=== PATIENT | female | born 1945 | race Caucasian/White ===

== ENCOUNTER → 2017-08-28 09:39 | Outpatient (CLI) | payer MEDICARE, SELFPAY ==
[2017-08-28 10:59] LABS: Estimated Glomerular Filt Rate > 60.0 mL/min (>60)
== END ==
PROVIDERS: PCP Internal Medicine; Visit Provider Internal Medicine
DX: M81.0 Age-related osteoporosis without current pathological fracture (principal)
CPT/HCPCS: 36415; 82565

== ENCOUNTER → 2017-09-19 07:49 | Outpatient (CLI) | payer MEDICARE, SELFPAY ==
[2017-09-19 10:02] LABS: Cholesterol 257 mg/dL (140-199); HDL Cholesterol 75 mg/dL (40-60); LDL Cholesterol Calculated 162 mg/dL (<100); Triglycerides 100 mg/dL (35-150)
== END ==
PROVIDERS: PCP Internal Medicine; Visit Provider Internal Medicine
DX: E78.00 Pure hypercholesterolemia, unspecified (principal)
CPT/HCPCS: 36415; 80061

== ENCOUNTER → 2018-01-16 09:38 | Outpatient (CLI) | payer MEDICARE, SELFPAY ==
--- NOTE | 2018-01-16 | DI.MG.S_ITS ---
BILATERAL DIGITAL SCREENING MAMMOGRAM 3D/2D WITH CAD: 01/16/2018 CLINICAL: Routine screening. Family history of breast cancer. Comparison is made to exams dated: 11/07/2016 mammogram, 11/04/2015 mammogram, and 11/02/2014 mammogram - [facility]. The tissue of both breasts is heterogeneously dense. This may lower the sensitivity of mammography. Current study was also evaluated with a Computer Aided Detection (CAD) system. No significant masses, calcifications, or other findings are seen in either breast. There has been no significant interval change. IMPRESSION: NEGATIVE There is no mammographic evidence of malignancy. A 1 year screening mammogram is recommended. This exam was interpreted at Station ID: [id number]. NOTE: For mammograms, a report in lay terms will be sent to the patient. Approximately 15% of breast malignancies will not be visualized mammographically. In the management of a palpable breast mass, a negative mammogram must not discourage biopsy of a clinically suspicious lesion. Electronically Signed By: Yasir elam/guillermina:01/16/2018 10:18:36 letter sent: Normal Exam ACR BI-RADS Category 1: Negative 3341F
== END ==
PROVIDERS: PCP Internal Medicine; Visit Provider Internal Medicine
DX: Z12.31 Encounter for screening mammogram for malignant neoplasm of breast (principal); Z80.3 Family history of malignant neoplasm of breast
CPT/HCPCS: 77063; 77067

== ENCOUNTER → 2018-12-11 19:04 | Outpatient (ROUT) | payer MEDICARE, SELFPAY ==
[2018-12-11 19:27] LABS: Alanine Aminotransferase 47 IU/L (<35); Albumin 3.8 g/dL (3.5-5.0); Albumin Globulin Ratio 1.7 (1.0-2.8); Alkaline Phosphatase 84 U/L (38-126); Aspartate Aminotransferase 28 IU/L (14-36); BUN Creatinine Ratio 25.7 (6-22); Bilirubin Total 0.3 mg/dL (0.2-1.3); Blood Urea Nitrogen 18 mg/dL (7-17); Calcium 9.7 mg/dL (8.4-10.2); Carbon Dioxide 28 mmol/L (22-32); Chloride 103 mmol/L (98-107); Cholesterol 192 mg/dL (140-199); Estimated Glomerular Filt Rate > 60.0 mL/min (>60); Globulin 2.3 g/dL (1.7-4.1); Glucose 121 mg/dL (80-110); HDL Cholesterol 63 mg/dL (40-60); HEMOLYSIS < 15 (0-50); LDL Cholesterol Calculated 92 mg/dL (<100); Sodium 139 mmol/L (137-145); Total Protein 6.1 g/dL (6.3-8.2); Triglycerides 186 mg/dL (35-150)
== END ==
PROVIDERS: PCP Internal Medicine; Visit Provider Physician Assistant
DX: E78.00 Pure hypercholesterolemia, unspecified (principal)
CPT/HCPCS: 80053; 80061

== ENCOUNTER → 2018-12-25 13:14 | Outpatient (CLI) | payer MEDICARE, SELFPAY | PROVIDERS: PCP Internal Medicine; Visit Provider Physician Assistant | DX: M85.88 Other specified disorders of bone density and structure, other site (principal); Z78.0 Asymptomatic menopausal state; Z82.62 Family history of osteoporosis | CPT/HCPCS: 77080 ==

== ENCOUNTER → 2019-02-04 09:49 | Outpatient (CLI) | payer MEDICARE, SELFPAY ==
--- NOTE | 2019-02-04 | DI.MG.S_ITS ---
BILATERAL DIGITAL SCREENING MAMMOGRAM 3D/2D WITH CAD: 02/04/2019 CLINICAL: Routine screening. Family history of breast cancer. Comparison is made to exams dated: 01/16/2018 mammogram, 11/07/2016 mammogram, 11/04/2015 mammogram, 11/02/2014 mammogram, 10/21/2013 mammogram, and 10/17/2012 mammogram - [facility]. The tissue of both breasts is heterogeneously dense. This may lower the sensitivity of mammography. Current study was also evaluated with a Computer Aided Detection (CAD) system. No significant masses, calcifications, or other findings are seen in either breast. There has been no significant interval change. IMPRESSION: NEGATIVE There is no mammographic evidence of malignancy. A 1 year screening mammogram is recommended. This exam was interpreted at Station ID: [id number]. NOTE: For mammograms, a report in lay terms will be sent to the patient. Approximately 15% of breast malignancies will not be visualized mammographically. In the management of a palpable breast mass, a negative mammogram must not discourage biopsy of a clinically suspicious lesion. Electronically Signed By: Khoa murray/guillermina:02/07/2019 08:52:13 letter sent: Normal Exam ACR BI-RADS Category 1: Negative 3341F
== END ==
PROVIDERS: PCP Physician Assistant; Visit Provider Internal Medicine
DX: Z12.31 Encounter for screening mammogram for malignant neoplasm of breast (principal); Z80.3 Family history of malignant neoplasm of breast
CPT/HCPCS: 77063; 77067

== ENCOUNTER 2019-11-11 13:32 | Emergency (ER) | payer MEDICARE, SELFPAY ==
[2019-11-11 13:39] VITALS: BP 154/68; PULSE 80; RESP 20; TEMP 36.5; O2SAT 97; BMI 20.7
--- NOTE | 2019-11-11 13:53 | ED.GENADULT ---
HPI - General Adult General Chief complaint: Urogenital-Female Stated complaint: prolapse including discharge and blood,pessary Time Seen by Provider: 11/11/19 13:40 Source: patient Mode of arrival: Wheelchair Limitations: no limitations History of Present Illness HPI narrative: 74-year-old female. Has a history of a hysterectomy. Has a prior history of a vaginal/bladder prolapse. Occasionally wears a pessary. Was having some issues with the pessary so her primary doctor advised her to wear it a little less often. She stated that earlier today she had a prolapse that she states was worse than normal. She states that now the pessary is not holding anything in place. She is also having some discharge in small amount of blood. States that when she is lying down things seem to retract however when she stands or tries to urinate or defecate the prolapse returns. Some discomfort when it is prolapsed out. This resolves somewhat when it returns. Related Data Allergies Allergy/AdvReac Type Severity Reaction Status Date / Time iodine [IODINE] Allergy Unknown SWELLING Verified 11/11/19 13:46 alendronate sodium AdvReac Unknown HEARTBURN Verified 11/11/19 13:46 [ALENDRONATE SODIUM] butorphanol [BUTORPHANOL] AdvReac Unknown NAUSEA/VOMI Verified 11/11/19 13:46 TING Review of Systems Constitutional Constitutional: Denies headache(s) ENT Ears, Nose, Mouth, and Throat: Denies headache(s) Cardiovascular Cardiovascular: Denies chest pain and Denies dyspnea Respiratory Respiratory: Denies dyspnea Gastrointestinal Gastrointestinal: Reports abdominal pain Genitourinary Genitourinary: Reports prolapse symptoms Integumentary/Breasts Skin/Breast: Denies rash Neurologic Neurologic: Denies behavioral changes and Denies headache(s) Psychiatric Psychiatric: Denies behavioral changes Hematologic/Lymphatic Hematologic/Lymphatic: Denies easy bleeding and Denies easy bruising Patient History Surgical History History of hysterectomy (Acute) Social History Smoking Status: Never smoker Smoking Status: Never smoker alcohol intake frequency: a few times a week Alcohol type: wine Substance Use Type: does not use Exam Initial Vital Signs Initial Vital Signs: Vital Signs Temperature 97.7 F 11/11/19 13:39 Pulse Rate 80 11/11/19 13:39 Respiratory Rate 20 11/11/19 13:39 Blood Pressure 154/68 H 11/11/19 13:39 Pulse Oximetry 97 11/11/19 13:39 Const General: cooperative HENMT Head: normal to inspection and normocephalic Resp Effort & Inspection: normal respiratory effort Cardio Rate: regular rate GI Inspection: non-distended Palpation: soft Other: Pessary in place, no prolapse noted on exam however when patient does bear down the prolapse does occur. Skin Lesions: no lesions Rashes: no rashes Extrem General: capillary refill normal Psych Appearance: grossly normal and well kempt Course Vital Signs Vital signs: Vital Signs - 8 hr 11/11/19 13:39 Temperature 97.7 F Pulse Rate 80 Respiratory Rate 20 Blood Pressure 154/68 H Pulse Oximetry 97 Medical Decision Making MDM Narrative Medical decision making narrative: I did discuss the case with Dr. ruiz with meat seafood associate who stated that she could see the patient tomorrow at 0145 in the clinic. I did discuss this with the patient. When the patient is lying down there is nothing prolapsed however when the patient bear down I did seemed to come around the pessary. Patient can and urinate. We did discuss thinks she could try at home if the symptoms were to worsen or if she had problems urinating however I told her to come back to the emergency department if any of these maneuvers did not work for her. She was given the information with regard to follow-up. She expressed understanding and agreement. Discharge Plan Departure Patient Disposition: Home Clinical Impression: Bladder prolapse Instructions: Cystocele/Rectocele Activity Restrictions/Additional Instructions: I did discuss your case with Dr. Ruiz. She is a meat seafood associate provider at the [facility] [place] [phone]. Their office is located here at the hospital. Dr. Ruiz like to see you in the clinic tomorrow. Your check in time will be 1:30 in the afternoon with an appointment time at 1:45. Please bring your pessary with you. Return to the emergency department for any new symptoms to include worsening pain, prolapse that does not resolve with lying down or you pushing or inability urinate. Referrals: Janice Linn PA-C [Primary Care Provider] -
--- NOTE | 2019-11-11 14:26 | PC.NURSE ---
defer to provider assessment.
[2019-11-11 14:44] VITALS: BP 120/57; PULSE 74; O2SAT 99
== END 2019-11-11 14:44 | disposition home or self-care (01) ==
PROVIDERS: Emergency Provider Emergency Medicine; PCP Physician Assistant
DX: N81.10 Cystocele, unspecified (principal); N89.8 Other specified noninflammatory disorders of vagina
CPT/HCPCS: 99281; 99282

== ENCOUNTER 2019-11-24 07:15 | Inpatient (IN) | payer MEDICARE, SELFPAY ==
[2019-11-24] VITALS (15 sets, daily range): BP systolic 106–123; BP diastolic 55–75; PULSE 66–85; RESP 14–18; TEMP 36.3–36.9; O2SAT 94–98; BMI 20.9
--- NOTE | 2019-11-24 07:19 | ED_ITS ---
HPI - General Adult General Chief complaint: Abdominal Pain Stated complaint: abdominal pain,unable to eat/drink Time Seen by Provider: 11/24/19 07:17 Source: patient Mode of arrival: Ambulatory Limitations: no limitations History of Present Illness HPI narrative: Patient is a 74-year-old female with a prior history of a hysterectomy and also a bladder prolapse who I evaluated in this emergency department approximately 2 weeks ago for in issue with bladder prolapse and also an issue with her pessary. She was discharged home and had a follow-up with metallurgical engineering technician. The pessary has since been removed and she has a another follow-up in approximately 1 week to discuss further options of treatment with regard to this. She is here for evaluation of generalized abdominal pain. This is been going on for approximately 4-5 days. She states that it mostly occurs when she eats however can occur at other times as well. Last bowel movement was approximately 24 hours ago. She states this bowel movement did improve her sy mptoms somewhat however the symptoms do not seem to be exactly associated with bowel movements. She states that she is not having any urinary symptoms. Urinating does not change her abdominal pain at all. She states she feels like she is emptying her bladder. She is not having any fevers. Has not been eating or drinking very much secondary to the discomfort. Related Data Home Medications Medication Instructions Recorded Confirmed atorvastatin 10 mg tablet 10 mg PO BEDTIME 11/12/19 11/24/19 oxyquinoline-sod.lauryl sulfat 1 each VAG BEDTIME 11/24/19 11/24/19 Allergies Allergy/AdvReac Type Severity Reaction Status Date / Time iodine [IODINE] Allergy Unknown SWELLING Verified 11/24/19 07:44 alendronate sodium AdvReac Unknown HEARTBURN Verified 11/24/19 07:44 [ALENDRONATE SODIUM] butorphanol [BUTORPHANOL] AdvReac Unknown NAUSEA/VOMI Verified 11/24/19 07:44 TING Review of Systems Constitutional Constitutional: Denies fever(s) Cardiovascular Cardiovascular: Denies chest pain and Denies dyspnea Respiratory Respiratory: Denies dyspnea Gastrointestinal Gastrointestinal: Reports abdominal pain, Denies change in bowel habits, Denies nausea and Denies vomiting Genitourinary Genitourinary: Denies dysuria, Denies urinary hesitancy, Denies urinary incontinence and Denies urinary urgency Genitourinary: Denies dysuria, Denies urinary incontinence, Denies urinary hesitancy and Denies urinary urgency Musculoskeletal Musculoskeletal: Denies arthralgias, Denies back pain and Denies myalgias Integumentary/Breasts Skin/Breast: Denies rash Neurologic Neurologic: Denies behavioral changes Psychiatric Psychiatric: Denies behavioral changes Hematologic/Lymphatic Hematologic/Lymphatic: Denies easy bleeding and Denies easy bruising Patient History Medical History History of benign brain tumor (Acute) Hypercholesterolemia (Acute) Surgical History History of hysterectomy (Acute) Status post vaginal hysterectomy (Acute) Social History household members: spouse Smoking Status: Never smoker alcohol intake: current Smoking Status: Never smoker alcohol intake frequency: a few times a week Alcohol type: wine Substance Use Type: does not use Exam Initial Vital Signs Initial Vital Signs: Vital Signs Temperature 97.9 F 11/24/19 07:15 Pulse Rate 84 11/24/19 07:15 Respiratory Rate 14 11/24/19 07:15 Blood Pressure 123/70 11/24/19 07:15 Pulse Oximetry 98 11/24/19 07:15 Const General: cooperative and comfortable Limitations: mental status not altered HENMO Head: normal to inspection and normocephalic Resp Effort & Inspection: normal respiratory effort Cardio Rate: regular rate GI Inspection: non-distended Palpation: soft, No firm and tender (Generalized without rebound or guarding) Skin Lesions: no lesions Rashes: no rashes Neuro General: patient alert, patient awake and patient oriented x3 Cognition: normal cognition Speech: speech normal Extrem General: normal to inspection and capillary refill normal Psych Appearance: grossly normal and well kempt Scores GCS Micky coma scale eye opening: Spontaneous [place] coma scale verbal response: Orientated Micky coma scale motor response: Obey commands [place] coma scale total score: 15 Course Orders Ordered: ED Orders 11/24/19 07:25 Complete Blood Count AUTO DIFF Stat Comprehensive Metabolic Panel Stat Lactate (Lactic Acid) Stat Lipase Stat 11/24/19 08:29 CT abdomen pelvis w con Stat 11/24/19 09:17 Education, smoking cessation ONGOING 11/24/19 09:42 COVID19 -ED/INPAT/OR/L&D Stat 11/25/19 05:00 BMP [Basic Metabolic Panel] DAILY Complete Blood Count AUTO DIFF DAILY Magnesium DAILY Phosphorous DAILY 11/26/19 05:00 BMP [Basic Metabolic Panel] DAILY Complete Blood Count AUTO DIFF DAILY Magnesium DAILY Phosphorous DAILY 11/27/19 05:00 BMP [Basic Metabolic Panel] DAILY Complete Blood Count AUTO DIFF DAILY Magnesium DAILY Phosphorous DAILY Hydromorphone HCl (Dilaudid) 0.5 mg IV Q6HR PRN PRN Reason: Pain, Moderate (4-6) Sodium Chloride (Normal Saline 0.9%) 1,000 mls @ 125 mls/hr IV CONT JODY Last Infusion: 11/24/19 13:18 Dose: 125 mls/hr Documented by: Infusion: 11/24/19 10:53 Dose: 0 mls/hr Documented by: Admin: 11/24/19 10:32 Dose: 125 mls/hr Documented by: EDUARDO Naloxone HCl (Narcan) 0.2 mg IV Q2MIN PRN PRN Reason: Opiate Reversal Ondansetron HCl (Zofran) 4 mg IV Q8HR PRN PRN Reason: Nausea And Vomiting Discontinued Medications Diphenhydramine HCl (Benadryl) 25 mg IV NOW ONE Stop: 11/24/19 07:38 Last Admin: 11/24/19 07:53 Dose: 25 mg Documented by: EDUARDO Sodium Chloride (Normal Saline 0.9%) 1,000 mls @ 1,000 mls/hr IV BOLUS ONE Stop: 11/24/19 08:26 Last Infusion: 11/24/19 09:20 Dose: 0 mls/hr Documented by: Admin: 11/24/19 07:53 Dose: 1,000 mls/hr Documented by: EDUARDO Methylprednisolone (Solu-Medrol) 40 mg IV NOW ONE Stop: 11/24/19 07:46 Last Admin: 11/24/19 07:54 Dose: 40 mg Documented by: EDUARDO Vital Signs Vital signs: Vital Signs - 8 hr 11/24/19 07:15 11/24/19 08:48 11/24/19 09:00 Temperature 97.9 F Pulse Rate 84 73 67 Respiratory Rate 14 16 Blood Pressure 123/70 110/55 L Pulse Oximetry 98 97 97 Medical Decision Making Lab Data Lab results reviewed: Yes I reviewed the patient's lab results. Result diagrams: 11/24/19 07:25 11/24/19 07:25 Labs: Lab Results 11/24/19 11/24/19 11/24/19 Range/Units 07:25 07:25 07:25 WBC 15.4 H (4.5-11.0) X10^3/uL RBC 4.78 (4.0-5.2) X10^6/uL Hgb 15.3 (12.0-16.0) g/dL Hct 43.8 (36-46) % MCV 91.7 (80-100) fL MCH 32.1 (26-34) PG MCHC 35.0 (30-36) % RDW 13.1 (11.6-14.8) % Plt Count 488 H (150-400) X10^3/uL Neut % (Auto) 85.3 H (50-75) % Lymph % (Auto) 6.4 L (25-40) % [place] % (Auto) 7.9 (3-14) % Eos % (Auto) 0.1 L (2-4) % Baso % (Auto) 0.3 (0-2) % Neut # (Auto) 25926 H (2528-1688) /uL Lymph # (Auto) 1000 L (6785-7320) /uL [place] # (Auto) 1200 H (0-900) /uL Eos # (Auto) 0 (0-450) /uL Baso # (Auto) 0 (0-100) /uL Sodium 133 L (137-145) mmol/L Potassium 4.3 (3.4-5.1) mmol/L Chloride 101 (98-107) mmol/L Carbon Dioxide 24 (22-32) mmol/L BUN 28 H (7-17) mg/dL Creatinine 0.70 (0.52-1.04) mg/dL Estimated GFR > 60.0 (>60) mL/min BUN/Creatinine Ratio 40.0 H (6-22) Glucose 136 H (80-110) mg/dL Lactate 1.1 (0.7-2.1) mmol/L Calcium 9.4 (8.4-10.2) mg/dL Total Bilirubin 0.8 (0.2-1.3) mg/dL AST 31 (14-36) IU/L ALT 25 (<35) IU/L Alkaline Phosphatase 87 (38-126) U/L Total Protein 7.6 (6.3-8.2) g/dL Albumin 4.2 (3.5-5.0) g/dL Globulin 3.4 (1.7-4.1) g/dL Albumin/Globulin Ratio 1.2 (1.0-2.8) Lipase 76 (23-300) U/L Imaging Data CT scan - abdomen/pelvis: Radiologist's Impression: [address] [address] [address] Scan Report Signed Patient: Julienne Means EMR#: [id number] : 5Acct:[id number] Age/Sex: 74 / FDate of Service: 11/24/19 Loc: ED Accession Number: [id number] Procedure: CT abdomen pelvis w con Ordering Provider: Samuel Umana D.O. PROCEDURE: CT ABDOMEN PELVIS W CON INDICATIONS: Generalized abdominal pain TECHNIQUE: After the administration of intravenous contrast, 5 mm thick sections acquired from the diaphragm to the symphysis. 5 mm coronal and sagittal reformats were acquired. For radiation dose reduction, the following was used: automated exposure control, adjustment of mA and/or kV according to patient size. COMPARISON: None. FINDINGS: Image quality: Excellent. ABDOMEN: Lung bases: Lung bases are clear. There is a 1 cm nodule in the left lower lobe series 5, image 12. No prior imaging of this region is available. Recommend CT of the chest. Solid organs: Liver is normal in size and enhancement. Gallbladder demonstrat es multiple layering stones. No gallbladder wall thickening or pericholecystic fluid. . Biliary system is non dilated. Pancreas enhances normally. Spleen is normal in size and enhancement. No adrenal nodules. Kidneys demonstrate normal size and enhancement, without hydronephrosis. Peritoneum and bowel: Small bowel loops are diffusely dilated with hyperenhancement of the mucosa. These findings are consistent with small bowel obstruction. The transition point appears to be in the distal small bowel at the ileo colic valve or cecum. The right colon has some mucosal thickening but no focal mass, cannot exclude neoplasm at this location. Recommend colonoscopy when clinically indicated.. There is fluid in the right colic gutter. No free fluid or air. Nodes and vessels: No retroperitoneal or mesenteric adenopathy by size criteria. Aorta and inferior vena cava are normal in size. Miscellaneous: No ventral hernias. PELVIS: Genitourinary: Bladder wall thickness is normal. Miscellaneous: No inguinal hernias or adenopathy. Bones: No suspicious bony lesions to suggest fracture or neoplasm.. There is loss of the disc space and grade 1 anterolisthesis at L5-S1 with foraminal stenosis at this level. IMPRESSION: 1. Small-bowel obstruction with a transition point distally at the ileocolic valve or cecum. The cecum and right colon demonstrates some mucosal thickening but no focal mass is identified. However cannot exclude a neoplasm at this location. Recommend colonoscopy when clinically indicated. 2. 1 cm nodule in the left lower lobe not previously seen. Recommend CT of the chest for full evaluation. 3. Degenerative disc disease of L5-S1. Findings were discussed with Dr. Eddie amato in the emergency department at 9:00 a.m. On 11/24/2019. Dictated by: Zuhair Hussein M.D. on 11/24/2019 at 8:40 Approved by: Zuhair Hussein M.D. on 11/24/2019 at 9:05 [facility] Narrative Medical decision making narrative: Patient has small bowel obstruction with a CT scan. Also has leukocytosis but normal lactate. She is not having vomiting. Has had a hysterectomy and also lysis of adhesions in the past. Afebrile. Discussed the case with Dr. Helton with General surgery. Will admit for further evaluation and treatment. Discussed the admission and diagnosis with the patient. She expressed understanding agreement. Discharge Plan Departure Patient Disposition: Admitted As Inpatient Clinical Impression: Small bowel obstruction, Lung nodule Discharge Date/Time: 11/24/19 11:02 Instructions: Small Bowel Obstruction Referrals: Janice Linn PA-C [Primary Care Provider] - Admit Date/Time: 11/24/19 09:17 Admit Provider: Miguel Helton
[2019-11-24 07:35] LABS: Add Manual Diff / Slide Review NO; Basophils Absolute Auto 0 /uL (0-100); Basophils Percent Auto 0.3 % (0-2); Eosinophils Absolute Auto 0 /uL (0-450); Eosinophils Percent Auto 0.1 % (2-4); Hematocrit 43.8 % (36-46); Hemoglobin 15.3 g/dL (12.0-16.0); Lymphocytes Absolute Auto 1000 /uL (1100-4500); Lymphocytes Percent Auto 6.4 % (25-40); Mean Corpuscular Hemoglobin 32.1 PG (26-34); Mean Corpuscular Volume 91.7 fL (80-100); Monocytes Absolute Auto 1200 /uL (0-900); Monocytes Percent Auto 7.9 % (3-14); Neutrophils Absolute Auto 13100 /uL (1500-7000); Neutrophils Percent Auto 85.3 % (50-75); Platelet Count 488 X10^3/uL (150-400); Red Blood Cell Count 4.78 X10^6/uL (4.0-5.2); Red Cell Distribution Width 13.1 % (11.6-14.8); White Blood Cell Count 15.4 X10^3/uL (4.5-11.0)
[2019-11-24 07:45] LABS: Alanine Aminotransferase 25 IU/L (<35); Albumin 4.2 g/dL (3.5-5.0); Albumin Globulin Ratio 1.2 (1.0-2.8); Alkaline Phosphatase 87 U/L (38-126); Aspartate Aminotransferase 31 IU/L (14-36); Bilirubin Total 0.8 mg/dL (0.2-1.3); Blood Urea Nitrogen 28 mg/dL (7-17); Calcium 9.4 mg/dL (8.4-10.2); Carbon Dioxide 24 mmol/L (22-32); Chloride 101 mmol/L (98-107); Estimated Glomerular Filt Rate > 60.0 mL/min (>60); Globulin 3.4 g/dL (1.7-4.1); Glucose 136 mg/dL (80-110); HEMOLYSIS 31 (0-50); Lipase 76 U/L (23-300); Potassium 4.3 mmol/L (3.4-5.1); Sodium 133 mmol/L (137-145); Total Protein 7.6 g/dL (6.3-8.2)
[2019-11-24 07:46] LABS: Lactate (Lactic Acid) 1.1 mmol/L (0.7-2.1)
[2019-11-24] MEDS: diphenhydrAMINE 50 MG/ML VIAL 25 MG IV (07:53)
[2019-11-24] MEDS: SODIUM CHLORIDE 0.9% 1,000 ML 1000 ML IV (07:53)
--- NOTE | 2019-11-24 08:29 | DI.CT.S_ITS ---
PROCEDURE: CT ABDOMEN PELVIS W CON INDICATIONS: Generalized abdominal pain TECHNIQUE: After the administration of intravenous contrast, 5 mm thick sections acquired from the diaphragm to the symphysis. 5 mm coronal and sagittal reformats were acquired. For radiation dose reduction, the following was used: automated exposure control, adjustment of mA and/or kV according to patient size. COMPARISON: None. FINDINGS: Image quality: Excellent. ABDOMEN: Lung bases: Lung bases are clear. There is a 1 cm nodule in the left lower lobe series 5, image 12. No prior imaging of this region is available. Recommend CT of the chest. Solid organs: Liver is normal in size and enhancement. Gallbladder demonstrates multiple layering stones. No gallbladder wall thickening or pericholecystic fluid. . Biliary system is non dilated. Pancreas enhances normally. Spleen is normal in size and enhancement. No adrenal nodules. Kidneys demonstrate normal size and enhancement, without hydronephrosis. Peritoneum and bowel: Small bowel loops are diffusely dilated with hyperenhancement of the mucosa. These findings are consistent with small bowel obstruction. The transition point appears to be in the distal small bowel at the ileo colic valve or cecum. The right colon has some mucosal thickening but no focal mass, cannot exclude neoplasm at this location. Recommend colonoscopy when clinically indicated.. There is fluid in the right colic gutter. No free fluid or air. Nodes and vessels: No retroperitoneal or mesenteric adenopathy by size criteria. Aorta and inferior vena cava are normal in size. Miscellaneous: No ventral hernias. PELVIS: Genitourinary: Bladder wall thickness is normal. Miscellaneous: No inguinal hernias or adenopathy. Bones: No suspicious bony lesions to suggest fracture or neoplasm.. There is loss of the disc space and grade 1 anterolisthesis at L5-S1 with foraminal stenosis at this level. IMPRESSION: 1. Small-bowel obstruction with a transition point distally at the ileocolic valve or cecum. The cecum and right colon demonstrates some mucosal thickening but no focal mass is identified. However cannot exclude a neoplasm at this location. Recommend colonoscopy when clinically indicated. 2. 1 cm nodule in the left lower lobe not previously seen. Recommend CT of the chest for full evaluation. 3. Degenerative disc disease of L5-S1. Findings were discussed with Dr. Eddie amato in the emergency department at 9:00 a.m. On 11/24/2019. Dictated by: Zuhair Hussein M.D. on 11/24/2019 at 8:40 Approved by: Zuhair Hussein M.D. on 11/24/2019 at 9:05
--- NOTE | 2019-11-24 09:18 | DI.RAD.S_ITS ---
PROCEDURE: FL SMALL BOWEL FOLLOW THROUGH INDICATIONS: small bowel obstruction. Perform with gastrografin COMPARISON: None. FINDINGS: KUB: Preprocedural die storage clerk film demonstrates a normal bowel gas pattern. No suspicious abdominal calcifications. Visualized solid organ contours appear normal. No suspicious bony abnormalities. Small bowel: There is abnormal delayed transit time of barium through only a moderate portion of the small bowel. Small bowel loops are of moderately dilated caliber throughout where contrast has advanced. It is estimated that only approximately 1/2 of the length of the small bowel has been opacified over the entire course of the examination, almost 5 hours from initiation of the study.. Mucosal folds are smooth and of normal thickness. No strictures, intraluminal masses, or extrinsic mass effects are noted. The terminal ileum is not identified. IMPRESSION: Persistent high-grade small bowel obstruction. At points during the examination the patient suffered emesis of significant quantities of oral contrast from the gastric lumen. A discrete etiology of this finding is not identified. After almost 5 hours of evaluation with little progression beyond approximately 1/2 of the length of the small bowel the study was terminated. Dictated by: Jacob Paulino M.D. on 11/24/2019 at 17:41 Approved by: Jacob Paulino M.D. on 11/24/2019 at 17:43
[2019-11-24 10:25] LABS: COVID19 -Nasal RAPID Negative (Negative)
[2019-11-24] MEDS: SODIUM CHLORIDE 0.9% 1,000 ML 125 ML IV ×2 (10:32→21:04)
--- NOTE | 2019-11-24 11:11 | PC.NURSE ---
Day shift: Pt on unit from ED at approx 1100. Covid negative. Oriented to room and call light. Having a small bowel fallow through in approx 30 minutes. Pt denies any nausea or pain at this time. Spouse in room for support.
--- NOTE | 2019-11-24 12:32 | PC.NURSE ---
Day shift: Remains off unit for imaging at this time ([id number]).
--- NOTE | 2019-11-24 13:10 | PC.NURSE ---
Day shift: Pt back on unit at approx 1310. Pt to remain NPO.
--- NOTE | 2019-11-24 13:48 | PC.NURSE ---
Day shift: approx 10 minutes after Pt talked with MD she had 500ml emesis. Given a wet washcloth and new emesis bag. Pt does report feeling a little better after throwing up. Call light in reach. IV fluids per MD. Pt will be going back for GI imaging at approx 1530 today. Will continue to monitor.
--- NOTE | 2019-11-24 13:50 | P.HP_ITS ---
History of Present Illness History of Present Illness Date Patient Seen: 11/24/19 Time Patient Seen: 13:51 Chief complaint: abdominal pain,unable to eat/drink Narrative: 74-year-old woman seen hospital setting in consultation for a small- bowel obstruction. She has been feeling progressive abdominal distension nausea and bloating for the past 4 days. She had not had emesis prior to arrival she is passing a very small amount of flatus and her last bowel movement was yesterday morning. CT abdomen pelvis obtained by the emergency room demonstrates small bowel obstruction multiple dilated loops of small bowel air- fluid levels transition point is perhaps in the right lower quadrant. History of hysterectomy a prior small-bowel obstruction which was managed with laparoscopic lysis of adhesions. No major cardiopulmonary or renal disease. Patient History Medical History History of benign brain tumor (Acute) Hypercholesterolemia (Acute) Surgical History History of hysterectomy (Acute) Status post vaginal hysterectomy (Acute) Family & Social History Social History: household members spouse Prior Living Arrangements House Safety & Behavioral: Feels Safe in Current Yes Environment Been Physically Hurt or No Threatened By a Person Suicidal Ideation Description None Tobacco & Substance use: Smoking Status Never smoker alcohol intake current alcohol intake frequency a few times a week Substance Use Type does not use Meds Home Medications and Allergies Home Medications Medication Instructions Recorded Confirmed Type atorvastatin 10 mg tablet 10 mg PO BEDTIME 11/12/19 11/24/19 History oxyquinoline-sod.lauryl sulfat 1 each VAG BEDTIME 11/24/19 11/24/19 History Allergies Allergy/AdvReac Type Severity Reaction Status Date / Time iodine [IODINE] Allergy Unknown SWELLING Verified 11/24/19 07:44 alendronate sodium AdvReac Unknown HEARTBURN Verified 11/24/19 07:44 [ALENDRONATE SODIUM] butorphanol [BUTORPHANOL] AdvReac Unknown NAUSEA/VOMI Verified 11/24/19 07:44 TING Review of Systems Review of Systems Narrative: A 10 point review of systems is negative except as noted in the HPI Exam Vital Signs (past 8 hours): - 11/24/19 07:15 11/24/19 08:48 11/24/19 09:00 Temperature 97.9 F Pulse Rate 84 73 67 Respiratory Rate 14 16 Blood Pressure 123/70 110/55 L Pulse Oximetry 98 97 97 11/24/19 09:29 11/24/19 09:30 11/24/19 10:01 Temperature Pulse Rate 69 66 79 Respiratory Rate Blood Pressure 112/59 L Pulse Oximetry 97 97 94 11/24/19 10:26 11/24/19 10:30 11/24/19 11:15 Temperature Pulse Rate 72 78 Respiratory Rate 18 Blood Pressure 108/57 L 107/60 Pulse Oximetry 97 97 98 11/24/19 11:32 Temperature 98.5 F Pulse Rate 78 Respiratory Rate 18 Blood Pressure 123/75 Pulse Oximetry 97 Oxygen Delivery Method Room Air Oxygen Flow Rate 0 Narrative Exam Narrative: General-no acute distress, thin elderly woman HEENT-moist mucous membranes, no scleral icterus Neck-supple, no lymphadenopathy Chest- non labored respirations, clear to auscultation bilaterally Cardiac-regular rate no peripheral edema Abdomen-distended and uncomfortable, no peritonitis Extremities-warm, well perfused Neurological-alert and oriented, no focal deficits Objective Labs Result Diagrams: 11/24/19 07:25 11/24/19 07:25 Labs: Laboratory Results - last 24 hr 11/24/19 11/24/19 11/24/19 07:25 07:25 07:25 WBC 15.4 H RBC 4.78 Hgb 15.3 Hct 43.8 MCV 91.7 MCH 32.1 MCHC 35.0 RDW 13.1 Plt Count 488 H Neut % (Auto) 85.3 H Lymph % (Auto) 6.4 L [place] % (Auto) 7.9 Eos % (Auto) 0.1 L Baso % (Auto) 0.3 Neut # (Auto) 21855 H Lymph # (Auto) 1000 L [place] # (Auto) 1200 H Eos # (Auto) 0 Baso # (Auto) 0 Sodium 133 L Potassium 4.3 Chloride 101 Carbon Dioxide 24 BUN 28 H Creatinine 0.70 Estimated GFR > 60.0 BUN/Creatinine Ratio 40.0 H Glucose 136 H Lactate 1.1 Calcium 9.4 Total Bilirubin 0.8 AST 31 ALT 25 Alkaline Phosphatase 87 Total Protein 7.6 Albumin 4.2 Globulin 3.4 Albumin/Globulin Ratio 1.2 Lipase 76 COVID-19 PCR 11/24/19 09:42 WBC RBC Hgb Hct MCV MCH MCHC RDW Plt Count Neut % (Auto) Lymph % (Auto) [place] % (Auto) Eos % (Auto) Baso % (Auto) Neut # (Auto) Lymph # (Auto) [place] # (Auto) Eos # (Auto) Baso # (Auto) Sodium Potassium Chloride Carbon Dioxide BUN Creatinine Estimated GFR BUN/Creatinine Ratio Glucose Lactate Calcium Total Bilirubin AST ALT Alkaline Phosphatase Total Protein Albumin Globulin Albumin/Globulin Ratio Lipase COVID-19 PCR Negative Assessment & Plan Assessment & Plan narrative: 74-year-old woman with an adhesive small-bowel obstruction. She is distended without peritonitis, afebrile nontoxic, WBC 16. I reviewed her CT scan demonstrates small bowel obstruction with small amount of free fluid. No urgent indication for surgical intervention will attempt non operative management. Plan -NPO/IVF -Small bowel follow through -SCDs -NGT if persistent emesis Quality VTE Deep Vein Thrombosis/Pulmonary Embolism Present on Admission: No
[2019-11-24] MEDS: ONDANSETRON 4 MG/2 ML INJ IV (16:58)
--- NOTE | 2019-11-24 17:18 | PC.NURSE ---
pt ambulated in hallways twice before her 1645 x-ray. then she vomited 600cc.
[2019-11-25] VITALS (11 sets, daily range): BP systolic 95–122; BP diastolic 55–74; PULSE 59–71; RESP 15–20; TEMP 36.3–37.4; O2SAT 96–99
--- NOTE | 2019-11-25 00:34 | PC.NURSE ---
Addendum entered by Cristal Mario R.N. 11/25/19 05:17: States she passed flatus this morning. Denies pain. States she slept well. Original Note: 5276 patient seen and assessed. Is alert and oriented. Breath sounds diminished but CTA with RA sat of 98%. HRR. Denies nausea. BT present in upper quadrants and hypoactive in lower quadrants. Abdomen is soft and non tender but distended. Denies dysuria, frequency or urgency with urination. Is independent with bed mobility and up to bathroom with SBA. Denies pain. Bilateral calf SCD's applied. Fall risk score is moderate and bed alarm is activated.
[2019-11-25] MEDS: SODIUM CHLORIDE 0.9% 1,000 ML 125 ML IV ×3 (05:12→21:17)
[2019-11-25 06:20] LABS: Add Manual Diff / Slide Review NO; Basophils Absolute Auto 0 /uL (0-100); Basophils Percent Auto 0.4 % (0-2); Eosinophils Absolute Auto 0 /uL (0-450); Eosinophils Percent Auto 0.1 % (2-4); Hematocrit 36.3 % (36-46); Hemoglobin 12.6 g/dL (12.0-16.0); Lymphocytes Absolute Auto 1100 /uL (1100-4500); Lymphocytes Percent Auto 14.2 % (25-40); Mean Corpuscular HGB Conc 34.8 % (30-36); Mean Corpuscular Volume 92.2 fL (80-100); Monocytes Absolute Auto 1000 /uL (0-900); Monocytes Percent Auto 13.7 % (3-14); Neutrophils Absolute Auto 5400 /uL (1500-7000); Neutrophils Percent Auto 71.6 % (50-75); Platelet Count 365 X10^3/uL (150-400); Red Blood Cell Count 3.94 X10^6/uL (4.0-5.2); Red Cell Distribution Width 13.3 % (11.6-14.8); White Blood Cell Count 7.5 X10^3/uL (4.5-11.0)
[2019-11-25 06:31] LABS: BUN Creatinine Ratio 42.5 (6-22); Blood Urea Nitrogen 31 mg/dL (7-17); Calcium 7.7 mg/dL (8.4-10.2); Carbon Dioxide 30 mmol/L (22-32); Chloride 111 mmol/L (98-107); Estimated Glomerular Filt Rate > 60.0 mL/min (>60); Glucose 101 mg/dL (80-110); HEMOLYSIS < 15 (0-50); Magnesium 2.6 mg/dL (1.6-2.3); Phosphorous 2.8 mg/dL (2.8-4.1); Potassium 3.7 mmol/L (3.4-5.1); Sodium 142 mmol/L (137-145)
--- NOTE | 2019-11-25 09:20 | CM.DANOTE ---
Addendum entered by Kimberley Erwin R.N. 11/25/19 10:43: Patient will be having surgery later this afternoon. Original Note: DCP: Case received, EMR reviewed and met with patient. Introduced self and role. Was able to obtain information from patient regarding her baseline activity status and living situation prior to hospitalization. DCP assessment completed with information currently available. Patient is a 75 year old female who admitted yesterday morning to the care of the surgical team. PCP: EDGARDO Garces. Payer: confirmed: [employer] Medicare. Patient came to the hospital via private vehicle secondary to abdominal pain. She was diagnosed with a small bowel obstruction. She is currently getting fluids, possible surgery. Met with patient in her room. She is pleasant, alert and oriented, independent at baseline. She resides with her spouse, Terrell, here in [place]. P: DCP to continue to follow. Patient should be able to go home when she is medically stable. Kimberley Erwin RN/Brake Operator
--- NOTE | 2019-11-25 10:59 | PC.NURSE ---
Day shift: Pt has been ambulating in halls w/ her spouse. Has made approx 3 entire loops from 1000 to 1100. Pt stated that she does not want to have surgery today and would like to wait and see what happens tomorrow. Pt has shower today. Independent in room. No pain or nausea at this time. Pt did have a BM at approx 0930 today. Will continue to monitor. Spouse in room for support.
--- NOTE | 2019-11-25 12:51 | DI.RAD.S_ITS ---
PROCEDURE: XR ABDOMEN 1V INDICATIONS: SBO? BM following SBFT TECHNIQUE: One view of the abdomen acquired. COMPARISON: None. FINDINGS: Surgical changes and devices: None. Bowel: Oral contrast material is seen throughout the colon extending to rectum. Air distended small bowel loops are not noted throughout the abdomen. No oral contrast extravasation. No gross free air. Soft tissues: No suspicious abdominal calcifications. Visualized solid organ contours appear normal in size. Bones: No suspicious bony lesions. IMPRESSION: Oral contrast material is seen extending to the rectum. Finding is suggestive of resolving small bowel obstruction. No gross free air. Dictated by: Aravind Soni M.D. on 11/25/2019 at 13:14 Approved by: Aravind Soni M.D. on 11/25/2019 at 13:15
--- NOTE | 2019-11-25 13:03 | DIET.PN ---
Dietary Progress Note Assessment: 74y F admitted c adhesive small bowel obstruction. Pt has been feeling progressive abdominal distension nausea and bloating for the past 4 days. Pt experiencing decreased appetite for the past couple of days however pt feels it is related to her small bowel obstruction. Pt says prior to this situation her appetite has been great and she hasn't experienced any wt loss. Pt says she is feeling hungry at the moment. HT: 166.37 WT:57.969 BMI: 20.9 Labs: BUN H 28 on admit MNA:11 at risk Ralph: 23 Nutrition Diagnosis: Inadequate oral intake r/t NPO diet for small bowel obstruction AEB patient being NPO for 2 days and patient reports hunger for past 24h. Interventions: 1. Steve bid once pt is progressed to clear liquid diet to support and protein and micronutrient needs. Providing 61% protein needs. Diet Order: NPO EER:1450 kcal( 25kcal/kg) 52g Pro (0.9g/kg) Monitoring/Evaluations: Follow pts to determine if surgery is necessary and reassess
--- NOTE | 2019-11-25 18:11 | PM.PN.1 ---
Subjective Subjective Date Patient Seen: 11/25/19 Time Patient Seen: 18:11 Interval history: Had a small bowel follow through yesterday that was stopped after 5 h as there was no passage of contrast. Later today they had a bowel movement a repeat XR demonstrates contrast in the colon. Her abdominal pain has improved. Exam Vital Signs (past 8 hours): - 11/25/19 11:40 11/25/19 12:04 11/25/19 15:27 Temperature 98.3 F Pulse Rate 67 Respiratory Rate 15 Blood Pressure 100/67 Pulse Oximetry 98 98 99 11/25/19 15:45 Temperature 97.8 F Pulse Rate 61 Respiratory Rate 20 Blood Pressure 102/63 Pulse Oximetry 97 Oxygen Delivery Method Room Air Oxygen Flow Rate 0 Narrative Exam Narrative: Gen-Adult woman alert and oriented Abdomen-Distended but compressible no peritonitis Objective Labs Result Diagrams: 11/25/19 06:05 11/25/19 06:05 Labs: Laboratory Results - last 24 hr 11/25/19 11/25/19 06:05 06:05 WBC 7.5 D RBC 3.94 L Hgb 12.6 Hct 36.3 MCV 92.2 MCH 32.0 MCHC 34.8 RDW 13.3 Plt Count 365 Neut % (Auto) 71.6 Lymph % (Auto) 14.2 L [place] % (Auto) 13.7 Eos % (Auto) 0.1 L Baso % (Auto) 0.4 Neut # (Auto) 5400 Lymph # (Auto) 1100 [place] # (Auto) 1000 H Eos # (Auto) 0 Baso # (Auto) 0 Sodium 142 Potassium 3.7 Chloride 111 H Carbon Dioxide 30 BUN 31 H Creatinine 0.73 Estimated GFR > 60.0 BUN/Creatinine Ratio 42.5 H Glucose 101 Calcium 7.7 L Phosphorus 2.8 Magnesium 2.6 H Assessment & Plan Assessment & Plan narrative: 74-year-old woman with an adhesive small bowel obstruction that is improving with conservative therapy. Reviewed her abdominal x-ray demonstrates passage of contrast from the small bowel follow-through which is now in the rectum. -clear liquid diet -SCDs -OOB and ambulate Quality VTE Deep Vein Thrombosis/Pulmonary Embolism Present on Admission: No
--- NOTE | 2019-11-25 22:29 | PC.NURSE ---
Evening note: Julienne doing well tonight, passing flatus, had BM. Tolerating clear liquids with no reported pain or nausea. VS stable. Ambulated hallways. Hopeful to DC tomorrow.
[2019-11-26] VITALS (9 sets, daily range): BP systolic 127–142; BP diastolic 67–76; PULSE 62–80; RESP 18–20; TEMP 36.2–37.6; O2SAT 96–99
--- NOTE | 2019-11-26 00:12 | PC.NURSE ---
Addendum entered by Cristal Mario R.N. 11/26/19 01:55: Complains of 5/10 mid abdominal pain along with nausea. States she feels awful. Medicated with Dilaudid + Zofran. Does have low grade temp of 99.7, HR of 80 and BP elevated at 142/67. Original Note: 2327 Patient seen and assessed. Breath sounds CTA with RA sat of 98%. HRR. Denies nausea. BT hyperactive and has been having liquid brown stools. Abdomen is soft, mildly tender and still distended but denies pain. Denies dysuria, frequency or urgency with urination. Able to move self in bed and is up to bathroom independent/SBA for safety. Wearing bilateral calf SCD's. Fall risk score is moderate; bed alarm is activated for night time safety.
[2019-11-26] MEDS: HYDROMORPHONE 0.5 MG INJ IV (01:48)
[2019-11-26] MEDS: ONDANSETRON 4 MG/2 ML INJ IV ×2 (01:50→09:16)
[2019-11-26] MEDS: SODIUM CHLORIDE 0.9% 1,000 ML 125 ML IV ×3 (05:07→21:39)
[2019-11-26 06:36] LABS: Add Manual Diff / Slide Review NO; Basophils Absolute Auto 0 /uL (0-100); Basophils Percent Auto 0.4 % (0-2); Eosinophils Absolute Auto 0 /uL (0-450); Eosinophils Percent Auto 0.4 % (2-4); Hematocrit 36.9 % (36-46); Hemoglobin 12.6 g/dL (12.0-16.0); Lymphocytes Absolute Auto 900 /uL (1100-4500); Lymphocytes Percent Auto 11.9 % (25-40); Mean Corpuscular HGB Conc 34.2 % (30-36); Mean Corpuscular Hemoglobin 31.8 PG (26-34); Mean Corpuscular Volume 92.9 fL (80-100); Monocytes Absolute Auto 800 /uL (0-900); Monocytes Percent Auto 10.9 % (3-14); Neutrophils Absolute Auto 5800 /uL (1500-7000); Neutrophils Percent Auto 76.4 % (50-75); Platelet Count 370 X10^3/uL (150-400); Red Blood Cell Count 3.98 X10^6/uL (4.0-5.2); Red Cell Distribution Width 13.3 % (11.6-14.8); White Blood Cell Count 7.6 X10^3/uL (4.5-11.0)
[2019-11-26 06:53] LABS: BUN Creatinine Ratio 41.5 (6-22); Blood Urea Nitrogen 22 mg/dL (7-17); Calcium 7.4 mg/dL (8.4-10.2); Carbon Dioxide 26 mmol/L (22-32); Chloride 111 mmol/L (98-107); Estimated Glomerular Filt Rate > 60.0 mL/min (>60); Glucose 95 mg/dL (80-110); HEMOLYSIS < 15 (0-50); Magnesium 2.5 mg/dL (1.6-2.3); Phosphorous 2.6 mg/dL (2.8-4.1); Potassium 3.7 mmol/L (3.4-5.1); Sodium 139 mmol/L (137-145)
--- NOTE | 2019-11-26 09:05 | P.PN_ITS ---
Subjective Subjective Date Patient Seen: 11/26/19 Time Patient Seen: 09:05 Interval history: Passing flatus having multiple bowel movements. Continues to have moderate abdominal pain secondary to distension, nausea no vomiting Exam Vital Signs (past 8 hours): - 11/26/19 01:50 11/26/19 05:18 11/26/19 07:20 Temperature 99.7 F H 97.2 F L 98.4 F Pulse Rate 80 62 73 Respiratory Rate 18 18 19 Blood Pressure 142/67 H 127/70 138/74 Pulse Oximetry 97 97 98 11/26/19 07:50 Temperature Pulse Rate Respiratory Rate Blood Pressure Pulse Oximetry 98 Oxygen Delivery Method Room Air Oxygen Flow Rate 0 Narrative Exam Narrative: General elderly female alert oriented no acute distress Abdomen distended but less than yesterday compressible no peritonitis Objective Labs Result Diagrams: 11/26/19 06:13 11/26/19 06:13 Labs: Laboratory Results - last 24 hr 11/26/19 11/26/19 06:13 06:13 WBC 7.6 RBC 3.98 L Hgb 12.6 Hct 36.9 MCV 92.9 MCH 31.8 MCHC 34.2 RDW 13.3 Plt Count 370 Neut % (Auto) 76.4 H Lymph % (Auto) 11.9 L [place] % (Auto) 10.9 Eos % (Auto) 0.4 L Baso % (Auto) 0.4 Neut # (Auto) 5800 Lymph # (Auto) 900 L [place] # (Auto) 800 Eos # (Auto) 0 Baso # (Auto) 0 Sodium 139 Potassium 3.7 Chloride 111 H Carbon Dioxide 26 BUN 22 H Creatinine 0.53 Estimated GFR > 60.0 BUN/Creatinine Ratio 41.5 H Glucose 95 Calcium 7.4 L Phosphorus 2.6 L Magnesium 2.5 H Assessment & Plan Assessment & Plan narrative: 74-year-old woman with adhesive small bowel obstruction resolving with non operative management. Small-bowel follow-through reviewed demonstrates contrast within the rectum she has return of bowel function. -advance diet as tolerated -SCDs -modified pain and anti emetic medications -anticipate DC home tomorrow if able to advance diet Quality VTE Deep Vein Thrombosis/Pulmonary Embolism Present on Admission: No
[2019-11-26] MEDS: SIMETHICONE 80 MG TABLET PO (09:16)
[2019-11-26] MEDS: OXYCODONE IR 5 MG TABLET PO ×2 (09:16→18:03)
--- NOTE | 2019-11-26 10:52 | CM.DPC ---
DCP Cont: Per Surgeon, per contrast from SBFT pt's obstruction appears to be slowly resolving without further surgical intervention. Will begin to further advance her diet today to determine if she can tolerate and possible d/c tomorrow if remains stable. Plan: SW to follow closely to determine if pt safe for d/c home tomorrow and any further identified needs. NIKKI Iglesias
[2019-11-26] MEDS: KETOROLAC 30 MG/ML VIAL IV ×2 (13:23→18:02)
[2019-11-26] MEDS: MORPHINE 4 MG/ML INJ IV (22:38)
[2019-11-26] MEDS: DEXTROSE 5%-LACTATED RINGERS 1,000 ML 125 ML IV (22:38)
--- NOTE | 2019-11-26 23:24 | PC.NURSE ---
Evening notes: Julienne reported significant lower back pain this evening, rated 7/10, medicated with oxycodone & toradol. After approx 1 hour I saw her walking in hallway with her spouse. Still reported pain 7/10, said meds took the edge off but pain still there. She describes the pain as achy menstrual cramp-like. Denies nausea. Abdomen distended but the same as it's been, not rigid & denies pain when palpated. I notified Dr Vázquez of patient's pain, he ordered a one-time dose of Morphine 4 mg IV and to change IVF to D5LR. 20 minutes after Morphine given patient said her pain was gone. Continues to deny abdomen pain or nausea. Has voided 225 ml concentrated zee urine tonight, I encouraged increased PO fluid intake if tolerated. Denies other needs/concerns tonight, fall precautions in place & alarm active for safety.
[2019-11-27] VITALS (22 sets, daily range): BP systolic 97–148; BP diastolic 52–76; PULSE 70–109; RESP 16–22; TEMP 36.4–37; O2SAT 94–97; BMI 20.9
--- NOTE | 2019-11-27 | PATH_ITS ---
[facility] Accession Number: [id number] . 01 Material submitted: . small bowel - SMALL BOWEL RESECTION . 01 Clinical history: . ABDOMINAL PAIN, UNABLE TO EAT/DRINK . 02 Diagnosis: Small Bowel, Resection: 1. Small bowel with marked reactive serosal changes; reactive serosa continuous with portion of squamous mucosa, consistent with surgical impression of enterocele. 2. Mucosal congestion and epithelial sloughing consistent with early ischemic changes. 3. Negative for granulomas, dysplasia and malignancy. [facility] 12/01/2019 1415 Local . 02 Electronically signed: . Miranda Patiño MD, Pathologist NPI- [id number] . 01 Gross description: . The specimen is received in formalin, labeled small bowel resection and consists of a 100 cm in length portion of adhesed small bowel with two stapled margins. The serosa is pink-purple and smooth with fibrinous adhesions near one end. There is an 8.0 x 6.0 x 3.0 cm firm mojica granular lesion located 4.0 cm from the closest stapled margin. Sectioning reveals mojica-pink cut surfaces with a maximal thickness of 0.5 cm. The lesion does not extend into the muscularis and comes to within 3.5 cm from the nearest mesenteric margin. The specimen is opened to reveal a mojica-pink mucosa with normal to attenuated mucosal folds, and the wall thickness ranges from 0.1 to 0.2 cm. The internal luminal circumference ranges from 4.0 to 9.0 cm. Sectioning through the attached adipose tissue reveals multiple candidate lymph nodes ranging from 0.2 to 1.0 cm. Quality Review Specialist sections are submitted. . A1 - Stapled margin, training representative perpendicular sections, furthest from lesion. A2 - Stapled margin, training representative perpendicular sections (black), closest to lesion. A3 - Closest mesenteric margin (blue), perpendicular sections. A4-A7 - Quality Review Specialist lesion. A8-A9 - Quality Review Specialist adhesed portions of bowel. A10-A11 - One bisected lymph node per cassette. A12 - Intact lymph nodes. ([id number]) /[facility] 11/28/2019 1848 Local . 02 Pathologist provided ICD-10: N81.5 . 02 CPT . 784571 Performed at: 01 [facility] [address] [id number] MD Yasir Ford MD Phone: [phone] Performed at: 02 [facility] [address] [place] [id number] MD Miranda Patiño MD Phone: [phone]
[2019-11-27] MEDS: KETOROLAC 30 MG/ML VIAL IV ×4 (00:01→23:37)
--- NOTE | 2019-11-27 01:45 | PC.NURSE ---
Addendum entered by Cristal Mario R.N. 11/27/19 04:02: ELIA Castellanos, reports patient had 125cc emesis; medicated with Zofran. Original Note: 0014 patient seen and assessed. Is alert and oriented. Breath sounds CTA with RA sat of 97%. HRR. Denies nausea. BT hypoactive; remains distended but soft and non tender. Still had loose stool on previous shift and states she is passing some flatus. Denies dysuria, frequency or urgency with urination. Able to move herself in bed. Up to bathroom with SBA. Bilateral calf SCD's applied. Fall risk score is moderate and bed alarm is activated. Currently denies any pain.
[2019-11-27] MEDS: ONDANSETRON 4 MG/2 ML INJ IV ×2 (04:00→15:23)
[2019-11-27 06:05] LABS: Add Manual Diff / Slide Review NO; Basophils Absolute Auto 0 /uL (0-100); Basophils Percent Auto 0.2 % (0-2); Eosinophils Absolute Auto 0 /uL (0-450); Eosinophils Percent Auto 0.2 % (2-4); Hemoglobin 12.3 g/dL (12.0-16.0); Lymphocytes Absolute Auto 300 /uL (1100-4500); Mean Corpuscular HGB Conc 35.2 % (30-36); Mean Corpuscular Hemoglobin 32.2 PG (26-34); Mean Corpuscular Volume 91.6 fL (80-100); Monocytes Absolute Auto 800 /uL (0-900); Monocytes Percent Auto 10.3 % (3-14); Neutrophils Absolute Auto 6500 /uL (1500-7000); Neutrophils Percent Auto 85.3 % (50-75); Platelet Count 325 X10^3/uL (150-400); Red Blood Cell Count 3.82 X10^6/uL (4.0-5.2); Red Cell Distribution Width 12.8 % (11.6-14.8); White Blood Cell Count 7.6 X10^3/uL (4.5-11.0)
[2019-11-27] MEDS: DEXTROSE 5%-LACTATED RINGERS 1,000 ML 125 ML IV (06:05)
[2019-11-27 06:11] LABS: BUN Creatinine Ratio 40.8 (6-22); Blood Urea Nitrogen 20 mg/dL (7-17); Calcium 7.1 mg/dL (8.4-10.2); Carbon Dioxide 26 mmol/L (22-32); Chloride 111 mmol/L (98-107); Estimated Glomerular Filt Rate > 60.0 mL/min (>60); Glucose 150 mg/dL (80-110); HEMOLYSIS < 15 (0-50); Magnesium 2.3 mg/dL (1.6-2.3); Potassium 3.4 mmol/L (3.4-5.1); Sodium 139 mmol/L (137-145)
--- NOTE | 2019-11-27 09:02 | DI.RAD.S_ITS ---
PROCEDURE: XR ABDOMEN 1V INDICATIONS: ?resolving SBO TECHNIQUE: One view of the abdomen acquired. COMPARISON: [facility], CT, CT ABDOMEN PELVIS W CON, 11/24/2019, 8:18. [facility], RF, [place] SMALL BOWEL FOLLOW THROUGH, 11/24/2019, 11:35. [facility], CR, XR ABDOMEN 1V, 11/25/2019, 13:19. FINDINGS: Surgical changes and devices: None. Bowel: There is continued abnormal gaseous distention of small bowel loops, which measure up to 4.3 cm. The previously administered oral contrast has largely resolved, it can be seen within the proximal colon. Soft tissues: No suspicious abdominal calcifications. Visualized solid organ contours appear normal in size. Bones: No suspicious bony lesions. Age-appropriate bony degenerative changes are seen. Mild levoconvex scoliotic curvature is noted. IMPRESSION: Continued abnormal gaseous dilatation of small bowel loops, which measure up to 4.3 cm. Given the passage of oral contrast into the colon, this is considered to be a high-grade partial obstruction. Dictated by: Nehemiah Mendoza M.D. on 11/27/2019 at 8:46 Approved by: Nehemiah Mendoza M.D. on 11/27/2019 at 8:48
[2019-11-27] MEDS: SIMETHICONE 80 MG TABLET PO (09:04)
[2019-11-27] MEDS: METOCLOPRAMIDE 10 MG/2 ML INJ 5 MG IV (12:02)
--- NOTE | 2019-11-27 12:20 | P.PN_ITS ---
Subjective Subjective Date Patient Seen: 11/27/19 Time Patient Seen: 12:20 Interval history: Worsening abdominal pain and nausea over the past 24 hours. She is passing small amount flatus and had a bowel movement however she feels more distended than previously. Exam Vital Signs (past 8 hours): - 11/27/19 08:05 11/27/19 09:02 Temperature 98.6 F Pulse Rate 81 Respiratory Rate 20 Blood Pressure 107/59 L Pulse Oximetry 97 97 Oxygen Delivery Method Room Air Oxygen Flow Rate 0 Narrative Exam Narrative: General elderly woman alert oriented Abdomen distended tender right lower quadrant no peritonitis Objective Labs Result Diagrams: 11/27/19 05:37 11/27/19 05:37 Labs: Laboratory Results - last 24 hr 11/27/19 11/27/19 05:37 05:37 WBC 7.6 RBC 3.82 L Hgb 12.3 Hct 35.0 L MCV 91.6 MCH 32.2 MCHC 35.2 RDW 12.8 Plt Count 325 Neut % (Auto) 85.3 H Lymph % (Auto) 4.0 L [place] % (Auto) 10.3 Eos % (Auto) 0.2 L Baso % (Auto) 0.2 Neut # (Auto) 6500 Lymph # (Auto) 300 L [place] # (Auto) 800 Eos # (Auto) 0 Baso # (Auto) 0 Sodium 139 Potassium 3.4 Chloride 111 H Carbon Dioxide 26 BUN 20 H Creatinine 0.49 L Estimated GFR > 60.0 BUN/Creatinine Ratio 40.8 H Glucose 150 H Calcium 7.1 L Phosphorus 2.0 L Magnesium 2.3 Assessment & Plan Assessment & Plan narrative: 74-year-old female admitted to hospital with a small-bowel obstruction. She had a small-bowel follow-through and ultimately c ontrast was seen passing into the colon. She has had a partial return of bowel function but is failing to progress appropriately. Abdominal x-ray from today demonstrates persistent dilated loops of small bowel there is some contrast within the colon. She is clinically worse than she was yesterday. I suspect that she has a chronic point of obstruction causing a partial small bowel obstruction. Recommended that we proceed to the operating room for exploratory laparotomy lysis of adhesions possible bowel resection with concurrent enterocele repair by Dr. Ruiz. Operative risks including bleeding infection anastamotic leak damage to surrounding structures have been discussed. Questions have been answered she is in agreement with this plan Quality VTE Deep Vein Thrombosis/Pulmonary Embolism Present on Admission: No
[2019-11-27] MEDS: MORPHINE 2 MG/ML INJ IV ×2 (12:24→22:04)
--- NOTE | 2019-11-27 12:57 | CM.DPC ---
Addendum entered by Angeline Yu LPN 11/28/19 09:27: A check in this morning shows pt did have surgery late yesterday and needed the CHERYL and small bowel resection. DCP team will be following as pt recovers to assist with d/c issues and options. Original Note: DCP: continued: case received, EMR reviewed: POC change noted: Dr. Helton was here today, noted that pt was worsening and surgery is now planned for 1529 today: exploratory laparotomy/CHERYL/? of bowel resection and enterocele with Dr. Ruiz. Will cehck in tomorrow and be following.
[2019-11-27] MEDS: LACTATED RINGERS 1,000 ML 42 ML IV ×2 (15:22→17:48)
[2019-11-27] MEDS: MORPHINE 10 MG/ML INJ 2 MG IV (15:42)
[2019-11-27] MEDS: FAMOTIDINE 20 MG/50 ML PIGGYBACK 200 MG IV (15:47)
[2019-11-27] MEDS: PIPERACILLIN-TAZO 3.375 GM/50 ML FROZ.PIGGY IV ×2 (16:11→23:38)
--- NOTE | 2019-11-27 16:31 | SUR.OPER ---
Lithotomy on padded OR bed, head on pillow, arms secured on padded arm boards at <90 degrees abduction. Legs secured in padded yellow fins stirrups.
[2019-11-27] MEDS: BUPIVACAINE 0.25% (PF) VIAL 30 ML INJ (16:51)
--- NOTE | 2019-11-27 17:13 | PC.NURSE ---
Addendum entered by Bisi Pitts R.N. 11/27/19 22:12: Pt returned to room approximately 1900 Resting quietly all evening. Lung clear/shallow. SpO2 94% RA Abdominal incision dsg CDI, NGT patent small amount dark content. IVF infusing via pump as per orders. F/C patent zee urine. Call light w/in reach, bed alarm on for pt safety/ Continue w/plan of care. Original Note: Pt escorted to surgery by OR staff at 1500. Continues in OR suite.
[2019-11-27] MEDS: BUPIVACAINE LIPOSOME 266 MG/20 ML VIAL INJ (18:14)
--- NOTE | 2019-11-27 19:16 | SUR.PHASEI ---
IV fluids infusing only in left wrist site during PACU time.
--- NOTE | 2019-11-27 19:42 | SUR.PHASEI ---
PT TRANSFERRED TO ACUTE CARE FLOOR IN STABLE CONDITION, VSS. PT ALERT AND TALKING TO RN DURING TRANSPORT. BEDSIDE REPORT GIVEN TO CAT, RN. TRANSFERRED CARE OF CAT, RN AT THAT TIME.
[2019-11-27] MEDS: SODIUM CHLORIDE 0.9% 1,000 ML 125 ML IV (19:54)
--- NOTE | 2019-11-27 19:58 | P.OP_ITS ---
Operative Date/Time/Diagnoses Date of procedure: 11/27/19 Time of procedure: 19:58 Pre-op diagnosis: Small-bowel obstruction Post-op diagnosis: same Procedure & Clinicians Procedure: Exploratory laparotomy, small-bowel resection, lysis of adhesions Same procedure as scheduled: Yes Indications: 74-year-old woman history of a hysterectomy, lysis of adhesions who presented to the hospital with a small-bowel obstruction. She underwent of small-bowel follow-through study which ultimately demonstrated contrast within the colon. Despite this she remained distended, uncomfortable with vomiting, imaging demonstrated a persistent small-bowel obstruction she was taken to the operating room for a partial small bowel obstruction. Surgeon: Miguel Helton Production Control Expert: Bisi Ruiz Anesthesia Type: General Operative Notes Findings: Incarcerated small bowel within the cuff of the vagina Specimen(s): other (Small-bowel) Estimated Blood Loss (mL): 150 Procedure in detail: Patient was brought to the operating room placed supine on the table. Bilateral lower extremity compression devices were applied. She received Zosyn prior to skin incision. Anesthesia was induced and she was intubated with an endotracheal tube. She was placed into lithotomy and appropriately padded. Garcia catheter was sterilely placed. Time-out was performed she was prepped and draped in sterile fashion. Began with a lower midline incision through her previous scar. The subcutaneous tissues were divided the fascia was grasped and elevated then sharply incised. The abdomen was entered atraumatically. Upon entry there was a large volume of ascites and very dilated loops of small bowel. The incision was extended and the small bowel was eviscerated. The small bowel was mobile proximally but distally it was stuck deep in the pelvis. An extensive lysis of adehsions was performed and then we were able to demonstrated that there was portion of small bowel adherent to the top of the vagina. Ultimately the small bowel was freed and we found a knuckle of small bowel that had been incarcerated within the vagina through a hole in its appex. In retrospect I think the pessery had probably erroded through vaginal cuff left from the hysterectomy and the bowel subsequently incarcerated. What remained was a large hole in the top of the vagina which Dr. Ruiz closed. Inspection of the small bowel demonstrated that there was actually vaginal mucosa adherent to this loop of small bowel. The small bowel that had been incarcerated was not healthy appearing it was dilated the wall thinned from chronic incarceration and partailly ischemic, it was also adherent to multiple loops of bowel via interloop adhesions. An enterotomy occured it was controlled with clamp and suture. Ultimately I resected a segment of small bowel that included the incacerated portion with the enterotomy and becasue this was close to the ileocecal valve I fashion a side to side entero coolon anastamosis. The small bowel was divided using the stapler the mesentery taken with the ligature. Silk suture was used to reapproximate the colon to the small bowel in side to side fashion. Enterotomy and a colotomy were created and then the limbs of the bowel were joined together on the antimesenteric surface using a 45 mm staple load. Inspected the common channel to make sure that it was widely patent and hemostatic. Then the common channel was closed with the TA stapler and it was oversewn with silk suture in interrupted fashion. There was a large mesenteric defect left from the small-bowel resection large enough that I did not close it given its low risk of internal herniation. A 19 [place] XIMENA drain was placed into the pelvis. The abdomen was copiously irrigated with several L of sterile saline and then the fascia was closed in a running fashion using 1. PDS suture. Subcutaneous tissues were reapproximated using 3 0 Vicryl the skin closed with roberto carlos. She emerged from anesthesia was extubated and transferred to recovery room in stable condition Complications: none Post-operative Condition: stable Disposition: Acute Care
--- NOTE | 2019-11-27 20:41 | PM.GYNOP.1 ---
Operative Date/Time/Diagnoses Date of procedure: 11/27/19 Time of procedure: 18:00 Pre-op diagnosis: Enterocele Small bowel obstruction Post-op diagnosis: same Procedure & Clinicians Procedure: Procedures Operation Date: 11/27/19 15:30 Actual Procedures Side Surgeon p Exploratory Laparotomy GEN, SMALL BOWEL RESECTION Miguel Helton MD s Enterocele repair Bisi Ruiz MD Indications: Enterocele Small bowel obstruction Surgeon: Bisi Ruiz Cold Water Machine Operator: Miguel Helton Anesthesia Type: General Operative Notes Findings: A loop of small bowel with a band at its proximal end of the loop into the vagina Closure Type: primary Applied: catheter Estimated blood loss (mL): 200 Blood products transfused: none Procedure in detail: The preparation an opening of the abdomen dictated by Dr. Helton Once pelvis was identified the small bowel was stuck to the top of the vagina. With a separately gloved hand placed into the vagina the mass was lifted out of the vagina and a loop of the small bowel with a band at the proximal end popped out of the vagina. The hand was removed from the vagina and the gloves changed. There was then found to be a 4 cm hole in the vagina and a piece of vaginal mucosa stuck to the banded loop of small bowel. This was closed with simple interrupted sutures with 2 0 Vicryl. A 5 cm segment of the excess vagina was ligated with a pursestring suture with 2 0 Vicryl. With a separately gloved hand in the vagina vagina had good length, but there was no further place for an enterocele to recur. Again the hand was in the vagina was reclosed. The remainder of the procedure is then dictated by Dr. Helton. Complications: other (Enterotomy) Post-operative Condition: stable Disposition: PACU Plan for aftercare: To acute care after recovery
[2019-11-28] VITALS (11 sets, daily range): BP systolic 96–123; BP diastolic 53–58; PULSE 91–97; RESP 14–16; TEMP 36.1–37.4; O2SAT 95–97
[2019-11-28] MEDS: SODIUM CHLORIDE 0.9% 1,000 ML 125 ML IV (04:53)
[2019-11-28 05:10] LABS: Add Manual Diff / Slide Review NO; Basophils Absolute Auto 0 /uL (0-100); Basophils Percent Auto 0.2 % (0-2); Eosinophils Absolute Auto 0 /uL (0-450); Hematocrit 38.1 % (36-46); Hemoglobin 12.9 g/dL (12.0-16.0); Lymphocytes Absolute Auto 400 /uL (1100-4500); Lymphocytes Percent Auto 4.8 % (25-40); Mean Corpuscular HGB Conc 33.9 % (30-36); Mean Corpuscular Hemoglobin 31.4 PG (26-34); Mean Corpuscular Volume 92.8 fL (80-100); Monocytes Absolute Auto 200 /uL (0-900); Monocytes Percent Auto 2.9 % (3-14); Neutrophils Absolute Auto 7100 /uL (1500-7000); Neutrophils Percent Auto 92.1 % (50-75); Platelet Count 361 X10^3/uL (150-400); Red Blood Cell Count 4.11 X10^6/uL (4.0-5.2); Red Cell Distribution Width 13.1 % (11.6-14.8); White Blood Cell Count 7.7 X10^3/uL (4.5-11.0)
[2019-11-28 05:17] LABS: BUN Creatinine Ratio 28.4 (6-22); Blood Urea Nitrogen 19 mg/dL (7-17); Calcium 6.8 mg/dL (8.4-10.2); Carbon Dioxide 27 mmol/L (22-32); Chloride 109 mmol/L (98-107); Estimated Glomerular Filt Rate > 60.0 mL/min (>60); Glucose 112 mg/dL (80-110); HEMOLYSIS < 15 (0-50); Magnesium 1.9 mg/dL (1.6-2.3); Phosphorous 2.8 mg/dL (2.8-4.1); Potassium 3.5 mmol/L (3.4-5.1); Sodium 139 mmol/L (137-145)
[2019-11-28] MEDS: KETOROLAC 30 MG/ML VIAL IV ×4 (05:44→23:48)
--- NOTE | 2019-11-28 06:22 | PC.NURSE ---
Jose UOP only 100 cc of dark tea colored urine in [address] Helton notified ordered bolus 1 liter of NS. Will implement order & monitor.
[2019-11-28] MEDS: SODIUM CHLORIDE 0.9% 1,000 ML 1000 ML IV ×2 (06:37→15:31)
[2019-11-28] MEDS: POTASSIUM CHLORIDE 40 MEQ in SODIUM CHLORIDE 0.9% 500 ML 130 ML IV (07:57)
[2019-11-28] MEDS: PIPERACILLIN-TAZO 3.375 GM/50 ML FROZ.PIGGY IV ×3 (08:20→19:47)
[2019-11-28] MEDS: MORPHINE 2 MG/ML INJ IV (08:20)
[2019-11-28] MEDS: ENOXAPARIN 30 MG/0.3 ML SYRINGE SUBCUT (08:20)
--- NOTE | 2019-11-28 09:57 | PT.IIE ---
Current Diagnoses Intestinal adhesions [bands], unspecified as to partial versus complete obstruction (11/24/19) Surgery Performed Operation Date: 11/27/19 15:30 Actual Procedures p Exploratory Laparotomy GEN, SMALL BOWEL RESECTION - Miguel Helton MD s Enterocele repair - Bisi Ruiz MD Surgical History (Last Reviewed 11/24/19 @ 07:30 by Samuel Umana DO) History of hysterectomy (Acute) Status post vaginal hysterectomy (Acute) Medical History (Last Reviewed 11/24/19 @ 07:30 by Samuel Umana DO) History of benign brain tumor (Acute) Hypercholesterolemia (Acute) Physical Therapy Inpatient Evaluation/Re-Eval M1 PT/OT-IP Prior Functional Status Start: 11/28/19 13:35 Freq: NEEDED Status: Active Protocol: Document 11/28/19 13:35 [facility] (Rec: 11/28/19 13:44 [facility] [id number]) Medical Review Prior Functional Status Medical History Reviewed Yes Communication WNL Mobility and Gait Pt amb without AD, went on hikes and did yoga & gardening Activities of Daily Living and IADL's Indep Social History Household Members spouse Living Arrangements House Number of Floors (Floors) One Floor Number of Stairs To Enter/Railing? none Home Environment Standard Height Toilet,Walk in Shower Home Equipment Grab Bars In Shower Additional Social History Comment built in seat M2 PT-IP Current Condition Start: 11/28/19 13:35 Freq: NEEDED Status: Active Protocol: Document 11/28/19 13:35 [facility] (Rec: 11/28/19 13:44 [facility] [id number]) Physical Therapy Current Condition Current Condition Evaluation Date 11/28/19 Treatment Diagnosis SBO & enterocele s/p small bowel resection Precautions Abdominal Surgery Precautions Log Roll,Lifting Restrictions, Gait Belt above Incisional Area M3 PT-IP Subjective Start: 11/28/19 13:35 Freq: NEEDED Status: Active Protocol: Document 11/28/19 13:35 [facility] (Rec: 11/28/19 13:44 [facility] [id number]) Subjective Physical Therapy Visit Type Type Initial Evaluation Visit Start Time 09:20 Visit Stop Time 09:57 Total Visit Minutes 37 Number of SHOE CEMENTER Visits 0 Physical Therapy Visit Comments Patient Comments Pt wants to get up moving Therapy Pain Assessment Pain When Pain Assessed During Mobility Pain Present Pain Present Pain Reported Location generalized abd Intensity 5 Scale Used Numeric (0 - 10) Pain Management Techniques Apply Cold M4 PT-IP Mobility and Gait Start: 11/28/19 13:35 Freq: NEEDED Status: Active Protocol: Document 11/28/19 13:35 [facility] (Rec: 11/28/19 13:44 [facility] [id number]) PT-Bed Mobility Assessment Rolling Type of Rolling Log Rolling,Roll to Left Level of Assist Moderate Assistance Supine to Sit Supine to Sit Maximum Assistance Scooting Scooting to Edge of Bed Contact Guard Assistance PT-Transfer Assessment Sit to and From Stand Sit to and from Stand Contact Guard Assistance Equipment Transfer Assistive Device Gait Belt Orthotic/Prosthetic Devices or Brace: No Transfers Transfer Destination Chair Comments Mobility Comments Pt did all mobility holding ice to abdoemn which helped her with pain. During gait, pt pushed IV pole and was able to amb SBA. Gait Assessment Gait Gait Assistance Required: Standby Assistance Distance (Feet) 250 Able to Maintain Weight Bearing Status Yes During Gait Assistive Devices Assistive Device Gait Belt Gait Deviations General Gait Pattern Antalgic,Decreased Stride Length,Flexed Trunk Factors Limiting Gait Function Factors Limiting Gait Function Decreased Activity Tolerance, Pain Comments Gait Comments used IV pole PT-Balance Assessment Sitting Balance and Reactions Static Sitting Balance Ability Normal Dynamic Sitting Balance Ability Good Standing Balance and Reactions Static Standing Balance Ability Good Dynamic Standing Balance Ability Fair M5 PT-IP Objective Assessments Start: 11/28/19 13:35 Freq: NEEDED Status: Active Protocol: Document 11/28/19 13:35 [facility] (Rec: 11/28/19 13:44 [facility] [id number]) Orientation Orientation/Cognition Level of Alertness Alert Language Function Ability No Deficits Noted Safety Awareness Understands Safety Issues Memory Description No Deficits Noted M6 PT-IP Treatment Start: 11/28/19 13:35 Freq: NEEDED Status: Active Protocol: Document 11/28/19 13:35 [facility] (Rec: 11/28/19 13:44 [facility] [id number]) Physical Therapy Treatment Education Education Provided Precautions,Safety M7 PT-IP Assessment and Plan Start: 11/28/19 13:35 Freq: NEEDED Status: Active Protocol: Document 11/28/19 13:35 [facility] (Rec: 11/28/19 13:44 [facility] [id number]) PT Summary Assessment and Plan Potential Rehabilitation Potential Excellent Status of Condition at Evaluation Evolving Summary Impairments Pain,Strength,Balance,Bed Mobility,Transfers,Gait Assessment Summary Pt presents s/p small bowel resection with pain being her major limiation at this time. Typically, pt is very active and she is very motivated to returning to her typical activity level. Pt was able to amb about 250ft today and was encouraged to ask nuring to walk w/her later. Pt had most difficulty with log roll requring max A. Goals Bed Mobility Goal Independent Transfer Goal Independent Gait Goal Independent Gait Distance 250ft Days to Meet Goals 6 Frequency of Treatment Frequency Of Treatment Once a Day Treatment Plan Physical Therapy Treatment Plan Bed Mobility Training,Transfer Training,Gait Training, Therapeutic Exercise,Balance Retraining,Post Op Education, Discharge Planning, Neuromuscular Re-ed Recommendations To Nursing Amount of Assist Needed 1 Person Assist Discharge Recommendations PT Discharge Recommendations Home with Assistance, Outpatient PT Transportation Needs at Discharge Private Vehicle
--- NOTE | 2019-11-28 10:40 | DI.RAD.S_ITS ---
PROCEDURE: XR CHEST FOR PICC 1V INDICATIONS: PICC LINE COMPARISON: None. FINDINGS: PICC was placed by the intravenous therapy team from the right side. Fluoroscopic spot film demonstrates the tip of PICC projecting to the area of superior vena cava, but its exact positioning in relationship to the azygos arch versus more inferiorly is indeterminate. IMPRESSION: Tip of PICC projects to the area of azygos arch area of the superior vena cava, and may extend more inferiorly but is not visualized below the level of the azygos arch. Dictated by: Jacob Paulino M.D. on 11/28/2019 at 11:06 Approved by: Jacob Paulino M.D. on 11/28/2019 at 11:08
--- NOTE | 2019-11-28 15:25 | DIET.PN ---
Dietary Progress Note Assessment: 74y F admitted c adhesive small bowel obstruction. Pt had been feeling progressive abdominal distension, nausea and bloating for the a few days prior to admission. RD consult with pt 11/25/19 and pt reported they had been experiencing decreased appetite for the past couple of days however pt felt it was related to her small bowel obstruction. Pt says prior to this situation her appetite has been great and she hasn't experienced any wt loss. Pt had started to feel hungry. Pt was trying to avoid surgery and hoped it would resolve. Adhesive small bowel obstruction didn't resolve and pt underwent small-bowel resection and lysis of adhesions 11/27/19. Recc. continuous TPN through PICC of clinimix 5/20 starting at 20mL/h titrating up 10mL/hr every 12 hrs as pt at risk for refeeding. Start day two at 40mL/h for first 12 hrs and if am labs show stable Mg, K+, phos and BG continue to goal of 62mL/h. Hold lipids until Sunday and add 250mL IVFE M,W,F to reduce risk of essential fatty acid deficiency. Goal rate of 62mL/h provides 1309kcal/d (90%) and 74g PRO (105%). Continue TPN until pt able to meet >75% EER c PO intake. Refeeding labs are borderline low which puts pt at greater risk for refeeding. HT: 166.37 WT:57.969 BMI: 20.9 Labs: K+: 3.5, Phos: 2.8 M.9 B MNA:11 at risk Ralph: 23 Nutrition Diagnosis: Inadequate protein energy intake r/t NPO status aeb day 1 post small-bowel resection and lysis of adhesions, increased protein needs for healing, pt NPO or on clear liquid diet x4d and poor POs for additional 4d prior to admission. Interventions: 1.Recc. continuous TPN through PICC of clinimix 5/20 starting at 20mL/h titrating up 10mL/hr every 12 hrs as pt at risk for refeeding. Start day two at 40mL/h for first 12 hrs and if am labs show stable Mg, K+, phos and BG continue to goal of 62mL/h. Hold lipids until Sunday and add 250mL IVFE M,W,F to reduce risk of essential fatty acid deficiency. Diet Order: NPO EER:1450 kcal( 25kcal/kg) 70g Pro ( 1.2g/kg to support healing) Monitoring/Evaluations: check refeeding labs bid (mg, phos, k+ and replete as needed) and f/u when RD next in office Mon.
--- NOTE | 2019-11-28 15:33 | PC.NURSE ---
SHIFT SUMMARY: PATIENT DIFFUSELY AND FAIRLY EXQUISITELY TENDER THIS AM, ABD FIRM BUT NOT RIGID. DENIES FLATUS, ACCEPTS ICE PACK. NGT TO YENIFER KATZ PATENT W/ LOW UOP 150CC'S THIS SHIFT CLEAR PEBBLES URINE. 1L/NS BOLUS COMPLETED AT START OF THIS SHIFT, K-RIDER COMPLETED ON THIS SHIFT. PATIENT REPORTS STILL FEELS VERY DRY AND DEHYDRATED. FREQ ORAL SWABBING. REQUESTS ANOTHER FLUID BOLUS. DR. SHELTON NOTIFIED, ORDERED SAME. ORDERED ABD BINDER WHICH IS IN ROOM, DINA SHIFT RN NOTIFIED TO PUT ON PATIENT AT CHANGE OF SHIFT. PATIENT HAS AMB IN HALLS AROUND [facility] 2 SEPERATE TIMES THIS SHIFT, AND SAT UP IN RECLINER FOR APPROX AN HR. 600CC'S GREEN OUTPUT PER NGT THIS SHIFT. 10CC'S OUT MIRTHA DRAIN. PATIENT REPORTS FEELING LESS TENDER THIS AFTERNOON. GIVEN MORPHINE X1 THIS AM AND TORADOL SCHEDULED. PATIENT IS A VERY PLEASANT WOMAN WITHOUT S/SX'S OF DISTRESS.
--- NOTE | 2019-11-28 17:31 | P.PN_ITS ---
Subjective Subjective Date Patient Seen: 11/28/19 Time Patient Seen: 15:30 Interval history: No acute events overnight. Pt c/o dry mouth. Has been ambulating. NGT in place. Denies nausea. Exam Vital Signs (past 8 hours): - 11/28/19 11:55 11/28/19 13:00 11/28/19 16:11 Temperature 98.5 F 98.0 F Pulse Rate 95 H 96 H Respiratory Rate 14 16 Blood Pressure 123/53 L 108/58 L Pulse Oximetry 96 97 95 Oxygen Delivery Method Room Air Oxygen Flow Rate 0 Narrative Exam Narrative: GENERAL: Alert, comfortable. Appears stated age. Answers questions promptly and appropriately. Vital signs noted. HENT: Normocephalic, atraumatic. Hearing intact. NGT in place and sumping. EYES: Conjunctiva pink, sclera white, no periorbital swelling. CARDIOVASCULAR: Regular rate. No pedal edema. RESPIRATORY: Non-tachypneic, breathing comfortably on room air. GASTROINTESTINAL: Abdomen soft, non distended, XIMENA drain in place with serosanguinous output; Dressings in place; abdomen appropriately TTP for POD#1 GENITALURINARY: No flank tenderness. MUSCULOSKELETAL: Equal tone and mass bilaterally. SKIN: Warm, dry, soft, appropriate color for ethnicity. No other lesions, rashes, or wounds. NEURO: Alert and Oriented X 3. No gross sensory deficits, or cognitive issues. PSYCH: Appropriate mood and affect, normal intellect Objective Labs Result Diagrams: 11/28/19 04:56 11/28/19 04:56 Labs: Laboratory Results - last 24 hr 11/28/19 11/28/19 04:56 04:56 WBC 7.7 RBC 4.11 Hgb 12.9 Hct 38.1 MCV 92.8 MCH 31.4 MCHC 33.9 RDW 13.1 Plt Count 361 Neut % (Auto) 92.1 H Lymph % (Auto) 4.8 L [place] % (Auto) 2.9 L Eos % (Auto) 0.0 L Baso % (Auto) 0.2 Neut # (Auto) 7100 H Lymph # (Auto) 400 L [place] # (Auto) 200 Eos # (Auto) 0 Baso # (Auto) 0 Sodium 139 Potassium 3.5 Chloride 109 H Carbon Dioxide 27 BUN 19 H Creatinine 0.67 Estimated GFR > 60.0 BUN/Creatinine Ratio 28.4 H Glucose 112 H Calcium 6.8 L Phosphorus 2.8 Magnesium 1.9 Assessment & Plan Assessment and plan (1) Small bowel obstruction: Status: Acute (2) S/P laparotomy: Status: Acute Assessment & Plan narrative: THis is a 74 yo woman POD#1 s/p ex lap and small bowel resection for obstruction. Pt doing as expected. She has been given a couple of fluid boluses, and is putting out adequate urine. She starts TPN tonight. She has ambulated. Pain is mostly controlled. Plan: DVT ppx Iv fluid, TPN, recheck labs daily continue abx per Dr. Helton NPO except meds, sips , ice chips Ambulate TID abdominal binder for pain COVID-19 COVID-19 status: Negative Result date/Date tested (Pos, Neg/Pending): 11/24/19 Time Spent With Patient Time with patient: 15-24 minutes Quality VTE Deep Vein Thrombosis/Pulmonary Embolism Present on Admission: No
[2019-11-28] MEDS: AA 5 %/CALCIUM/LYTES/DEXT 20 % 1,000 ML with MULTIVITAMIN 10 ML, TRACE ELEMENTS 1 ML 20 ML IV (17:44)
--- NOTE | 2019-11-28 20:55 | PC.NURSE ---
Addendum entered by Brian Myles R.N. 11/28/19 22:36: INFORMED ABOUT UOP AT 150ML FOR THE SHIFT , NO NEW ORDERS AT THIS TIME Original Note: LATE NOTE , APPROX 1929 PATIENT AMBULATED IN HALL SBA ,VERY STEADY NO DIFFICULTY
[2019-11-29] VITALS (13 sets, daily range): BP systolic 102–139; BP diastolic 60–72; PULSE 78–91; RESP 15–19; TEMP 36.2–37.4; O2SAT 93–99
[2019-11-29] MEDS: SODIUM CHLORIDE 0.9% 1,000 ML 125 ML IV (00:42)
[2019-11-29] MEDS: PIPERACILLIN-TAZO 3.375 GM/50 ML FROZ.PIGGY IV ×4 (02:01→20:26)
[2019-11-29 05:55] LABS: Hematocrit 31.7 % (36-46); Hemoglobin 10.9 g/dL (12.0-16.0); Mean Corpuscular HGB Conc 34.5 % (30-36); Mean Corpuscular Hemoglobin 31.7 PG (26-34); Platelet Count 291 X10^3/uL (150-400); Red Blood Cell Count 3.45 X10^6/uL (4.0-5.2); Red Cell Distribution Width 13.3 % (11.6-14.8)
[2019-11-29 05:56] LABS: Add Manual Diff / Slide Review YES; BUN Creatinine Ratio 32.8 (6-22); Blood Urea Nitrogen 20 mg/dL (7-17); Calcium 6.5 mg/dL (8.4-10.2); Carbon Dioxide 27 mmol/L (22-32); Chloride 114 mmol/L (98-107); Estimated Glomerular Filt Rate > 60.0 mL/min (>60); Glucose 139 mg/dL (80-110); HEMOLYSIS < 15 (0-50); Magnesium 2.4 mg/dL (1.6-2.3); Phosphorous 1.3 mg/dL (2.8-4.1); Potassium 3.1 mmol/L (3.4-5.1); Sodium 142 mmol/L (137-145)
[2019-11-29] MEDS: KETOROLAC 30 MG/ML VIAL IV ×3 (06:03→17:52)
--- NOTE | 2019-11-29 06:11 | PC.NURSE ---
0600 TPN increased infusion to 30 cc/hr. Pain level all shift 2-3 routine Toradol 30 mg. IVP administered. Denies any nausea, herring put out 350 cc & urine dark yelllow, not tea colored. Will cont. POC & monitor.
[2019-11-29 07:34] LABS: Neutrophils Absolute Manual 6570 /uL (3000-5900); Platelet Estimate Adequate on smear; RBC Morphology Normal Morphology; Total Cells Counted 100
[2019-11-29 07:36] LABS: Toxic Granulation Present; Toxic Vacuolation Present
[2019-11-29] MEDS: ENOXAPARIN 40 MG/0.4 ML SYRINGE SUBCUT (07:41)
[2019-11-29] MEDS: POTASSIUM PHOSPHATE 15 MMOL in DEXTROSE 5% IN WATER 250 ML 63.75 ML IV ×2 (08:45→15:55)
--- NOTE | 2019-11-29 10:24 | DIET.PN ---
Dietary Progress Note Pt tolerating TPN running at 20mL/h c morning refeeding labs showing drop of K+ to 3.1 L, drop of phos to 1.3 L, and elevation of Mg to 2.4 H, pt BG elevated at 139. Recc increasing TPN rate to 30mL/h once phos and K+ replete and continue titrating up q12h per Dr. Nicole towards goal of 62mL watching refeeding and pt tolerance. HT: 166.37 WT:57.969 BMI: 20.9 Labs: K+: 3.1 L, Phos: 1.3 L M.5 H B MNA:11 at risk Ralph: 23 Nutrition Diagnosis: Inadequate protein energy intake r/t NPO status aeb day 1 post small-bowel resection and lysis of adhesions, increased protein needs for healing, pt NPO or on clear liquid diet x4d and poor POs for additional 4d prior to admission. Interventions: 1.Recc. continuous TPN through PICC of clinimix 5/20 starting at 20mL/h titrating up 10mL/hr every 12 hrs as pt at risk for refeeding. Start day two at 40mL/h for first 12 hrs and if am labs show stable Mg, K+, phos and BG continue to goal of 62mL/h. Hold lipids until Sunday and add 250mL IVFE M,W,F to reduce risk of essential fatty acid deficiency. Diet Order: NPO EER:1450 kcal( 25kcal/kg) 70g Pro ( 1.2g/kg to support healing) Monitoring/Evaluations: check refeeding labs bid (mg, phos, k+ and replete as needed) and f/u when RD next in office Sun.
--- NOTE | 2019-11-29 12:18 | PT.IPTN ---
Current Diagnoses Intestinal adhesions [bands], unspecified as to partial versus complete obstruction (11/24/19) Unspecified intestinal obstruction, unspecified as to partial versus complete obstruction (11/24/19) Other specified postprocedural states (11/24/19) Surgery Performed Operation Date: 11/27/19 15:30 Actual Procedures p Exploratory Laparotomy GEN, SMALL BOWEL RESECTION - Miguel Helton MD s Enterocele repair - Bisi Ruiz MD Physical Therapy Treatment Note M2 PT-IP Current Condition Start: 11/28/19 13:35 Freq: NEEDED Status: Active Protocol: Document 11/28/19 13:35 [facility] (Rec: 11/28/19 13:44 [facility] [id number]) Physical Therapy Current Condition Current Condition Evaluation Date 11/28/19 Treatment Diagnosis SBO & enterocele s/p small bowel resection Precautions Abdominal Surgery Precautions Log Roll,Lifting Restrictions, Gait Belt above Incisional Area M3 PT-IP Subjective Start: 11/28/19 13:35 Freq: NEEDED Status: Active Protocol: Document 11/29/19 11:58 [facility] (Rec: 11/29/19 15:22 [facility] [email or web address]) Subjective Physical Therapy Visit Type Type Treatment Note Visit Start Time 11:58 Visit Stop Time 12:18 Total Visit Minutes 20 Number of COUNTY SURVEYOR Visits 1 Physical Therapy Visit Comments Patient Comments Pt willing to participate with therapy. Therapy Pain Assessment Pain When Pain Assessed During Mobility Pain Present Pain Present Pain Reported M4 PT-IP Mobility and Gait Start: 11/28/19 13:35 Freq: NEEDED Status: Active Protocol: Document 11/29/19 11:58 [facility] (Rec: 11/29/19 15:22 [facility] [email or web address]) PT-Bed Mobility Assessment Rolling Type of Rolling Log Rolling,Roll to Left Level of Assist Standby Assistance,1 Person Assistance Supine to Sit Supine to Sit Standby Assistance,1 Person Assistance,Head of Bed Elevated,Bedrails Scooting Scooting to Edge of Bed Standby Assistance PT-Transfer Assessment Sit to and From Stand Sit to and from Stand Standby Assistance Equipment Transfer Assistive Device Gait Belt Orthotic/Prosthetic Devices or Brace: No Transfers Transfer Destination Toilet Comments Mobility Comments Pt in bed able to log roll> sidelying> sitting SBA, pt stood SBA and RN assisted pt with adjusting abdominal binder. Pt ambulated in sweet with use of IV pole SBA. Pt returned to room and wanted to use the BR, pt ambulated to BR SBA, sat with use of wall rail and call light within reach to call RN for assist when finished. RN Sully informed pt was on toilet and would pull cord for assistance when done. Gait Assessment Gait Gait Assistance Required: Standby Assistance Distance (Feet) 250 Able to Maintain Weight Bearing Status Yes During Gait Assistive Devices Assistive Device Gait Belt Gait Deviations General Gait Pattern Antalgic,Decreased Stride Length,Flexed Trunk Factors Limiting Gait Function Factors Limiting Gait Function Decreased Activity Tolerance, Pain Comments Gait Comments used IV pole M5 PT-IP Objective Assessments Start: 11/28/19 13:35 Freq: NEEDED Status: Active Protocol: Document 11/28/19 13:35 [facility] (Rec: 11/28/19 13:44 [facility] [id number]) Orientation Orientation/Cognition Level of Alertness Alert Language Function Ability No Deficits Noted Safety Awareness Understands Safety Issues Memory Description No Deficits Noted M6 PT-IP Treatment Start: 11/28/19 13:35 Freq: NEEDED Status: Active Protocol: Document 11/28/19 13:35 [facility] (Rec: 11/28/19 13:44 [facility] [id number]) Physical Therapy Treatment Education Education Provided Precautions,Safety M7 PT-IP Assessment and Plan Start: 11/28/19 13:35 Freq: NEEDED Status: Active Protocol: Document 11/29/19 11:58 [facility] (Rec: 11/29/19 15:22 [facility] [email or web address]) PT Summary Assessment and Plan Potential Rehabilitation Potential Excellent Status of Condition at Evaluation Evolving Summary Impairments Pain,Strength,Balance,Bed Mobility,Transfers,Gait Assessment Summary Pt improving with bed mobility requiring SBA for all bed mobility and gait. Pt ambulates with use of IV pole, pt with increased pain during ambulation. Goals Bed Mobility Goal Independent Transfer Goal Independent Gait Goal Independent Gait Distance 250ft Days to Meet Goals 6 Frequency of Treatment Frequency Of Treatment Once a Day Treatment Plan Physical Therapy Treatment Plan Bed Mobility Training,Transfer Training,Gait Training, Therapeutic Exercise,Balance Retraining,Post Op Education, Discharge Planning, Neuromuscular Re-ed Recommendations To Nursing Amount of Assist Needed 1 Person Assist Discharge Recommendations PT Discharge Recommendations Home with Assistance, Outpatient PT Transportation Needs at Discharge Private Vehicle
--- NOTE | 2019-11-29 13:02 | CM.DPC ---
DCP Cont: Checked in with patient. She has been ambulating in the halls. NG tube clamped, and will be checked for residual. Patient is getting TPN, as well. Patient is alert, plan is for home, she has supportive , Terrell, to assist her for any needs. This will depend upon bowel function stabilizing. P: DCP to continue to check in for any needs. Patient should be able to go home when she is medically stable. Kimberley Erwin RN/Special Education Professional
[2019-11-29] MEDS: POTASSIUM CHLORIDE 40 MEQ in SODIUM CHLORIDE 0.9% 500 ML 130 ML IV (13:41)
--- NOTE | 2019-11-29 14:26 | PC.NURSE ---
SHIFT SUMMARY: PATIENT DENIES N/V ALL SHIFT. PAIN 1-3/10 THROUGHOUT SHIFT. TOLERATING PAIN W/ KETOROLAC IVP SCHEDULED. DENIES NEED FOR MORPHINE PRN. PICC LINE WITH TPN RUNNING PER ORDERS, PHOS REPLACEMENT THIS AM, LAB NOTIFIED TO COME DRAW SERUM PHOS. PATIENT INCONT OF LOOSE BM AT START OF SHIFT. A BIT MORE STOOL IN TOILET. ASSISTED W/ BEDBATH, GOWN AND LINEN CHANGE. BRUSHED TEETH. SAT UP IN RECLINER FOR APPROX 3 HRS. AMBULATED IN RICH W/ PHYSICAL THERAPY. 500CC'S NOTED TO COLLECTION CHAMBER OF NGT AT 0945 WHEN NGT CLAMPED. NO INCREASED PAIN, NO N/V OVER THE 4 HRS. 150CC'S RESIDUAL NOTED WHILE DR. SHELTON AT BEDSIDE. ABD REMAINS TENDER TO PALPATION. HAS WORN ABD BINDER THROUGHOUT SHIFT. MIRTHA DRAIN DRSG CHANGED X2 R/T SEROUS/SANG SATURATION. MIRTHA DRAIN PUT OUT TOTAL OF 260CC'S THIS SHIFT. SURGEON AWARE. DR. SHELTON REMOVED MIDLINE DRSG. INCISION WELL APPROX. MILD INCISIONAL ERYTHEMA. APPLIED COVERSITE X2. NGT IS BACK TO LIS W/ PLAN TO KEEP UNTIL MD ASSESSES TOMORROW. PICC LINE DRSG CHANGED BY Cristino LAUGHLIN RN.
--- NOTE | 2019-11-29 14:55 | PM.PN.1 ---
Subjective Subjective Date Patient Seen: 11/29/19 Time Patient Seen: 14:55 Interval history: No acute events overnight. Pt passed some gas and stool this AM. NGT clamping trial this AM with >150 residual. Pt tolerating TPN. Exam Vital Signs (past 8 hours): - 11/29/19 08:00 11/29/19 09:06 11/29/19 12:00 Temperature 97.6 F Pulse Rate 79 Respiratory Rate 15 Blood Pressure 118/68 Pulse Oximetry 98 98 99 11/29/19 13:00 Temperature 98 F Pulse Rate 80 Respiratory Rate 15 Blood Pressure 120/65 Pulse Oximetry 99 Oxygen Delivery Method Room Air Oxygen Flow Rate 0 Narrative Exam Narrative: GENERAL: Alert, comfortable. Appears stated age. Answers questions promptly and appropriately. Vital signs noted. HENT: Normocephalic, atraumatic. Hearing intact. NGT in place and sumping. EYES: Conjunctiva pink, sclera white, no periorbital swelling. CARDIOVASCULAR: Regular rate. No pedal edema. RESPIRATORY: Non-tachypneic, breathing comfortably on room air. GASTROINTESTINAL: Abdomen soft, moderately distended, XIMENA drain in place with serosanguinous output; incision c/d/i; dressing changed GENITALURINARY: No flank tenderness. MUSCULOSKELETAL: Equal tone and mass bilaterally. SKIN: Warm, dry, soft, appropriate color for ethnicity. No other lesions, rashes, or wounds. NEURO: Alert and Oriented X 3. No gross sensory deficits, or cognitive issues. PSYCH: Appropriate mood and affect, normal intellect Objective Labs Result Diagrams: 11/29/19 05:10 11/29/19 05:10 Labs: Laboratory Results - last 24 hr 11/29/19 11/29/19 05:10 05:10 WBC 9.0 RBC 3.45 L Hgb 10.9 L Hct 31.7 L MCV 92.0 MCH 31.7 MCHC 34.5 RDW 13.3 Plt Count 291 Neut % (Auto) Not Reportable Lymph % (Auto) Not Reportable [place] % (Auto) Not Reportable Eos % (Auto) Not Reportable Baso % (Auto) Not Reportable Lymph # (Auto) Not Reportable [place] # (Auto) Not Reportable Baso # (Auto) Not Reportable Total Counted 100 Seg Neutrophils % 33.0 L Band Neutrophils % 40.0 H Lymphocytes % (Manual) 13.0 L Monocytes % (Manual) 4.0 Eosinophils % (Manual) 1.0 L Metamyelocytes % 8.0 H Myelocytes % 1.0 H Neutrophils # (Manual) 6570 H Toxic Granulation Present H Toxic Vacuolation Present H Platelet Estimate Adequate on smear RBC Morphology Normal morphology Sodium 142 Potassium 3.1 L Chloride 114 H Carbon Dioxide 27 BUN 20 H Creatinine 0.61 Estimated GFR > 60.0 BUN/Creatinine Ratio 32.8 H Glucose 139 H Calcium 6.5 L Phosphorus 1.3 L D Magnesium 2.4 H Assessment & Plan Assessment and plan (1) Small bowel obstruction: Status: Acute (2) S/P laparotomy: Status: Acute Assessment & Plan narrative: This is a 74 yo woman POD#2 s/p ex lap and small bowel resection for obstruction. Tolerating TPN. Passing gas and stool. NGT clamping trial with residual >150mL. Decided to keep NGT in for one more day. Recommended herring out. Pt feels she is having too much trouble getting up to use the bathroom and would like to keep the herring one more day. Phos was low this morning. Recheck pending now. Will continue TPN tonight, and plan on removing NGT and herring tomorrow pending bowel function and ambulation ability. Plan: DVT ppx Iv fluid, TPN, recheck labs daily continue abx per Dr. Helton NPO except meds, sips , ice chips Ambulate TID abdominal binder for pain COVID-19 COVID-19 status: Negative Result date/Date tested (Pos, Neg/Pending): 11/24/19 Time Spent With Patient Time with patient: 15-24 minutes Quality VTE Deep Vein Thrombosis/Pulmonary Embolism Present on Admission: No
[2019-11-29 15:02] LABS: Magnesium 2.7 mg/dL (1.6-2.3); Phosphorous 1.4 mg/dL (2.8-4.1)
[2019-11-29 17:38] LABS: BUN Creatinine Ratio 35.2 (6-22); Blood Urea Nitrogen 19 mg/dL (7-17); Calcium 6.9 mg/dL (8.4-10.2); Carbon Dioxide 27 mmol/L (22-32); Chloride 113 mmol/L (98-107); Estimated Glomerular Filt Rate > 60.0 mL/min (>60); Glucose 141 mg/dL (80-110); HEMOLYSIS 20 (0-50); Potassium 3.6 mmol/L (3.4-5.1); Sodium 143 mmol/L (137-145)
[2019-11-29] MEDS: AA 5 %/CALCIUM/LYTES/DEXT 20 % 1,000 ML with MULTIVITAMIN 10 ML, TRACE ELEMENTS 1 ML 40 ML IV (17:52)
[2019-11-30] VITALS (9 sets, daily range): BP systolic 125–152; BP diastolic 65–80; PULSE 70–82; RESP 15–16; TEMP 36.2–37.1; O2SAT 95–100
[2019-11-30] MEDS: KETOROLAC 30 MG/ML VIAL IV ×4 (00:03→17:10)
[2019-11-30] MEDS: PIPERACILLIN-TAZO 3.375 GM/50 ML FROZ.PIGGY IV ×4 (01:54→20:08)
[2019-11-30 05:57] LABS: Add Manual Diff / Slide Review NO; Basophils Absolute Auto 0 /uL (0-100); Basophils Percent Auto 0.4 % (0-2); Eosinophils Absolute Auto 100 /uL (0-450); Eosinophils Percent Auto 0.9 % (2-4); Hematocrit 31.2 % (36-46); Hemoglobin 10.5 g/dL (12.0-16.0); Lymphocytes Absolute Auto 800 /uL (1100-4500); Lymphocytes Percent Auto 6.4 % (25-40); Mean Corpuscular HGB Conc 33.6 % (30-36); Mean Corpuscular Hemoglobin 30.9 PG (26-34); Mean Corpuscular Volume 91.8 fL (80-100); Monocytes Absolute Auto 600 /uL (0-900); Monocytes Percent Auto 4.9 % (3-14); Neutrophils Absolute Auto 10900 /uL (1500-7000); Neutrophils Percent Auto 87.4 % (50-75); Platelet Count 347 X10^3/uL (150-400); Red Blood Cell Count 3.39 X10^6/uL (4.0-5.2); Red Cell Distribution Width 13.4 % (11.6-14.8); White Blood Cell Count 12.4 X10^3/uL (4.5-11.0)
[2019-11-30 06:05] LABS: BUN Creatinine Ratio 30.9 (6-22); Blood Urea Nitrogen 17 mg/dL (7-17); Calcium 7.1 mg/dL (8.4-10.2); Carbon Dioxide 31 mmol/L (22-32); Chloride 112 mmol/L (98-107); Estimated Glomerular Filt Rate > 60.0 mL/min (>60); Glucose 140 mg/dL (80-110); HEMOLYSIS 23 (0-50); Magnesium 2.5 mg/dL (1.6-2.3); Phosphorous 1.5 mg/dL (2.8-4.1); Sodium 142 mmol/L (137-145)
--- NOTE | 2019-11-30 06:40 | DI.RAD.S_ITS ---
PROCEDURE: XR KUB INDICATIONS: ileus TECHNIQUE: One view of the abdomen acquired. COMPARISON: None. FINDINGS: Surgical changes and devices: Esophagogastric tube in position, tip at the gastric antrum. Cutaneous surgical roberto carlos are present across the midline of the lower abdomen extending through the pelvis. A catheter like device overlies the midline of the pelvis. A small amount of contrast is present within the rectum.. Bowel: Bowel gas pattern is normal. Soft tissues: No suspicious abdominal calcifications. Visualized solid organ contours appear normal in size. Bones: No suspicious bony lesions. IMPRESSION: No sign of intestinal obstruction or perforation. Esophagogastric tube in normal position. Dictated by: Jacob Paulino M.D. on 11/30/2019 at 7:40 Approved by: Jacob Paulino M.D. on 11/30/2019 at 7:41
[2019-11-30] MEDS: ENOXAPARIN 40 MG/0.4 ML SYRINGE SUBCUT (08:24)
[2019-11-30] MEDS: POTASSIUM PHOSPHATE 15 MMOL in DEXTROSE 5% IN WATER 250 ML 63.75 ML IV ×2 (08:25→17:10)
[2019-11-30] MEDS: SODIUM CHLORIDE 0.9% 1,000 ML 85 ML IV (08:26)
--- NOTE | 2019-11-30 09:23 | PC.NURSE ---
Addendum entered by Sabine Bacon R.N. 11/30/19 15:32: Patient ambulating in halls. Still experiencing small loose stools. Voiding post herring removal. Denies nausea. PICC line dressing changed. Patient tolerated well. Addendum entered by Sabine Bacon R.N. 11/30/19 13:37: Patient is A/Ox4. Up to restroom for multiple loose BM's this morning. Denies feeling bloated or distended after NG removal, patient does reports belching periodically. PICC line is intact, infusing. Patient denies SOB, increased WOB, lightheadedness, dizziness or nausea. Patient is on room air. IS is bedside. Patient ambulating with SBA. Abdominal dressing is CDI, changed this morning. Gauze secured with tape. Abdominal binder is in place. Al drain is patent, drainage is serosang. Patient is taking small sips of apple juice and has had a bite of jello. Tolerating. Patient denies further needs at this time. Will continue to monitor. Original Note: in to see patient. NG tube removed. Patient tolerated well.
--- NOTE | 2019-11-30 10:00 | P.PN_ITS ---
Subjective Subjective Date Patient Seen: 11/30/19 Time Patient Seen: 10:00 Interval history: No acute events overnight. Pt passing gas and stool. Denies nausea. Exam Vital Signs (past 8 hours): - 11/30/19 03:34 11/30/19 04:00 11/30/19 08:00 Temperature 98.5 F 98 F Pulse Rate 82 73 Respiratory Rate 16 15 Blood Pressure 145/73 H 139/74 Pulse Oximetry 96 96 96 Oxygen Delivery Method Room Air Oxygen Flow Rate 0 Narrative Exam Narrative: GENERAL: Alert, comfortable. Appears stated age. Answers questions promptly and appropriately. Vital signs noted. HENT: Normocephalic, atraumatic. Hearing intact. NGT in place and sumping; removed during exam EYES: Conjunctiva pink, sclera white, no periorbital swelling. CARDIOVASCULAR: Regular rate. No pedal edema. RESPIRATORY: Non-tachypneic, breathing comfortably on room air. GASTROINTESTINAL: Abdomen soft, moderately distended, XIMENA drain in place with serosanguinous output; incision c/d/i; serosanguinous drainage on the dressing GENITALURINARY: No flank tenderness. MUSCULOSKELETAL: Equal tone and mass bilaterally. SKIN: Warm, dry, soft, appropriate color for ethnicity. No other lesions, rashes, or wounds. NEURO: Alert and Oriented X 3. No gross sensory deficits, or cognitive issues. PSYCH: Appropriate mood and affect, normal intellect Objective Imaging Abdominal x-ray: My impression: KUB: Normal pattern, no signs of obstruction Labs Result Diagrams: 11/30/19 05:35 11/30/19 05:35 Labs: Laboratory Results - last 24 hr 11/29/19 11/29/19 11/29/19 14:40 14:40 17:20 WBC RBC Hgb Hct MCV MCH MCHC RDW Plt Count Neut % (Auto) Lymph % (Auto) [place] % (Auto) Eos % (Auto) Baso % (Auto) Neut # (Auto) Lymph # (Auto) [place] # (Auto) Eos # (Auto) Baso # (Auto) Sodium 143 Potassium 3.6 Chloride 113 H Carbon Dioxide 27 BUN 19 H Creatinine 0.54 Estimated GFR > 60.0 BUN/Creatinine Ratio 35.2 H Glucose 141 H Calcium 6.9 L Phosphorus 1.4 L Magnesium 2.7 H 11/30/19 11/30/19 05:35 05:35 WBC 12.4 H RBC 3.39 L Hgb 10.5 L Hct 31.2 L MCV 91.8 MCH 30.9 MCHC 33.6 RDW 13.4 Plt Count 347 Neut % (Auto) 87.4 H Lymph % (Auto) 6.4 L [place] % (Auto) 4.9 Eos % (Auto) 0.9 L Baso % (Auto) 0.4 Neut # (Auto) 52789 H Lymph # (Auto) 800 L [place] # (Auto) 600 Eos # (Auto) 100 Baso # (Auto) 0 Sodium 142 Potassium 3.0 L Chloride 112 H Carbon Dioxide 31 BUN 17 Creatinine 0.55 Estimated GFR > 60.0 BUN/Creatinine Ratio 30.9 H Glucose 140 H Calcium 7.1 L Phosphorus 1.5 L Magnesium 2.5 H Assessment & Plan Assessment and plan (1) S/P laparotomy: Status: Acute (2) Small bowel obstruction: Status: Acute Assessment & Plan narrative: This is a 74 yo woman POD#3 s/p ex lap and small bowel resection for obstruction. Tolerating TPN. Passing gas and stool. NGT removed during exam. Will start clear liquids as tolerated. CLosely monitoring and repleting electrolytes. Plan: remove herring clear liquid diet as tolerated replete phos and K DVT ppx Iv fluid, TPN, recheck BMP/phos this afternoon and daily continue abx until tomorrow Ambulate TID abdominal binder for pain COVID-19 COVID-19 status: Negative Result date/Date tested (Pos, Neg/Pending): 11/24/19 Time Spent With Patient Time with patient: 15-24 minutes Quality VTE Deep Vein Thrombosis/Pulmonary Embolism Present on Admission: No
--- NOTE | 2019-11-30 10:57 | PT.IPTN ---
Current Diagnoses Intestinal adhesions [bands], unspecified as to partial versus complete obstruction (11/24/19) Unspecified intestinal obstruction, unspecified as to partial versus complete obstruction (11/24/19) Other specified postprocedural states (11/24/19) Surgery Performed Operation Date: 11/27/19 15:30 Actual Procedures p Exploratory Laparotomy GEN, SMALL BOWEL RESECTION - Miguel Helton MD s Enterocele repair - Bisi Ruiz MD Physical Therapy Treatment Note M2 PT-IP Current Condition Start: 11/28/19 13:35 Freq: NEEDED Status: Active Protocol: Document 11/28/19 13:35 [facility] (Rec: 11/28/19 13:44 [facility] [id number]) Physical Therapy Current Condition Current Condition Evaluation Date 11/28/19 Treatment Diagnosis SBO & enterocele s/p small bowel resection Precautions Abdominal Surgery Precautions Log Roll,Lifting Restrictions, Gait Belt above Incisional Area M3 PT-IP Subjective Start: 11/28/19 13:35 Freq: NEEDED Status: Active Protocol: Document 11/30/19 10:41 [facility] (Rec: 11/30/19 11:45 [facility] [id number]) Subjective Physical Therapy Visit Type Type Treatment Note Visit Start Time 10:41 Visit Stop Time 10:57 Total Visit Minutes 16 Number of CROSS TIE MAKER Visits 2 Physical Therapy Visit Comments Patient Comments Pt willing to participate with therapy. Therapy Pain Assessment Pain When Pain Assessed During Mobility Pain Present Pain Present Pain Reported Location generalized abd Scale Used did not state Pain Behaviors Facial Grimacing,Holding Area Pain Management Techniques Modification of Treatment M4 PT-IP Mobility and Gait Start: 11/28/19 13:35 Freq: NEEDED Status: Active Protocol: Document 11/30/19 10:41 [facility] (Rec: 11/30/19 11:45 [facility] [id number]) PT-Transfer Assessment Sit to and From Stand Sit to and from Stand Standby Assistance Equipment Transfer Assistive Device Gait Belt Orthotic/Prosthetic Devices or Brace: No Transfers Transfer Destination Chair Transfer Ability Level of Assist Standby Assistance Comments Mobility Comments Pt donned brief then stood SBA and was able to pull up brief . Pt ambulated in sweet SBA using IV pole to start then ambulate w/o IV pole CGA, after ~50ft pt was able to ambulate SBA while CROSS TIE MAKER managed IV pole. Pt ambulate with slight forward bend but stated she did not have increase in pain during ambulation w/o AD. Pt returned to room sitting in chair SBA. Pt was left in reclined chair with all needs within reach, RN informed of pt mobility. Gait Assessment Gait Gait Assistance Required: Standby Assistance,Contact Guard Assist Distance (Feet) 450 Able to Maintain Weight Bearing Status Yes During Gait Assistive Devices Assistive Device Gait Belt Gait Deviations General Gait Pattern Antalgic,Decreased Stride Length,Flexed Trunk Comments Gait Comments used IV pole to start then was able to ambulate w/o AD or IV pole CGA to start then SBA with improved stride length and slightly flexed trunk. M5 PT-IP Objective Assessments Start: 11/28/19 13:35 Freq: NEEDED Status: Active Protocol: Document 11/28/19 13:35 [facility] (Rec: 11/28/19 13:44 [facility] [id number]) Orientation Orientation/Cognition Level of Alertness Alert Language Function Ability No Deficits Noted Safety Awareness Understands Safety Issues Memory Description No Deficits Noted M6 PT-IP Treatment Start: 11/28/19 13:35 Freq: NEEDED Status: Active Protocol: Document 11/28/19 13:35 [facility] (Rec: 11/28/19 13:44 [facility] [id number]) Physical Therapy Treatment Education Education Provided Precautions,Safety M7 PT-IP Assessment and Plan Start: 11/28/19 13:35 Freq: NEEDED Status: Active Protocol: Document 11/30/19 10:41 [facility] (Rec: 11/30/19 11:45 [facility] [id number]) PT Summary Assessment and Plan Potential Rehabilitation Potential Excellent Status of Condition at Evaluation Evolving Summary Impairments Pain,Strength,Balance,Bed Mobility,Transfers,Gait Assessment Summary Pt improving with gait quality , pt able to ambulate without use of AD SBA-CGA w/o increase of pain. Goals Bed Mobility Goal Independent Transfer Goal Independent Gait Goal Independent Gait Distance 250ft Days to Meet Goals 6 Frequency of Treatment Frequency Of Treatment Once a Day Treatment Plan Physical Therapy Treatment Plan Bed Mobility Training,Transfer Training,Gait Training, Therapeutic Exercise,Balance Retraining,Post Op Education, Discharge Planning, Neuromuscular Re-ed Recommendations To Nursing Amount of Assist Needed 1 Person Assist Discharge Recommendations PT Discharge Recommendations Home with Assistance, Outpatient PT Transportation Needs at Discharge Private Vehicle
[2019-11-30] MEDS: POTASSIUM CHLORIDE 40 MEQ in SODIUM CHLORIDE 0.9% 500 ML 130 ML IV (13:23)
[2019-11-30 15:30] LABS: Blood Urea Nitrogen 16 mg/dL (7-17); Calcium 7.3 mg/dL (8.4-10.2); Carbon Dioxide 28 mmol/L (22-32); Chloride 111 mmol/L (98-107); Estimated Glomerular Filt Rate > 60.0 mL/min (>60); Glucose 127 mg/dL (80-110); HEMOLYSIS 47 (0-50); Phosphorous 1.9 mg/dL (2.8-4.1); Potassium 3.4 mmol/L (3.4-5.1); Sodium 141 mmol/L (137-145)
[2019-11-30] MEDS: AA 5 %/CALCIUM/LYTES/DEXT 20 % 1,500 ML with MULTIVITAMIN 10 ML, TRACE ELEMENTS 1 ML 62.958 ML IV (17:05)
[2019-11-30] MEDS: SODIUM CHLORIDE 0.9% FLUSH 10 ML IV (20:07)
[2019-12-01] VITALS (10 sets, daily range): BP systolic 118–137; BP diastolic 66–78; PULSE 69–79; RESP 14–18; TEMP 36.2–37.3; O2SAT 93–100
[2019-12-01] MEDS: KETOROLAC 30 MG/ML VIAL IV ×2 (00:04→05:33)
[2019-12-01] MEDS: PIPERACILLIN-TAZO 3.375 GM/50 ML FROZ.PIGGY IV ×4 (02:15→20:31)
--- NOTE | 2019-12-01 04:45 | PC.NURSE ---
Poor blood return on Purple lumen of PICC. Flushes well.
[2019-12-01 04:55] LABS: Add Manual Diff / Slide Review YES; Hematocrit 31.4 % (36-46); Hemoglobin 10.7 g/dL (12.0-16.0); Mean Corpuscular HGB Conc 34.2 % (30-36); Mean Corpuscular Hemoglobin 31.4 PG (26-34); Platelet Count 388 X10^3/uL (150-400); Red Blood Cell Count 3.41 X10^6/uL (4.0-5.2); Red Cell Distribution Width 13.5 % (11.6-14.8)
[2019-12-01 05:10] LABS: Blood Urea Nitrogen 15 mg/dL (7-17); Calcium 7.2 mg/dL (8.4-10.2); Carbon Dioxide 29 mmol/L (22-32); Chloride 108 mmol/L (98-107); Estimated Glomerular Filt Rate > 60.0 mL/min (>60); Glucose 136 mg/dL (80-110); HEMOLYSIS < 15 (0-50); Magnesium 2.1 mg/dL (1.6-2.3); Phosphorous 2.3 mg/dL (2.8-4.1); Potassium 3.1 mmol/L (3.4-5.1); Sodium 139 mmol/L (137-145)
--- NOTE | 2019-12-01 05:44 | PC.NURSE ---
Low K+ (3.1) called to Dr. Tripp. Orders to be placed.
[2019-12-01] MEDS: POTASSIUM CHLORIDE 40 MEQ in SODIUM CHLORIDE 0.9% 500 ML 130 ML IV (06:38)
[2019-12-01 06:54] LABS: Appearance Urine UA CLEAR; Bilirubin Urine UA NEGATIVE (NEGATIVE); Color Urine UA YELLOW; Glucose Urine UA TRACE g/dL (Negative); Ketones Urine UA NEGATIVE (NEGATIVE); Leukocyte Esterase Urine UA NEGATIVE (NEGATIVE); Nitrite Urine UA NEGATIVE (Negative); Occult Blood Urine UA TRACE-LYSED (Negative); Protein Urine UA 1+ (Negative); Specific Gravity Urine UA 1.015 (1.000-1.035); Urobilinogen Urine UA 0.2 E.U./dL (0.2)
[2019-12-01 06:56] LABS: pH Urine UA 7.5 (4.5-8.0)
[2019-12-01 07:17] LABS: Bacteria Urine Occasional (0-1); Culture Indicated Urine Cult Not Indicated; RBC Urine 1-5/HPF (0-5/HPF); Squamous Epithelial Cell Urine 1-5 /HPF (0-5/HPF); WBC Urine 0-1/HPF (0-5/HPF)
[2019-12-01 07:24] LABS: Neutrophils Absolute Manual 12320 /uL (3000-5900); Total Cells Counted 100
[2019-12-01 07:26] LABS: Dohle Bodies 1+; Polychromasia 1+; Toxic Vacuolation Present
[2019-12-01] MEDS: ENOXAPARIN 40 MG/0.4 ML SYRINGE SUBCUT (08:23)
--- NOTE | 2019-12-01 08:34 | PM.PNPO.1 ---
Subjective Subjective Date Patient Seen: 12/01/19 Time Patient Seen: 08:34 Interval history: No acute events. Tolerated clear liquid diet no nausea vomiting she is passing flatus and bowel movements. She is ambulatory, pain is well controlled without narcotics. Exam Vital Signs (past 8 hours): - 12/01/19 04:00 12/01/19 04:35 Temperature 97.2 F L Pulse Rate 69 Respiratory Rate 16 Blood Pressure 118/70 Pulse Oximetry 96 96 Oxygen Delivery Method Room Air Oxygen Flow Rate 0 Narrative Exam Narrative: General adult female alert oriented no acute distress Chest nonlabored respirations Abdomen soft appropriately tender to palpation Objective Labs Result Diagrams: 12/01/19 04:40 12/01/19 04:40 Labs: Laboratory Results - last 24 hr 11/30/19 12/01/19 12/01/19 15:10 04:40 04:40 WBC 14.0 H RBC 3.41 L Hgb 10.7 L Hct 31.4 L MCV 92.0 MCH 31.4 MCHC 34.2 RDW 13.5 Plt Count 388 Neut % (Auto) Not Reportable Lymph % (Auto) Not Reportable [place] % (Auto) Not Reportable Eos % (Auto) Not Reportable Baso % (Auto) Not Reportable Lymph # (Auto) Not Reportable [place] # (Auto) Not Reportable Baso # (Auto) Not Reportable Total Counted 100 Seg Neutrophils % 77.0 H D Band Neutrophils % 11.0 H Lymphocytes % (Manual) 8.0 L Monocytes % (Manual) 4.0 Neutrophils # (Manual) 43611 H Toxic Vacuolation Present H Dohle Bodies 1+ H RBC Morphology See below Polychromasia 1+ H Sodium 141 139 Potassium 3.4 3.1 L Chloride 111 H 108 H Carbon Dioxide 28 29 BUN 16 15 Creatinine 0.50 L 0.50 L Estimated GFR > 60.0 > 60.0 BUN/Creatinine Ratio 32.0 H 30.0 H Glucose 127 H 136 H Calcium 7.3 L 7.2 L Phosphorus 1.9 L 2.3 L Magnesium 2.1 Urine Color Urine Appearance Urine pH Ur Specific [place] Urine Protein Urine Glucose (UA) Urine Ketones Urine Occult Blood Urine Nitrate Urine Bilirubin Urine Urobilinogen Ur Leukocyte Esterase Urine RBC Urine WBC Ur Squamous Epith Cells Urine Bacteria Ur Culture Indicated? 12/01/19 06:25 WBC RBC Hgb Hct MCV MCH MCHC RDW Plt Count Neut % (Auto) Lymph % (Auto) [place] % (Auto) Eos % (Auto) Baso % (Auto) Lymph # (Auto) [place] # (Auto) Baso # (Auto) Total Counted Seg Neutrophils % Band Neutrophils % Lymphocytes % (Manual) Monocytes % (Manual) Neutrophils # (Manual) Toxic Vacuolation [place] Bodies RBC Morphology Polychromasia Sodium Potassium Chloride Carbon Dioxide BUN Creatinine Estimated GFR BUN/Creatinine Ratio Glucose Calcium Phosphorus Magnesium Urine Color Yellow Urine Appearance Clear Urine pH 7.5 Ur Specific [place] 1.015 Urine Protein 1+ H Urine Glucose (UA) Trace H Urine Ketones Negative Urine Occult Blood Trace-lysed Urine Nitrate Negative Urine Bilirubin Negative Urine Urobilinogen 0.2 Ur Leukocyte Esterase Negative Urine RBC 1-5/hpf Urine WBC 0-1/hpf Ur Squamous Epith Cells 1-5 /hpf Urine Bacteria Occasional (0-1) Ur Culture Indicated? Cult not indicated Assessment & Plan Post-op Postoperative Procedures: Procedures Operation Date: 11/27/19 15:30 Actual Procedures Side Surgeon p Exploratory Laparotomy GEN, SMALL BOWEL RESECTION Miguel Helton MD s Enterocele repair Bisi Ruiz MD Postoperative plan narrative: 74-year-old woman postoperative day 4 sp exploratory laparotomy small bowel resection for incarcerated small bowel obstruction. She is progressing appropriately. Plan -advance diet to regular -change pain meds to Tylenol Celebrex and gabapentin -electrolyte replacement -when tolerating regular diet will discontinue TPN -continue Zosyn -SCDs and Lovenox Quality VTE Deep Vein Thrombosis/Pulmonary Embolism Present on Admission: No
[2019-12-01] MEDS: CELECOXIB 100 MG CAPSULE PO ×2 (09:31→20:30)
--- NOTE | 2019-12-01 09:41 | PC.NURSE ---
Day Shift- Pt A&OX4, able to make needs known using racquel light. Rates 3/10 aching, cramping, and tenderness to abd, mainly mid to lower abd. pain management plan discussed with pt receiving 2 new scheduled medications ordered by Dr. Helton this AM. Pt wanted Celebrex now and then try Gabapentin in early afternoon to assess the different medication effectiveness. RLQ abd incision covered with intact folded 4X4 gauze dressing with small amount of old sang drainage to distal end of dressing. LLQ abd Al drain in place, dressing intact with old, dry serous drainage around insertion site, bulb compressed. TPN infusing well to BRYCE PICC, dressing intact. Sitting up in chair, tolerated small amount of breakfast, full liquids. Plans for egg salad sandwich for lunch. At 1120, pain decreased to 1/10 dull aching to abd, cheese string given at this time.
[2019-12-01] MEDS: POTASSIUM PHOSPHATE 15 MMOL in DEXTROSE 5% IN WATER 250 ML 63.8 ML IV (11:18)
--- NOTE | 2019-12-01 11:46 | PT.IPTN ---
Current Diagnoses Intestinal adhesions [bands], unspecified as to partial versus complete obstruction (11/24/19) Unspecified intestinal obstruction, unspecified as to partial versus complete obstruction (11/24/19) Other specified postprocedural states (11/24/19) Surgery Performed Operation Date: 11/27/19 15:30 Actual Procedures p Exploratory Laparotomy GEN, SMALL BOWEL RESECTION - Miguel Helton MD s Enterocele repair - Bisi Ruiz MD Physical Therapy Treatment Note M2 PT-IP Current Condition Start: 11/28/19 13:35 Freq: NEEDED Status: Active Protocol: Document 11/28/19 13:35 LRH (Rec: 11/28/19 13:44 LRH [id number]) Physical Therapy Current Condition Current Condition Evaluation Date 11/28/19 Treatment Diagnosis SBO & enterocele s/p small bowel resection Precautions Abdominal Surgery Precautions Log Roll,Lifting Restrictions, Gait Belt above Incisional Area M3 PT-IP Subjective Start: 11/28/19 13:35 Freq: NEEDED Status: Active Protocol: Document 12/01/19 11:32 CLB (Rec: 12/01/19 12:15 CLB [id number]) Subjective Physical Therapy Visit Type Type Treatment Note Visit Start Time 11:32 Visit Stop Time 11:46 Total Visit Minutes 12 Notes present during tx. Number of FIRE EQUIPMENT REPAIRER INSPECTOR Visits 3 Physical Therapy Visit Comments Patient Comments Pt willing to participate with therapy. M4 PT-IP Mobility and Gait Start: 11/28/19 13:35 Freq: NEEDED Status: Active Protocol: Document 12/01/19 11:32 CLB (Rec: 12/01/19 12:15 CLB [id number]) PT-Transfer Assessment Sit to and From Stand Sit to and from Stand Standby Assistance Equipment Transfer Assistive Device Gait Belt Orthotic/Prosthetic Devices or Brace: No Transfers Transfer Destination Toilet Transfer Ability Level of Assist Standby Assistance Comments Mobility Comments Pt in chair upon arrival, present. Pt performed therapeutic exercises seated in chair. Pt stood from chair SBA. Pt ambulated in ~230ft SBA w/o AD. After ambulation pt returned to room needing to go to BR. Left pt in BR with call cord within reach, present and RN in formed pt would require assist in BR. Gait Assessment Gait Gait Assistance Required: Standby Assistance Able to Maintain Weight Bearing Status Yes During Gait Assistive Devices Assistive Device Gait Belt Gait Deviations General Gait Pattern Antalgic,Flexed Trunk Comments Gait Comments Pt able to ambulate w/o AD in sweet ~230ft with assist of IV pole. Pt ambulated with flexed trunk and holds hand over stomach to manage pain. Pt has good safety awareness and steady gait and stride length WNL. M5 PT-IP Objective Assessments Start: 11/28/19 13:35 Freq: NEEDED Status: Active Protocol: Document 11/28/19 13:35 LRH (Rec: 11/28/19 13:44 LRH [id number]) Orientation Orientation/Cognition Level of Alertness Alert Language Function Ability No Deficits Noted Safety Awareness Understands Safety Issues Memory Description No Deficits Noted M6 PT-IP Treatment Start: 11/28/19 13:35 Freq: NEEDED Status: Active Protocol: Document 12/01/19 11:32 CLB (Rec: 12/01/19 12:15 CLB [id number]) Physical Therapy Treatment Exercises Exercises Ankle Pumps,Gluteal Sets,Quad Sets M7 PT-IP Assessment and Plan Start: 11/28/19 13:35 Freq: NEEDED Status: Active Protocol: Document 12/01/19 11:32 CLB (Rec: 12/01/19 12:15 CLB [id number]) PT Summary Assessment and Plan Potential Rehabilitation Potential Excellent Status of Condition at Evaluation Evolving Summary Impairments Pain,Strength,Balance,Bed Mobility,Transfers,Gait Progress Towards Goals Progressing Toward Goals Assessment Summary Pt improving with stability during gait w/o AD, pt continues to ambulate with flexed trunk holding hand on stomach. Goals Bed Mobility Goal Independent Transfer Goal Independent Gait Goal Independent Gait Distance 250ft Days to Meet Goals 6 Frequency of Treatment Frequency Of Treatment Once a Day Treatment Plan Physical Therapy Treatment Plan Bed Mobility Training,Transfer Training,Gait Training, Therapeutic Exercise,Balance Retraining,Post Op Education, Discharge Planning, Neuromuscular Re-ed Other Recommendations and Next Treatment continue to assess gait w/o Focus AD for independent gait. Recommendations To Nursing Amount of Assist Needed 1 Person Assist Discharge Recommendations PT Discharge Recommendations Home with Assistance, Outpatient PT Transportation Needs at Discharge Private Vehicle
--- NOTE | 2019-12-01 15:09 | CM.DPC ---
DCP Cont: Per Surgeon, pt tolerated clear liquids with no nausea or vomiting and has had bm, pain seemed controlled, and will advance pt's diet to confirm she can tolerate it before fully discontinuing TPN. Per PT, pt ambulating well and recommending safe d/c home with assist and outpt PT. SW attempted to meet bedside with pt but she was in the bathroom for a while. Plan: SW to follow tomorrow to see if pt tolerated advancing diet towards possible d/c home tomorrow if medically stable and any further identified needs. Ines Oviedo, SEMIAUTOMATIC TAPER OPERATOR
[2019-12-01] MEDS: GABAPENTIN 100 MG CAPSULE PO ×2 (15:32→20:30)
[2019-12-01] MEDS: AA 5 %/CALCIUM/LYTES/DEXT 20 % 1,500 ML with MULTIVITAMIN 10 ML, TRACE ELEMENTS 1 ML 62.958 ML IV (18:22)
[2019-12-01] MEDS: LACTOBACILLUS ACIDOPHILUS TABLET 1 EACH PO (18:22)
[2019-12-01] MEDS: SODIUM CHLORIDE 0.9% FLUSH 10 ML IV (20:31)
[2019-12-02] VITALS (23 sets, daily range): BP systolic 101–144; BP diastolic 44–86; PULSE 68–111; RESP 10–24; TEMP 36.2–37.6; O2SAT 93–100
--- NOTE | 2019-12-02 | PATH_ITS ---
[facility] Accession Number: [id number] . 01 Material submitted: . ileo-cecal valve - ILEOCOLIC . 02 Diagnosis: Ileocolonic Anastomosis, Excision: Segment of anastomotic ileocecum with marked serosititis, suggestive of anastomotic leak. Appendix with serositis and fibrous obliteration of the tip. Three lymph nodes with no diagnostic abnormality. No evidence of neoplasm. MRV 12/08/2019 0958 Local . 02 Electronically signed: . Jones Menjivar MD, PhD, Pathologist NPI- [id number] . 01 Gross description: . Received in formalin, labeled ileocolonic, and consists of an 8 cm in length x 4.0 cm in diameter portion of cecum with one stapled margin and attached appendix measuring 3.0 cm in length x 0.5 cm in diameter. There is a 5.5 cm in length x 4.0 cm in diameter portion of attached small intestine with two stapled margins. The serosa is mojica-pink with purulent exudate predominantly along the cecum. Opening reveals a [id number] anastomotic line between the small intestine and cecum. The mucosa is mojica-pink with normal mucosal folds and the wall thickness measures 0.2 cm. Three lymph nodes are identified within the attached adipose tissue ranging from 0.2 to 0.4 cm. Registered Vascular Technologist (Rvt) sections are submitted. . A1: cecal staple line, patient care representative perpendicular sections (blue). A2: small intestine staple lines, patient care representative perpendicular sections (blue and black). A3: anastomotic small intestine and cecum (staple line removed). A4: patient care representative cecum with adherent purulent exudate. A5: patient care representative appendix, cross-sections and bisected tip. A6: three intact lymph nodes. ([id number]) /MRV 12/04/[address] [place] [address] . 02 Pathologist provided ICD-10: Z98.0, K65.9 . 02 CPT . 140914 Performed at: 01 [facility] [address] [id number] MD Yasir Ford MD Phone: [phone] Performed at: [id number] [place], [place] [id number] MD Miranda Patiño MD Phone: [phone]
--- NOTE | 2019-12-02 01:08 | PC.NURSE ---
After the pt urinated into the toilet the nurse saw some sediment, nurse checked dressing and found some light pink serous drainage at lower part of dressing. Dressing was reinforced. rectum was wiped and there was no sign of sediment, nurse will continue to monitor.
[2019-12-02] MEDS: PIPERACILLIN-TAZO 3.375 GM/50 ML FROZ.PIGGY IV ×2 (01:49→17:20)
--- NOTE | 2019-12-02 05:43 | PC.NURSE ---
Addendum entered by Suyapa Rincon R.N. 12/02/19 06:37: Dr. Vázquez informed of pt's drainage as well as her blood glucose of 158. No new order at this time. will assess pt's incision today. Original Note: Distal end of midline dressing reinforced w/gauze at approx. 2AM. Pt was noted to have pink tinged serous drainage from distal area of incision. Drainage was copious enough to tinge her urine while she was on the toilet. Wound appeared to be well approximated, dressing was reinforced. Area was checked frequently. In AM, reinforced dressing had slowly saturated through and the entire dressing was changed. Gauze was applied to the clean, well approximated incision w/roberto carlos intact. Island dressing was then applied over gauze w/another pad of gauze at the distal end of dressing. The area of pt's pubic bone was found to be red - the patient noted that she believed she had inadvertently been applying pressure to this area when she was up to the toilet-pt had had frequent trips to the toilet throughout the shift. Advised pt to not press down on this area/or any area of her abdomen - she stated understanding. will be informed of these findings.
[2019-12-02 07:28] LABS: Hematocrit 32.4 % (36-46); Mean Corpuscular HGB Conc 33.9 % (30-36); Mean Corpuscular Hemoglobin 30.9 PG (26-34); Mean Corpuscular Volume 91.1 fL (80-100); Platelet Count 410 X10^3/uL (150-400); Red Blood Cell Count 3.56 X10^6/uL (4.0-5.2); Red Cell Distribution Width 13.4 % (11.6-14.8); White Blood Cell Count 12.5 X10^3/uL (4.5-11.0)
[2019-12-02 07:30] LABS: Add Manual Diff / Slide Review YES
[2019-12-02 08:10] LABS: Neutrophils Absolute Manual 10625 /uL (3000-5900); RBC Morphology Normal Morphology; Total Cells Counted 100
[2019-12-02 08:11] LABS: BUN Creatinine Ratio 29.2 (6-22); Blood Urea Nitrogen 14 mg/dL (7-17); Calcium 7.7 mg/dL (8.4-10.2); Carbon Dioxide 26 mmol/L (22-32); Chloride 107 mmol/L (98-107); Estimated Glomerular Filt Rate > 60.0 mL/min (>60); Glucose 134 mg/dL (80-110); HEMOLYSIS < 15 (0-50); Phosphorous 2.9 mg/dL (2.8-4.1); Potassium 3.3 mmol/L (3.4-5.1); Sodium 136 mmol/L (137-145)
[2019-12-02] MEDS: ENOXAPARIN 40 MG/0.4 ML SYRINGE SUBCUT (09:18)
[2019-12-02] MEDS: GABAPENTIN 100 MG CAPSULE PO (09:24)
[2019-12-02] MEDS: LACTOBACILLUS ACIDOPHILUS TABLET 1 EACH PO (09:24)
[2019-12-02] MEDS: CELECOXIB 100 MG CAPSULE PO (09:24)
--- NOTE | 2019-12-02 09:30 | PM.PNPO.1 ---
Subjective Subjective Date Patient Seen: 12/02/19 Time Patient Seen: 09:32 Interval history: Tolerate a regular diet yesterday. No nausea vomiting, she is having some loose stool but this is improving. Pain is well controlled on oral medication Exam Vital Signs (past 8 hours): - 12/02/19 04:30 12/02/19 05:43 12/02/19 07:30 Temperature 98.6 F 97.2 F L Pulse Rate 68 69 Respiratory Rate 18 16 Blood Pressure 141/70 H 123/51 L Pulse Oximetry 99 99 100 Oxygen Delivery Method Room Air Oxygen Flow Rate 0 Narrative Exam Narrative: General elderly woman alert oriented no acute distress Abdomen midline incision clean dry intact with roberto carlos appropriately tender to palpation XIMENA drain serosanguineous scant volume Objective Labs Result Diagrams: 12/02/19 06:30 12/02/19 06:30 Labs: Laboratory Results - last 24 hr 12/02/19 12/02/19 06:30 06:30 WBC 12.5 H RBC 3.56 L Hgb 11.0 L Hct 32.4 L MCV 91.1 MCH 30.9 MCHC 33.9 RDW 13.4 Plt Count 410 H Neut % (Auto) Not Reportable Lymph % (Auto) Not Reportable [place] % (Auto) Not Reportable Eos % (Auto) Not Reportable Baso % (Auto) Not Reportable Lymph # (Auto) Not Reportable [place] # (Auto) Not Reportable Baso # (Auto) Not Reportable Total Counted 100 Seg Neutrophils % 70.0 Band Neutrophils % 15.0 H Lymphocytes % (Manual) 2.0 L Atypical Lymphs % 2.0 H Monocytes % (Manual) 10.0 Metamyelocytes % 1.0 H Neutrophils # (Manual) 35052 H RBC Morphology Normal morphology Sodium 136 L Potassium 3.3 L Chloride 107 Carbon Dioxide 26 BUN 14 Creatinine 0.48 L Estimated GFR > 60.0 BUN/Creatinine Ratio 29.2 H Glucose 134 H Calcium 7.7 L Phosphorus 2.9 Magnesium 2.0 Assessment & Plan Post-op Postoperative Procedures: Procedures Operation Date: 11/27/19 15:30 Actual Procedures Side Surgeon p Exploratory Laparotomy GEN, SMALL BOWEL RESECTION Miguel Helton MD s Enterocele repair Bisi Ruiz MD Postoperative status narrative: 74-year-old female postoperative day 5 after a exploratory laparotomy small bowel resection for incarcerated hernia and enterocele repair. She is overall doing well and progressing appropriately. Plan -wean TPN to off -regular diet -DC antibiotics -removed drain today -anticipated discharge home tomorrow Quality VTE Deep Vein Thrombosis/Pulmonary Embolism Present on Admission: No
--- NOTE | 2019-12-02 09:59 | DIET.PN ---
Dietary Progress Note Pt tolerating general diet c some loose BM but no N/V. Per surgery, pt to wean off TPN today. Pt experienced some refeeding through the weekend c low phos and K+, elevated BG ~150. HT: 166.3cm WT:57.9kg BMI: 20.9 Labs: K+: 3.3 L, Phos: 2.9 M.0 B MNA:11 at risk Ralph: 23 Nutrition Diagnosis: Resolving Inadequate protein energy intake r/t NPO status aeb day 1 post small-bowel resection and lysis of adhesions, increased protein needs for healing, pt NPO or on clear liquid diet x4d and poor POs for additional 4d prior to admission. Interventions: Recc pt consume high PRO diet for next two weeks post-d/c to support healing Diet Order: NPO EER:1450 kcal( 25kcal/kg) 70g Pro ( 1.2g/kg to support healing) Monitoring/Evaluations: POs, GI sx
--- NOTE | 2019-12-02 11:08 | CM.DPC ---
Discharge Planning/Care Management Advanced directive, confirm from FAMILY Start: 11/24/19 11:11 Freq: Q24H Status: Inactive Protocol: Document 11/24/19 11:25 YAD (Rec: 11/24/19 11:29 YAD [id number]) Advance Directive, confirm on record Time 11:27 Person contacted pateint Copy received No Document 11/25/19 11:13 YAD (Rec: 11/25/19 11:17 YAD [id number]) Advance Directive, confirm on record Time 11:27 Person contacted pateint Copy received No Time 11:17 Person contacted patient. Gave handout to Pt Copy received No CM Discharge Assessment Start: 11/25/19 09:16 Freq: Status: Active Protocol: Document 11/25/19 09:16 VM (Rec: 11/25/19 09:29 VM [id number]) Discharge Planning Assessment Advance Directives? Yes History Provided By Patient,Medical Record Prior Living Arrangements House Household Members spouse Type of transporation used prior to Drives own vehicle admit Independent with ADL's Yes Is patient alert and oriented? Yes Caregiver for Another No Barriers to Discharge No Discharge Plan Home Transportation Arrangement Spouse Referrals Initiated None needed Whiteboard Updated in Patient Room with Yes name and ext. # of Metal Building Assembler Review Status In Process Next Review Type Continued Stay Review 11/25/19 09:20 CM Disch. Assessment Note by Kimberley Erwin Addendum entered by Kimberley Erwin R.N. 11/25/19 10:43: Patient will be having surgery later this afternoon. Original Note: DCP: Case received, EMR reviewed and met with patient. Introduced self and role. Was able to obtain information from patient regarding her baseline activity status and living situation prior to hospitalization. DCP assessment completed with information currently available. Patient is a 75 year old female who admitted yesterday morning to the care of the surgical team. PCP: EDGARDO Garces. Payer: confirmed: [employer] Medicare. Patient came to the hospital via private vehicle secondary to abdominal pain. She was diagnosed with a small bowel obstruction. She is currently getting fluids, possible surgery. Met with patient in her room. She is pleasant, alert and oriented, independent at baseline. She resides with her spouse, Terrell, here in [place]. P: DCP to continue to follow. Patient should be able to go home when she is medically stable. Kimberley Erwin RN/Escrow Assistant Initialized on 11/25/19 09:20 - END OF NOTE
--- NOTE | 2019-12-02 11:08 | CM.DPC ---
Addendum entered by Angeline Yu LPN 12/02/19 11:13: morning and has outlined the POC for today. pt is status post surgery on 11/26 for exploratory laparotomy, small bowel resection, CHERYL and vaginal enterocele. Plan today is TPN wean, regular diet, removal of XIMENA drain, continued ambulation. If all goes well pt will d/c home tomorrow with supportive spouse. DCP team will follow prn with DCP as per above and clinic followup. Original Note: DCP: continued: EMR reviewed and note that Dr. Helton was here this
--- NOTE | 2019-12-02 11:47 | PT.IPTN ---
Current Diagnoses Intestinal adhesions [bands], unspecified as to partial versus complete obstruction (11/24/19) Unspecified intestinal obstruction, unspecified as to partial versus complete obstruction (11/24/19) Other specified postprocedural states (11/24/19) Surgery Performed Operation Date: 11/27/19 15:30 Actual Procedures p Exploratory Laparotomy GEN, SMALL BOWEL RESECTION - Miguel Helton MD s Enterocele repair - Bisi Ruiz MD Physical Therapy Treatment Note M2 PT-IP Current Condition Start: 11/28/19 13:35 Freq: NEEDED Status: Active Protocol: Document 11/28/19 13:35 LRH (Rec: 11/28/19 13:44 LRH [id number]) Physical Therapy Current Condition Current Condition Evaluation Date 11/28/19 Treatment Diagnosis SBO & enterocele s/p small bowel resection Precautions Abdominal Surgery Precautions Log Roll,Lifting Restrictions, Gait Belt above Incisional Area M3 PT-IP Subjective Start: 11/28/19 13:35 Freq: NEEDED Status: Active Protocol: Document 12/02/19 11:34 CLB (Rec: 12/02/19 12:15 CLB [id number]) Subjective Physical Therapy Visit Type Type Treatment Note Visit Start Time 11:34 Visit Stop Time 11:47 Total Visit Minutes 13 Number of COMMUNICATIONS MARKETING INTERN Visits 4 Physical Therapy Visit Comments Patient Comments Pt willing to participate with therapy. Pt states she is feeling tired. M4 PT-IP Mobility and Gait Start: 11/28/19 13:35 Freq: NEEDED Status: Active Protocol: Document 12/02/19 11:34 CLB (Rec: 12/02/19 12:15 CLB [id number]) PT-Transfer Assessment Sit to and From Stand Sit to and from Stand Standby Assistance Equipment Transfer Assistive Device Gait Belt Orthotic/Prosthetic Devices or Brace: No Transfers Transfer Destination Chair Transfer Ability Level of Assist Standby Assistance Comments Mobility Comments Pt stood requiring SBA and ambulated in sweet ~230ft with SBA and assist with IV pole. Pt able to ambulate with good jun and posture. Pt returned to room sitting in chair SBA and performing therapeutic exercises. Left pt in reclined chair with all needs within reach and present. Gait Assessment Gait Gait Assistance Required: Standby Assistance Distance (Feet) 230 Able to Maintain Weight Bearing Status Yes During Gait Assistive Devices Assistive Device Gait Belt Gait Deviations General Gait Pattern Antalgic,Wide Based Gait Factors Limiting Gait Function Factors Limiting Gait Function Decreased Activity Tolerance, Decreased Strength,Pain,Poor Balance Comments Gait Comments Pt ambulated SBA w/o AD. Pt able to ambulate with hands at side but did not swing arms in reciprocal motion. Pt with wide base of support, pt stated she is trying to be careful when she walks. M5 PT-IP Objective Assessments Start: 11/28/19 13:35 Freq: NEEDED Status: Active Protocol: Document 11/28/19 13:35 LRH (Rec: 11/28/19 13:44 LRH [id number]) Orientation Orientation/Cognition Level of Alertness Alert Language Function Ability No Deficits Noted Safety Awareness Understands Safety Issues Memory Description No Deficits Noted M6 PT-IP Treatment Start: 11/28/19 13:35 Freq: NEEDED Status: Active Protocol: Document 12/02/19 11:34 CLB (Rec: 12/02/19 12:15 CLB [id number]) Physical Therapy Treatment Exercises Exercises Ankle Pumps,Gluteal Sets,Quad Sets M7 PT-IP Assessment and Plan Start: 11/28/19 13:35 Freq: NEEDED Status: Active Protocol: Document 12/02/19 11:34 CLB (Rec: 12/02/19 12:15 CLB [id number]) PT Summary Assessment and Plan Potential Rehabilitation Potential Excellent Status of Condition at Evaluation Evolving Summary Impairments Pain,Strength,Balance,Bed Mobility,Transfers,Gait Progress Towards Goals Progressing Toward Goals Assessment Summary Pt continues to improve with gait quality with increased steadiness with gait w/o AD. Goals Bed Mobility Goal Independent Transfer Goal Independent Gait Goal Independent Gait Distance 250ft Days to Meet Goals 6 Frequency of Treatment Frequency Of Treatment Once a Day Treatment Plan Physical Therapy Treatment Plan Bed Mobility Training,Transfer Training,Gait Training, Therapeutic Exercise,Balance Retraining,Post Op Education, Discharge Planning, Neuromuscular Re-ed Other Recommendations and Next Treatment continue to assess gait w/o Focus AD for independent gait, bed mobility. Recommendations To Nursing Amount of Assist Needed 1 Person Assist Discharge Recommendations PT Discharge Recommendations Home with Assistance, Outpatient PT Transportation Needs at Discharge Private Vehicle
[2019-12-02] MEDS: SODIUM CHLORIDE 0.9% FLUSH 10 ML IV ×4 (13:09→23:52)
--- NOTE | 2019-12-02 13:25 | PC.NURSE ---
Addendum entered by Kenisha Wilkerson R.N. 12/02/19 14:02: Discharge summary packet reviewed with pt and his Tara from [id number]. Pt states having all his belongings. Has follow up appointment already made at Dr. Boss office. Pt given prescriptions for Oxycodone and Vistaril. Reviewed but no limited to S/S of infection, pain management, preventing constipation, taking stool softeners, medication review scheduled and PRN. No further voiced concerns. Pt left unit at 1255 via wheelchair in no distress with DRILL OPERATOR AUTOMATIC escort. Pt's present to drive pt home. Original Note: Day Shift- Delay in pt taking one time dose of Potassium Chloride po at lunch time due to intense sharp abd pain to RUQ abd. Pt stopped eating her lunch, slight nausea from pain. TPN previously weaned and now stopped, see MAR. Double lumen PICC flushed with NS and Heparin per protocol, Brisk blood return from double lumen and flushes well. Distal incision redness noted with constant oozing of yellow light brown fluid with sediment onto existing gauze, pt's brief and into toilet as pt was assisted to BR. Dr. Helton paged at [phone], call back rec'd at 1328 and updated with above, pt afebrile, to place orders.
[2019-12-02] MEDS: MORPHINE 2 MG/ML INJ IV ×3 (13:39→23:51)
--- NOTE | 2019-12-02 13:46 | DI.CT.S_ITS ---
PROCEDURE: CT ABDOMEN PELVIS W CON INDICATIONS: pain POD 5 ex lap small bowel resection TECHNIQUE: After the administration of intravenous contrast, 5 mm thick sections acquired from the diaphragm to the symphysis. 5 mm coronal and sagittal reformats were acquired. For radiation dose reduction, the following was used: automated exposure control, adjustment of mA and/or kV according to patient size. COMPARISON: [facility], CT, CT ABDOMEN PELVIS W CON, 11/24/2019, 8:18. FINDINGS: Image quality: Excellent. ABDOMEN: Lung bases: Mild to moderate bilateral pleural effusions. Bibasilar atelectasis. Heart size is normal. Solid organs: Liver is normal in size and enhancement. Gallbladder is now distended with a mildly prominent wall. There are numerous tiny gallstones present in the gallbladder. The proximal jejunum is dilated, measuring 4.6 cm. This may be secondary to postop ileus. Biliary system is non dilated. Pancreas enhances normally. Spleen is normal in size and enhancement. No adrenal nodules. Kidneys demonstrate normal size and enhancement, without hydronephrosis. Peritoneum and bowel: Bowel loops demonstrate normal wall thickness and caliber. Mild ascites has developed. Minimal free air present, possibly related to being 5 days postop. No abscess identified. A structure containing fluid and gas present deep in the central pelvis is felt to likely represent the cecum and not an abscess cavity. There are surgical bowel sutures present in the pelvis. Nodes and vessels: No retroperitoneal or mesenteric adenopathy by size criteria. Aorta and inferior vena cava are normal in size. Miscellaneous: No ventral hernias. PELVIS: Genitourinary: Bladder wall thickness is normal. Air is present in the bladder, presumably secondary to recent instrumentation. Miscellaneous: No inguinal hernias or adenopathy. Bones: No suspicious bony lesions. No vertebral body compression fractures. IMPRESSION: 1. Postop status, status post recent bowel surgery, 5 days ago. 2. Mild to moderate bilateral pleural effusions and bibasilar atelectasis. 3. Small amount of postop ascites. 4. There is some free air present in the abdomen. This may be related to recent surgery, 5 days ago. 5. A structure containing fluid and gas deep in the pelvis most likely represents cecum and not abscess. Comment: A repeat study in the future with both IV and oral contrast may be helpful to exclude postop abscess. Dictated by: Miguel Thompson M.D. on 12/02/2019 at 16:34 Approved by: Miguel Thompson M.D. on 12/02/2019 at 16:42
--- NOTE | 2019-12-02 14:19 | PC.NURSE ---
Addendum entered by Kenisha Wilkerson R.N. 12/02/19 16:28: Correction to below, Dr. Helton was paged at 1427 not 1527. [address] Helton at 1547, there may have been an issue with receiving proper earlier pages delaying call back. Addendum entered by Kenisha Wilkerson R.N. 12/02/19 15:40: Pt's at bedside during shift change and very concerned with pt current condition. Plan update, awaiting call back from Dr. Helton for new orders related to pain meds and below note. Called Dr. Helton office and on hold for [address] Helton at 1545 and rec'd call back at 1547, new orders rec'd to change prn Morphine 2mg to Q2hr IV prn. CT scan with no oral contrast. Benadryl 25mg IV X1 prior to CT scan and IV contrast. Primary RN updated and gave update to pt and her . Addendum entered by Kenisha Wilkerson R.N. 12/02/19 14:57: Paged Dr. Helton at 1527 and 1452 for possible Benadryl 25 mg IV order prior to CT contrast as pt has side effect to Iodine listed in history. Spoke with Juan with CT scan also regarding this. Also want to update Dr that pt may not be able to tolerated oral contrast and to change Morphine prn order frequency. pt states morphine works better than Dilaudid in the past. Original Note: Day Shift- Delay in pt taking one time dose of PO Potassium Chloride at lunch time due to intense sharp pain to RUQ abd. Pt stopped eating her lunch approx half way through from pain to abd and slight nausea from the pain. TPN previously weaned and now stopped, see MAR. Double lumen PICC flushed with NS and Heparin per protocol. Brisk blood return from double lumen and flushes well. ABd dressing removed, leaking noted from distal end of incision that is brown and yellow in color with sediment. XIMENA previously removed by this AM and dressing changed at that time to 2 coversites. Midline incision approximated with roberto carlos intact, redness noted to distal end of incision. Active oozing from distal incision with dressing change. oozing fluid was yellow and brown in color with sediment and when pushed slightly to pelvic area, oozing increased. Incision area and old XIMENA site cleansed with NS, pat dry. 4X4 gauze pads and 3 abd pads placed, more so to distal end of incision, held with paper tape and brief. Pt had been assisted to BR and was oozing fluid into toilet, settled pt back to bed. Dr. Helton paged at 1321, called back at 1328 and updated with above, pt afebrile. to place new orders.
[2019-12-02 15:55] LABS: Procalcitonin 1.13 ng/mL (<0.5)
[2019-12-02] MEDS: diphenhydrAMINE 50 MG/ML VIAL 25 MG IV (16:09)
--- NOTE | 2019-12-02 16:52 | PM.EVENT ---
Event Note Date Patient Seen: 12/02/19 Time Patient Seen: 16:52 Event Note: Patient seen this afternoon for worsening abdominal pain. This morning on exam the midline wound had no active drainage she had no nausea she was tolerating a regular breakfast vital signs within normal limits, the abdominal drain had scant serosanguineous fluid in was removed.. This afternoon after ambulating her clinical course has changed. There is now a large volume of enteric appearing fluid coming from the midline lower aspect of the wound she has peritonitis. Will return her emergently to the operating room for an exploratory laparotomy. I spoke with the patient as well as her . I told them I am concerned that there is an intestinal leak that requires emergent intervention, either repair, resection or possible diversion with an ostomy. Her questions have been answered she is in agreement with this plan.
[2019-12-02] MEDS: LACTATED RINGERS 1,000 ML 120 ML IV ×2 (17:15→19:14)
--- NOTE | 2019-12-02 17:15 | SUR.HOLD ---
Received patient from inpatient unit in stable condition. Patient GCS 15 on arrival to PACU. Consents for surgery and anesthesia done. VSS.
--- NOTE | 2019-12-02 17:51 | PC.NURSE ---
Shift Note: Received pt from day shift. Patient axox3, can make needs known. In significant pain, day shift nurse getting verbal orders to decrease timing of pain meds and for IV benadryl for CT. Medicated per APR and sent to CT. When patient returned from CT this RN started physical assessment, noted copious odious drainage on ABD pad, attempted to assess incision and greenish brown foul smelling fluid projectile shot out from incision, quickly covered. Paged Dr Helton as this was significant change from report that incision had just been oozing. Notified coordinator of this RN's concerns r/t patient's pain and purulent drainage. Dr Helton bedside assessing patient around 164, patient to be returning to operating room. Around 1700 OR staff picked up patient and departed the floor.
--- NOTE | 2019-12-02 17:52 | SUR.OPER ---
Supine on padded OR bed, head on pillow, arms secured on padded arm boards at <90 degrees abduction, legs uncrossed, safety belt at thigh, tape over blanket over lower legs.
[2019-12-02] MEDS: BUPIVACAINE LIPOSOME 266 MG/20 ML VIAL INJ (19:55)
--- NOTE | 2019-12-02 20:30 | SUR.PHASEI ---
Patient received from OR in stable condition. Patient arrives to PACU with indwelling herring catheter; 18 gauge NG tube to left nare; sarah drain and wound vac. VSS. Surgical incision clean, dry and intact. Lungs CTA. NG tube to low intermittent suction. No output noted at this time.
[2019-12-02] MEDS: ONDANSETRON 4 MG/2 ML INJ IV (20:45)
--- NOTE | 2019-12-02 20:45 | PM.OP.1 ---
Operative Date/Time/Diagnoses Date of procedure: 12/02/19 Time of procedure: 20:45 Pre-op diagnosis: Anastomotic leak Post-op diagnosis: same Procedure & Clinicians Procedure: Exploratory laparotomy, ileocectomy, application of wound vac. Same procedure as scheduled: Yes Indications: This is a 74-year-old woman who was taken to the operating room 5 days ago for an exploratory laparotomy small bowel resection and repair of an enterocele. 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 She had done well postoperatively was tolerating regular diet and afebrile with minimal abdominal pain controlled with oral medications today a several hours later developed severe pain and had spontaneous drainage of enteric content from the midline. Surgeon: Miguel Helton Religion Teacher: Jay Vázquez Anesthesia Type: General Operative Notes Findings: Anastomotic leak at the staple line Specimen(s): other (ileocectom) Estimated Blood Loss (mL): 50 Procedure in detail: The patient was brought to the operating room and placed supine on the table. Bilateral lower extremity compression devices were applied. General anesthesia was induced and she was intubated with an endotracheal tube. The roberto carlos to the midline wound were removed. The she received Zosyn. The she was prepped and draped in sterile fashion. The midline incision was reopened and there was spontaneous drainage of enteric content. The small bowel content was carefully eviscerated. There was an anastomotic leak at the prior entero-colonic [id number] anastomosis at the site of the common channel closure. The leak was closed with silk suture temporarily. The right colon was mobilized to the hepatic flexure along the white line of Toldt using electrocautery to fully mobilize the anastomosis to the midline. The cecum and the distal end of the small bowel were extremely inflamed they did not appear ischemic. I thought it best to a the anastamosis and reanastomosis. I did not think that the anastomotic leak was amenable to primary closure nor was she systemic sick enough to warrant an ileostomy. A window within the mesentery to the cecum was made and then the bowel was divided using the CHARO stapler green load. A window within the mesentery to the ileum was made and then of this was divided in a similar fashion. The mesentery to the specimen was divided between clamps and silk ties. The specimen was then passed off the field labeled ileo cecectomy. A hand sewn end to end anastomosis was then fashioned. The outer layer back row was placed first using silk suture, then the inner layer back row was fashioned with Vicryl suture which were run all the way to the front. The front row was then imbricated using silk suture. The anastomosis was tension-free well perfused and widely patent. Content moved freely across the anastomosis there was no evidence of leak. The abdomen was copiously lavaged with 4 L of sterile saline. A 19 [place] Al drain was then placed through the left lower quadrant in proximity to the anastomosis. The fascia was then closed in a running fashion from above and below the 1. PDS. A wound VAC was then placed into the midline subcutaneous tissue. Patient tolerated the procedure well she was transferred to the recovery room in stable condition. Complications: none Post-operative Condition: stable Disposition: Acute Care
[2019-12-02] MEDS: SODIUM CHLORIDE 0.9% 1,000 ML 125 ML IV (21:35)
[2019-12-03] VITALS (12 sets, daily range): BP systolic 93–124; BP diastolic 54–69; PULSE 88–94; RESP 16–18; TEMP 36.9–37.8; O2SAT 93–98
[2019-12-03] MEDS: PIPERACILLIN-TAZO 3.375 GM/50 ML FROZ.PIGGY IV ×4 (01:37→17:49)
--- NOTE | 2019-12-03 01:51 | PC.NURSE ---
Addendum entered by Jennifer Guillermo R.N. 12/03/19 04:52: 0450 BP has improved and is now up to 107/60 after receiving bolus. Temperature is steady at 100F, but still elevated. No orders in MAR for Acetaminophen. Cool compress applied to patient's forehead. Will continue to monitor and notify doctor if temperature continues to rise. Pt currently asymptomatic and reports pain at a tolerable level. Addendum entered by Jennifer Guillermo R.N. 12/03/19 02:41: 0235 Rechecked the patient's temperature; currently at 99.9F temporal. The patient's temperature has been steadily rising since start of shift, and blood pressures have been low in the 90s/50s. Notified Dr. Helton who verbals orders a NS Bolus as well as a rate change on the current NS order to 150mL/h. No blood cultures at this time. The patient just received a dose of Zosyn antibiotic at 0130. Original Note: 2300 Received safe patient hand-off. The patient is alert and oriented, has NS going at 125mL/h to the PICC in her right arm, has a Al drain that currently has 30mL in the bulb, an abdominal wound vac at 125 suction, an indwelling catheter and an NG tube on intermittent suction. Call light is within reach. 2330 The patient c/o experiencing intermittent spasming in her abdomen. Morphine administered per order. The patient expresses she worries about narcotics, so I told her I would inform the physician and request perhaps adding an anti-spasmodic medication to her MAR.
[2019-12-03] MEDS: SODIUM CHLORIDE 0.9% 1,000 ML 1000 ML IV (02:59)
[2019-12-03 05:47] LABS: Hematocrit 34.2 % (36-46); Hemoglobin 11.9 g/dL (12.0-16.0); Mean Corpuscular HGB Conc 34.8 % (30-36); Mean Corpuscular Hemoglobin 32.1 PG (26-34); Mean Corpuscular Volume 92.1 fL (80-100); Platelet Count 458 X10^3/uL (150-400); Red Blood Cell Count 3.71 X10^6/uL (4.0-5.2); Red Cell Distribution Width 13.6 % (11.6-14.8); White Blood Cell Count 17.4 X10^3/uL (4.5-11.0)
[2019-12-03 05:48] LABS: Add Manual Diff / Slide Review YES
[2019-12-03 05:52] LABS: BUN Creatinine Ratio 30.8 (6-22); Blood Urea Nitrogen 16 mg/dL (7-17); Calcium 6.7 mg/dL (8.4-10.2); Carbon Dioxide 26 mmol/L (22-32); Chloride 107 mmol/L (98-107); Estimated Glomerular Filt Rate > 60.0 mL/min (>60); Glucose 107 mg/dL (80-110); HEMOLYSIS < 15 (0-50); Magnesium 1.6 mg/dL (1.6-2.3); Phosphorous 4.3 mg/dL (2.8-4.1); Potassium 4.2 mmol/L (3.4-5.1); Sodium 134 mmol/L (137-145)
[2019-12-03] MEDS: SODIUM CHLORIDE 0.9% 1,000 ML 150 ML IV ×3 (06:43→21:41)
[2019-12-03 07:04] LABS: Neutrophils Absolute Manual 15138 /uL (3000-5900); Total Cells Counted 100
[2019-12-03 07:07] LABS: RBC Morphology Normal Morphology
[2019-12-03] MEDS: ENOXAPARIN 40 MG/0.4 ML SYRINGE SUBCUT (08:29)
--- NOTE | 2019-12-03 09:02 | PM.PNPO.1 ---
Subjective Subjective Date Patient Seen: 12/03/19 Time Patient Seen: 09:02 Interval history: Feeling better than yesterday. No nausea vomiting abdominal pain is controlled with medication. Exam Vital Signs (past 8 hours): - 12/03/19 02:35 12/03/19 03:00 12/03/19 04:52 Temperature 99.9 F H 100.0 F H Pulse Rate 92 H 90 Respiratory Rate 18 16 Blood Pressure 95/57 L 107/60 Pulse Oximetry 94 94 94 12/03/19 08:00 Temperature 100.1 F H Pulse Rate 94 H Respiratory Rate 16 Blood Pressure 93/56 L Pulse Oximetry 94 Oxygen Delivery Method Room Air Oxygen Flow Rate 0 Narrative Exam Narrative: General elderly woman alert oriented no acute distress Abdomen midline wound VAC place drain left lower quadrant serosanguineous appropriately tender to palpation Objective Labs Result Diagrams: 12/03/19 05:30 12/03/19 05:30 Labs: Laboratory Results - last 24 hr 12/02/19 12/03/19 12/03/19 14:50 05:30 05:30 WBC 17.4 H RBC 3.71 L Hgb 11.9 L Hct 34.2 L MCV 92.1 MCH 32.1 MCHC 34.8 RDW 13.6 Plt Count 458 H Neut % (Auto) Not Reportable Lymph % (Auto) Not Reportable [place] % (Auto) Not Reportable Eos % (Auto) Not Reportable Baso % (Auto) Not Reportable Lymph # (Auto) Not Reportable [place] # (Auto) Not Reportable Baso # (Auto) Not Reportable Total Counted 100 Seg Neutrophils % 74.0 H Band Neutrophils % 13.0 H Lymphocytes % (Manual) 5.0 L Atypical Lymphs % 2.0 H Monocytes % (Manual) 5.0 Metamyelocytes % 1.0 H Neutrophils # (Manual) 71597 H RBC Morphology Normal morphology Sodium 134 L Potassium 4.2 Chloride 107 Carbon Dioxide 26 BUN 16 Creatinine 0.52 Estimated GFR > 60.0 BUN/Creatinine Ratio 30.8 H Glucose 107 Calcium 6.7 L Phosphorus 4.3 H D Magnesium 1.6 Procalcitonin 1.13 H Assessment & Plan Post-op Postoperative Procedures: Procedures Operation Date: 11/27/19 15:30 Actual Procedures Side Surgeon p Exploratory Laparotomy GEN, SMALL BOWEL RESECTION Miguel Helton MD s Enterocele repair Bisi Ruiz MD Operation Date: 12/02/19 17:15 Actual Procedures Side Surgeon p Exploratory Laparotomy GEN Miguel Helton MD Postoperative status narrative: 74-year-old woman postoperative day 1 status post return to the operating room for exploratory laparotomy ileocecectomy for anastomotic leak. Source of abdominal infection has been controlled. Plan -NPO NG tube await return of bowel function -resume TPN -Zosyn -SCDs in VT prophylaxis Quality VTE Deep Vein Thrombosis/Pulmonary Embolism Present on Admission: No
[2019-12-03] MEDS: MORPHINE 2 MG/ML INJ IV (10:54)
[2019-12-03] MEDS: SODIUM CHLORIDE 0.9% FLUSH 10 ML IV (10:55)
--- NOTE | 2019-12-03 11:10 | DIET.PN ---
Dietary Progress Note Pt taken to OR last night for anastomotic leak which was revised. Pt has NGT on suction as well as wound vac. Pt to restart TPN this evening at goal rate of 62mL/h to support nutrition status and high PRO needs. Consider transitioning to cyclic TPN if hanging second bag. HT: 166.37 WT:57.969 BMI: 20.9 MNA:11 at risk Ralph: 23 Nutrition Diagnosis: Inadequate protein energy intake r/t high PRO needs and prolonged NPO status aeb pt s/p d1 from correction of anastomotic leak c wound vac, pt has NGT on suction, second abd surgery in 1w. Interventions: 1. Recc reinitiation of TPN at goal rate of 62mL/h for first day and consider switching to cyclic TPN if hanging second bag running at 93mL/h for 16h of patients choice (daytime or nightime). Diet Order: NPO EER:1450 kcal( 25kcal/kg) 70g Pro ( 1.2g/kg to support healing) Monitoring/Evaluations: following daily
--- NOTE | 2019-12-03 12:28 | CM.DPC ---
DCP Cont: Patient has NG tube at this time, along with TPN. She had surgery yesterday. It is noted that patient currently has a would vac. Went ahead and called Christine at [facility] to review, although patient is not yet medically stable, since she still has NG tube and TPN. Once patient no longer has NG tube and can tolerate diet, [facility] can consider if needed. Other option is for her to go home with home health. Patient has [employer], so authorization process can take 24 to 48 hours, according to Christine. P: DCP to continue to follow. Christine at [facility] will review, in case patient does need jail once stable, and no longer has NG tube and can tolerate diet. Patient would need to be off of TPN for 24 hours. Kimberley Erwin RN/Business Intelligence Analyst
--- NOTE | 2019-12-03 12:36 | PT.IPTN ---
Current Diagnoses Intestinal adhesions [bands], unspecified as to partial versus complete obstruction (11/24/19) Unspecified intestinal obstruction, unspecified as to partial versus complete obstruction (11/24/19) Other specified postprocedural states (11/24/19) Surgery Performed Operation Date: 11/27/19 15:30 Actual Procedures p Exploratory Laparotomy GEN, SMALL BOWEL RESECTION - Miguel Helton MD s Enterocele repair - Bisi Ruiz MD Operation Date: 12/02/19 17:15 Actual Procedures p Exploratory Laparotomy GEN - Miguel Helton MD Physical Therapy Treatment Note M2 PT-IP Current Condition Start: 11/28/19 13:35 Freq: NEEDED Status: Active Protocol: Document 11/28/19 13:35 [facility] (Rec: 11/28/19 13:44 [facility] [id number]) Physical Therapy Current Condition Current Condition Evaluation Date 11/28/19 Treatment Diagnosis SBO & enterocele s/p small bowel resection Precautions Abdominal Surgery Precautions Log Roll,Lifting Restrictions, Gait Belt above Incisional Area M3 PT-IP Subjective Start: 11/28/19 13:35 Freq: NEEDED Status: Active Protocol: Document 12/03/19 11:50 SP (Rec: 12/03/19 15:41 SP [id number]) Subjective Physical Therapy Visit Type Type Treatment Note Visit Start Time 11:50 Visit Stop Time 12:36 Total Visit Minutes 46 Notes present during tx, observation only. Number of AGRICULTURAL CONSULTANT Visits 5 Physical Therapy Visit Comments Patient Comments Pt willing to work with therapy, I stay awake to work with you but will take a nap when we are done and I was able to get medication to help with pain had earlier this am . Therapy Pain Assessment Pain When Pain Assessed During Mobility Pain Present Pain Present Pain Reported Location Right Upper Abdomen Intensity 3 Scale Used Numeric (0 - 10) Description Cramping,Pressure,With Movement Pain Behaviors Facial Grimacing,Holding Area Pain Management Techniques Re-positioning,Timing of Activity with Medications M4 PT-IP Mobility and Gait Start: 11/28/19 13:35 Freq: NEEDED Status: Active Protocol: Document 12/03/19 11:50 SP (Rec: 12/03/19 15:41 SP [id number]) PT-Bed Mobility Assessment Rolling Type of Rolling Log Rolling,Roll to Right Supine to Sit Supine to Sit Maximum Assistance,1 Person Assistance,Head of Bed Elevated,Bedrails Sit to Supine Sit to Supine Maximum Assistance,1 Person Assistance Scooting Scooting to Edge of Bed Moderate Assistance PT-Transfer Assessment Sit to and From Stand Sit to and from Stand Contact Guard Assistance, Minimal Assistance,1 Person Assistance,Use of Upper Extremities Equipment Transfer Assistive Device Gait Belt,Front Wheeled Walker Orthotic/Prosthetic Devices or Brace: No Transfers Transfer Destination Bed,Chair Transfer Technique Stand Step Pivot Transfer Ability Level of Assist Contact Guard Assistance, Minimal Assistance,1 Person Assistance,Use of Upper Extremities Comments Mobility Comments Pt elevated supine when arrived. Instructed BLE ex: ankle pumps, quad and glut sets, small range heel slides, and slight core facilitation with hand held over abdominals during mobility. Slight elevated supine> log roll R Mod A of 1 >sitting Max A of 1 with support at upper back, cuing for LE to EOB, Scoot to EOB Mod-Max A with heavy WB LUE on bed to self scoot while RUE holding abdominals, support at upper back for sittng balance while providing each LE shift forward using transfer pad. Sit>stand LUE off bed, RUE hold abdominals, CG- Min A x1 from EOB, SPT bed to chair 3 ft using FWW CGA then cuing for reaching back with Min A for slow descent to chair. AGRICULTURAL CONSULTANT managed all lines. Sit>stand from chair Min A with good LUE pushing from chair arms, SPT usign FWW to bed then lateral side step to HOB, good reaching back and slow descent to sit. Sit> supine with support at upper back and BLE onto bed with RUE self support to R sidelying then guided log roll L to supine. Pillow placement under BLE and donned SCDs for circulation, call light and all needs in reach. Bed alarmed. in room when left. Pt reported no increase in pain, just very tired. Therapy will continue to assess progress, recommending continued acute skilled PT to improve strength for functional mobility. Pt planning to return home with to assist her when able. Gait Assessment Gait Gait Assistance Required: Contact Guard Assist,Minimum Assistance,1 Person Assist Distance (Feet) 3 Able to Maintain Weight Bearing Status Yes During Gait Assistive Devices Assistive Device Gait Belt,Front Wheeled Walker Orthotic/Prosthetic Devices or Brace: No Gait Deviations General Gait Pattern Antalgic,Decreased Stride Length,Decreased Feet Clearance,Flexed Trunk,Narrow Based Gait,Step-to Gait Factors Limiting Gait Function Factors Limiting Gait Function Decreased Activity Tolerance, Decreased Strength,Limited Range of Motion,Pain,Poor Balance,Poor Safety Awareness Comments Gait Comments Step to gait during short distance SPT using FWW bed<> chair, AGRICULTURAL CONSULTANT managed all lines. M5 PT-IP Objective Assessments Start: 11/28/19 13:35 Freq: NEEDED Status: Active Protocol: Document 11/28/19 13:35 [facility] (Rec: 11/28/19 13:44 [facility] [id number]) Orientation Orientation/Cognition Level of Alertness Alert Language Function Ability No Deficits Noted Safety Awareness Understands Safety Issues Memory Description No Deficits Noted M6 PT-IP Treatment Start: 11/28/19 13:35 Freq: NEEDED Status: Active Protocol: Document 12/03/19 11:50 SP (Rec: 12/03/19 15:41 SP [id number]) Physical Therapy Treatment Exercises Exercises Ankle Pumps,Gluteal Sets,Quad Sets,Heel Slides M7 PT-IP Assessment and Plan Start: 11/28/19 13:35 Freq: NEEDED Status: Active Protocol: Document 12/03/19 11:50 SP (Rec: 12/03/19 15:41 SP [id number]) PT Summary Assessment and Plan Potential Rehabilitation Potential Excellent Status of Condition at Evaluation Evolving Summary Impairments Pain,Strength,Balance,Bed Mobility,Transfers,Gait Progress Towards Goals Slow Progress due to Pain,Slow Progress due to Activity Tolerance Assessment Summary Pt requiring Max A for bed mobility, CGA- Agus during transfers using FWW, unable to tolerate gait at this time. Will continue to assess progress. Pt is planning on returning home with to assist her, will need caregiver training prior to DC , observation only completed at this time. Goals Bed Mobility Goal Independent Transfer Goal Independent Gait Goal Independent Gait Distance 250ft Days to Meet Goals 6 Frequency of Treatment Frequency Of Treatment Once a Day Treatment Plan Physical Therapy Treatment Plan Bed Mobility Training,Transfer Training,Gait Training, Therapeutic Exercise,Balance Retraining,Post Op Education, Discharge Planning, Neuromuscular Re-ed Other Recommendations and Next Treatment continue bed mobility, Focus tranfers, gait using FWW or LRAD, bed mobility, caregiver training prior to DC. Recommendations To Nursing Amount of Assist Needed 1 Person Assist Discharge Recommendations PT Discharge Recommendations Home with Assistance, Outpatient PT Transportation Needs at Discharge Private Vehicle
[2019-12-03] MEDS: LORazepam 2 MG/ML INJ 0.5 MG IV ×2 (13:43→21:38)
[2019-12-03] MEDS: CALCIUM GLUCONATE 4.65 MEQ in SODIUM CHLORIDE 0.9% 50 ML 180 ML IV (14:18)
[2019-12-03] MEDS: FAT EMULSIONS 50 GM/250 ML EMULSION IV (17:55)
[2019-12-03] MEDS: AA 5 %/CALCIUM/LYTES/DEXT 20 % 1,500 ML with MULTIVITAMIN 10 ML, TRACE ELEMENTS 1 ML 62.958 ML IV (17:55)
[2019-12-04] VITALS (7 sets, daily range): BP systolic 107–135; BP diastolic 60–70; PULSE 81–93; RESP 16–20; TEMP 36.2–37.7; O2SAT 92–96
[2019-12-04] MEDS: PIPERACILLIN-TAZO 3.375 GM/50 ML FROZ.PIGGY IV ×5 (00:23→23:54)
[2019-12-04 02:07] LABS: BUN Creatinine Ratio 28.3 (6-22); Blood Urea Nitrogen 17 mg/dL (7-17); Calcium 6.6 mg/dL (8.4-10.2); Carbon Dioxide 25 mmol/L (22-32); Chloride 107 mmol/L (98-107); Estimated Glomerular Filt Rate > 60.0 mL/min (>60); Glucose 150 mg/dL (80-110); HEMOLYSIS < 15 (0-50); Magnesium 1.9 mg/dL (1.6-2.3); Phosphorous 2.3 mg/dL (2.8-4.1); Potassium 3.4 mmol/L (3.4-5.1); Sodium 134 mmol/L (137-145)
--- NOTE | 2019-12-04 02:09 | PC.NURSE ---
0115 Lab orders meant for 0500 draw were drawn at 0115 by accident. Will notify physician.
[2019-12-04 02:20] LABS: Add Manual Diff / Slide Review NO; Basophils Absolute Auto 100 /uL (0-100); Basophils Percent Auto 0.4 % (0-2); Eosinophils Absolute Auto 0 /uL (0-450); Eosinophils Percent Auto 0.1 % (2-4); Hematocrit 28.7 % (36-46); Hemoglobin 9.7 g/dL (12.0-16.0); Lymphocytes Absolute Auto 1100 /uL (1100-4500); Lymphocytes Percent Auto 6.2 % (25-40); Mean Corpuscular HGB Conc 33.7 % (30-36); Mean Corpuscular Volume 91.9 fL (80-100); Monocytes Absolute Auto 1500 /uL (0-900); Monocytes Percent Auto 8.4 % (3-14); Neutrophils Absolute Auto 15600 /uL (1500-7000); Neutrophils Percent Auto 84.9 % (50-75); Platelet Count 422 X10^3/uL (150-400); Red Blood Cell Count 3.12 X10^6/uL (4.0-5.2); Red Cell Distribution Width 13.8 % (11.6-14.8); White Blood Cell Count 18.3 X10^3/uL (4.5-11.0)
[2019-12-04] MEDS: SODIUM CHLORIDE 0.9% 1,000 ML 150 ML IV (04:33)
[2019-12-04] MEDS: LORazepam 2 MG/ML INJ 0.5 MG IV ×2 (05:19→14:45)
[2019-12-04] MEDS: ENOXAPARIN 40 MG/0.4 ML SYRINGE SUBCUT (08:56)
[2019-12-04] MEDS: SODIUM CHLORIDE 0.9% FLUSH 10 ML IV ×2 (08:56→20:49)
[2019-12-04] MEDS: POTASSIUM PHOSPHATE 30 MMOL in DEXTROSE 5% IN WATER 250 ML 65 ML IV (09:51)
--- NOTE | 2019-12-04 11:29 | PT.IPTN ---
Current Diagnoses Intestinal adhesions [bands], unspecified as to partial versus complete obstruction (11/24/19) Unspecified intestinal obstruction, unspecified as to partial versus complete obstruction (11/24/19) Other specified postprocedural states (11/24/19) Surgery Performed Operation Date: 11/27/19 15:30 Actual Procedures p Exploratory Laparotomy GEN, SMALL BOWEL RESECTION - Miguel Helton MD s Enterocele repair - Bisi Ruiz MD Operation Date: 12/02/19 17:15 Actual Procedures p Exploratory Laparotomy GEN - Miguel Helton MD Physical Therapy Treatment Note M2 PT-IP Current Condition Start: 11/28/19 13:35 Freq: NEEDED Status: Active Protocol: Document 11/28/19 13:35 [facility] (Rec: 11/28/19 13:44 [facility] [id number]) Physical Therapy Current Condition Current Condition Evaluation Date 11/28/19 Treatment Diagnosis SBO & enterocele s/p small bowel resection Precautions Abdominal Surgery Precautions Log Roll,Lifting Restrictions, Gait Belt above Incisional Area M3 PT-IP Subjective Start: 11/28/19 13:35 Freq: NEEDED Status: Active Protocol: Document 12/04/19 11:08 [place] (Rec: 12/04/19 12:41 [place] [id number]) Subjective Physical Therapy Visit Type Type Treatment Note Visit Start Time 11:08 Visit Stop Time 11:29 Total Visit Minutes 21 Notes present during tx, observation only. Number of SURGICAL PROCESSOR Visits 6 Physical Therapy Visit Comments Patient Comments Pt agreeable to work w/ therapy. M4 PT-IP Mobility and Gait Start: 11/28/19 13:35 Freq: NEEDED Status: Active Protocol: Document 12/04/19 11:08 [place] (Rec: 12/04/19 12:41 [place] [id number]) PT-Bed Mobility Assessment Rolling Type of Rolling Log Rolling,Roll to Left Supine to Sit Supine to Sit Maximum Assistance,1 Person Assistance,Head of Bed Elevated,Bedrails Sit to Supine Sit to Supine Maximum Assistance,1 Person Assistance PT-Transfer Assessment Comments Mobility Comments Pt was in bed upon arrival from therapy. RN arrived to clamp NG tube. Reviewed LE strengthening exercises including ankle pumps, quad sets, and glute sets. Pt Max A for logroll to L w/ HOB elevated and bedrails. Pt then sidelying<>sit Max A w/ cues. Upon sitting, pt stated she was too fatigued and requested to lay back down. Pt Max A for logroll back into bed. Pt repositioned comfortably in bed and left in room w/ all needs in reach and SCDs on. Gait Assessment Comments Gait Comments pt unable to tolerate d/t fatigue this visit. M5 PT-IP Objective Assessments Start: 11/28/19 13:35 Freq: NEEDED Status: Active Protocol: Document 11/28/19 13:35 [facility] (Rec: 11/28/19 13:44 [facility] [id number]) Orientation Orientation/Cognition Level of Alertness Alert Language Function Ability No Deficits Noted Safety Awareness Understands Safety Issues Memory Description No Deficits Noted M6 PT-IP Treatment Start: 11/28/19 13:35 Freq: NEEDED Status: Active Protocol: Document 12/04/19 11:08 [place] (Rec: 12/04/19 12:41 [place] [id number]) Physical Therapy Treatment Exercises Exercises Ankle Pumps,Gluteal Sets,Quad Sets M7 PT-IP Assessment and Plan Start: 11/28/19 13:35 Freq: NEEDED Status: Active Protocol: Document 12/04/19 11:08 [place] (Rec: 12/04/19 12:41 [place] [id number]) PT Summary Assessment and Plan Potential Rehabilitation Potential Excellent Status of Condition at Evaluation Evolving Summary Impairments Pain,Strength,Balance,Bed Mobility,Transfers,Gait Progress Towards Goals Slow Progress due to Pain,Slow Progress due to Activity Tolerance Assessment Summary Pt unable to tolerate much activity today d/t reported high level of fatigue. Pt completed bilateral ankle pumps, quad sets, and glute sets. Max A for logroll and Max A for sidelying<>sit. Upon sitting, pt reported that she was too fatigued to try standing or walking today and requested to lay back down. Max A for sit<>sup/logroll back into bed. Pt may require SNF to improve strength and functional mobility. Goals Bed Mobility Goal Independent Transfer Goal Independent Gait Goal Independent Gait Distance 250ft Days to Meet Goals 6 Frequency of Treatment Frequency Of Treatment Once a Day Treatment Plan Physical Therapy Treatment Plan Bed Mobility Training,Transfer Training,Gait Training, Therapeutic Exercise,Balance Retraining,Post Op Education, Discharge Planning, Neuromuscular Re-ed Other Recommendations and Next Treatment continue bed mobility, Focus tranfers, gait using FWW or LRAD, bed mobility, caregiver training prior to DC. Recommendations To Nursing Amount of Assist Needed 1 Person Assist Discharge Recommendations PT Discharge Recommendations Home with 24/ Assist,Home Health,SNF Rehab,Outpatient PT Transportation Needs at Discharge Private Vehicle
[2019-12-04] MEDS: KETOROLAC 30 MG/ML VIAL IV (11:59)
[2019-12-04] MEDS: MORPHINE 2 MG/ML INJ IV (14:44)
--- NOTE | 2019-12-04 15:20 | P.PN_ITS ---
Subjective Subjective Date Patient Seen: 12/04/19 Time Patient Seen: 15:20 Interval history: No bowel movement or flatus. Abdominal incisional pain well controlled. Feels bloated. Exam Vital Signs (past 8 hours): - 12/04/19 08:25 12/04/19 11:43 Temperature 99.6 F 99.5 F Pulse Rate 93 H 88 Respiratory Rate 20 18 Blood Pressure 117/67 107/70 Pulse Oximetry 94 95 Oxygen Delivery Method Room Air Oxygen Flow Rate 0 Narrative Exam Narrative: Gen-Elderly woman alert and oriented Abdomen-Soft appropriately tender to palpation. Wound vac removed fascia is intact clean wound edges are granulating Objective Labs Result Diagrams: 12/04/19 01:15 12/04/19 01:15 Labs: Laboratory Results - last 24 hr 12/04/19 12/04/19 01:15 01:15 WBC 18.3 H RBC 3.12 L Hgb 9.7 L Hct 28.7 L MCV 91.9 MCH 31.0 MCHC 33.7 RDW 13.8 Plt Count 422 H Neut % (Auto) 84.9 H Lymph % (Auto) 6.2 L [place] % (Auto) 8.4 Eos % (Auto) 0.1 L Baso % (Auto) 0.4 Neut # (Auto) 59621 H Lymph # (Auto) 1100 [place] # (Auto) 1500 H Eos # (Auto) 0 Baso # (Auto) 100 Sodium 134 L Potassium 3.4 Chloride 107 Carbon Dioxide 25 BUN 17 Creatinine 0.60 Estimated GFR > 60.0 BUN/Creatinine Ratio 28.3 H Glucose 150 H Calcium 6.6 L Phosphorus 2.3 L D Magnesium 1.9 Assessment & Plan Post-op Postoperative Procedures: Procedures Operation Date: 11/27/19 15:30 Actual Procedures Side Surgeon p Exploratory Laparotomy GEN, SMALL BOWEL RESECTION Miguel Helton MD s Enterocele repair Bisi Ruiz MD Operation Date: 12/02/19 17:15 Actual Procedures Side Surgeon p Exploratory Laparotomy GEN Miguel Helton MD Postoperative status narrative: 74F POD day 2 sp exlap ileocectomy for anastamotic leak. She is slowly recovering as expected, has a post operative ileus. Plan -Severe protein malnutrition-Continue TPN -Intra abdominal contamination-Continue Zosyn -Post operative ileus-NGT -VTE prophylaxis-Lovenox and SCDs -Midline wound-Wound vac next bedside change Sunday Quality VTE Deep Vein Thrombosis/Pulmonary Embolism Present on Admission: No
[2019-12-04] MEDS: CALCIUM GLUCONATE 4.65 MEQ in SODIUM CHLORIDE 0.9% 50 ML 180 ML IV (17:07)
--- NOTE | 2019-12-04 17:35 | DIET.PN ---
Dietary Progress Note Pt c NGT to suction consuming many ice chips c some bowel tones but no flatus. Recc transitioning to cyclic TPN at 93mL/h over 16h during evening and night per pt request to have fewer lines connected during day and to give her liver a rest from constant nutrient processing. HT: 166.37 WT:57.969 BMI: 20.9 MNA:11 at risk Ralph: 23 Nutrition Diagnosis: Inadequate protein energy intake r/t high PRO needs and prolonged NPO status aeb pt s/p d1 from correction of anastomotic leak c wound vac, pt has NGT on suction, second abd surgery in 1w. EER:1450 kcal( 25kcal/kg) 70g Pro ( 1.2g/kg to support healing) Monitoring/Evaluations: following daily
[2019-12-04] MEDS: AA 5 %/CALCIUM/LYTES/DEXT 20 % 1,500 ML with MULTIVITAMIN 10 ML, TRACE ELEMENTS 1 ML 62.958 ML IV (18:20)
--- NOTE | 2019-12-04 21:39 | PC.NURSE ---
BT's present in all 4 quadrants, has not passed flatus yet. Pain managed on current regimen. Has not been taking ativan on the schedule but wants to have it available. Spoke to dietary about patient's TPN, they are considering a cyclic TPN infusion and will discuss with provider tomorrow. NGT to LIS and patent. Wound vac was changed today and patent. Garcia to continue for now per MD orders.
[2019-12-05] VITALS (9 sets, daily range): BP systolic 137–156; BP diastolic 71–84; PULSE 86–99; RESP 16–24; TEMP 36.2–37.3; O2SAT 93–96
[2019-12-05] MEDS: SODIUM CHLORIDE 0.9% 250 ML 21 ML IV
[2019-12-05] MEDS: LORazepam 2 MG/ML INJ 0.5 MG IV (01:39)
--- NOTE | 2019-12-05 02:58 | PC.NURSE ---
Addendum entered by Cristal Mario R.N. 12/05/19 06:23: Since about 0330 patient began having stools and has had 5 pudding consistency stools since that time. Addendum entered by Cristal Mario R.N. 12/05/19 06:22: Noted that wound vac is no longer alarming this morning and noted pressure is now back to 125mmHg. Original Note: Patient seen and assessed at 0009. Is alert and oriented. Breath sounds CTA with RA sat of 93%. HRR; BP of 145/71. Denies nausea. NG patent and to intermittent suction. BT present and after assessment called RN back to room to report she had just passed some flatus. Abdomen is soft, distended and tender to palpation. Incision with wound vac intact at 125mmHg. Edges around incision appear lightly pink. Al drain intact and compressed with serosanguinous drainage in bulb. TPN infusing via PICC line. Indwelling catheter is patent; urine is clear, yellow. Able to move self in bed; instructed to call for assist if needing help. Gait not assessed as not out of bed; reportedly when up uses walker and SBA. Wearing bilateral calf SCD's. Feet/ankle bilaterally are puffy. Denied pain and declined scheduled Ativan at that time. Fall risk score is high and bed alarm is activated. Around 0130 patient's wound vac alarming and has audible air leak. Reinforced wound vac dressing on all sides and around button with Tegaderm but continues to have leak and unable to keep pressure to 125mmHg. Dr Helton informed and stated he would check in the morning. Stated if alarm is bothering patient wound vac can be turned off for the night. Patient states to leave on as whatever amount of suction is better than nothing. Did experience increase discomfort from attempting to stop air leak with pressure to wound; offered either Morphine or Ativan and patient decided to start with Ativan knowing she can still have the Morphine later if needed.
[2019-12-05] MEDS: PIPERACILLIN-TAZO 3.375 GM/50 ML FROZ.PIGGY IV ×3 (05:36→18:41)
[2019-12-05 06:39] LABS: Add Manual Diff / Slide Review NO; Basophils Absolute Auto 100 /uL (0-100); Basophils Percent Auto 0.4 % (0-2); Eosinophils Absolute Auto 100 /uL (0-450); Eosinophils Percent Auto 0.5 % (2-4); Hematocrit 30.9 % (36-46); Hemoglobin 10.3 g/dL (12.0-16.0); Lymphocytes Absolute Auto 1000 /uL (1100-4500); Lymphocytes Percent Auto 5.2 % (25-40); Mean Corpuscular HGB Conc 33.4 % (30-36); Mean Corpuscular Hemoglobin 30.4 PG (26-34); Mean Corpuscular Volume 91.1 fL (80-100); Monocytes Absolute Auto 1400 /uL (0-900); Monocytes Percent Auto 6.8 % (3-14); Neutrophils Absolute Auto 17600 /uL (1500-7000); Neutrophils Percent Auto 87.1 % (50-75); Platelet Count 470 X10^3/uL (150-400); Red Blood Cell Count 3.39 X10^6/uL (4.0-5.2); Red Cell Distribution Width 13.7 % (11.6-14.8); White Blood Cell Count 20.2 X10^3/uL (4.5-11.0)
[2019-12-05 06:48] LABS: Blood Urea Nitrogen 14 mg/dL (7-17); Calcium 7.2 mg/dL (8.4-10.2); Carbon Dioxide 27 mmol/L (22-32); Chloride 106 mmol/L (98-107); Estimated Glomerular Filt Rate > 60.0 mL/min (>60); Glucose 151 mg/dL (80-110); HEMOLYSIS < 15 (0-50); Phosphorous 2.4 mg/dL (2.8-4.1); Potassium 3.4 mmol/L (3.4-5.1); Sodium 136 mmol/L (137-145)
[2019-12-05] MEDS: SODIUM CHLORIDE 0.9% FLUSH 10 ML IV ×3 (08:11→22:11)
[2019-12-05] MEDS: PANTOPRAZOLE 40 MG VIAL 20 MG IV (08:11)
[2019-12-05] MEDS: ENOXAPARIN 40 MG/0.4 ML SYRINGE SUBCUT (08:11)
[2019-12-05] MEDS: MORPHINE 2 MG/ML INJ IV (08:12)
--- NOTE | 2019-12-05 11:24 | PM.PN.1 ---
Subjective Subjective Date Patient Seen: 12/05/19 Time Patient Seen: 17:28 Interval history: No acute events overnight. Patient is passing gas and stool. Denies significant pain. She says Dr. Helton was here this morning and fixed her wound VAC. Exam Vital Signs (past 8 hours): - 12/05/19 06:00 12/05/19 07:23 Temperature 97.1 F L 99.0 F Pulse Rate 98 H 99 H Respiratory Rate 16 18 Blood Pressure 153/78 H 156/84 H Pulse Oximetry 94 95 Oxygen Delivery Method Room Air Oxygen Flow Rate 0 Narrative Exam Narrative: GENERAL: Alert, comfortable. Appears stated age. Answers questions promptly and appropriately. Vital signs noted. HENT: Normocephalic, atraumatic. Hearing intact. NGT in place and clamped EYES: Conjunctiva pink, sclera white, no periorbital swelling. CARDIOVASCULAR: Regular rate. No pedal edema. RESPIRATORY: Non-tachypneic, breathing comfortably on room air. GASTROINTESTINAL: Abdomen soft, appropriately tender, wound VAC in place with good seal and suction. XIMENA drain with serosanguineous output GENITALURINARY: No flank tenderness. MUSCULOSKELETAL: Equal tone and mass bilaterally. SKIN: Warm, dry, soft, appropriate color for ethnicity. No other lesions, rashes, or wounds. NEURO: Alert and Oriented X 3. No gross sensory deficits, or cognitive issues. PSYCH: Appropriate mood and affect, normal intellect Objective Labs Result Diagrams: 12/05/19 06:15 12/05/19 06:15 Labs: Laboratory Results - last 24 hr 12/05/19 12/05/19 06:15 06:15 WBC 20.2 H RBC 3.39 L Hgb 10.3 L Hct 30.9 L MCV 91.1 MCH 30.4 MCHC 33.4 RDW 13.7 Plt Count 470 H Neut % (Auto) 87.1 H Lymph % (Auto) 5.2 L [place] % (Auto) 6.8 Eos % (Auto) 0.5 L Baso % (Auto) 0.4 Neut # (Auto) 57149 H Lymph # (Auto) 1000 L [place] # (Auto) 1400 H Eos # (Auto) 100 Baso # (Auto) 100 Sodium 136 L Potassium 3.4 Chloride 106 Carbon Dioxide 27 BUN 14 Creatinine 0.50 L Estimated GFR > 60.0 BUN/Creatinine Ratio 28.0 H Glucose 151 H Calcium 7.2 L Phosphorus 2.4 L Magnesium 2.0 Assessment & Plan Assessment and plan (1) S/P laparotomy: Status: Acute (2) Small bowel obstruction: Status: Acute Assessment & Plan narrative: This is a 74 yo woman postop day 8 for ex lap and bowel resection for small bowel obstruction. She is POD#3 s/p repeat ex lap and bowel resection for anastomotic leak. Tolerating TPN. Passing gas and stool. NGT was clamped this morning per Dr. Helton. Plan is to remove it if no residual after 4 hours of clamping. Her white blood cell count is increasing, is 20 today. I discussed this with Dr. Helton on the phone this morning. Overall she is looking good, and is afebrile. Will continue the same antibiotics, and recheck her labs in the morning. Plan: NG clamping trial, remove no residual after 4 hours replete phos and K DVT ppx Continue TPN continue abx for now Ambulate TID abdominal binder for pain COVID-19 COVID-19 status: Negative Result date/Date tested (Pos, Neg/Pending): 11/24/19 Time Spent With Patient Time with patient: 15-24 minutes Quality VTE Deep Vein Thrombosis/Pulmonary Embolism Present on Admission: No
--- NOTE | 2019-12-05 11:37 | PT.IPRE ---
Current Diagnoses Intestinal adhesions [bands], unspecified as to partial versus complete obstruction (11/24/19) Unspecified intestinal obstruction, unspecified as to partial versus complete obstruction (11/24/19) Other specified postprocedural states (11/24/19) Surgery Performed Operation Date: 11/27/19 15:30 Actual Procedures p Exploratory Laparotomy GEN, SMALL BOWEL RESECTION - Miguel Helton MD s Enterocele repair - Bisi Ruiz MD Operation Date: 12/02/19 17:15 Actual Procedures p Exploratory Laparotomy GEN - Miguel Helton MD Surgical History (Last Reviewed 11/24/19 @ 07:30 by Samuel Umana DO) History of hysterectomy (Acute) Status post vaginal hysterectomy (Acute) Medical History (Last Reviewed 11/24/19 @ 07:30 by Samuel Umana DO) History of benign brain tumor (Acute) Hypercholesterolemia (Acute) Physical Therapy Inpatient Evaluation/Re-Eval M1 PT/OT-IP Prior Functional Status Start: 11/28/19 13:35 Freq: NEEDED Status: Active Protocol: Document 12/05/19 11:37 [facility] (Rec: 12/05/19 12:44 [facility] Medical Review Prior Functional Status Medical History Reviewed Yes Communication WNL Mobility and Gait Pt amb without AD, went on hikes and did yoga & gardening Activities of Daily Living and IADL's Indep Social History Household Members spouse Living Arrangements House Number of Floors (Floors) One Floor Number of Stairs To Enter/Railing? none Home Environment Standard Height Toilet,Walk in Shower Home Equipment Grab Bars In Shower Additional Social History Comment built in seat M2 PT-IP Current Condition Start: 11/28/19 13:35 Freq: NEEDED Status: Active Protocol: Document 12/05/19 11:37 [facility] (Rec: 12/05/19 12:44 AB [id number]) Physical Therapy Current Condition Precautions Abdominal Surgery Precautions Log Roll,Lifting Restrictions, Gait Belt above Incisional Area M3 PT-IP Subjective Start: 11/28/19 13:35 Freq: NEEDED Status: Active Protocol: Document 12/05/19 11:37 [facility] (Rec: 12/05/19 12:44 [facility] [id number]) Subjective Physical Therapy Visit Type Type Re-Evaluation Visit Start Time 11:37 Visit Stop Time 11:59 Total Visit Minutes 21 Number of MARKET GARDEN WORKER Visits 0 Physical Therapy Visit Comments Patient Comments pt is agreeable to do PT Therapy Pain Assessment Pain When Pain Assessed At Rest Pain Present Pain Present Pain Reported Location Right Upper Abdomen Intensity 6 Scale Used increases 8/10 with mobiltiy Pain Management Techniques Distraction,Modification of Treatment,Re-positioning, Timing of Activity with Medications M4 PT-IP Mobility and Gait Start: 11/28/19 13:35 Freq: NEEDED Status: Active Protocol: Document 12/05/19 11:37 [facility] (Rec: 12/05/19 12:44 [facility] [id number]) PT-Bed Mobility Assessment Rolling Type of Rolling Log Rolling Level of Assist Maximal Assistance Supine to Sit Supine to Sit Maximum Assistance,1 Person Assistance,2 Person Assistance ,Head of Bed Elevated,Bedrails Sit to Supine Sit to Supine Maximum Assistance,1 Person Assistance,2 Person Assistance ,Head of Bed Elevated,Bedrails Scooting Scooting to Edge of Bed Dependent Scooting Up and Down in Bed Dependent PT-Transfer Assessment Comments Mobility Comments pt completed log roll supine to sit attempted intially from a flat bed but pt with c/o increase pain and unable to complete to sitting. elevated HOB bed but pt still required max Ax 1-2 and max cues. pt sat on EOB CGA. only tolerated ~ 30 sec of sitting and stated that she has to lay back down due to increase pain. completed sit to supine max A x 1-2 and max cues. pt requires total A x 2 with scooting and postioning in bed . call light and table placed within reach. Gait Assessment Comments Gait Comments unable at this time PT-Balance Assessment Sitting Balance and Reactions Static Sitting Balance Ability Fair Dynamic Sitting Balance Ability Fair M5 PT-IP Objective Assessments Start: 11/28/19 13:35 Freq: NEEDED Status: Active Protocol: Document 12/05/19 11:37 [facility] (Rec: 12/05/19 12:44 [facility] [id number]) Orientation Orientation/Cognition Level of Alertness Alert Orientation Name,Place,Situation Language Function Ability Hard of Hearing Safety Awareness Decreased Safety Awareness Gross Range of Motion Lower Extremity ROM Assessment Within Functional Limits Strength Lower Extremity Strength Assessment Bilaterally Impaired Hip 3+/5 Knee 3+/5 Coordination Assessment Gross Coordination Gross Coordination WNL Muscle Tone Muscle Tone WNL Yes M6 PT-IP Treatment Start: 11/28/19 13:35 Freq: NEEDED Status: Active Protocol: Document 12/05/19 11:37 [facility] (Rec: 12/05/19 12:44 [facility] [id number]) Physical Therapy Treatment Education Education Provided Precautions,Safety M7 PT-IP Assessment and Plan Start: 11/28/19 13:35 Freq: NEEDED Status: Active Protocol: Document 12/05/19 11:37 [facility] (Rec: 12/05/19 12:44 [facility] [id number]) PT Summary Assessment and Plan Potential Rehabilitation Potential Fair Status of Condition at Evaluation Evolving Summary Impairments Pain,ROM,Strength,Balance, Coordination,Sensation,Tone, Cognition,Bed Mobility, Transfers,Gait,Activity Tolerance Progress Towards Goals Slow Progress due to Pain,Slow Progress due to Medical Issues,Slow Progress due to Activity Tolerance Assessment Summary pt with SBO and underwent ex-- lap and small bowel resection 11/27/19. pt was doing well and was only needing SBA for ambulation without AD afterwards. Pt found to have an anastomotic leak and underwent another ex-lap and ileocectomy last 12/02/19. pt has a significant decline in mobility warranting a re-eval and currently, pt is unable to tolerate much activity. requires max A x 2 to total A x 2 for bed mobility. d/c plan will depend on progress but at this time, pt may require SNF rehab. Goals Bed Mobility Goal Minimal Assistance Transfer Goal Minimal Assistance,Front Wheeled Walker Gait Goal Minimal Assistance,Front Wheel Walker Gait Distance 100 Days to Meet Goals 10 Frequency of Treatment Frequency Of Treatment Once a Day Treatment Plan Physical Therapy Treatment Plan Bed Mobility Training,Transfer Training,Gait Training, Therapeutic Exercise,Balance Retraining,Post Op Education, Discharge Planning, Neuromuscular Re-ed Other Recommendations and Next Treatment transfers, ambulation if Focus appropirate Recommendations To Nursing Amount of Assist Needed 2 Person Assist Discharge Recommendations PT Discharge Recommendations SNF Rehab Transportation Needs at Discharge Wheelchair/Cabulance,Stretcher /Ambulance
[2019-12-05] MEDS: ACETAMINOPHEN SUSP 650 MG/20.3 ML UDC PO (12:01)
[2019-12-05] MEDS: POTASSIUM PHOSPHATE 15 MMOL in DEXTROSE 5% IN WATER 250 ML 63.75 ML IV (12:39)
--- NOTE | 2019-12-05 16:56 | PC.NURSE ---
Post-op: Wound vac not functioning this am. Dr. Helton happened to be here and he changed part of dressing and wound vac has been functioning ever since. NGT was clamped at that time. Per Dr. Tripp who is magnetic resonance technologist for him gave order to leave NGT clamped for 4 hours and then check NGT residual, wait at least 15 mins. Pt had 0 residual when checked and NGT was d/c per MD ordered. Pt feels wonderful that the NGT is out. spouse here and updated on her care.
[2019-12-05] MEDS: AA 5 %/CALCIUM/LYTES/DEXT 20 % 1,500 ML with MULTIVITAMIN 10 ML, TRACE ELEMENTS 1 ML 62.958 ML IV (19:36)
[2019-12-06] VITALS (9 sets, daily range): BP systolic 140–150; BP diastolic 75–78; PULSE 70–87; RESP 16–18; TEMP 36.7–37.2; O2SAT 95–97
[2019-12-06] MEDS: ACETAMINOPHEN SUSP 650 MG/20.3 ML UDC PO (00:08)
[2019-12-06] MEDS: PIPERACILLIN-TAZO 3.375 GM/50 ML FROZ.PIGGY IV ×4 (00:16→19:31)
[2019-12-06] MEDS: SODIUM CHLORIDE 0.9% 250 ML 21 ML IV ×2 (00:17→12:46)
--- NOTE | 2019-12-06 04:09 | PC.NURSE ---
Pt resting in bed with eyes closed at time of safety checks with change of nurses. Personal items are within reach. Wound vac is set to 125mmHg, sarah drain, draining serosanguinous drainage, TPN infusing at 63ml/hr into PICC to R upper arm.
[2019-12-06 05:21] LABS: Add Manual Diff / Slide Review NO; Basophils Absolute Auto 100 /uL (0-100); Basophils Percent Auto 0.5 % (0-2); Eosinophils Absolute Auto 200 /uL (0-450); Eosinophils Percent Auto 0.9 % (2-4); Hematocrit 28.4 % (36-46); Hemoglobin 9.7 g/dL (12.0-16.0); Lymphocytes Absolute Auto 1200 /uL (1100-4500); Lymphocytes Percent Auto 6.3 % (25-40); Mean Corpuscular HGB Conc 34.2 % (30-36); Mean Corpuscular Hemoglobin 30.9 PG (26-34); Mean Corpuscular Volume 90.5 fL (80-100); Monocytes Absolute Auto 1600 /uL (0-900); Monocytes Percent Auto 8.5 % (3-14); Neutrophils Absolute Auto 15700 /uL (1500-7000); Neutrophils Percent Auto 83.8 % (50-75); Platelet Count 464 X10^3/uL (150-400); Red Blood Cell Count 3.14 X10^6/uL (4.0-5.2); Red Cell Distribution Width 13.5 % (11.6-14.8); White Blood Cell Count 18.8 X10^3/uL (4.5-11.0)
[2019-12-06 05:28] LABS: Blood Urea Nitrogen 12 mg/dL (7-17); Calcium 7.3 mg/dL (8.4-10.2); Carbon Dioxide 26 mmol/L (22-32); Chloride 108 mmol/L (98-107); Estimated Glomerular Filt Rate > 60.0 mL/min (>60); Glucose 169 mg/dL (80-110); HEMOLYSIS < 15 (0-50); Magnesium 2.2 mg/dL (1.6-2.3); Potassium 3.3 mmol/L (3.4-5.1); Sodium 136 mmol/L (137-145)
[2019-12-06] MEDS: PANTOPRAZOLE 40 MG VIAL 20 MG IV (08:57)
[2019-12-06] MEDS: ENOXAPARIN 40 MG/0.4 ML SYRINGE SUBCUT (08:59)
[2019-12-06] MEDS: SODIUM CHLORIDE 0.9% FLUSH 10 ML IV ×2 (08:59→21:13)
--- NOTE | 2019-12-06 12:33 | PT-IP ANOTE ---
PT checks on pt. Pt with MINT WAFER DEPOSITOR who is assisting with bowel incontinence and he reports that pt is having this every 30 minutes today. Pt nor MINT WAFER DEPOSITOR need anything. Will check back when appropriate, likely next date given ongoing bowel incontinence that requires assistance in bed.
--- NOTE | 2019-12-06 12:54 | PC.NURSE ---
Addendum entered by Kenisha Wilkerson R.N. 12/06/19 16:07: Pt had a total of 7 stools on day shift, see I/O. Stool sample sent to lab per order for GI panel. Evening RN aware of late Diflucan administration due to pipera-tazo and Flagyl ordered at the same time interval. Original Note: Day Shift- Took over care at 100 from ELIA Loco. Pt has had 2 more BM's from the time noted above. large loose, brown/green in color, pt passing flatus. jose area pt states gets intermittently sore, no redness noted. barrier cream applied by CONTROL PANEL OPERATOR CRUDE UNIT after each BM in brief. Midline abd wound vac in place at ordered 125mmhg. Slightly pink to left side incision. LLQ abd Al drain in place on bulb suction with sero-sang drainage. Pt states minimal pain to abd at this time, does not want any PRN's. Also does not want scheduled Ativan. No other voiced concerns. Call light within reach. Pt's Dmitri visiting at bedside intermittently.
[2019-12-06] MEDS: metroNIDAZOLE 500 MG/100 ML PIGGYBACK 100 MG IV ×3 (13:38→23:37)
--- NOTE | 2019-12-06 14:31 | DI.RAD.S_ITS ---
PROCEDURE: XR CHEST 1V INDICATIONS: continued wbc elevation r/o infiltrate TECHNIQUE: One view of the chest was acquired. COMPARISON: None. FINDINGS: Surgical changes and devices: PICC line projects to the distal SVC via a right-sided approach.. Lungs and pleura: Small bilateral pleural effusions. Consolidation of the left lung base. Patchy opacities in the right lung base. Mediastinum: Mediastinal contours appear normal. Heart size is normal. Bones and chest wall: No suspicious bony lesions. Overlying soft tissues appear unremarkable. IMPRESSION: 1. Consolidation left lung base concerning for aspiration versus pneumonia. 2. Patchy opacities in the right lung base which could represent atelectasis, aspiration or pneumonia. 2. Small bilateral pleural effusions. Dictated by: Kayla Curtis MD, PhD on 12/06/2019 at 15:20 Approved by: Kayla Curtis MD, PhD on 12/06/2019 at 15:21
--- NOTE | 2019-12-06 14:44 | P.PN_ITS ---
Subjective Subjective Date Patient Seen: 12/06/19 Time Patient Seen: 14:44 Interval history: Patient having some loose stool every hour. Hesitant to have the Garcia removed as she is so weak. Exam Vital Signs (past 8 hours): - 12/06/19 08:40 12/06/19 09:00 12/06/19 11:30 Temperature 98.7 F 98.9 F Pulse Rate 70 78 Respiratory Rate 18 18 Blood Pressure 140/75 150/78 H Pulse Oximetry 97 97 97 Oxygen Delivery Method Room Air Oxygen Flow Rate 0 Narrative Exam Narrative: Lungs clear. Decreased breath sounds in the bases. Heart regular rate and rhythm without murmur gallop. Abdomen is flat soft. Her VAC is intact. There is no cellulitis. Objective Labs Result Diagrams: 12/06/19 05:00 12/06/19 05:00 Labs: Laboratory Results - last 24 hr 12/06/19 12/06/19 05:00 05:00 WBC 18.8 H RBC 3.14 L Hgb 9.7 L Hct 28.4 L MCV 90.5 MCH 30.9 MCHC 34.2 RDW 13.5 Plt Count 464 H Neut % (Auto) 83.8 H Lymph % (Auto) 6.3 L [place] % (Auto) 8.5 Eos % (Auto) 0.9 L Baso % (Auto) 0.5 Neut # (Auto) 72618 H Lymph # (Auto) 1200 [place] # (Auto) 1600 H Eos # (Auto) 200 Baso # (Auto) 100 Sodium 136 L Potassium 3.3 L Chloride 108 H Carbon Dioxide 26 BUN 12 Creatinine 0.48 L Estimated GFR > 60.0 BUN/Creatinine Ratio 25.0 H Glucose 169 H Calcium 7.3 L Phosphorus 3.0 Magnesium 2.2 Assessment & Plan Post-op Postoperative Procedures: Procedures Operation Date: 11/27/19 15:30 Actual Procedures Side Surgeon p Exploratory Laparotomy GEN, SMALL BOWEL RESECTION Miguel Helton MD s Enterocele repair Bisi Ruiz MD Operation Date: 12/02/19 17:15 Actual Procedures Side Surgeon p Exploratory Laparotomy GEN Miguel Helton MD Postoperative status narrative: Persistent elevation of her white blood cell count with left shift. Attempts have been normal. Pulses below 100. TPN being tolerated except for slight increase in her glucose. Postoperative plan narrative: Will add potassium an insulin to her TPN. Continue TPN. Check stool for pathogens. Most likely this is just related to the use of antibiotics and the amount of small intestine that remains. However pathogens is certainly possible here. Will try to take her Garcia out. Check urine and a chest x-ray. Start p.o. intake cautiously. Bedside commode. Will see if we can get PT to see her as well. Quality VTE Deep Vein Thrombosis/Pulmonary Embolism Present on Admission: No
[2019-12-06] MEDS: FLUCONAZOLE 200 MG/100 ML PIGGYBACK 100 MG IV (15:44)
--- NOTE | 2019-12-06 15:49 | PT-IP ANOTE ---
checked on pt and pt stated that she is just having bad diarrhea and just wants to rest for now but agreed to see PT tomorrow. will f/u.
[2019-12-06 17:01] LABS: Campylobacter Not Detected (Not Detect); Clostridium difficile toxin AB Not Detected (Not Detect); Enteroaggregative E.coli Not Detected (Not Detect); Enteropathogenic E.coli Not Detected (Not Detect); Plesiomonsa shigelloides Not Detected (Not Detect); Salmonella Not Detected (Not Detect); Vibrio Not Detected (Not Detect); Vibrio cholerae Not Detected (Not Detect); Yersinia enterocolitica Not Detected (Not Detect)
[2019-12-06 17:02] LABS: Adenovirus F 40/41 Not Detected (Not Detect); Cryptosporidium Not Detected (Not Detect); Cyclospora cayetanensis Not Detected (Not Detect); Entamoeba histolytica Not Detected (Not Detect); Enterotoxigenic E.coli It/st Not Detected (Not Detect); Giardia lamblia Not Detected (Not Detect); Shiga-like toxin-prod E.coli Not Detected (Not Detect); Shigella/Enteroinvasive E.coli Not Detected (Not Detect)
[2019-12-06 17:03] LABS: Astrovirus Not Detected (Not Detect); Norovirus GI/GII Not Detected (Not Detect); Rotavirus A Not Detected (Not Detect); Sapovirus Not Detected (Not Detect)
[2019-12-06] MEDS: AA 5 %/CALCIUM/LYTES/DEXT 20 % 1,500 ML with MULTIVITAMIN 10 ML, TRACE ELEMENTS 1 ML, I... 63.796 ML IV (17:58)
[2019-12-06 18:26] LABS: Bacteria Urine None Seen; RBC Urine None Seen (0-5/HPF)
[2019-12-06 18:29] LABS: Appearance Urine UA CLEAR; Bilirubin Urine UA NEGATIVE (NEGATIVE); Color Urine UA YELLOW; Glucose Urine UA TRACE g/dL (Negative); Ketones Urine UA NEGATIVE (NEGATIVE); Leukocyte Esterase Urine UA NEGATIVE (NEGATIVE); Nitrite Urine UA NEGATIVE (Negative); Occult Blood Urine UA NEGATIVE (Negative); Protein Urine UA NEGATIVE (Negative); Urobilinogen Urine UA 0.2 E.U./dL (0.2)
[2019-12-06 19:11] LABS: Urine Comments Microscopic Normal; WBC Urine 0-1/HPF (0-5/HPF); pH Urine UA 7.5 (4.5-8.0)
[2019-12-06 19:12] LABS: Culture Indicated Urine Cult Not Indicated
--- NOTE | 2019-12-06 19:12 | PC.NURSE ---
Garcia removed at 1815
[2019-12-06] MEDS: LORazepam 2 MG/ML INJ 0.5 MG IV ×2 (23:00→23:35)
[2019-12-07] VITALS (13 sets, daily range): BP systolic 121–175; BP diastolic 70–88; PULSE 67–83; RESP 16–24; TEMP 36.6–37.1; O2SAT 94–99
[2019-12-07] MEDS: PIPERACILLIN-TAZO 3.375 GM/50 ML FROZ.PIGGY IV ×3 (00:54→11:58)
[2019-12-07] MEDS: metroNIDAZOLE 500 MG/100 ML PIGGYBACK 100 MG IV ×4 (04:47→23:35)
[2019-12-07 05:30] LABS: Add Manual Diff / Slide Review NO; Basophils Absolute Auto 100 /uL (0-100); Basophils Percent Auto 0.5 % (0-2); Eosinophils Absolute Auto 0 /uL (0-450); Eosinophils Percent Auto 0.2 % (2-4); Hematocrit 31.4 % (36-46); Hemoglobin 10.3 g/dL (12.0-16.0); Lymphocytes Absolute Auto 1000 /uL (1100-4500); Lymphocytes Percent Auto 5.3 % (25-40); Mean Corpuscular HGB Conc 32.8 % (30-36); Mean Corpuscular Hemoglobin 29.7 PG (26-34); Mean Corpuscular Volume 90.3 fL (80-100); Monocytes Absolute Auto 1300 /uL (0-900); Monocytes Percent Auto 6.9 % (3-14); Neutrophils Absolute Auto 16900 /uL (1500-7000); Neutrophils Percent Auto 87.1 % (50-75); Platelet Count 625 X10^3/uL (150-400); Red Blood Cell Count 3.47 X10^6/uL (4.0-5.2); Red Cell Distribution Width 13.5 % (11.6-14.8); White Blood Cell Count 19.3 X10^3/uL (4.5-11.0)
[2019-12-07 05:40] LABS: Alanine Aminotransferase 46 IU/L (<35); Albumin 2.4 g/dL (3.5-5.0); Albumin Globulin Ratio 0.8 (1.0-2.8); Alkaline Phosphatase 304 U/L (38-126); Aspartate Aminotransferase 43 IU/L (14-36); BUN Creatinine Ratio 29.5 (6-22); Bilirubin Total 0.5 mg/dL (0.2-1.3); Blood Urea Nitrogen 13 mg/dL (7-17); Calcium 7.4 mg/dL (8.4-10.2); Carbon Dioxide 24 mmol/L (22-32); Chloride 108 mmol/L (98-107); Estimated Glomerular Filt Rate > 60.0 mL/min (>60); Globulin 3.1 g/dL (1.7-4.1); Glucose 172 mg/dL (80-110); HEMOLYSIS < 15 (0-50); Potassium 3.4 mmol/L (3.4-5.1); Sodium 135 mmol/L (137-145); Total Protein 5.5 g/dL (6.3-8.2)
[2019-12-07 05:50] LABS: Procalcitonin < 0.05 ng/mL (<0.5)
--- NOTE | 2019-12-07 09:00 | CM.DPC ---
Addendum entered by Angeline Yu LPN 12/07/19 14:49: July/Michal continues to have pt on her referral list in case of need. Original Note: DCP: continued: case received and discussed in Team Rounds. Note that pt was poised for a d/c to home setting on 12/02. Instead she went emergently to the OR 12/01 in the evening for an exploratory laparotomy ileocectomy for anastamotic leak. Pt is now continuing on TPN Continuing IV antibiotics for intra abdominal contamination Wound vac to midline wound. Surgeon to do bedside change . PT/OT are ordered and expected to see pt today. Post op ileus: Pt now with multiple loose stools: C-Diff is negative. DCP team will continue to follow as POC unfolds. is important to know what the surgical team is planning in terms of the wound vac: will this be off before pt discharges? Payer: [employer] Medicare: authorization will be needed if snf is plan, and if a wound vac is planned after pt discharges.
[2019-12-07] MEDS: ENOXAPARIN 40 MG/0.4 ML SYRINGE SUBCUT (10:31)
[2019-12-07] MEDS: SODIUM CHLORIDE 0.9% FLUSH 10 ML IV ×2 (10:32→14:50)
[2019-12-07] MEDS: FLUCONAZOLE 100 MG/50 ML PIGGYBACK IV (10:32)
[2019-12-07] MEDS: PANTOPRAZOLE 40 MG VIAL 20 MG IV (10:32)
[2019-12-07] MEDS: ALBUTEROL 2.5 MG/3 ML NEB (ADULT) INH ×2 (11:58→19:50)
[2019-12-07] MEDS: ACETAMINOPHEN SUSP 650 MG/20.3 ML UDC PO (13:26)
--- NOTE | 2019-12-07 14:19 | PT.IPTN ---
Current Diagnoses Intestinal adhesions [bands], unspecified as to partial versus complete obstruction (11/24/19) Unspecified intestinal obstruction, unspecified as to partial versus complete obstruction (11/24/19) Other specified postprocedural states (11/24/19) Surgery Performed Operation Date: 11/27/19 15:30 Actual Procedures p Exploratory Laparotomy GEN, SMALL BOWEL RESECTION - Miguel Helton MD s Enterocele repair - Bisi Ruiz MD Operation Date: 12/02/19 17:15 Actual Procedures p Exploratory Laparotomy GEN - Miguel Helton MD Physical Therapy Treatment Note M2 PT-IP Current Condition Start: 11/28/19 13:35 Freq: NEEDED Status: Active Protocol: Document 12/05/19 11:37 AB (Rec: 12/05/19 12:44 AB [id number]) Physical Therapy Current Condition Precautions Abdominal Surgery Precautions Log Roll,Lifting Restrictions, Gait Belt above Incisional Area M3 PT-IP Subjective Start: 11/28/19 13:35 Freq: NEEDED Status: Active Protocol: Document 12/07/19 13:54 CLB (Rec: 12/07/19 16:36 CLB [id number]) Subjective Physical Therapy Visit Type Type Treatment Note Visit Start Time 13:54 Visit Stop Time 14:19 Total Visit Minutes 25 Number of PERFORATOR LOADER Visits 1 Physical Therapy Visit Comments Patient Comments pt is agreeable to do PT, needing to use BSC then wanting to sit in chair Therapy Pain Assessment Pain When Pain Assessed At Rest Pain Present Pain Present Pain Reported M4 PT-IP Mobility and Gait Start: 11/28/19 13:35 Freq: NEEDED Status: Active Protocol: Document 12/07/19 13:54 CLB (Rec: 12/07/19 16:36 CLB [id number]) PT-Bed Mobility Assessment Rolling Type of Rolling Log Rolling,Roll to Left Level of Assist Minimal Assistance Supine to Sit Supine to Sit Minimal Assistance,1 Person Assistance,Head of Bed Elevated Scooting Scooting to Edge of Bed Contact Guard Assistance PT-Transfer Assessment Sit to and From Stand Sit to and from Stand Contact Guard Assistance,1 Person Assistance,Use of Upper Extremities Equipment Transfer Assistive Device Gait Belt,Front Wheeled Walker Transfers Transfer Destination Chair,Bedside Commode Transfer Technique Stand Step Pivot Transfer Ability Level of Assist Contact Guard Assistance,1 Person Assistance,Use of Upper Extremities Comments Mobility Comments Pt required Min A for LR and sidelying to sitting on EOB with use of pillow on stomach for support. Pt able to scoot to scoot to EOB CGA. Pt then stood and transferred to BSC CGA and assist with lines. Pt then sat on BSC for several minutes SBA but was unable to urinate. Pt then stood with need to pull up brief as pt was feeling fatigued. Pt then transferred to chair using stand step pivot and need for line management. Pt sat in chair SBA, pt left in chair with all needs within reach. ELIA eD informed of pt's mobility and position in chair . Gait Assessment Comments Gait Comments unable at this time M5 PT-IP Objective Assessments Start: 11/28/19 13:35 Freq: NEEDED Status: Active Protocol: Document 12/05/19 11:37 AB (Rec: 12/05/19 12:44 AB [id number]) Orientation Orientation/Cognition Level of Alertness Alert Orientation Name,Place,Situation Language Function Ability Hard of Hearing Safety Awareness Decreased Safety Awareness Gross Range of Motion Lower Extremity ROM Assessment Within Functional Limits Strength Lower Extremity Strength Assessment Bilaterally Impaired Hip 3+/5 Knee 3+/5 Coordination Assessment Gross Coordination Gross Coordination WNL Muscle Tone Muscle Tone WNL Yes M6 PT-IP Treatment Start: 11/28/19 13:35 Freq: NEEDED Status: Active Protocol: Document 12/05/19 11:37 AB (Rec: 12/05/19 12:44 AB [id number]) Physical Therapy Treatment Education Education Provided Precautions,Safety M7 PT-IP Assessment and Plan Start: 11/28/19 13:35 Freq: NEEDED Status: Active Protocol: Document 12/07/19 13:54 CLB (Rec: 12/07/19 16:36 CLB [id number]) PT Summary Assessment and Plan Potential Rehabilitation Potential Fair Status of Condition at Evaluation Evolving Summary Impairments Pain,ROM,Strength,Balance, Coordination,Sensation,Tone, Cognition,Bed Mobility, Transfers,Gait,Activity Tolerance Progress Towards Goals Slow Progress due to Pain,Slow Progress due to Medical Issues,Slow Progress due to Activity Tolerance Assessment Summary Pt improving with bed mobility and transfers requiring Min A for LR and sup-sit, CGA for sit-stand and transfers to BSC and chair. Will continue to monitor progress. Goals Bed Mobility Goal Minimal Assistance Transfer Goal Minimal Assistance,Front Wheeled Walker Gait Goal Minimal Assistance,Front Wheel Walker Gait Distance 100 Days to Meet Goals 10 Frequency of Treatment Frequency Of Treatment Once a Day Treatment Plan Physical Therapy Treatment Plan Bed Mobility Training,Transfer Training,Gait Training, Therapeutic Exercise,Balance Retraining,Post Op Education, Discharge Planning, Neuromuscular Re-ed Other Recommendations and Next Treatment transfers, ambulation if Focus appropirate Recommendations To Nursing Amount of Assist Needed 2 Person Assist Discharge Recommendations PT Discharge Recommendations Home with 28/08 Assist,Home Health,SNF Rehab Transportation Needs at Discharge Wheelchair/Cabulance,Stretcher /Ambulance
[2019-12-07] MEDS: MEROPENEM 1 GM in SODIUM CHLORIDE 0.9% 100 ML 200 ML IV (14:37)
[2019-12-07] MEDS: MORPHINE 2 MG/ML INJ IV ×2 (14:50→22:01)
--- NOTE | 2019-12-07 14:55 | PC.NURSE ---
Day Shift- Pt OOB to chair this AM with OT at 0930, back to bed with 1PA at 1030. Pt again back up to chair with PT around 1415. TPN infusing well to BRYCE PICC, dressing due to be changed today. Evening RN aware of this. 2nd lumen has NS at TKVO for frequent antibiotic and anti-fungal medications throughout day shift. Pt tolerated small amounts of clear liquid diet. Pt's pain to abd this AM on rest was 0/10 and 5/10 with movement, after being OOB to chair and back this morning, pt's pain on rest was reported as 3-4/10, pt did not want any pain meds. At 1327, pt agreed to prn Tylenol 325mg for abd pain. At 1450, PRN Morphine IV given for 5/10 abd pain, at that point pt had been OOB with PT. Pt stated her pain feels like muscle pain from movement in/out of bed. Abd wound vac in place on continuous suction 125mmhg per Dr's orders. Machine had been intermittently beeping low pressure approx 4 times during this shift, checked frequently. Fluid collection chamber less than 1/2 full also.
--- NOTE | 2019-12-07 15:20 | PM.PNPO.1 ---
Subjective Subjective Date Patient Seen: 12/07/19 Time Patient Seen: 15:20 Interval history: The patient is doing much better today than yesterday. She has been out of bed several times. She is reading. Pain is well controlled. Her diarrhea has stopped but she continues to pass gas. She tolerated her clear liquids but found them either too sweet or 2 salty. Exam Vital Signs (past 8 hours): - 12/07/19 08:20 12/07/19 12:00 12/07/19 12:03 Temperature 98.6 F 98.3 F Pulse Rate 83 81 67 Respiratory Rate 16 20 18 Blood Pressure 141/80 H 145/80 H Pulse Oximetry 96 99 95 Oxygen Delivery Method Room Air Oxygen Flow Rate 0 Narrative Exam Narrative: Respiratory effort improved. Still decreased breath sounds in the bases. Working on her incentive spirometer. Tolerated her nebulizer treatment well. Her abdomen is mildly distended but soft. No cellulitis. Wound VAC is intact. Objective Labs Result Diagrams: 12/07/19 05:10 12/07/19 05:10 Labs: Laboratory Results - last 24 hr 12/06/19 12/06/19 12/07/19 15:03 18:15 05:10 WBC 19.3 H RBC 3.47 L Hgb 10.3 L Hct 31.4 L MCV 90.3 MCH 29.7 MCHC 32.8 RDW 13.5 Plt Count 625 H Neut % (Auto) 87.1 H Lymph % (Auto) 5.3 L [place] % (Auto) 6.9 Eos % (Auto) 0.2 L Baso % (Auto) 0.5 Neut # (Auto) 61966 H Lymph # (Auto) 1000 L [place] # (Auto) 1300 H Eos # (Auto) 0 Baso # (Auto) 100 Sodium Potassium Chloride Carbon Dioxide BUN Creatinine Estimated GFR BUN/Creatinine Ratio Glucose Calcium Total Bilirubin AST ALT Alkaline Phosphatase Total Protein Albumin Globulin Albumin/Globulin Ratio Procalcitonin Urine Color Yellow Urine Appearance Clear Urine pH 7.5 Ur Specific [place] 1.010 Urine Protein Negative Urine Glucose (UA) Trace H Urine Ketones Negative Urine Occult Blood Negative Urine Nitrate Negative Urine Bilirubin Negative Urine Urobilinogen 0.2 Ur Leukocyte Esterase Negative Urine RBC None seen Urine WBC 0-1/hpf Urine Bacteria None seen Ur Culture Indicated? Cult not indicated Micro UA Comment Microscopic normal Stl C. cayetanensis PCR Not detected Stool Rotavirus (PCR) Not detected Stool Adenovirus (PCR) Not detected Stool Astrovirus (PCR) Not detected Stool Cryptosporidium PCR Not detected Stl E.coli Shiga Tox PCR Not detected St Sh/Enteroin Ecoli PCR Not detected Stool E coli O157 PCR Not detected Stl Enterotoxigenic E PCR Not detected Stool EPEC (PCR) Not detected Stl E. histolytica PCR Not detected Stool Giardia Lamblia PCR Not detected Stool Sapovirus (PCR) Not detected Stl P. shigelloides PCR Not detected St Y.enterocolitica PCR Not detected Stool Vibrio (PCR) Not detected Stl Vibrio cholerae PCR Not detected Stl Enteroaggr Ecoli PCR Not detected Stl Norovirus GI/GII PCR Not detected Campylobacter (PCR) Not detected C. difficile Tox (PCR) Not detected Salmonella (PCR) Not detected 12/07/19 12/07/19 05:10 05:10 WBC RBC Hgb Hct MCV MCH MCHC RDW Plt Count Neut % (Auto) Lymph % (Auto) [place] % (Auto) Eos % (Auto) Baso % (Auto) Neut # (Auto) Lymph # (Auto) [place] # (Auto) Eos # (Auto) Baso # (Auto) Sodium 135 L Potassium 3.4 Chloride 108 H Carbon Dioxide 24 BUN 13 Creatinine 0.44 L Estimated GFR > 60.0 BUN/Creatinine Ratio 29.5 H Glucose 172 H Calcium 7.4 L Total Bilirubin 0.5 AST 43 H ALT 46 H Alkaline Phosphatase 304 H Total Protein 5.5 L Albumin 2.4 L Globulin 3.1 Albumin/Globulin Ratio 0.8 L Procalcitonin < 0.05 Urine Color Urine Appearance Urine pH Ur Specific [place] Urine Protein Urine Glucose (UA) Urine Ketones Urine Occult Blood Urine Nitrate Urine Bilirubin Urine Urobilinogen Ur Leukocyte Esterase Urine RBC Urine WBC Urine Bacteria Ur Culture Indicated? Micro UA Comment Stl C. cayetanensis PCR Stool Rotavirus (PCR) Stool Adenovirus (PCR) Stool Astrovirus (PCR) Stool Cryptosporidium PCR Stl E.coli Shiga Tox PCR St Sh/Enteroin Ecoli PCR Stool E coli O157 PCR Stl Enterotoxigenic E PCR Stool EPEC (PCR) Stl E. histolytica PCR Stool Giardia Lamblia PCR Stool Sapovirus (PCR) Stl P. shigelloides PCR St Y.enterocolitica PCR Stool Vibrio (PCR) Stl Vibrio cholerae PCR Stl Enteroaggr Ecoli PCR Stl Norovirus GI/GII PCR Campylobacter (PCR) C. difficile Tox (PCR) Salmonella (PCR) Assessment & Plan Post-op Postoperative Procedures: Procedures Operation Date: 11/27/19 15:30 Actual Procedures Side Surgeon p Exploratory Laparotomy GEN, SMALL BOWEL RESECTION Miguel Helton MD s Enterocele repair Bisi Ruiz MD Operation Date: 12/02/19 17:15 Actual Procedures Side Surgeon p Exploratory Laparotomy GEN Miguel Helton MD Postoperative status narrative: Continued elevation of her WBC a bit perplexing. Will continue broad-spectrum IV antibiotics. Continue TPN and had lipids today. Continue to mobilize and work on her breathing. If tub use BC continues to stay up consider CT scan of the chest abdomen and pelvis. Postoperative plan narrative: Continue TPN, SCDs, lipids, check labs in a.m., continue antibiotics and Diflucan. Added Lomotil for diarrhea if it returns. Quality VTE Deep Vein Thrombosis/Pulmonary Embolism Present on Admission: No
[2019-12-07] MEDS: VANCOMYCIN 1,000 MG/200 ML PIGGYBACK 200 MG IV (17:08)
--- NOTE | 2019-12-07 17:14 | PC.NURSE ---
PICC Dressing changed 12/07/2019 at 1645 by this nurse. TPN completed and NS paused for dressing change. No complaints or concerns during dressing change reported by patient nor this nurse. Caps changed and Vanco infusing per order.
[2019-12-07] MEDS: AA 5 %/CALCIUM/LYTES/DEXT 20 % 1,500 ML with MULTIVITAMIN 10 ML, TRACE ELEMENTS 1 ML, I... 63.796 ML IV (18:09)
[2019-12-07] MEDS: FAT EMULSIONS 50 GM/250 ML EMULSION IV (18:10)
[2019-12-08] VITALS (13 sets, daily range): BP systolic 100–135; BP diastolic 57–67; PULSE 74–90; RESP 14–20; TEMP 36.3–37.1; O2SAT 96–99
[2019-12-08] MEDS: MEROPENEM 1 GM in SODIUM CHLORIDE 0.9% 100 ML 200 ML IV (01:36)
[2019-12-08] MEDS: MORPHINE 2 MG/ML INJ IV ×3 (03:32→12:16)
[2019-12-08] MEDS: metroNIDAZOLE 500 MG/100 ML PIGGYBACK 100 MG IV ×2 (05:26→11:40)
[2019-12-08 06:25] LABS: Add Manual Diff / Slide Review NO; Basophils Absolute Auto 200 /uL (0-100); Basophils Percent Auto 0.7 % (0-2); Eosinophils Absolute Auto 200 /uL (0-450); Eosinophils Percent Auto 0.9 % (2-4); Hematocrit 30.3 % (36-46); Hemoglobin 10.3 g/dL (12.0-16.0); Lymphocytes Absolute Auto 1600 /uL (1100-4500); Lymphocytes Percent Auto 6.6 % (25-40); Mean Corpuscular HGB Conc 34.1 % (30-36); Mean Corpuscular Hemoglobin 31.4 PG (26-34); Monocytes Absolute Auto 1700 /uL (0-900); Neutrophils Absolute Auto 20700 /uL (1500-7000); Neutrophils Percent Auto 84.8 % (50-75); Platelet Count 623 X10^3/uL (150-400); Red Blood Cell Count 3.29 X10^6/uL (4.0-5.2); Red Cell Distribution Width 13.9 % (11.6-14.8); White Blood Cell Count 24.4 X10^3/uL (4.5-11.0)
[2019-12-08 06:37] LABS: Alanine Aminotransferase 51 IU/L (<35); Albumin 2.5 g/dL (3.5-5.0); Albumin Globulin Ratio 0.8 (1.0-2.8); Alkaline Phosphatase 263 U/L (38-126); Aspartate Aminotransferase 40 IU/L (14-36); BUN Creatinine Ratio 31.9 (6-22); Bilirubin Total 0.2 mg/dL (0.2-1.3); Blood Urea Nitrogen 15 mg/dL (7-17); Calcium 7.6 mg/dL (8.4-10.2); Carbon Dioxide 25 mmol/L (22-32); Chloride 110 mmol/L (98-107); Estimated Glomerular Filt Rate > 60.0 mL/min (>60); Globulin 3.1 g/dL (1.7-4.1); Glucose 127 mg/dL (80-110); HEMOLYSIS < 15 (0-50); Magnesium 2.3 mg/dL (1.6-2.3); Phosphorous 2.9 mg/dL (2.8-4.1); Potassium 3.6 mmol/L (3.4-5.1); Sodium 139 mmol/L (137-145); Total Protein 5.6 g/dL (6.3-8.2)
[2019-12-08] MEDS: ALBUTEROL 2.5 MG/3 ML NEB (ADULT) INH ×3 (07:31→19:10)
--- NOTE | 2019-12-08 09:25 | DI.CT.S_ITS ---
PROCEDURE: CT CHEST ABD PEL W CON INDICATIONS: leukocytosis sp laparotomy perform with PO contrast TECHNIQUE: After the administration of oral and intravenous contrast, 5 mm thick sections acquired from the lung apices to the symphysis. 5 mm coronal and sagittal reformats were performed, with additional 7 mm coronal MIP reformats through the lungs. For radiation dose reduction, the following was used: automated exposure control, adjustment of mA and/or kV according to patient size. COMPARISON: [facility], CT, CT ABDOMEN PELVIS W CON, 11/24/2019, 8:18. [facility], CT, CT ABDOMEN PELVIS W CON, 12/02/2019, 16:08. FINDINGS: Image quality: Excellent. CHEST: Lungs and pleura: No definite acute airspace opacities but there is lung base consolidation consistent with either atelectasis or atelectasis and pneumonia right greater than left. No significant change in bilateral small to moderate pleural effusions and there is no pneumothorax. A 1 cm lingular segment left upper lobe nodule is present near the ventricular apex also seen 11/24/19 Central and peripheral airways appear patent and normal in caliber. Mediastinum: Heart size is normal. No pericardial effusion. No mediastinal or hilar adenopathy by size criteria. Thoracic aorta and central pulmonary arteries are normal in size. Esophagus is normal in caliber. No hiatal hernia. Chest wall: No axillary or supraclavicular adenopathy by size criteria. Thyroid gland appears normal where well seen except for presence of 2 small hypodensities within the thyroid lobes bilaterally, more likely cystic in origin than solid by appearance . ABDOMEN: Solid organs: Liver is normal in size and enhancement. Gallbladder is larger in size than on the comparison CT 11/24/19 and contains numerous posterior layering small calculi . Biliary system is non dilated. Pancreas enhances normally. Spleen is normal in size and enhancement. No adrenal nodules. Kidneys demonstrate normal size and enhancement, without hydronephrosis. Peritoneum and bowel: Bowel loops demonstrate normal wall thickness and caliber. No free fluid or air. Nodes and vessels: No retroperitoneal or mesenteric adenopathy by size criteria. Aorta and inferior vena cava are normal in size. Miscellaneous: No ventral hernias. Mild edema within the peritoneal space, slight ascites. PELVIS: Genitourinary: Bladder wall thickness is normal. Miscellaneous: No inguinal hernias or adenopathy. A catheter of some form traverses from the left lower quadrant rightward into the peritoneal space, perhaps a postsurgical drain. Midline incision, without abnormal associated fluid collection. Oral contrast has transited through the small bowel into the colon. It does not yet extend into the left colon and rectum. Bones: No suspicious bony lesions. No vertebral body compression fractures. IMPRESSION: 1. Bilateral simple appearing small to moderate pleural effusions showing no evidence of rim enhancement that would indicate infection within the pleural space. 2. Lung base atelectasis is present bilaterally, with alveolar consolidation. This is greater on the right than the left, and a component of pneumonia within the area of atelectasis cannot be entirely excluded especially on the right. 3. The gallbladder has contained multiple small gallstones of a size that easily could transit into the cystic duct or common duct. Biliary ductal distension currently is not seen but the gallbladder is enlarged in size currently rhesus normal in size previously 11/24/19. Nuclear medicine hepatobiliary scan may be warranted to assess for patency of the cystic duct. 4. Postsurgical changes as discussed within the peritoneal space extending from the abdomen into the pelvis. No abscess is found. Apparent surgical drain. No intestinal obstruction is suspected-oral contrast has transited into the right colon but is not yet into the left colon. Dictated by: Jacob Paulino M.D. on 12/08/2019 at 10:31 Approved by: Jacob Paulino M.D. on 12/08/2019 at 10:42
--- NOTE | 2019-12-08 09:40 | PT-IP ANOTE ---
Pt refused stating she has had a busy morning with CT scan etc. and would like to wait until this afternoon to work with therapy. RN informed.
[2019-12-08] MEDS: FLUCONAZOLE 100 MG/50 ML PIGGYBACK IV (09:50)
[2019-12-08] MEDS: ENOXAPARIN 40 MG/0.4 ML SYRINGE SUBCUT (10:27)
[2019-12-08] MEDS: PANTOPRAZOLE 40 MG VIAL 20 MG IV (10:27)
--- NOTE | 2019-12-08 10:42 | PC.NURSE ---
Addendum entered by Sully Lowry R.N. 12/08/19 15:02: PICC LINE DRSG DC'D BY ELIA WORTHY, PIV STARTED BY SAME. IVF INFUSING PER NEW ORDERS. Addendum entered by Sully Lowry R.N. 12/08/19 15:01: LATE ENTRY: DR. MADRID CAME TO PATIENT BEDSIDE AT TIME HE STATED. PRE-MEDICATED W/ IV MORPHINE. PATIENT HAD HIGH PAIN LEVELS AND ANXIETY DURING WOUND VAC DRSG CHANGE AND WAS GIVEN AN ADDITIONAL 2MG IV MORPHINE AND 0.5MG IV ATIVAN WITH ABILITY TO TOLERATE. Addendum entered by Sully Lowry R.N. 12/08/19 11:32: DR. MADRID NOTIFIED BY CELL PHONE REGARDING WOUND VAC ISSUES. HE WILL BE UP TO SEE PATIENT IN 15MIN. REQUESTED IV MORPHINE TO BE GIVEN PRIOR. Original Note: Patient up to recliner this am, Dr. Madrid in to see patient. Plans to change wound vac drsg this afternoon. Given po contrast for CT scan, tolerated well. blood cx's drawn, ELIA Worthy addison 1 set off of picc line per orders. Lab addison peripheral set. Left floor for CT scan with wound vac continuous still connected to patient. Patient to commode upon return, had small soft greenish color bm and unmeasured urine. Back to recliner. Patient's wound vac began beeping occlusion. Traced tubing back to patient, no clamps, no kinks, drsg cdi and well suctioned, no evidence of leak. Attempted to restart device several times but beeps constantly. Device turned off at this time. Patient ate approx 1/8 th of oatmeal, drank 1/2 apple juice and a few sips decaf. No nausea. Spouse at bedside at this time. TPN infusing per orders.
--- NOTE | 2019-12-08 11:49 | DIET.PN ---
Addendum entered by Cathy Cole 12/08/19 11:54: If pt continues TPN this evening, please change to cyclic feed to support liver labs Original Note: Dietary Progress Note Pt may wean off TPN this evening if full liquid diet is tolerated today. Pt ate half oatmeal and half apple juice. Pt would have eaten yogurt but it is too sweet. Pt enjoys plain trinid[place] yogurt and strawberry smoothies, is willing to have these to support her intake. Discussed PO options c pt to support kcal and PRO needs to wean from TPN. Pt will receive strawberry banana Ensure Enlive smoothies tid and 6oz plain trinidadian yogurt which will provide 76% Pro and 97% kcal needs in addition to anything off of her regular meal tray. Pt had small greenish soft stool this am per nursing. HT: 166.3cm WT:57.9kg BMI: 20.9 Labs: Cr 0.47 L, LFTs elevated MNA:11 at risk Ralph: 23 Nutrition Diagnosis: Ongoing Inadequate protein energy intake r/t NPO status aeb day 1 post small-bowel resection and lysis of adhesions, increased protein needs for healing, pt NPO or on clear liquid diet x4d and poor POs for additional 4d prior to admission. Interventions: 1. Recc ONS smoothie and yogurt to support POs Diet Order: full liquid EER:1450 kcal( 25kcal/kg) 70g Pro ( 1.2g/kg to support healing) Monitoring/Evaluations: POs, GI sx
--- NOTE | 2019-12-08 11:52 | OT.IP.TRT ---
Current Diagnoses Intestinal adhesions [bands], unspecified as to partial versus complete obstruction (11/24/19) Unspecified intestinal obstruction, unspecified as to partial versus complete obstruction (11/24/19) Other specified postprocedural states (11/24/19) Surgery Performed Operation Date: 11/27/19 15:30 Actual Procedures p Exploratory Laparotomy GEN, SMALL BOWEL RESECTION - Miguel Helton MD s Enterocele repair - Bisi Ruiz MD Operation Date: 12/02/19 17:15 Actual Procedures p Exploratory Laparotomy GEN - Miguel Helton MD Occupational Therapy Treatment Note M2 OT-IP Current Condition Start: 12/07/19 12:39 Freq: Status: Active Protocol: Document 12/07/19 12:39 CGR (Rec: 12/07/19 12:48 CGR [email or web address]) Occupational Therapy Current Condition Current Condition Evaluation Date 12/07/19 Treatment Diagnosis SBO 11/26 exlap, 12/01 exlap ileocectomy and wound vac. Diagnosis Onset Date 11/24/19 Post Operative Precautions Abdominal Surgery Precautions Log Roll,Lifting Restrictions, Gait Belt above Incisional Area M3 OT- IP Subjective and Pain Start: 12/07/19 12:39 Freq: Status: Active Protocol: Document 12/08/19 12:14 [facility] (Rec: 12/08/19 12:23 [facility] [id number]) OT- Subjective Occupational Therapy Visit Type Type Treatment Note Visit Start Time 11:25 Visit Stop Time 11:52 Total Visit Minutes 27 Occupational Therapy Visit Comments Patient Comments Pt's in the room during OT session. Pt wanting to use the bathroom and agreed to go over LB dressing equipment needs. Patient/Caregiver Goals TO go home. OT Pain Assessment Pain When Pain Assessed At Rest Pain Present Pain Present Pain Reported Location Right Upper Abdomen Scale Used did not rate Management Techniques Distraction,Modification of Treatment,Re-positioning M4 OT- IP ADL's Start: 12/07/19 12:39 Freq: Status: Active Protocol: Document 12/08/19 12:14 [facility] (Rec: 12/08/19 12:23 [facility] [id number]) OT ADL-Dressing General Eval Lower Body Dressing Ability Moderate Assistance,Maximum Assistance Areas Needing Assistance Underpants/Brief,Socks Comments OT Dressing Comments Pt needing assist for brief and initiated education of use of insole cementer to assist for LB dressing needs. Also able to show her sock aid. Pt states wears Birkenstocks at home and able to assist if needed. OT ADL-Toileting General Evaluation Toileting Ability Moderate Assistance,Maximum Assistance Areas Needing Assistance Manage Clothing Comments OT Toileting Comments Assist for brief management and completeness to wipe after urinating by nursing. M5 OT- IP IADL's Start: 12/07/19 12:39 Freq: Status: Active Protocol: Document 12/07/19 12:39 CGR (Rec: 12/07/19 12:48 CGR [email or web address]) OT-Instrumental Activities of Daily Living Deficits IADL Deficits Identified No Deficits Home Safety Awareness Awareness of Need for Assistance at Home Good Awareness Ability to Problem Solve Emergency Able to Problem Solve Situations Medication Management Medication Management No Deficits Identified Money Management Money Management No Deficits Identified Meal Preparation Meal Preparation Caregiver Provides Assist Recreation Director Recreation Director Caregiver Provides Assist Driving Driving Caregiver Provides Assist M6 OT- IP Functional Cognition Start: 12/07/19 12:39 Freq: Status: Active Protocol: Document 12/08/19 12:14 [facility] (Rec: 12/08/19 12:23 [facility] [id number]) Cognitive Factors Limiting Selfcare Function Cognitive Comments Cognitive Assessment Comments NO cognitive deficits noted. M7 OT- IP Mobility and Balance Start: 12/07/19 12:39 Freq: Status: Active Protocol: Document 12/08/19 12:14 [facility] (Rec: 12/08/19 12:23 [facility] [id number]) OT- Bed Mobility Assessment Supine to Sit Supine to Sit Assist Minimal Assistance Sit to Supine Sit to Supine Assist Minimal Assistance OT-Transfer Assessment Sit to and From Stand Sit to and from Stand Contact Guard Assistance Transfers Transfer Ability Standby Assistance,Contact Guard Assistance Technique Transfer Destination Bed,Bedside Commode,Chair Transfer Technique Stand Step Pivot Devices Transfer Assistive Devices None,Front Wheeled Walker Comments Mobility Comments SBA with FWW and without CGA stand pivot , mainly needing assist to help get her legs into and out of the bed. OT- Balance Assessment Sitting Balance and Reactions Static Sitting Balance Ability Normal Dynamic Sitting Balance Ability Good Standing Balance and Reactions Static Standing Balance Ability Fair M8 OT- IP Objective Assessments Start: 12/07/19 12:39 Freq: Status: Active Protocol: Document 12/07/19 12:39 CGR (Rec: 12/07/19 12:48 CGR [email or web address]) OT Gross Range of Motion Upper Extremity Range of Motion Assessment Within Functional Limits OT Strength Upper Extremity Strength Assessment Within Functional Limits Comments Strength Comments grossly 4/5 OT- Coordination Assessment Upper Extremity Finger to Nose Test Within Functional Limits Finger Tapping Test Within Functional Limits OT-Muscle Tone Assessment Muscle Tone WNL Yes OT Sensation Assessment Edema Edema Absent M9 OT- IP Assessment and Plan Start: 12/07/19 12:39 Freq: Status: Active Protocol: Document 12/08/19 12:14 [facility] (Rec: 12/08/19 12:23 [facility] [id number]) OT Summary Assessment and Plan Potential Rehabilitation Potential Good Analytic Complexity at Evaluation Moderate Summary OT Impairments Pain,Balance,Functional Mobility,Grooming,Dressing, Toileting,Bathing,Toilet Transfers,Shower Transfers, Activity Tolerance Progress Towards Goals Slow Progress due to Medical Issues,Slow Progress due to Activity Tolerance Assessment Summary Pt able to participate in LB dressing education with equipment needs, and toileting and bed mobility needs. Able to talk to pt and that pt would benefit from BSC and shower chair at home. Pt pending medical status and progress home with assist versus skilled rehab. Goals Grooming Goal Independent Dressing Goal Independent Toileting Goal Independent Bathing Goal Independent Toilet Transfer Goal Independent Shower Transfer Goal Independent Days to Meet Goals 15 Frequency of Treatment Frequency Of Treatment Once a Day Treatment Plan OT Treatment Plan ADL Training,Functional Cognition Training,Functional Mobility,Patient/Family Education,Discharge Planning Other Treatment Recommendations and Next ADLs standing Treatment Focus Discharge Recommendations OT Discharge Recommendations Home with Assist,SNF Rehab Transportation Needs at Discharge Private Vehicle
[2019-12-08] MEDS: LORazepam 2 MG/ML INJ 0.5 MG IV (12:16)
--- NOTE | 2019-12-08 13:08 | PM.PNPO.1 ---
Subjective Subjective Date Patient Seen: 12/08/19 Time Patient Seen: 13:08 Interval history: No acute overnight events. She is tolerating a diet and no nausea vomiting having bowel movements passing gas Exam Vital Signs (past 8 hours): - 12/08/19 07:30 12/08/19 08:00 12/08/19 08:12 Temperature 97.3 F L Pulse Rate 74 86 Respiratory Rate 16 16 Blood Pressure 129/65 Pulse Oximetry 98 96 96 12/08/19 12:44 Temperature Pulse Rate 75 Respiratory Rate 18 Blood Pressure Pulse Oximetry 97 Oxygen Delivery Method Room Air Oxygen Flow Rate 0 Narrative Exam Narrative: General elderly woman alert oriented no acute distress Chest nonlabored respirations no audible wheezes Abdomen midline with a wound VAC in place VAC removed and small wound edges freshened with sharp dissection no purulence edges are granulating Objective Labs Result Diagrams: 12/08/19 05:24 12/08/19 05:24 Labs: Laboratory Results - last 24 hr 12/08/19 12/08/19 05:24 05:24 WBC 24.4 H RBC 3.29 L Hgb 10.3 L Hct 30.3 L MCV 92.0 MCH 31.4 MCHC 34.1 RDW 13.9 Plt Count 623 H Neut % (Auto) 84.8 H Lymph % (Auto) 6.6 L [place] % (Auto) 7.0 Eos % (Auto) 0.9 L Baso % (Auto) 0.7 Neut # (Auto) 25652 H Lymph # (Auto) 1600 [place] # (Auto) 1700 H Eos # (Auto) 200 Baso # (Auto) 200 H Sodium 139 Potassium 3.6 Chloride 110 H Carbon Dioxide 25 BUN 15 Creatinine 0.47 L Estimated GFR > 60.0 BUN/Creatinine Ratio 31.9 H Glucose 127 H Calcium 7.6 L Phosphorus 2.9 Magnesium 2.3 Total Bilirubin 0.2 AST 40 H ALT 51 H Alkaline Phosphatase 263 H Total Protein 5.6 L Albumin 2.5 L Globulin 3.1 Albumin/Globulin Ratio 0.8 L Assessment & Plan Post-op Postoperative Procedures: Procedures Operation Date: 11/27/19 15:30 Actual Procedures Side Surgeon p Exploratory Laparotomy GEN, SMALL BOWEL RESECTION Miguel Helton MD s Enterocele repair Bisi Ruiz MD Operation Date: 12/02/19 17:15 Actual Procedures Side Surgeon p Exploratory Laparotomy GEN Miguel Lopezody, MD Postoperative status narrative: 74-year-old woman postoperative day 6 status post exploratory laparotomy ileocecectomy for a anastomotic leak. Clinically improving she is tolerating a diet, bowels are working she is afebrile minimal pain. WBC continues to be elevated despite normal procalcitonin, and afebrile. CT chest abdomen pelvis with oral contrast demonstrates no intra-abdominal process there is contrast within the colon no evidence of leak or abscess. Chest shows small amount of pleural fluid atelectasis versus pneumonia clinically she has no fever cough or productive sputum favor atelectasis. UA negative, stool studies including C Diff negative. Not certain as to the source of her leukocytosis. Will deescalate her antibiotic therapy remove her PICC line and TPN. -Diet-Transitional -PT/OT -VTE prophylaxis-SCDs and Lovenox -Wound Vac next change Sunday -F/U blood cxs Quality VTE Deep Vein Thrombosis/Pulmonary Embolism Present on Admission: No
[2019-12-08] MEDS: POTASSIUM CHLORIDE 20 MEQ/15 ML UDC 40 MEQ PO (13:56)
[2019-12-08] MEDS: DEXTROSE 5%-LACTATED RINGERS 1,000 ML 70 ML IV (13:56)
--- NOTE | 2019-12-08 14:36 | CM.DPC ---
Addendum entered by Kimberley Erwin R.N. 12/08/19 15:07: Spoke to Christine at [facility]. She stated that she will go ahead and start the insurance authorization. Stated that it is usually good for 3 days. Original Note: DCP Cont: Met with patient and , Terrell, who was at bedside. Patient alert and oriented, sitting up in bed. Plan is TPN be DC's, and PICC. Patient will continue with wound vac, and due for change on Sunday, according to Dr. Helton. Patient is ok going over to [facility], does not want to deal with wound vac. also stated, she can use the rehab. Called and left a message with July at [facility] letting her know that patient can potentially be discharged tomorrow. Encouraged her to look at typesetting machine operator/tender's note. She will need to obtain insurance authorization. P: DCP to continue to follow. Plan is for [facility] when she is medically stable.Will complete PASSR. Kimberley Erwin RN/Grocery Shopper
--- NOTE | 2019-12-08 15:26 | PT-IP ANOTE ---
Pt refused to get up twice this afternoon stating she had a busy day and would like to rest. Will check back with pt tomorrow.
[2019-12-08] MEDS: MEGESTROL 20 MG TABLET PO (20:31)
[2019-12-09] VITALS (27 sets, daily range): BP systolic 76–140; BP diastolic 42–91; PULSE 73–103; RESP 10–18; TEMP 35.9–37.2; O2SAT 91–99; BMI 20.9
--- NOTE | 2019-12-09 00:52 | PC.NURSE ---
Addendum entered by Cristal Mario R.N. 12/09/19 02:35: Complains of 2/10 abdominal pain and 5/10 rectal pain with bowel movements. Requested/medicated with Morphine. Original Note: Patient is alert and oriented. Breath sounds CTA with RA sat of 97%. HRR. Denies nausea. BT hypoactive; abdomen is soft but tender. Still having loose stools exacerbated by having po contrast yesterday. Incision to abdomen has wound vac to 125mmHg; surrounding skin slightly pink. Previous drain site dressing is CDI. Denies dysuria, frequency or urgency with urination. Is able to move self in bed. Getting up to BSC with 1 assist. States she has not been up to walk, too much else going on, but denies any weakness in extremities. Wearing bilateral calf SCD's. Does have 1+ edema in right foot/ankle. States abdominal pain is 2/10, achy, but only with movement and declines offer of pain med. Fall risk score is moderate; bed alarm is activated for safety.
[2019-12-09] MEDS: MORPHINE 2 MG/ML INJ IV ×2 (02:32→19:20)
[2019-12-09] MEDS: DEXTROSE 5%-LACTATED RINGERS 1,000 ML 70 ML IV (04:46)
[2019-12-09 05:51] LABS: Hematocrit 29.1 % (36-46); Hemoglobin 9.7 g/dL (12.0-16.0); Mean Corpuscular HGB Conc 33.2 % (30-36); Mean Corpuscular Hemoglobin 30.1 PG (26-34); Mean Corpuscular Volume 90.6 fL (80-100); Platelet Count 699 X10^3/uL (150-400); Red Blood Cell Count 3.21 X10^6/uL (4.0-5.2); Red Cell Distribution Width 13.9 % (11.6-14.8); White Blood Cell Count 17.1 X10^3/uL (4.5-11.0)
[2019-12-09 05:57] LABS: Add Manual Diff / Slide Review YES; BUN Creatinine Ratio 29.6 (6-22); Blood Urea Nitrogen 16 mg/dL (7-17); Calcium 7.4 mg/dL (8.4-10.2); Carbon Dioxide 27 mmol/L (22-32); Chloride 108 mmol/L (98-107); Estimated Glomerular Filt Rate > 60.0 mL/min (>60); Glucose 96 mg/dL (80-110); HEMOLYSIS < 15 (0-50); Potassium 3.8 mmol/L (3.4-5.1); Sodium 135 mmol/L (137-145)
[2019-12-09 06:19] LABS: Neutrophils Absolute Manual 13851 /uL (3000-5900); Total Cells Counted 100
[2019-12-09 06:20] LABS: Polychromasia 1+
[2019-12-09] MEDS: ALBUTEROL 2.5 MG/3 ML NEB (ADULT) INH (07:51)
[2019-12-09] MEDS: PANTOPRAZOLE 40 MG VIAL 20 MG IV (08:46)
--- NOTE | 2019-12-09 11:33 | PT.IPTN ---
Documentation review by Olivia Suarez PTA. Current Diagnoses Intestinal adhesions [bands], unspecified as to partial versus complete obstruction (11/24/19) Unspecified intestinal obstruction, unspecified as to partial versus complete obstruction (11/24/19) Other specified postprocedural states (11/24/19) Surgery Performed Operation Date: 11/27/19 15:30 Actual Procedures p Exploratory Laparotomy GEN, SMALL BOWEL RESECTION - Miguel Helton MD s Enterocele repair - Bisi Ruiz MD Operation Date: 12/02/19 17:15 Actual Procedures p Exploratory Laparotomy GEN - Miguel Helton MD Operation Date: 12/09/19 12:15 Actual Procedures p excisional debridement of abdominal wound - Miguel Helton MD Physical Therapy Treatment Note M2 PT-IP Current Condition Start: 11/28/19 13:35 Freq: NEEDED Status: Active Protocol: Document 12/05/19 11:37 AB (Rec: 12/05/19 12:44 AB [id number]) Physical Therapy Current Condition Precautions Abdominal Surgery Precautions Log Roll,Lifting Restrictions, Gait Belt above Incisional Area M3 PT-IP Subjective Start: 11/28/19 13:35 Freq: NEEDED Status: Active Protocol: Document 12/09/19 11:18 (Rec: 12/09/19 12:18 [email or web address]) Subjective Physical Therapy Visit Type Type Treatment Note Visit Start Time 11:18 Visit Stop Time 11:33 Total Visit Minutes 15 Notes SPTA [place] tx pt under direct supervision of RICH Ruelas throughout the entire session. present at tx. Number of SENIOR CONSULTANT Visits 1 Physical Therapy Visit Comments Patient Comments pt is agreeable to do PT. M4 PT-IP Mobility and Gait Start: 11/28/19 13:35 Freq: NEEDED Status: Active Protocol: Document 12/09/19 11:18 (Rec: 12/09/19 12:18 [email or web address]) PT-Transfer Assessment Sit to and From Stand Sit to and from Stand Standby Assistance,1 Person Assistance,Use of Upper Extremities Equipment Transfer Assistive Device Gait Belt,Front Wheeled Walker Transfers Transfer Destination Chair Transfer Technique Stand Step Pivot Transfer Ability Level of Assist Standby Assistance,1 Person Assistance,Use of Upper Extremities Comments Mobility Comments Pt found in chair upon arrival . sit to stand SBA w/ FWW and use of UE to help get up. Amb 240ft in hallway and room. Improved foot clearance and is using a step through gait pattern w/ FWW SBA. IV pole managment is required during amb. Pt felt tired after walking and returned to sit in chair in room. SBA stand step pivot to chair w/ FWW. Gait Assessment Gait Gait Assistance Required: Standby Assistance,1 Person Assist Distance (Feet) 240 Able to Maintain Weight Bearing Status Yes During Gait Assistive Devices Assistive Device Gait Belt,Front Wheeled Walker Orthotic/Prosthetic Devices or Brace: No Gait Deviations General Gait Pattern Narrow Based Gait Factors Limiting Gait Function Factors Limiting Gait Function Decreased Activity Tolerance, Decreased Strength Comments Gait Comments See mobility section. M5 PT-IP Objective Assessments Start: 11/28/19 13:35 Freq: NEEDED Status: Active Protocol: Document 12/05/19 11:37 AB (Rec: 12/05/19 12:44 AB [id number]) Orientation Orientation/Cognition Level of Alertness Alert Orientation Name,Place,Situation Language Function Ability Hard of Hearing Safety Awareness Decreased Safety Awareness Gross Range of Motion Lower Extremity ROM Assessment Within Functional Limits Strength Lower Extremity Strength Assessment Bilaterally Impaired Hip 3+/5 Knee 3+/5 Coordination Assessment Gross Coordination Gross Coordination WNL Muscle Tone Muscle Tone WNL Yes M6 PT-IP Treatment Start: 11/28/19 13:35 Freq: NEEDED Status: Active Protocol: Document 12/05/19 11:37 AB (Rec: 12/05/19 12:44 AB [id number]) Physical Therapy Treatment Education Education Provided Precautions,Safety M7 PT-IP Assessment and Plan Start: 11/28/19 13:35 Freq: NEEDED Status: Active Protocol: Document 12/09/19 11:18 (Rec: 12/09/19 12:18 [email or web address]) PT Summary Assessment and Plan Potential Rehabilitation Potential Good Status of Condition at Evaluation Evolving Summary Impairments Pain,ROM,Strength,Balance, Coordination,Sensation,Tone, Cognition,Bed Mobility, Transfers,Gait,Activity Tolerance Progress Towards Goals Slow Progress due to Medical Issues,Slow Progress due to Activity Tolerance Assessment Summary SBA sit to stand from chair w/ FWW; gait SBA 240ft w/ step through gait and w/ improved stride length/foot clearance. d/t tiredness was ready to head back to room to sit in chair. Stand step pivot to chair w/ FWW and SBA. Pt left w/ call light and all needs within reach. Pt left w/ in the room. Goals Bed Mobility Goal Minimal Assistance Transfer Goal Minimal Assistance,Front Wheeled Walker Gait Goal Minimal Assistance,Front Wheel Walker Gait Distance 100 Days to Meet Goals 10 Frequency of Treatment Frequency Of Treatment Once a Day Treatment Plan Physical Therapy Treatment Plan Bed Mobility Training,Transfer Training,Gait Training, Therapeutic Exercise,Balance Retraining,Post Op Education, Discharge Planning, Neuromuscular Re-ed Other Recommendations and Next Treatment ambulation and transfers. Focus Recommendations To Nursing Amount of Assist Needed Standby Assistance,1 Person Assist Discharge Recommendations PT Discharge Recommendations Home with 28/08 Assist,Home Health,SNF Rehab Transportation Needs at Discharge Wheelchair/Cabulance,Stretcher /Ambulance
--- NOTE | 2019-12-09 12:00 | OT.IPNOTE ---
Pt to have wound wash out today, therefore check on pt tomorrow for OT treatment.
--- NOTE | 2019-12-09 12:01 | PM.PNPO.1 ---
Subjective Subjective Date Patient Seen: 12/09/19 Time Patient Seen: 12:02 Interval history: No acute overnight events. Tolerating a diet having bowel movements pain controlled Exam Vital Signs (past 8 hours): - 12/09/19 04:24 12/09/19 08:01 12/09/19 08:49 Temperature 97.6 F Pulse Rate 78 73 Respiratory Rate 16 16 Blood Pressure 106/59 L Pulse Oximetry 98 97 97 12/09/19 09:00 Temperature 98 F Pulse Rate 76 Respiratory Rate 15 Blood Pressure 110/65 Pulse Oximetry 98 Oxygen Delivery Method Room Air Oxygen Flow Rate 0 Narrative Exam Narrative: General adult female alert oriented no acute distress Abdomen soft appropriately tender midline wound VAC in place holding suction Objective Labs Result Diagrams: 12/09/19 05:26 12/09/19 05:26 Labs: Laboratory Results - last 24 hr 12/09/19 12/09/19 05:26 05:26 WBC 17.1 H RBC 3.21 L Hgb 9.7 L Hct 29.1 L MCV 90.6 MCH 30.1 MCHC 33.2 RDW 13.9 Plt Count 699 H Neut % (Auto) Not Reportable Lymph % (Auto) Not Reportable [place] % (Auto) Not Reportable Eos % (Auto) Not Reportable Baso % (Auto) Not Reportable Lymph # (Auto) Not Reportable [place] # (Auto) Not Reportable Baso # (Auto) Not Reportable Total Counted 100 Seg Neutrophils % 75.0 H Band Neutrophils % 6.0 Lymphocytes % (Manual) 9.0 L Atypical Lymphs % 1.0 H Monocytes % (Manual) 7.0 Eosinophils % (Manual) 1.0 L Metamyelocytes % 1.0 H Neutrophils # (Manual) 37756 H RBC Morphology See below Polychromasia 1+ H Sodium 135 L Potassium 3.8 Chloride 108 H Carbon Dioxide 27 BUN 16 Creatinine 0.54 Estimated GFR > 60.0 BUN/Creatinine Ratio 29.6 H Glucose 96 Calcium 7.4 L Assessment & Plan Post-op Postoperative Procedures: Procedures Operation Date: 11/27/19 15:30 Actual Procedures Side Surgeon p Exploratory Laparotomy GEN, SMALL BOWEL RESECTION Miguel Helton MD s Enterocele repair Bisi Ruiz MD Operation Date: 12/02/19 17:15 Actual Procedures Side Surgeon p Exploratory Laparotomy GEN Miguel Helton MD Operation Date: 12/09/19 12:15 <No data on this case meets the specified criteria> Postoperative plan narrative: 74-year-old woman postoperative day 7 status post exploratory laparotomy with ileocecectomy. She has a open midline abdominal wound and a change the wound VAC yesterday there was some fibrin is debris in the base of the wound. She did not tolerate a bedside assess debridement with local anesthesia and I told her that I would recommend we will take her to the operating room today for an excisional debridement of midline the wound and replacement of the wound VAC. questions were answered she is in agreement with this plan. Quality VTE Deep Vein Thrombosis/Pulmonary Embolism Present on Admission: No
--- NOTE | 2019-12-09 12:02 | PC.NURSE ---
PATIENT HAS HAD ONLY SIPS OF WATER FOR DAY SHIFT, NPO AT 1000 FOR INCISION WASHOUT AT NOON PER DR. MADRID ORDERS. PATIENT UP IN RECLINER MOST OF SHIFT AND NOW BACK TO BED AND TAKEN OFF OF UNIT BY OR NURSE FOR PROCEDURE.
[2019-12-09] MEDS: LACTATED RINGERS 1,000 ML 42 ML IV (12:20)
[2019-12-09] MEDS: PIPERACILLIN-TAZO 3.375 GM/50 ML FROZ.PIGGY IV (12:40)
--- NOTE | 2019-12-09 12:48 | SUR.OPER ---
350ml drainage removed from wound vac.
[2019-12-09] MEDS: HYDROMORPHONE 2 MG INJ IV ×4 (14:01→14:17)
[2019-12-09] MEDS: LORazepam 2 MG/ML INJ 0.5 MG IV ×2 (14:28→20:44)
[2019-12-09] MEDS: fentaNYL 100 MCG/2 ML INJ IV ×2 (14:57→15:04)
--- NOTE | 2019-12-09 15:12 | SUR.PHASEI ---
Dr Helton here to speak with pt, IV restarted.
--- NOTE | 2019-12-09 15:21 | SUR.PHASEI ---
Pt medicated with fentanyl and dilaudid for pain, lorazepam for anxiety. Pain started 10/10 down to 4/10.
--- NOTE | 2019-12-09 15:22 | CM.DPC ---
Addendum entered by Kimberley Erwin R.N. 12/09/19 15:43: Spoke to Dr. Helton, surgeon. He anticipates that patient will be ready to discharge by Sunday. Went ahead and updated Christine at [facility]. They will be able to provide the wound vac at their facility. Original Note: DCP Cont: Called Christine at [facility] to give her an update on patient. Let her know that patient is having surgery, I&D, due to increased drainage, and that patient will not be ready for discharge yet. She stated that [employer] Medicare is good for up to 3 days. P: DCP to continue to follow. Continue to update [facility] at [facility], so that authorization is updated. Kimberley Erwin RN/Housekeeping Aid
--- NOTE | 2019-12-09 15:49 | SUR.PHASEI ---
Pt transported up to room 212 on room air and left in stable condition. Dressing to abdomen intact with functional wound vac. Bed low, locked and scds on, call boyle in hands reach.
[2019-12-09] MEDS: LACTATED RINGERS 1,000 ML 70 ML IV (16:03)
[2019-12-09] MEDS: ENOXAPARIN 40 MG/0.4 ML SYRINGE SUBCUT (16:07)
--- NOTE | 2019-12-09 16:53 | PM.OP.1 ---
Operative Date/Time/Diagnoses Date of procedure: 12/09/19 Time of procedure: 16:53 Pre-op diagnosis: Midline abdominal wound Post-op diagnosis: same Procedure & Clinicians Procedure: Sharp excisional debridement of midline abdominal wound 20 x 4 x 4 cm Same procedure as scheduled: Yes Indications: 74-year-old woman in the hospital following a small-bowel obstruction resection and anastomotic leak and chronic abdominal midline wound. She returns today for excisional debridement of the midline abdominal wound and replacement of the wound VAC which she has been unable to tolerate at the bedside Surgeon: Miguel Helton Anesthesia Type: General Operative Notes Findings: Fibrinous material along the midline wound with some fat necrosis, diastasis of the recti Specimen(s): none sent Estimated Blood Loss (mL): 20 Procedure in detail: Patient was brought to the room operating room placed supine on the table. Bilateral lower extremity compression devices were applied. She received IV Zosyn prior to skin incision. General anesthesia was induced she was intubated with an endotracheal tube. The wound VAC was removed. The wound demonstrated some fibrinous debris as well as some fat necrosis. There was diastasis of the rectus and the midline fascial suture was becoming loose. The necrotic tissue was sharply debrided from the wound. The wound was Pulsavac with 6 L of sterile saline. I elevated skin flaps on both sides in order to better reapproximate the midline. The anterior fascia was reapproximated using 1. PDS suture in interrupted figure-eight fashion I could not clearly identify the posterior sheath as it was so tightly adherent to the underlaying omentum and potentially interstine. The anterior fascia was then closed in a 2nd running layer with 1. PDS. The subcutaneous tissue was then loosely reapproximated using 3-0 Vicryl except in the midline where I placed a piece of black foam wound VAC. patient tolerated the procedure well she was extubated and transferred to recovery room in stable condition. Complications: none Post-operative Condition: stable Disposition: Acute Care
[2019-12-09] MEDS: OXYCODONE IR 5 MG TABLET PO (18:15)
[2019-12-09] MEDS: SODIUM CHLORIDE 0.9% 1,000 ML 1000 ML IV (19:25)
[2019-12-09] MEDS: ACETAMINOPHEN SUSP 650 MG/20.3 ML UDC PO (20:20)
[2019-12-09] MEDS: MEGESTROL 20 MG TABLET PO (20:47)
--- NOTE | 2019-12-09 23:22 | PC.NURSE ---
A&OX4. pain control issues. Pain 6/10, gave oxycodone 5mg, morphine 2mg and tylenol, but it was ineffective. notified Dr. Helton, VTO to change oxycodone 5 to 10mg q3hr, add flexeril 10mg PRN and may give ativan 0.5mg now. After administration of ativan, pt's pain was down to 2/10. Patient's BP was also dropping to 83/49, HR 96. Poor PO fluid intake. Notified physician, VTO for 1L bolus, and change LR rate to 125cc/hr. Pt was asymptomatic, denied any dizziness or light headedness. HOB semi-eason position. Wound vac 124mmHG cont.
--- NOTE | 2019-12-09 23:42 | PC.NURSE ---
Addendum entered by Cristal Mario R.N. 12/10/19 05:25: Having 3/10 achy abdominal pain; medicated with Oxycodone. Addendum entered by Cristal Mario R.N. 12/10/19 03:55: Unable to urinate on bedpan but did have liquid black/green stool. BP improved and patient denies pain so assisted onto BSC and was able to void and had more liquid stool. Addendum entered by Cristal Mario R.N. 12/10/19 01:41: Patient assessed at 2342. Is oriented but drowsy although able to converse and is appropriate. Breath sounds diminished at bases with RA sat of 96%; placed on continuous oximetry per MD order. HRR but tachy at 103 bpm. BP low at 84/42 which was reported to MD. Denies nausea. BT hypoactive but states she is passing flatus. Has not had any stools since 12/08 early a.m. Does endorse 2-3/10 abdominal discomfort but declines need for pain medication. Wound vac intact to abdominal incision and set to 125mmHg. Drain site dressing is intact with serosanguinous drainage noted. Is able to move herself in bed. Reportedly very weak on previous shift making it difficult to get up so has been using bedpan for elimination; denies dysuria, frequency or urgency. Wearing bilateral calf SCD's. Fall risk score is moderate and bed alarm is activated. Original Note: BP 76/53, 77/44 and now 84/42 with HR of 103 bpm apical. Patient drowsy but appropriate and is asymptomatic. Dr Helton informed, no new orders at this time.
[2019-12-10] VITALS (14 sets, daily range): BP systolic 89–108; BP diastolic 49–58; PULSE 86–109; RESP 15–18; TEMP 36.6–37.6; O2SAT 95–99
[2019-12-10] MEDS: LACTATED RINGERS 1,000 ML 125 ML IV ×2 (05:21→21:35)
[2019-12-10] MEDS: OXYCODONE IR 10 MG TABLET PO (05:23)
[2019-12-10 06:21] LABS: Basophils Absolute Auto 100 /uL (0-100); Basophils Percent Auto 0.5 % (0-2); Eosinophils Absolute Auto 0 /uL (0-450); Eosinophils Percent Auto 0.2 % (2-4); Hemoglobin 7.1 g/dL (12.0-16.0); Lymphocytes Absolute Auto 1800 /uL (1100-4500); Lymphocytes Percent Auto 7.6 % (25-40); Mean Corpuscular HGB Conc 32.4 % (30-36); Mean Corpuscular Hemoglobin 29.9 PG (26-34); Mean Corpuscular Volume 92.3 fL (80-100); Monocytes Absolute Auto 1700 /uL (0-900); Neutrophils Absolute Auto 20000 /uL (1500-7000); Neutrophils Percent Auto 84.7 % (50-75); Platelet Count 769 X10^3/uL (150-400); Red Blood Cell Count 2.37 X10^6/uL (4.0-5.2); Red Cell Distribution Width 14.4 % (11.6-14.8); White Blood Cell Count 23.6 X10^3/uL (4.5-11.0)
[2019-12-10 06:28] LABS: Hematocrit 21.9 % (36-46)
[2019-12-10 06:31] LABS: BUN Creatinine Ratio 37.5 (6-22); Blood Urea Nitrogen 24 mg/dL (7-17); Carbon Dioxide 27 mmol/L (22-32); Chloride 108 mmol/L (98-107); Estimated Glomerular Filt Rate > 60.0 mL/min (>60); Glucose 109 mg/dL (80-110); HEMOLYSIS < 15 (0-50); Potassium 4.1 mmol/L (3.4-5.1); Sodium 135 mmol/L (137-145)
[2019-12-10 06:41] LABS: Platelet Estimate Increased on smear; Polychromasia 1+
[2019-12-10 09:08] LABS: Procalcitonin 0.44 ng/mL (<0.5)
[2019-12-10] MEDS: MEGESTROL 20 MG TABLET PO ×2 (09:39→21:46)
[2019-12-10] MEDS: TRIMETH/SULFA 160/800 (DS) TABLET 1 TAB PO ×2 (09:40→21:47)
[2019-12-10] MEDS: PANTOPRAZOLE 40 MG VIAL IV ×2 (09:40→21:44)
[2019-12-10] MEDS: GABAPENTIN 100 MG CAPSULE PO ×2 (09:40→21:44)
[2019-12-10] MEDS: ACETAMINOPHEN SUSP 650 MG/20.3 ML UDC PO (09:42)
--- NOTE | 2019-12-10 09:42 | OT.IPNOTE ---
Pt just got up and not wanting to do OT at this time. Pt also to be getting blood later today. Therefore check on pt again in PM for OT treatment.
--- NOTE | 2019-12-10 10:37 | PT-IP ANOTE ---
pt on hold for PT this am. pt with Hgb of 7.1 and Hct of 21.9 and will be receiving transfusion per nurse this morning. will f/u.
--- NOTE | 2019-12-10 12:28 | PM.PNPO.1 ---
Subjective Subjective Date Patient Seen: 12/10/19 Time Patient Seen: 12:29 Interval history: Melanotic stools tolerating regular diet no nausea. Abdominal pain is controlled. Exam Vital Signs (past 8 hours): - 12/10/19 07:00 12/10/19 08:43 12/10/19 10:37 Temperature 98.4 F 98.4 F Pulse Rate 109 H 99 H Respiratory Rate 15 16 Blood Pressure 95/54 L 99/53 L Pulse Oximetry 96 96 12/10/19 10:46 12/10/19 11:00 12/10/19 11:39 Temperature 98.3 F 98.3 F Pulse Rate 103 H 103 H Respiratory Rate 16 16 Blood Pressure 89/49 L 89/49 L Pulse Oximetry 96 98 Oxygen Delivery Method Room Air Oxygen Flow Rate 0 Narrative Exam Narrative: General elderly woman alert oriented no acute distress Abdomen appropriately tender to palpation midline incision with wound VAC scant output Objective Labs Result Diagrams: 12/10/19 05:38 12/10/19 05:38 Labs: Laboratory Results - last 24 hr 12/10/19 12/10/19 12/10/19 05:30 05:38 05:38 WBC 23.6 H RBC 2.37 L Hgb 7.1 L Hct 21.9 L MCV 92.3 MCH 29.9 MCHC 32.4 RDW 14.4 Plt Count 769 H Neut % (Auto) 84.7 H Lymph % (Auto) 7.6 L Petroleum % (Auto) 7.0 Eos % (Auto) 0.2 L Baso % (Auto) 0.5 Neut # (Auto) 84891 H Lymph # (Auto) 1800 Petroleum # (Auto) 1700 H Eos # (Auto) 0 Baso # (Auto) 100 Platelet Estimate Increased on smear RBC Morphology See below Polychromasia 1+ H Sodium 135 L Potassium 4.1 Chloride 108 H Carbon Dioxide 27 BUN 24 H Creatinine 0.64 Estimated GFR > 60.0 BUN/Creatinine Ratio 37.5 H Glucose 109 Calcium 7.0 L Procalcitonin 0.44 Blood Type Antibody Screen Crossmatch 12/10/19 08:10 WBC RBC Hgb Hct MCV MCH MCHC RDW Plt Count Neut % (Auto) Lymph % (Auto) Petroleum % (Auto) Eos % (Auto) Baso % (Auto) Neut # (Auto) Lymph # (Auto) Petroleum # (Auto) Eos # (Auto) Baso # (Auto) Platelet Estimate RBC Morphology Polychromasia Sodium Potassium Chloride Carbon Dioxide BUN Creatinine Estimated GFR BUN/Creatinine Ratio Glucose Calcium Procalcitonin Blood Type A Negative Antibody Screen Negative Crossmatch See Detail Assessment & Plan Post-op Postoperative Procedures: Procedures Operation Date: 11/27/19 15:30 Actual Procedures Side Surgeon p Exploratory Laparotomy GEN, SMALL BOWEL RESECTION Miguel Helton MD s Enterocele repair Bisi Ruiz MD Operation Date: 12/02/19 17:15 Actual Procedures Side Surgeon p Exploratory Laparotomy GEN Miguel Helton MD Operation Date: 12/09/19 12:15 Actual Procedures Side Surgeon p excisional debridement of abdominal wound Miguel Helton MD Postoperative status narrative: 74-year-old woman 1 week after a exploratory laparotomy for a anastomotic leak. She was taken the operating room yesterday for an excisional debridement of the midline wound she has wound VAC to it now. She is overall improving and is approaching discharge likely later this week -Acute GI bleed-hemodynamically stable will transfuse 2 units monitor no surgical intervention or endoscopy indicated at this time. Hold chemical VTE prophylaxis -Midline abdominal wound-Wound vac will change Sunday. 1 week course of Bactrim while vac is in place -Leukocytosis-Afebrile, procalitonin normal, UA negative, bowel are working suspect it is inflammatory. All IV antibiotics have been discontinued. -SCDs Quality VTE Deep Vein Thrombosis/Pulmonary Embolism Present on Admission: No
--- NOTE | 2019-12-10 13:53 | OT.IPNOTE ---
Hold OT treatment for pt as still getting blood transfusion, tired, and wanting to try tomorrow.
--- NOTE | 2019-12-10 13:56 | PC.NURSE ---
Patient started having 1 unit PRB's transfused at 1031, her IV became infiltrated. Ursula CAMPO put midline in and fusion re-started at 12:30. Blood transfusion is being stopped at 1400, without total transfusion finished because of blood expiration. 88.8 ml left. Will be transfusing a second unit.
--- NOTE | 2019-12-10 15:38 | PT-IP ANOTE ---
checked with nurse and stated that pt is still receiving her first unit of blood transfusion and will still have a second one afterwards. PT on hold at this time. will f/u tomorrow.
[2019-12-10] MEDS: ACETAMINOPHEN 325 MG TABLET 650 MG PO (17:32)
[2019-12-10] MEDS: ATORVASTATIN 20 MG TABLET 10 MG PO (21:44)
[2019-12-11] VITALS (10 sets, daily range): BP systolic 100–119; BP diastolic 52–64; PULSE 73–82; RESP 14–18; TEMP 36.4–36.9; O2SAT 95–100
--- NOTE | 2019-12-11 03:33 | PC.NURSE ---
Patient is alert and oriented. Breath sounds diminished in mid/lower lobes with RA sat of 96%; on continuous oximetry per MD order. HRR. Denies nausea. BT hypoactive. Abdomen is soft but tender with some mild distention in upper abdomen. Wound vac to abdominal incision intact at 125mmgHg. Dressing to previous drain site is intact with no new drainage noted. Having liquid black stools. Denies dysuria, frequency or urgency but with intermittent retention. Able to move self in bed. Assisted to BSC with walker and 1 assist. Has trace/1+ edema in bilateral feet/ankles right > left. Wearing bilateral calf SCD's. Fall risk score is high and bed alarm is activated.
[2019-12-11] MEDS: LACTATED RINGERS 1,000 ML 125 ML IV (05:59)
[2019-12-11 06:40] LABS: BUN Creatinine Ratio 36.2 (6-22); Blood Urea Nitrogen 21 mg/dL (7-17); Calcium 7.3 mg/dL (8.4-10.2); Carbon Dioxide 26 mmol/L (22-32); Chloride 107 mmol/L (98-107); Estimated Glomerular Filt Rate > 60.0 mL/min (>60); Glucose 97 mg/dL (80-110); HEMOLYSIS < 15 (0-50); Potassium 3.8 mmol/L (3.4-5.1); Sodium 136 mmol/L (137-145)
[2019-12-11 06:53] LABS: Hemoglobin 8.4 g/dL (12.0-16.0); Mean Corpuscular HGB Conc 33.4 % (30-36); Mean Corpuscular Hemoglobin 30.4 PG (26-34); Mean Corpuscular Volume 90.9 fL (80-100); Platelet Count 685 X10^3/uL (150-400); Red Blood Cell Count 2.75 X10^6/uL (4.0-5.2); Red Cell Distribution Width 14.3 % (11.6-14.8); White Blood Cell Count 17.3 X10^3/uL (4.5-11.0)
[2019-12-11 07:10] LABS: Add Manual Diff / Slide Review YES
[2019-12-11 07:52] LABS: Neutrophils Absolute Manual 14878 /uL (3000-5900); Nucleated Red Blood Cells 1 #/Diff; Platelet Estimate Increased on smear; Polychromasia 1+; Total Cells Counted 100
[2019-12-11] MEDS: ACETAMINOPHEN 325 MG TABLET 650 MG PO ×2 (09:05→21:49)
[2019-12-11] MEDS: GABAPENTIN 100 MG CAPSULE PO ×2 (09:05→21:48)
[2019-12-11] MEDS: MEGESTROL 20 MG TABLET PO ×2 (09:06→21:49)
[2019-12-11] MEDS: PANTOPRAZOLE 40 MG VIAL IV ×2 (09:07→21:48)
--- NOTE | 2019-12-11 09:37 | DIET.PN ---
Dietary Progress Note Dietary Progress Note 74y F c long course for abd procedures requiring a week of nutrition support c TPN. Pt has been off TPN for 3d, consistently eating 50% of meal trays which include high kcal and high PRO items (yogurt, smoothies, ONS Ensure, chocolate milk). Pt tolerating PO intake x3d in a volume which is close to normal for her usual eating patterns. Pt having some liquid stools, however, has had very little dietary fiber over the past 2w as she is on low residue diet. Pts weight is stable cl BMI 20.9 HT: 166.3cm WT:57.9kg BMI: 20.9 MNA:11 at risk Ralph: 23 Nutrition Diagnosis: Resolving Inadequate protein energy intake r/t NPO status aeb day 1 post small-bowel resection and lysis of adhesions, increased protein needs for healing, pt NPO or on clear liquid diet x4d and poor POs for additional 4d prior to admission. Interventions: 1. Recc ONS smoothie and yogurt to support POs Diet Order: Transitional diet, post-op (low residue) EER:1450 kcal( 25kcal/kg) 70g Pro ( 1.2g/kg to support healing) Monitoring/Evaluations: POs, GI sx
[2019-12-11 10:58] LABS: COVID19 -Nasal RAPID Negative (Negative)
--- NOTE | 2019-12-11 11:00 | PT.IPTN ---
Current Diagnoses Intestinal adhesions [bands], unspecified as to partial versus complete obstruction (11/24/19) Unspecified intestinal obstruction, unspecified as to partial versus complete obstruction (11/24/19) Other specified postprocedural states (11/24/19) Surgery Performed Operation Date: 11/27/19 15:30 Actual Procedures p Exploratory Laparotomy GEN, SMALL BOWEL RESECTION - Miguel Helton MD s Enterocele repair - Bisi Ruiz MD Operation Date: 12/02/19 17:15 Actual Procedures p Exploratory Laparotomy GEN - Miguel Helton MD Operation Date: 12/09/19 12:15 Actual Procedures p excisional debridement of abdominal wound - Miguel Helton MD Physical Therapy Treatment Note M2 PT-IP Current Condition Start: 11/28/19 13:35 Freq: NEEDED Status: Active Protocol: Document 12/05/19 11:37 AB (Rec: 12/05/19 12:44 AB [id number]) Physical Therapy Current Condition Precautions Abdominal Surgery Precautions Log Roll,Lifting Restrictions, Gait Belt above Incisional Area M3 PT-IP Subjective Start: 11/28/19 13:35 Freq: NEEDED Status: Active Protocol: Document 12/11/19 11:00 AB (Rec: 12/11/19 11:26 AB [email or web address]) Subjective Physical Therapy Visit Type Type Treatment Note Visit Start Time 11:00 Visit Stop Time 11:18 Total Visit Minutes 18 Number of GAS LINE SERVICER Visits 0 Physical Therapy Visit Comments Patient Comments pt is agreeable to do PT Therapy Pain Assessment Pain When Pain Assessed During Mobility Pain Present Pain Present Pain Reported Location Abdomen Intensity 2 Scale Used Numeric (0 - 10) Pain Management Techniques Modification of Treatment,Re- positioning,Timing of Activity with Medications M4 PT-IP Mobility and Gait Start: 11/28/19 13:35 Freq: NEEDED Status: Active Protocol: Document 12/11/19 11:00 AB (Rec: 12/11/19 11:26 AB [id number]) PT-Bed Mobility Assessment Rolling Type of Rolling Log Rolling Level of Assist Standby Assistance Supine to Sit Supine to Sit Standby Assistance,Head of Bed Elevated,Bedrails PT-Transfer Assessment Sit to and From Stand Sit to and from Stand Contact Guard Assistance,1 Person Assistance,Use of Upper Extremities Equipment Transfer Assistive Device Gait Belt,Front Wheeled Walker Orthotic/Prosthetic Devices or Brace: No Transfers Transfer Destination Bedside Commode Transfer Technique ambulated using FWW Transfer Ability Level of Assist Standby Assistance,Use of Upper Extremities Comments Mobility Comments completed supine to sit log roll SBA with use of bed rail and HOB elevated 7deg. pt was able to sit on EOB SBA. completed sit to stand SBA with pt pulling from FWW. ambulated initially in room ~ 30 ft and agreed to ambulate in the hallway and ambulated another 75 ft using FWW SBA. pt requested to use the toilet and ambulated back to the room. positioned bedside commode and pt was able to sit SBA. call light placed within reach and instructed to ask for assistance when ready . pt understood and agreed. Gait Assessment Gait Gait Assistance Required: Standby Assistance Distance (Feet) 75 Able to Maintain Weight Bearing Status Yes During Gait Assistive Devices Assistive Device Gait Belt,Front Wheeled Walker Orthotic/Prosthetic Devices or Brace: No Gait Deviations General Gait Pattern Antalgic,Decreased Stride Length,Decreased Feet Clearance Factors Limiting Gait Function Factors Limiting Gait Function Decreased Activity Tolerance, Decreased Strength,Limited Range of Motion,Pain,Poor Balance,Poor Safety Awareness Comments Gait Comments pls refer to mobility section for details M5 PT-IP Objective Assessments Start: 11/28/19 13:35 Freq: NEEDED Status: Active Protocol: Document 12/05/19 11:37 AB (Rec: 12/05/19 12:44 AB [id number]) Orientation Orientation/Cognition Level of Alertness Alert Orientation Name,Place,Situation Language Function Ability Hard of Hearing Safety Awareness Decreased Safety Awareness Gross Range of Motion Lower Extremity ROM Assessment Within Functional Limits Strength Lower Extremity Strength Assessment Bilaterally Impaired Hip 3+/5 Knee 3+/5 Coordination Assessment Gross Coordination Gross Coordination WNL Muscle Tone Muscle Tone WNL Yes M6 PT-IP Treatment Start: 11/28/19 13:35 Freq: NEEDED Status: Active Protocol: Document 12/11/19 11:00 AB (Rec: 12/11/19 11:26 AB [email or web address]) Physical Therapy Treatment Education Education Provided Precautions,Safety M7 PT-IP Assessment and Plan Start: 11/28/19 13:35 Freq: NEEDED Status: Active Protocol: Document 12/11/19 11:00 AB (Rec: 12/11/19 11:26 AB [email or web address]) PT Summary Assessment and Plan Potential Rehabilitation Potential Good Summary Impairments Pain,ROM,Strength,Balance, Coordination,Sensation,Bed Mobility,Transfers,Gait, Activity Tolerance Progress Towards Goals Slow Progress due to Activity Tolerance Assessment Summary pt progressing with mobility and requiring SBA but continues to have decrease activity tolerance. pt currently also requires use of fWW to assist with walking. pt plans to go home with spouse to assist and caregiver training will be conducted when appropriate. pt will also benefit from homehealth PT to improve overall strength , activity tolerance and mobility indepedence. Goals Bed Mobility Goal Independent Transfer Goal Independent,Front Wheeled Walker Gait Goal Independent,Front Wheel Walker Gait Distance 200 Other Goals improve ambulation without AD 200 ft SBA Days to Meet Goals 10 Frequency of Treatment Frequency Of Treatment Once a Day Treatment Plan Physical Therapy Treatment Plan Bed Mobility Training,Transfer Training,Gait Training, Therapeutic Exercise,Balance Retraining,Post Op Education, Discharge Planning, Neuromuscular Re-ed Other Recommendations and Next Treatment ambulation and transfers. Focus Recommendations To Nursing Amount of Assist Needed Standby Assistance,1 Person Assist Discharge Recommendations PT Discharge Recommendations Home with 24/ Assist,Home Health,SNF Rehab Transportation Needs at Discharge Wheelchair/Cabulance,Stretcher /Ambulance
--- NOTE | 2019-12-11 14:11 | OT.IP.TRT ---
Current Diagnoses Intestinal adhesions [bands], unspecified as to partial versus complete obstruction (11/24/19) Unspecified intestinal obstruction, unspecified as to partial versus complete obstruction (11/24/19) Other specified postprocedural states (11/24/19) Surgery Performed Operation Date: 11/27/19 15:30 Actual Procedures p Exploratory Laparotomy GEN, SMALL BOWEL RESECTION - Miguel Helton MD s Enterocele repair - Bisi Ruiz MD Operation Date: 12/02/19 17:15 Actual Procedures p Exploratory Laparotomy GEN - Miguel Helton MD Operation Date: 12/09/19 12:15 Actual Procedures p excisional debridement of abdominal wound - Miguel Helton MD Occupational Therapy Treatment Note M2 OT-IP Current Condition Start: 12/07/19 12:39 Freq: Status: Active Protocol: Document 12/07/19 12:39 CGR (Rec: 12/07/19 12:48 CGR [id number]) Occupational Therapy Current Condition Current Condition Evaluation Date 12/07/19 Treatment Diagnosis SBO 11/26 exlap, 12/01 exlap ileocectomy and wound vac. Diagnosis Onset Date 11/24/19 Post Operative Precautions Abdominal Surgery Precautions Log Roll,Lifting Restrictions, Gait Belt above Incisional Area M3 OT- IP Subjective and Pain Start: 12/07/19 12:39 Freq: Status: Active Protocol: Document 12/11/19 13:55 [facility] (Rec: 12/12/19 08:45 [facility] [id number]) OT- Subjective Occupational Therapy Visit Type Type Treatment Note Visit Start Time 13:55 Visit Stop Time 14:11 Total Visit Minutes 16 Occupational Therapy Visit Comments Patient Comments Pt wanting to get up to walk and just finished getting cleaned up by nursing aid. Patient/Caregiver Goals TO go home. OT Pain Assessment Pain When Pain Assessed At Rest Pain Present Pain Present Denied Pain M4 OT- IP ADL's Start: 12/07/19 12:39 Freq: Status: Active Protocol: Document 12/11/19 13:55 [facility] (Rec: 12/12/19 08:45 [facility] [id number]) OT ADL-Dressing General Eval Lower Body Dressing Ability Standby Assistance,Minimal Assistance Areas Needing Assistance Socks Comments OT Dressing Comments Able to issued LB dressing equipment to pt to increase ease for LB dressing needs. M5 OT- IP IADL's Start: 12/07/19 12:39 Freq: Status: Active Protocol: Document 12/07/19 12:39 CGR (Rec: 12/07/19 12:48 CGR [id number]) OT-Instrumental Activities of Daily Living Deficits IADL Deficits Identified No Deficits Home Safety Awareness Awareness of Need for Assistance at Home Good Awareness Ability to Problem Solve Emergency Able to Problem Solve Situations Medication Management Medication Management No Deficits Identified Money Management Money Management No Deficits Identified Meal Preparation Meal Preparation Caregiver Provides Assist Engraver Block Engraver Block Caregiver Provides Assist Driving Driving Caregiver Provides Assist M6 OT- IP Functional Cognition Start: 12/07/19 12:39 Freq: Status: Active Protocol: Document 12/11/19 13:55 [facility] (Rec: 12/12/19 08:45 [facility] [id number]) Cognitive Factors Limiting Selfcare Function Cognitive Comments Cognitive Assessment Comments NO cognitive deficits noted. M7 OT- IP Mobility and Balance Start: 12/07/19 12:39 Freq: Status: Active Protocol: Document 12/11/19 13:55 [facility] (Rec: 12/12/19 08:45 [facility] [id number]) OT- Bed Mobility Assessment Sit to Supine Sit to Supine Assist Minimal Assistance OT-Transfer Assessment Sit to and From Stand Sit to and from Stand Standby Assistance Transfers Transfer Ability Standby Assistance,Contact Guard Assistance Technique Transfer Destination Bed,Chair Transfer Technique Stand Step Pivot Devices Transfer Assistive Devices Gait Belt,Front Wheeled Walker Comments Mobility Comments CGA to stand and SBA for ADl endurance and able to walk the nursing loop and get back into bed with ARJUN for her legs. OT- Balance Assessment Sitting Balance and Reactions Static Sitting Balance Ability Normal Dynamic Sitting Balance Ability Good Standing Balance and Reactions Static Standing Balance Ability Fair M8 OT- IP Objective Assessments Start: 12/07/19 12:39 Freq: Status: Active Protocol: Document 12/07/19 12:39 CGR (Rec: 12/07/19 12:48 CGR [id number]) OT Gross Range of Motion Upper Extremity Range of Motion Assessment Within Functional Limits OT Strength Upper Extremity Strength Assessment Within Functional Limits Comments Strength Comments grossly 4/5 OT- Coordination Assessment Upper Extremity Finger to Nose Test Within Functional Limits Finger Tapping Test Within Functional Limits OT-Muscle Tone Assessment Muscle Tone WNL Yes OT Sensation Assessment Edema Edema Absent M9 OT- IP Assessment and Plan Start: 12/07/19 12:39 Freq: Status: Active Protocol: Document 12/11/19 13:55 [facility] (Rec: 12/12/19 08:45 [facility] [id number]) OT Summary Assessment and Plan Potential Rehabilitation Potential Good Analytic Complexity at Evaluation Moderate Summary OT Impairments Pain,Balance,Functional Mobility,Grooming,Dressing, Toileting,Bathing,Toilet Transfers,Shower Transfers, Activity Tolerance Progress Towards Goals Progressing Toward Goals Assessment Summary Pt able to tolerate more with her endurance today and now more independent with LB dressing needs as LB dressing equipment issued. Pt to go to skilled rehab when medically stable. Goals Grooming Goal Independent Dressing Goal Independent Toileting Goal Independent Bathing Goal Independent Toilet Transfer Goal Independent Shower Transfer Goal Independent Days to Meet Goals 14 Frequency of Treatment Frequency Of Treatment Once a Day Treatment Plan OT Treatment Plan ADL Training,Functional Cognition Training,Functional Mobility,Patient/Family Education,Discharge Planning Discharge Recommendations OT Discharge Recommendations SNF Rehab Transportation Needs at Discharge Private Vehicle
[2019-12-11] MEDS: LORazepam 2 MG/ML INJ 0.5 MG IV (14:12)
[2019-12-11] MEDS: OXYCODONE IR 10 MG TABLET PO (14:12)
--- NOTE | 2019-12-11 14:59 | CM.DPC ---
DCP: continued: Spoke with Dr. Helton this morning and again right now. He confirms he expects pt to be ready for d/c to [facility] by tomorrow as long as she is able to tolerate the wound vac dressing change he is doing this afternoon using oral pain medication instead of IV. Christine/Camron is updated and confirms that she is still working on the [employer] Med Adv auth but is hopeful this will be in place tomorrow. Dr. Helton is aware and does not plan to d/c pt until this is in place. Met at length with pt and her as they had many quesitions re the snf environment and how this would work. Pt noted she is glad the option is there for her as she knows it is important to her healing process. update: July has just received snf authorzation [employer] Adv Will folllow up tomorrow.
--- NOTE | 2019-12-11 17:07 | PM.PNPO.1 ---
Subjective Subjective Date Patient Seen: 12/11/19 Time Patient Seen: 17:07 Interval history: No acute events. Feeling well pain is managed with Tylenol. Tolerating regular diet having bowel movements no nausea vomiting Exam Vital Signs (past 8 hours): - 12/11/19 12:04 12/11/19 13:00 12/11/19 15:38 Temperature 97.6 F 98.0 F Pulse Rate 78 73 Respiratory Rate 16 18 Blood Pressure 108/59 L 100/52 L Pulse Oximetry 95 100 99 12/11/19 16:00 Temperature Pulse Rate Respiratory Rate Blood Pressure Pulse Oximetry 99 Oxygen Delivery Method Room Air Oxygen Flow Rate 0 Narrative Exam Narrative: General elderly female alert oriented no acute distress Abdomen midline incision wound VAC removed the subcutaneous tissue is colon clean and granulating well the wound VAC was not replaced it was dressed with wet-to-dry dressing. Objective Labs Result Diagrams: 12/11/19 05:55 12/11/19 05:55 Labs: Laboratory Results - last 24 hr 12/10/19 12/11/19 12/11/19 08:10 05:55 05:55 WBC 17.3 H RBC 2.75 L Hgb 8.4 L Hct 25.0 L MCV 90.9 MCH 30.4 MCHC 33.4 RDW 14.3 Plt Count 685 H Neut % (Auto) Not Reportable Lymph % (Auto) Not Reportable [place] % (Auto) Not Reportable Eos % (Auto) Not Reportable Baso % (Auto) Not Reportable Lymph # (Auto) Not Reportable [place] # (Auto) Not Reportable Baso # (Auto) Not Reportable Total Counted 100 Seg Neutrophils % 80.0 H Band Neutrophils % 6.0 Lymphocytes % (Manual) 4.0 L Atypical Lymphs % 1.0 H Monocytes % (Manual) 8.0 Metamyelocytes % 1.0 H Neutrophils # (Manual) 18682 H Nucleated RBCs 1 H Platelet Estimate Increased on smear Plt Morphology Comment RBC Morphology See below Polychromasia 1+ H Sodium 136 L Potassium 3.8 Chloride 107 Carbon Dioxide 26 BUN 21 H Creatinine 0.58 Estimated GFR > 60.0 BUN/Creatinine Ratio 36.2 H Glucose 97 Calcium 7.3 L COVID-19 PCR Crossmatch See Detail 12/11/19 10:15 WBC RBC Hgb Hct MCV MCH MCHC RDW Plt Count Neut % (Auto) Lymph % (Auto) [place] % (Auto) Eos % (Auto) Baso % (Auto) Lymph # (Auto) [place] # (Auto) Baso # (Auto) Total Counted Seg Neutrophils % Band Neutrophils % Lymphocytes % (Manual) Atypical Lymphs % Monocytes % (Manual) Metamyelocytes % Neutrophils # (Manual) Nucleated RBCs Platelet Estimate Plt Morphology Comment RBC Morphology Polychromasia Sodium Potassium Chloride Carbon Dioxide BUN Creatinine Estimated GFR BUN/Creatinine Ratio Glucose Calcium COVID-19 PCR Negative Crossmatch Assessment & Plan Post-op Postoperative Procedures: Procedures Operation Date: 11/27/19 15:30 Actual Procedures Side Surgeon p Exploratory Laparotomy GEN, SMALL BOWEL RESECTION Miguel Helton MD s Enterocele repair Bisi Ruiz MD Operation Date: 12/02/19 17:15 Actual Procedures Side Surgeon p Exploratory Laparotomy GEN Miguel Helton MD Operation Date: 12/09/19 12:15 Actual Procedures Side Surgeon p excisional debridement of abdominal wound Miguel Helton MD Postoperative status narrative: 74-year-old woman recovering after an exploratory laparotomy ileocecectomy doing well. She is on track for discharge to rehab tomorrow. -regular diet -midline abdominal wound-continue wet-to-dry dressings once daily, no further antibiotic therapy -SCDs Quality VTE Deep Vein Thrombosis/Pulmonary Embolism Present on Admission: No
[2019-12-11] MEDS: ATORVASTATIN 20 MG TABLET 10 MG PO (21:48)
[2019-12-11] MEDS: SODIUM CHLORIDE 0.9% FLUSH 10 ML IV (21:50)
[2019-12-12 00:15] VITALS: BP 108/59; PULSE 70; RESP 18; TEMP 36.3; O2SAT 100
[2019-12-12 03:50] VITALS: BP 114/58; PULSE 75; RESP 16; TEMP 36.7; O2SAT 98
[2019-12-12 04:00] VITALS: O2SAT 98
[2019-12-12] MEDS: ACETAMINOPHEN 325 MG TABLET 650 MG PO ×2 (06:27→10:27)
[2019-12-12 08:00] VITALS: BP 117/63; PULSE 72; RESP 16; TEMP 36.6; O2SAT 98
--- NOTE | 2019-12-12 08:21 | CM.DPC ---
Addendum entered by Angeline Yu LPN 12/12/19 11:37: Dr. Helton was here and completed the snf d/c orders. Noted OT/PT not ordered even though this was part of the snf plan and Dr. Helton was very agreeable to same. Checked in with [facility]. She noted they have standing therapy orders for new admissions at their facility so this is not a problem. CR today: 1330 w/c van. ELIA Curry and pt are update. Original Note: DCP: continued: Pt now with wound vac off and daily wet/dry dressings. Dr. Helton continues to anticipate d/c today. Christine/[facility] is updated re the change in wound care. P: [facility] today via w/c transport pending final d/c orders. Will be following.
[2019-12-12] MEDS: MEGESTROL 20 MG TABLET PO (09:27)
[2019-12-12] MEDS: GABAPENTIN 100 MG CAPSULE PO (09:28)
[2019-12-12] MEDS: SODIUM CHLORIDE 0.9% FLUSH 10 ML IV (09:28)
[2019-12-12] MEDS: PANTOPRAZOLE 40 MG VIAL IV (09:28)
--- NOTE | 2019-12-12 09:48 | PT.IPTN ---
Current Diagnoses Intestinal adhesions [bands], unspecified as to partial versus complete obstruction (11/24/19) Unspecified intestinal obstruction, unspecified as to partial versus complete obstruction (11/24/19) Other specified postprocedural states (11/24/19) Surgery Performed Operation Date: 11/27/19 15:30 Actual Procedures p Exploratory Laparotomy GEN, SMALL BOWEL RESECTION - Miguel Helton MD s Enterocele repair - Bisi Ruiz MD Operation Date: 12/02/19 17:15 Actual Procedures p Exploratory Laparotomy GEN - Miguel Helton MD Operation Date: 12/09/19 12:15 Actual Procedures p excisional debridement of abdominal wound - Miguel Helton MD Physical Therapy Treatment Note M2 PT-IP Current Condition Start: 11/28/19 13:35 Freq: NEEDED Status: Active Protocol: Document 12/05/19 11:37 AB (Rec: 12/05/19 12:44 AB [id number]) Physical Therapy Current Condition Precautions Abdominal Surgery Precautions Log Roll,Lifting Restrictions, Gait Belt above Incisional Area M3 PT-IP Subjective Start: 11/28/19 13:35 Freq: NEEDED Status: Active Protocol: Document 12/12/19 09:48 AB (Rec: 12/12/19 11:25 AB [id number]) Subjective Physical Therapy Visit Type Type Treatment Note Visit Start Time 09:48 Visit Stop Time 09:58 Total Visit Minutes 10 Number of CASHIER PAYMENTS RECEIVED Visits 0 Physical Therapy Visit Comments Patient Comments initially refusing PT but then encouraged and agreed to do PT Therapy Pain Assessment Pain When Pain Assessed At Rest Pain Present Pain Present Pain Reported Location Abdomen Intensity 2 Scale Used Numeric (0 - 10) Pain Management Techniques Modification of Treatment,Re- positioning,Timing of Activity with Medications M4 PT-IP Mobility and Gait Start: 11/28/19 13:35 Freq: NEEDED Status: Active Protocol: Document 12/12/19 09:48 AB (Rec: 12/12/19 11:25 AB [id number]) PT-Transfer Assessment Sit to and From Stand Sit to and from Stand Standby Assistance Equipment Transfer Assistive Device Gait Belt,Front Wheeled Walker Orthotic/Prosthetic Devices or Brace: No Comments Mobility Comments pt sitting on chair. completed sit to stand SBA and ambulated in the hallway ~ 275 ft using FWW SBA. went back to room and sat back on chair. positioned on chair. call light and table placed within reach. Gait Assessment Gait Gait Assistance Required: Standby Assistance Distance (Feet) 275 Able to Maintain Weight Bearing Status Yes During Gait Assistive Devices Assistive Device Gait Belt,Front Wheeled Walker Orthotic/Prosthetic Devices or Brace: No Factors Limiting Gait Function Factors Limiting Gait Function Decreased Activity Tolerance, Decreased Strength,Limited Range of Motion,Pain,Poor Balance M5 PT-IP Objective Assessments Start: 11/28/19 13:35 Freq: NEEDED Status: Active Protocol: Document 12/05/19 11:37 AB (Rec: 12/05/19 12:44 AB [id number]) Orientation Orientation/Cognition Level of Alertness Alert Orientation Name,Place,Situation Language Function Ability Hard of Hearing Safety Awareness Decreased Safety Awareness Gross Range of Motion Lower Extremity ROM Assessment Within Functional Limits Strength Lower Extremity Strength Assessment Bilaterally Impaired Hip 3+/5 Knee 3+/5 Coordination Assessment Gross Coordination Gross Coordination WNL Muscle Tone Muscle Tone WNL Yes M6 PT-IP Treatment Start: 11/28/19 13:35 Freq: NEEDED Status: Active Protocol: Document 12/12/19 09:48 AB (Rec: 12/12/19 11:25 AB [id number]) Physical Therapy Treatment Education Education Provided Precautions,Safety M7 PT-IP Assessment and Plan Start: 11/28/19 13:35 Freq: NEEDED Status: Active Protocol: Document 12/12/19 09:48 AB (Rec: 12/12/19 11:25 AB [id number]) PT Summary Assessment and Plan Potential Rehabilitation Potential Good Summary Impairments Pain,ROM,Strength,Balance, Coordination,Sensation,Bed Mobility,Transfers,Gait, Activity Tolerance Progress Towards Goals Progressing Toward Goals Assessment Summary pt is progressing with mobility with increase in ambulation to 275 ft using FWW . pt is scheduled to d/c to SNF today. Goals Bed Mobility Goal Independent Transfer Goal Independent,Front Wheeled Walker Gait Goal Independent,Front Wheel Walker Gait Distance 200 Other Goals improve ambulation without AD 200 ft SBA Days to Meet Goals 10 Frequency of Treatment Frequency Of Treatment Once a Day Treatment Plan Physical Therapy Treatment Plan Bed Mobility Training,Transfer Training,Gait Training, Therapeutic Exercise,Balance Retraining,Post Op Education, Discharge Planning, Neuromuscular Re-ed Recommendations To Nursing Amount of Assist Needed Standby Assistance Discharge Recommendations PT Discharge Recommendations Home with 28/08 Assist,Home Health,SNF Rehab Transportation Needs at Discharge Wheelchair/Cabulance,Stretcher /Ambulance
[2019-12-12 09:52] VITALS: O2SAT 97
--- NOTE | 2019-12-12 11:45 | OT.IP.TRT ---
Current Diagnoses Intestinal adhesions [bands], unspecified as to partial versus complete obstruction (11/24/19) Unspecified intestinal obstruction, unspecified as to partial versus complete obstruction (11/24/19) Other specified postprocedural states (11/24/19) Surgery Performed Operation Date: 11/27/19 15:30 Actual Procedures p Exploratory Laparotomy GEN, SMALL BOWEL RESECTION - Miguel Helton MD s Enterocele repair - Bisi Ruiz MD Operation Date: 12/02/19 17:15 Actual Procedures p Exploratory Laparotomy GEN - Miguel Helton MD Operation Date: 12/09/19 12:15 Actual Procedures p excisional debridement of abdominal wound - Miguel Helton MD Occupational Therapy Treatment Note M2 OT-IP Current Condition Start: 12/07/19 12:39 Freq: Status: Active Protocol: Document 12/07/19 12:39 CGR (Rec: 12/07/19 12:48 CGR [id number]) Occupational Therapy Current Condition Current Condition Evaluation Date 12/07/19 Treatment Diagnosis SBO 11/26 exlap, 12/01 exlap ileocectomy and wound vac. Diagnosis Onset Date 11/24/19 Post Operative Precautions Abdominal Surgery Precautions Log Roll,Lifting Restrictions, Gait Belt above Incisional Area M3 OT- IP Subjective and Pain Start: 12/07/19 12:39 Freq: Status: Active Protocol: Document 12/12/19 11:18 [facility] (Rec: 12/12/19 12:02 [facility] [id number]) OT- Subjective Occupational Therapy Visit Type Type Treatment Note Visit Start Time 11:18 Visit Stop Time 11:45 Total Visit Minutes 27 Occupational Therapy Visit Comments Patient Comments Pt wanting to sponge off and walk around the hallway. Patient/Caregiver Goals TO go home. OT Pain Assessment Pain When Pain Assessed At Rest Pain Present Pain Present Denied Pain M4 OT- IP ADL's Start: 12/07/19 12:39 Freq: Status: Active Protocol: Document 12/12/19 11:18 [facility] (Rec: 12/12/19 12:02 [facility] [id number]) OT ADL-Dressing General Eval Lower Body Dressing Ability Moderate Assistance Areas Needing Assistance Socks Comments OT Dressing Comments Pt able to use the rrt to to doff the socks and needing assist to bala socks as feet wet for putting lotion on. OT ADL-Bathing Bathing Type Bathing Type Sponge Bath General Evaluation Bathing Ability Moderate Assistance Areas Needing Assistance Wash/Dry Back,Wash/Dry Lower Extremities Comments OT Bathing Comments Pt needing assist to wash/dry her back and feet. Pt states did her pericare needs earlier. M5 OT- IP IADL's Start: 12/07/19 12:39 Freq: Status: Active Protocol: Document 12/07/19 12:39 [facility] (Rec: 12/07/19 12:48 [facility] [email or web address]) OT-Instrumental Activities of Daily Living Deficits IADL Deficits Identified No Deficits Home Safety Awareness Awareness of Need for Assistance at Home Good Awareness Ability to Problem Solve Emergency Able to Problem Solve Situations Medication Management Medication Management No Deficits Identified Money Management Money Management No Deficits Identified Meal Preparation Meal Preparation Caregiver Provides Assist Braille Teacher Braille Teacher Caregiver Provides Assist Driving Driving Caregiver Provides Assist M6 OT- IP Functional Cognition Start: 12/07/19 12:39 Freq: Status: Active Protocol: Document 12/11/19 13:55 [facility] (Rec: 12/12/19 08:45 [facility] [id number]) Cognitive Factors Limiting Selfcare Function Cognitive Comments Cognitive Assessment Comments NO cognitive deficits noted. M7 OT- IP Mobility and Balance Start: 12/07/19 12:39 Freq: Status: Active Protocol: Document 12/12/19 11:18 [facility] (Rec: 12/12/19 12:02 [facility] [id number]) OT-Transfer Assessment Sit to and From Stand Sit to and from Stand Standby Assistance Transfers Transfer Ability Standby Assistance Technique Transfer Destination Chair Transfer Technique Stand Step Pivot Devices Transfer Assistive Devices Gait Belt,Front Wheeled Walker Comments Mobility Comments SBA with FWW and able to walk around the hallway and O2 afterwards at 100%. OT- Balance Assessment Sitting Balance and Reactions Static Sitting Balance Ability Normal Dynamic Sitting Balance Ability Good Standing Balance and Reactions Static Standing Balance Ability Fair M8 OT- IP Objective Assessments Start: 12/07/19 12:39 Freq: Status: Active Protocol: Document 12/07/19 12:39 [facility] (Rec: 12/07/19 12:48 [facility] [email or web address]) OT Gross Range of Motion Upper Extremity Range of Motion Assessment Within Functional Limits OT Strength Upper Extremity Strength Assessment Within Functional Limits Comments Strength Comments grossly 4/5 OT- Coordination Assessment Upper Extremity Finger to Nose Test Within Functional Limits Finger Tapping Test Within Functional Limits OT-Muscle Tone Assessment Muscle Tone WNL Yes OT Sensation Assessment Edema Edema Absent M9 OT- IP Assessment and Plan Start: 12/07/19 12:39 Freq: Status: Active Protocol: Document 12/12/19 11:18 [facility] (Rec: 12/12/19 12:02 [facility] [id number]) OT Summary Assessment and Plan Potential Rehabilitation Potential Good Analytic Complexity at Evaluation Moderate Summary Progress Towards Goals Progressing Toward Goals Assessment Summary Pt going to skilled rehab today. Goals Grooming Goal Independent Dressing Goal Independent Toileting Goal Independent Bathing Goal Independent Toilet Transfer Goal Independent Shower Transfer Goal Independent Days to Meet Goals 10 Frequency of Treatment Frequency Of Treatment Once a Day Treatment Plan OT Treatment Plan ADL Training,Functional Mobility,Patient/Family Education,Discharge Planning Discharge Recommendations OT Discharge Recommendations SNF Rehab Transportation Needs at Discharge Private Vehicle,Wheelchair/ Cabulance
[2019-12-12 13:06] VITALS: O2SAT 98
--- NOTE | 2019-12-12 13:35 | PM.DS.1 ---
History of Present Illness History of Present Illness Chief complaint: abdominal pain,unable to eat/drink Narrative: 74-year-old woman seen hospital setting in consultation for a small-bowel obstruction. She has been feeling progressive abdominal distension nausea and bloating for the past 4 days. She had not had emesis prior to arrival she is passing a very small amount of flatus and her last bowel movement was yesterday morning. CT abdomen pelvis obtained by the emergency room demonstrates small bowel obstruction multiple dilated loops of small bowel air-fluid levels transition point is perhaps in the right lower quadrant. History of hysterectomy a prior small-bowel obstruction which was managed with laparoscopic lysis of adhesions. No major cardiopulmonary or renal disease. Discharge Providers Provider Date of admission: 11/24/19 09:17 Discharge Date: 12/12/19 Primary care physician: Janice Linn PA-C Consults: 11/24/19 11:11 Consult to Dietitian, Adult Routine Comment: Reason For Exam: assessed at high risk 11/28/19 07:23 Consult to Physical Therapy Evaluate & Treat Comment: Physician Instructions: Evaluate and Treat 11/28/19 07:24 Consult to Discharge Planning Routine Comment: 12/06/19 09:37 Consult to Occupational Therapy Evaluate & Treat Comment: Physician Instructions: Evaluate and treat 12/06/19 14:49 Consult to Physical Therapy Evaluate & Treat Comment: weak post op. Strengthening and conditioning Physician Instructions: Evaluate and Treat 12/07/19 08:49 Consult to Respiratory Therapy Evaluate & Treat Comment: pneumonia. sputum production Physician Instructions: Evaluate and treat Discharge provider: Miguel Helton MD Summary Hospital Course Discharge Diagnosis: small bowel obstruction small bowel resection ileocectomy peritonitis anastamotic leak acute blood loss anemia repair of enterocele Hospital Course: Patient was admitted for management of a small-bowel obstruction. Bowel obstruction failed to improve with conservative management. She was taken to the operating room 11/26 for exploratory laparotomy. 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 She had a small-bowel resection and repair of an enterocele. Following the operation she did well for 5 days, she was recovering appropriately with return of bowel function. 12/01 she had an abrupt change of course and developed peritonitis and spontaneous drainage abdominal fluid from the midline. She was returned to the operating room feculent peritonitis was observed secondary to anastomotic leak she underwent an ileocecectomy. Because of the amount of contamination she had her midline wound treated with a wound VAC. She was returned to the operating room 12/08 for excisional debridement of the midline wound and wound VAC replacement. She has subsequently been doing well tolerating regular diet having bowel movements afebrile. Wound VAC has been removed midline is healing well. Exam Vital Signs (past 8 hours): - 12/12/19 08:00 12/12/19 09:52 12/12/19 13:06 Temperature 97.9 F Pulse Rate 72 Respiratory Rate 16 Blood Pressure 117/63 Pulse Oximetry 98 97 98 Oxygen Delivery Method Room Air Oxygen Flow Rate 0 Narrative Exam Narrative: General adult female alert oriented no acute distress Chest nonlabored respirations Abdomen midline incision partially open at the subcutaneous level with a no fibrinous debris and tissue is granulating well. Objective Labs Result Diagrams: 12/11/19 05:55 12/11/19 05:55 Discharge Plan Discharge Plan Patient Disposition: SNF Transfer to: [facility] and [facility] Discharge orders & Medications Prescriptions: New acetaminophen 325 mg Tablet 650 mg PO Q4HR PRN (Reason: Fever/Mild Pain (1-3)) Qty: 60 RF: 0 gabapentin 100 mg Capsule 100 mg PO BID Qty: 60 RF: 0 lorazepam 1 mg Tablet 1 mg PO Q6HR PRN (Reason: Anxiety) Qty: 30 RF: 0 megestrol 20 mg Tablet 20 mg PO BID Qty: 60 RF: 0 oxycodone 10 mg Tablet 10 mg PO Q3HR PRN (Reason: Pain, Moderate (4-6)) Qty: 30 RF: 0 Continued atorvastatin 10 mg tablet 10 mg PO BEDTIME RF: 0 oxyquinoline-sod.lauryl sulfat 0.025-0.01 % gel 1 each VAG BEDTIME RF: 0 Follow up/Referrals: Janice Linn PA-C [Primary Care Provider] - Miguel Helton MD [Physician] - 12/24/19 Diet/Activity/Treatments Diet: Regular Activity: No lifting >20lbs for 6 weeks. Skin/Wound/Dressing Care Dressing: wet to dry dressing to abdominal midline wound once daily Visit Report/Discharge Packet Instructions: DI for Small Bowel Resection, How to Prevent Falls, DI for Postoperative Pain, Oxycodone Visit Report Forms: Stroke Signs & Symptoms Discharge Data Primary Care Provider: Janice Linn Quality VTE Deep Vein Thrombosis/Pulmonary Embolism Present on Admission: No
--- NOTE | 2019-12-12 13:38 | PC.NURSE ---
Day shift: Midline IV removed and Pt tolerated well. Pt packet for SNF given to transport person. VS have been WNL. Report given to [facility] ELIA Galaviz and all questions answered. Pt's spouse is aware of the plan and the SNF. Pt's BM's have been very loose and brown. SHe has been having BM's approx Q2 hours. Mobilizing well and steady on her feet.
--- NOTE | 2019-12-12 13:54 | PC.NURSE ---
Day shift: Pt went to [facility] at approx 1355 today.
== END 2019-12-12 14:05 | DRG 907 ==
LOC: ED 09:15 → AC 09:17
PROVIDERS: Obstetrics & Gynecology; Specialist; Surgery; Admitting Provider Surgery; Emergency Provider Emergency Medicine; PCP Physician Assistant; Referring Provider Emergency Medicine; Visit Provider Surgery
PROC: 0DB80ZZ Excision of Small Intestine, Open Approach (ICD-10-PCS; CPT 49000; principal; 2019-11-27 15:30)
PROC: 0UQG0ZZ Repair Vagina, Open Approach (ICD-10-PCS; CPT 57410; 2019-11-27 15:30)
PROC: 0DBH0ZZ Excision of Cecum, Open Approach (ICD-10-PCS; CPT 49000; principal; 2019-12-02 17:15)
PROC: 0WBF0ZZ Excision of Abdominal Wall, Open Approach (ICD-10-PCS; principal; 2019-12-09 12:15)
DX: T85.9XXA Unspecified complication of internal prosthetic device, implant and graft, initial encounter (principal); K46.1 Unspecified abdominal hernia with gangrene; K65.9 Peritonitis, unspecified; N82.8 Other female genital tract fistulae; R18.8 Other ascites; T81.32XA Disruption of internal operation (surgical) wound, not elsewhere classified, initial encounter; K91.89 Other postprocedural complications and disorders of digestive system; K65.4 Sclerosing mesenteritis; K92.1 Melena; D62 Acute posthemorrhagic anemia; N99.4 Postprocedural pelvic peritoneal adhesions; N81.5 Vaginal enterocele; M62.08 Separation of muscle (nontraumatic), other site; E78.00 Pure hypercholesterolemia, unspecified; Z11.59 Encounter for screening for other viral diseases
CPT/HCPCS: 36415; 36430; 36569; 36592; 71045; 71260; 74018; 74177; 74250; 80048; 80053; 81001; 81003; 82962; 83605; 83690; 83735; 84100; 84145; 85025; 86850; 86900; 86901; 87040; 87507; 87635; 94640; 94668; 94760; 94762; 96361; 96374; 96375; 97110; 97116; 97162; 97166; 97530; 97535; 99284; P9016; B4185; B4189; C9113; C9290; J0330; J0610; J1100; J1170; J1200; J1450; J1642; J1650; J1885; J2060; J2185; J2250; J2270; J2274; J2405; J2543; J2704; J2765; J2920; J3010; J3480; J7121; J7613; Q9967

== ENCOUNTER → 2019-12-16 12:06 | Outpatient (ROUT) | payer MEDICARE, SELFPAY ==
[2019-12-12 15:07] VITALS: BMI 20.9
== END ==
PROVIDERS: PCP Physician Assistant; Visit Provider Internal Medicine
DX: R19.5 Other fecal abnormalities (principal)
CPT/HCPCS: 87493

== ENCOUNTER 2019-12-19 14:16 | Observation (INO) | payer MEDICARE, SELFPAY ==
[2019-12-12 15:07] VITALS: BMI 20.9
[2019-12-19] VITALS (17 sets, daily range): BP systolic 99–129; BP diastolic 53–66; PULSE 77–100; RESP 9–24; TEMP 36.7–38.2; O2SAT 97–99; BMI 19.1
--- NOTE | 2019-12-19 16:04 | PC.NURSE ---
Pt reports abdominal surgery 1 week ago. Discharged today from assisted care facility and noted small amount of discharge on her surgical bandages. States bandages were changed prior to discharge. Small amount of semisangenous dischage noted. Patient denied N/V, fever, chills, or pain.
[2019-12-19 16:55] LABS: Add Manual Diff / Slide Review NO; Basophils Absolute Auto 100 /uL (0-100); Basophils Percent Auto 0.9 % (0-2); Eosinophils Absolute Auto 100 /uL (0-450); Eosinophils Percent Auto 0.6 % (2-4); Hematocrit 30.2 % (36-46); Hemoglobin 9.7 g/dL (12.0-16.0); Lymphocytes Absolute Auto 1200 /uL (1100-4500); Lymphocytes Percent Auto 10.5 % (25-40); Mean Corpuscular Hemoglobin 28.9 PG (26-34); Mean Corpuscular Volume 90.6 fL (80-100); Monocytes Absolute Auto 1000 /uL (0-900); Monocytes Percent Auto 8.7 % (3-14); Neutrophils Absolute Auto 9100 /uL (1500-7000); Neutrophils Percent Auto 79.3 % (50-75); Platelet Count 762 X10^3/uL (150-400); Red Blood Cell Count 3.34 X10^6/uL (4.0-5.2); Red Cell Distribution Width 15.2 % (11.6-14.8); White Blood Cell Count 11.4 X10^3/uL (4.5-11.0)
[2019-12-19] MEDS: SODIUM CHLORIDE 0.9% 1,000 ML 150 ML IV (17:00)
[2019-12-19 17:13] LABS: Platelet Estimate Increased on smear; RBC Morphology Normal Morphology
[2019-12-19 17:22] LABS: Alanine Aminotransferase 34 IU/L (<35); Albumin 3.3 g/dL (3.5-5.0); Albumin Globulin Ratio 0.9 (1.0-2.8); Alkaline Phosphatase 180 U/L (38-126); Aspartate Aminotransferase 29 IU/L (14-36); BUN Creatinine Ratio 21.7 (6-22); Bilirubin Total 0.4 mg/dL (0.2-1.3); Blood Urea Nitrogen 10 mg/dL (7-17); Calcium 8.7 mg/dL (8.4-10.2); Carbon Dioxide 25 mmol/L (22-32); Chloride 106 mmol/L (98-107); Estimated Glomerular Filt Rate > 60.0 mL/min (>60); Globulin 3.5 g/dL (1.7-4.1); Glucose 110 mg/dL (80-110); HEMOLYSIS < 15 (0-50); Magnesium 1.9 mg/dL (1.6-2.3); Potassium 2.8 mmol/L (3.4-5.1); Sodium 139 mmol/L (137-145); Total Protein 6.8 g/dL (6.3-8.2)
--- NOTE | 2019-12-19 17:30 | DI.CT.S_ITS ---
PROCEDURE: CT ABDOMEN PELVIS W CON INDICATIONS: recent surg, purulent drainage TECHNIQUE: After the administration of intravenous contrast, 5 mm thick sections acquired from the diaphragm to the symphysis. 5 mm coronal and sagittal reformats were acquired. For radiation dose reduction, the following was used: automated exposure control, adjustment of mA and/or kV according to patient size. COMPARISON: [facility], CT, CT ABDOMEN PELVIS W CON, 12/02/2019, 16:08. FINDINGS: Image quality: Excellent. ABDOMEN: Lung bases: There are small bilateral pleural effusions, decreased size compared to the prior study. Mild bibasilar atelectatic changes. Heart size is normal. Solid organs: Liver is normal in size and enhancement. Gallbladder contains several tiny stones . Biliary system is non dilated. Pancreas enhances normally. Spleen is normal in size and enhancement. No adrenal nodules. Kidneys demonstrate normal size and enhancement, without hydronephrosis. Peritoneum and bowel: Bowel loops demonstrate normal wall thickness and caliber. There is a staple line in the right lower quadrant. No evidence of bowel obstruction. No free fluid or air. Nodes and vessels: No retroperitoneal or mesenteric adenopathy by size criteria. Aorta and inferior vena cava are normal in size. Miscellaneous: There is an encapsulated ovoid fluid collection measuring 8.7 x 2.7 x 6.4 cm in the subcutaneous tissues near the level of the umbilicus subjacent to a midline incision. Along the caudal aspect of the incision in the suprapubic region, there is a peripherally enhancing amorphous fluid collection extending through the anterior abdominal wall measuring about 7.3 x 4.0 by 2.7 cm. There appears to be partial dehiscence of the anterior abdominal wall with intervening fat and adjacent preperitoneal fluid. The anterior abdominal wall is dehisced by maximally 1.4 cm in the suprapubic region. PELVIS: Genitourinary: Bladder wall thickness is normal. Miscellaneous: No inguinal hernias or adenopathy. Bones: No suspicious bony lesions. No vertebral body compression fractures. IMPRESSION: 1. There are subcutaneous and transabdominal wall fluid collection subjacent to midline incision. 2. There is preperitoneal fluid and discontinuity of the anterior abdominal wall the suspicious for fascial dehiscence. This is most extensive in the suprapubic region, location of the abscess coursing through the abdominal wall. 3. Cholelithiasis. 4. Decreased size of bilateral pleural effusions. 5. Discussed with Dr. Collins in the emergency room at 18:40 hours. Dictated by: Tammy Santiago M.D. on 12/19/2019 at 18:30 Approved by: Tammy Santiago M.D. on 12/19/2019 at 18:48
[2019-12-19 17:35] LABS: Procalcitonin 0.05 ng/mL (<0.5)
[2019-12-19] MEDS: methylPREDNISolone 125 MG/2 ML VIAL 60 MG IV (17:39)
[2019-12-19] MEDS: diphenhydrAMINE 50 MG/ML VIAL 25 MG IV (17:41)
[2019-12-19] MEDS: POTASSIUM CHLORIDE 40 MEQ in SODIUM CHLORIDE 0.9% 500 ML 130 ML IV (17:42)
--- NOTE | 2019-12-19 19:07 | ED_ITS ---
HPI - Skin/Abscess/Foreign Bdy <Maddi Jenkins, CARDIOPULMONARY TECHNOLOGIST-BC - Last Filed: 12/19/19 20:19> General Chief complaint: Skin/Abscess/Foreign Body Stated complaint: drainage from surgical wound site Time Seen by Provider: 12/19/19 15:24 Source: patient Mode of arrival: Wheelchair Limitations: no limitations History of Present Illness HPI narrative: the patient is a 74-year-old female nonsmoker with history of bowel obstruction who presents with a chief complaint of drainage from her surgical site. Chart review illustrate that she had an ex lap on 11/26 hand was found to have a loop of small bowel incarcerated within the vagina. That she had a small bowel resection and repair of an in tear seal. On 12/01 she had spontaneous drainage abdominal fluid from her midline incision and developed p eritonitis. She would back to the OR and was found to have an anastomotic leak. She received a wound VAC and repeated to the OR on 12/08 for debridement and wound VAC replacement. The wound VAC has since been discontinued. The patient states she was discharged from rehab today had a dressing change at 1:00 p.m.. Subsequently this afternoon she noticed that there was drainage from the incisio n so she came to the emergency department. She denies any fevers nausea vomiting muscle aches or chills. She states that she does feel fatigued, though has known that she felt that way for a while now. She does state that she has had loose stools since her surgery. She initially states that the drainage was pink and thin. She denies any increase of pain and requests that we change her dressing and discharge her home. Related Data Home Medications Medication Instructions Recorded Confirmed atorvastatin 10 mg tablet 10 mg PO BEDTIME 11/12/19 12/19/19 Previous Rx's Medication Instructions Recorded acetaminophen 650 mg PO Q4HR PRN #60 tab 12/12/19 gabapentin 100 mg PO BID #60 cap 12/12/19 lorazepam 1 mg PO Q6HR PRN #30 tab 12/12/19 oxycodone 10 mg PO Q3HR PRN #30 tab 12/12/19 Allergies Allergy/AdvReac Type Severity Reaction Status Date / Time iodine [IODINE] Allergy Unknown SWELLING Verified 12/19/19 14:34 alendronate sodium AdvReac Unknown HEARTBURN Verified 12/19/19 14:34 [ALENDRONATE SODIUM] butorphanol [BUTORPHANOL] AdvReac Unknown NAUSEA/VOMI Verified 12/19/19 14:34 TING Review of Systems <JEREMIAH Jasso - Last Filed: 12/19/19 20:19> Review of Systems Narrative: GENERAL: Denies chills, fatigue, malaise, fever, sweats. HEENT: Denies sinus pain, ear pain, sore throat, difficulty swallowing, dizziness. RESPIRATORY: Denies dyspnea, cough, wheezing, hemoptysis, sputum. CARDIOVASCULAR: Denies chest pain, palpitations, orthopnea, edema, GASTROINTESTINAL: see HPI : Denies dysuria, frequency, incontinence, hematuria, urinary retention. MUSCULOSKELETAL: denies weakness, joint pain, or bony pain SKIN: see HPI NEUROLOGIC: Denies weakness, headache, numbness, change in speech, confusion, seizures, incoordination. PSYCHIATRIC: No concerning psychosocial issues. 12 point review of systems is negative except for those stated above Patient History <JEREMIAH Jasso - Last Filed: 12/19/19 20:19> Medical History History of benign brain tumor (Acute) Hypercholesterolemia (Acute) Surgical History History of hysterectomy (Acute) Status post vaginal hysterectomy (Acute) Social History household members: spouse Smoking Status: Never smoker alcohol intake: current Smoking Status: Never smoker alcohol intake frequency: a few times a week Alcohol type: wine Substance Use Type: does not use Exam <JEREMIAH Jasso - Last Filed: 12/19/19 20:19> Narrative Exam Narrative: GENERAL: This is a well-nourished, well-developed patient, in no acute distress with at bedside HEAD: Atraumatic. Normocephalic. No temporal or scalp tenderness. EYES: Pupils equal round and reactive. Extraocular motions intact. No scleral icterus. No injection or drainage. ENT: Nose without bleeding, purulent drainage or septal hematoma. Throat without erythema, tonsillar hypertrophy or exudate. Uvula midline. Airway patent. NECK: Trachea midline. No JVD or lymphadenopathy. Supple, nontender, no meningeal signs. CARDIOVASCULAR: Regular rate and rhythm RESPIRATORY: Clear to auscultation. Breath sounds equal bilaterally. No wheezes, rales, or rhonchi. no cough. No increased respiratory effort. No accessory muscle use. GASTROINTESTINAL: active bowel sounds all 4 quadrants.midline surgical incision dressing with purulent drainage, serosanguineous drainage noted. Midline surgical incision with several open areas, slight pooling of purulence drainage, no significant pain to palpation of abdomen EXTREMITIES: No clubbing, cyanosis, or edema. No joint tenderness, effusion, or edema noted. BACK: Nontender without deformity or crepitance. No flank tenderness. NEURO: AOx3. SKIN: See GI exam Initial Vital Signs Initial Vital Signs: Vital Signs Temperature 98.0 F 12/19/19 14:32 Pulse Rate 87 12/19/19 14:32 Respiratory Rate 14 12/19/19 14:32 Blood Pressure 116/58 L 12/19/19 14:32 Pulse Oximetry 99 12/19/19 14:32 <Julianna Collins DO - Last Filed: 12/20/19 08:25> Initial Vital Signs Initial Vital Signs: Vital Signs Temperature 98.0 F 12/19/19 14:32 Pulse Rate 87 12/19/19 14:32 Respiratory Rate 14 12/19/19 14:32 Blood Pressure 116/58 L 12/19/19 14:32 Pulse Oximetry 99 12/19/19 14:32 Scores <YUSUF Jasso - Last Filed: 12/19/19 20:19> GCS Micky coma scale eye opening: Spontaneous [place] coma scale verbal response: Orientated [place] coma scale motor response: Obey commands Micky coma scale total score: 15 Course <YUSUF Jasso - Last Filed: 12/19/19 20:19> Orders Ordered: Acetaminophen (Tylenol) 650 mg PO Q6HR PRN PRN Reason: Pain, Mild (1-3) Last Admin: 12/20/19 04:54 Dose: 650 mg Documented by: JAEL Atorvastatin Calcium (Lipitor) 10 mg PO BEDTIME JODY Diphenhydramine HCl (Benadryl) 25 mg IV Q6HR PRN PRN Reason: Itching Docusate Sodium (Colace) 100 mg PO BID PRN PRN Reason: Constipation Gabapentin (Neurontin) 100 mg PO BID [facility] Last Admin: 12/20/19 08:14 Dose: 100 mg Documented by: DARIN Heparin Sodium (Porcine) (Heparin) 5,000 unit SUBCUT BID [facility] Last Admin: 12/20/19 08:14 Dose: 5,000 unit Documented by: DARIN Piperacillin/Tazobactam/Dextrose (Zosyn) 3.375 gm in 50 mls @ 100 mls/hr IV Q8H [facility] Last Infusion: 12/20/19 07:21 Dose: 0 mls/hr Documented by: Admin: 12/20/19 06:20 Dose: 100 mls/hr Documented by: Infusion: 12/19/19 23:46 Dose: 0 mls/hr Documented by: Admin: 12/19/19 22:52 Dose: 100 mls/hr Documented by: JORDAN Sodium Chloride (Normal Saline 0.9%) 250 mls @ 21 mls/hr IV CONT [facility] Last Admin: 12/19/19 22:52 Dose: 21 mls/hr Documented by: JAEL Lorazepam (Ativan) 1 mg PO Q6HR PRN PRN Reason: Anxiety Naloxone HCl (Narcan) 0.2 mg IV Q2MIN PRN PRN Reason: Opiate Reversal Ondansetron HCl (Zofran) 4 mg IV Q4HR PRN PRN Reason: Nausea And Vomiting Oxycodone HCl (Percolone) 5 mg PO Q6HR PRN PRN Reason: Pain, Moderate (4-6) Sodium Chloride (Normal Saline 0.9% Flush) 10 ml IV PRN PRN PRN Reason: Flush Last Admin: 12/20/19 06:20 Dose: 10 ml Documented by: JAEL Sodium Chloride (Normal Saline 0.9% Flush) 10 ml IV BID [facility] Last Admin: 12/20/19 08:14 Dose: 10 ml Documented by: DARIN Discontinued Medications Acetaminophen (Tylenol) 650 mg PO PACUNOW PRN PRN Reason: Pain, Mild (1-3) Bupivacaine HCl/Epinephrine Bitart (Marcaine 0.25% W/ Epi (Pf)) 20 ml INJ NOW ONE Stop: 12/19/19 21:19 Last Admin: 12/19/19 21:18 Dose: 20 ml Documented by: BRYCE Diphenhydramine HCl (Benadryl) 25 mg IV NOW ONE Stop: 12/19/19 17:35 Last Admin: 12/19/19 17:41 Dose: 25 mg Documented by: VONNIE Fentanyl (Sublimaze) 0 mcg IV Q5M PRN PRN Reason: Pain, Moderate (4-6) Hydromorphone HCl (Dilaudid) 0 mg IV Q5MIN PRN PRN Reason: Pain, Mild (1-3) Sodium Chloride (Normal Saline 0.9%) 1,000 mls @ 150 mls/hr IV CONT JODY Last Infusion: 12/19/19 21:11 Dose: 0 mls/hr Documented by: Admin: 12/19/19 17:00 Dose: 150 mls/hr Documented by: VONNIE Potassium Chloride 40 meq/ (Sodium Chloride) 520 mls @ 130 mls/hr IV NOW ONE Stop: 12/19/19 21:30 Last Infusion: 12/19/19 21:11 Dose: 0 mls/hr Documented by: VONNIE Cosigned by: CYNDEE Admin: 12/19/19 17:42 Dose: 130 mls/hr Documented by: VONNIE Cosigned by: MMINOR Methylprednisolone (Solu-Medrol 125 Mg Vial) 60 mg IV NOW ONE Stop: 12/19/19 17:35 Last Admin: 12/19/19 17:39 Dose: 60 mg Documented by: VONNIE Ondansetron HCl (Zofran) 4 mg IV NOW PRN PRN Reason: Nausea And Vomiting Oxycodone HCl (Percolone) 5 mg PO PACUNOW PRN PRN Reason: Mild or moderate pain Vital Signs Vital signs: Vital Signs - 8 hr 12/19/19 14:32 12/19/19 16:53 12/19/19 17:00 Temperature 98.0 F Pulse Rate 87 78 82 Respiratory Rate 14 Blood Pressure 116/58 L 121/61 Pulse Oximetry 99 99 99 12/19/19 17:30 12/19/19 18:00 12/19/19 18:30 Temperature Pulse Rate 80 79 77 Respiratory Rate 20 21 Blood Pressure Pulse Oximetry 99 98 99 12/19/19 18:55 12/19/19 19:00 12/19/19 19:30 Temperature Pulse Rate 81 80 78 Respiratory Rate 24 20 21 Blood Pressure 117/59 L 115/62 119/60 Pulse Oximetry 98 99 98 <Julianna Collins, DO - Last Filed: 12/20/19 08:25> Orders Ordered: Acetaminophen (Tylenol) 650 mg PO Q6HR PRN PRN Reason: Pain, Mild (1-3) Last Admin: 12/20/19 04:54 Dose: 650 mg Documented by: JAEL Atorvastatin Calcium (Lipitor) 10 mg PO BEDTIME [facility] Diphenhydramine HCl (Benadryl) 25 mg IV Q6HR PRN PRN Reason: Itching Docusate Sodium (Colace) 100 mg PO BID PRN PRN Reason: Constipation Gabapentin (Neurontin) 100 mg PO BID [facility] Last Admin: 12/20/19 08:14 Dose: 100 mg Documented by: DARIN Heparin Sodium (Porcine) (Heparin) 5,000 unit SUBCUT BID [facility] Last Admin: 12/20/19 08:14 Dose: 5,000 unit Documented by: DARIN Piperacillin/Tazobactam/Dextrose (Zosyn) 3.375 gm in 50 mls @ 100 mls/hr IV Q8H [facility] Last Infusion: 12/20/19 07:21 Dose: 0 mls/hr Documented by: Admin: 12/20/19 06:20 Dose: 100 mls/hr Documented by: Infusion: 12/19/19 23:46 Dose: 0 mls/hr Documented by: Admin: 12/19/19 22:52 Dose: 100 mls/hr Documented by: JORDAN Sodium Chloride (Normal Saline 0.9%) 250 mls @ 21 mls/hr IV CONT [facility] Last Admin: 12/19/19 22:52 Dose: 21 mls/hr Documented by: JAEL Lorazepam (Ativan) 1 mg PO Q6HR PRN PRN Reason: Anxiety Naloxone HCl (Narcan) 0.2 mg IV Q2MIN PRN PRN Reason: Opiate Reversal Ondansetron HCl (Zofran) 4 mg IV Q4HR PRN PRN Reason: Nausea And Vomiting Oxycodone HCl (Percolone) 5 mg PO Q6HR PRN PRN Reason: Pain, Moderate (4-6) Sodium Chloride (Normal Saline 0.9% Flush) 10 ml IV PRN PRN PRN Reason: Flush Last Admin: 12/20/19 06:20 Dose: 10 ml Documented by: JAEL Sodium Chloride (Normal Saline 0.9% Flush) 10 ml IV BID [facility] Last Admin: 12/20/19 08:14 Dose: 10 ml Documented by: DARIN Discontinued Medications Acetaminophen (Tylenol) 650 mg PO PACUNOW PRN PRN Reason: Pain, Mild (1-3) Bupivacaine HCl/Epinephrine Bitart (Marcaine 0.25% W/ Epi (Pf)) 20 ml INJ NOW ONE Stop: 12/19/19 21:19 Last Admin: 12/19/19 21:18 Dose: 20 ml Documented by: BRYCE Diphenhydramine HCl (Benadryl) 25 mg IV NOW ONE Stop: 12/19/19 17:35 Last Admin: 12/19/19 17:41 Dose: 25 mg Documented by: VONNIE Fentanyl (Sublimaze) 0 mcg IV Q5M PRN PRN Reason: Pain, Moderate (4-6) Hydromorphone HCl (Dilaudid) 0 mg IV Q5MIN PRN PRN Reason: Pain, Mild (1-3) Sodium Chloride (Normal Saline 0.9%) 1,000 mls @ 150 mls/hr IV CONT [facility] Last Infusion: 12/19/19 21:11 Dose: 0 mls/hr Documented by: Admin: 12/19/19 17:00 Dose: 150 mls/hr Documented by: VONNIE Potassium Chloride 40 meq/ (Sodium Chloride) 520 mls @ 130 mls/hr IV NOW ONE Stop: 12/19/19 21:30 Last Infusion: 12/19/19 21:11 Dose: 0 mls/hr Documented by: VONNIE Cosigned by: KBROTEM Admin: 12/19/19 17:42 Dose: 130 mls/hr Documented by: VONNIE Cosigned by: MMINOR Methylprednisolone (Solu-Medrol 125 Mg Vial) 60 mg IV NOW ONE Stop: 12/19/19 17:35 Last Admin: 12/19/19 17:39 Dose: 60 mg Documented by: VONNIE Ondansetron HCl (Zofran) 4 mg IV NOW PRN PRN Reason: Nausea And Vomiting Oxycodone HCl (Percolone) 5 mg PO PACUNOW PRN PRN Reason: Mild or moderate pain Vital Signs Vital signs: Vital Signs - 8 hr 12/19/19 14:32 12/19/19 16:53 12/19/19 17:00 Temperature 98.0 F Pulse Rate 87 78 82 Respiratory Rate 14 Blood Pressure 116/58 L 121/61 Pulse Oximetry 99 99 99 12/19/19 17:30 12/19/19 18:00 12/19/19 18:30 Temperature Pulse Rate 80 79 77 Respiratory Rate 20 21 Blood Pressure Pulse Oximetry 99 98 99 12/19/19 18:55 12/19/19 19:00 12/19/19 19:30 Temperature Pulse Rate 81 80 78 Respiratory Rate 24 20 21 Blood Pressure 117/59 L 115/62 119/60 Pulse Oximetry 98 99 98 MDM - Skin/Abscess/Foreign Bdy <VESTA Jasso-BC - Last Filed: 12/19/19 20:19> Lab Data Result diagrams: 12/20/19 06:25 12/20/19 06:25 Labs: Lab Results 12/19/19 12/19/19 12/19/19 Range/Units 16:50 16:50 16:50 WBC 11.4 H (4.5-11.0) X10^3/uL RBC 3.34 L (4.0-5.2) X10^6/uL Hgb 9.7 L (12.0-16.0) g/dL Hct 30.2 L (36-46) % MCV 90.6 (80-100) fL MCH 28.9 (26-34) PG MCHC 32.0 (30-36) % RDW 15.2 H (11.6-14.8) % Plt Count 762 H (150-400) X10^3/uL Neut % (Auto) 79.3 H (50-75) % Lymph % (Auto) 10.5 L (25-40) % Marion % (Auto) 8.7 (3-14) % Eos % (Auto) 0.6 L (2-4) % Baso % (Auto) 0.9 (0-2) % Neut # (Auto) 9100 H (1783-5616) /uL Lymph # (Auto) 1200 (7827-7618) /uL Marion # (Auto) 1000 H (0-900) /uL Eos # (Auto) 100 (0-450) /uL Baso # (Auto) 100 (0-100) /uL Platelet Estimate Increased on smear RBC Morphology Normal morphology Sodium 139 (137-145) mmol/L Potassium 2.8 L (3.4-5.1) mmol/L Chloride 106 (98-107) mmol/L Carbon Dioxide 25 (22-32) mmol/L BUN 10 (7-17) mg/dL Creatinine 0.46 L (0.52-1.04) mg/dL Estimated GFR > 60.0 (>60) mL/min BUN/Creatinine Ratio 21.7 (6-22) Glucose 110 (80-110) mg/dL Lactate (0.7-2.1) mmol/L Calcium 8.7 (8.4-10.2) mg/dL Magnesium (1.6-2.3) mg/dL Total Bilirubin 0.4 (0.2-1.3) mg/dL AST 29 (14-36) IU/L ALT 34 (<35) IU/L Alkaline Phosphatase 180 H (38-126) U/L Total Protein 6.8 (6.3-8.2) g/dL Albumin 3.3 L (3.5-5.0) g/dL Globulin 3.5 (1.7-4.1) g/dL Albumin/Globulin Ratio 0.9 L (1.0-2.8) Procalcitonin 0.05 (<0.5) ng/mL COVID-19 PCR (Negative) 12/19/19 12/19/19 12/19/19 Range/Units 16:50 16:50 18:53 WBC (4.5-11.0) X10^3/uL RBC (4.0-5.2) X10^6/uL Hgb (12.0-16.0) g/dL Hct (36-46) % MCV (80-100) fL MCH (26-34) PG MCHC (30-36) % RDW (11.6-14.8) % Plt Count (150-400) X10^3/uL Neut % (Auto) (50-75) % Lymph % (Auto) (25-40) % Marion % (Auto) (3-14) % Eos % (Auto) (2-4) % Baso % (Auto) (0-2) % Neut # (Auto) (8763-9754) /uL Lymph # (Auto) (6674-6687) /uL Marion # (Auto) (0-900) /uL Eos # (Auto) (0-450) /uL Baso # (Auto) (0-100) /uL Platelet Estimate RBC Morphology Sodium (137-145) mmol/L Potassium (3.4-5.1) mmol/L Chloride (98-107) mmol/L Carbon Dioxide (22-32) mmol/L BUN (7-17) mg/dL Creatinine (0.52-1.04) mg/dL Estimated GFR (>60) mL/min BUN/Creatinine Ratio (6-22) Glucose (80-110) mg/dL Lactate 1.0 (0.7-2.1) mmol/L Calcium (8.4-10.2) mg/dL Magnesium 1.9 (1.6-2.3) mg/dL Total Bilirubin (0.2-1.3) mg/dL AST (14-36) IU/L ALT (<35) IU/L Alkaline Phosphatase (38-126) U/L Total Protein (6.3-8.2) g/dL Albumin (3.5-5.0) g/dL Globulin (1.7-4.1) g/dL Albumin/Globulin Ratio (1.0-2.8) Procalcitonin (<0.5) ng/mL COVID-19 PCR Negative (Negative) Imaging Data CT scan - abdomen/pelvis: Radiologist's Impression: [address] [place] [address] CT Scan Report Signed Patient: Julienne Means EMR#: [id number] : 5Acct:[id number] Age/Sex: 74 / FDate of Service: 12/19/19 Loc: ED Accession Number: [id number] Procedure: CT abdomen pelvis w con Ordering Provider: Maddi Jenkins CARDIOPULMONARY TECHNOLOGIST- PROCEDURE: CT ABDOMEN PELVIS W CON INDICATIONS: recent surg, purulent drainage TECHNIQUE: After the administration of intravenous contrast, 5 mm thick sections acquired from the diaphragm to the symphysis. 5 mm coronal and sagittal reformats were acquired. For radiation dose reduction, the following was used: automated exposure control, adjustment of mA and/or kV according to patient size. COMPARISON: [facility], CT, CT ABDOMEN PELVIS W CON, 12/02/2019, 16:08. FINDINGS: Image quality: Excellent. ABDOMEN: Lung bases: There are small bilateral pleural effusions, decreased size compared to the prior study. Mild bibasilar atelectatic changes. Heart size is normal. Solid organs: Liver is normal in size and enhancement. Gallbladder contains several tiny stones . Biliary system is non dilated. Pancreas enhances normally. Spleen is normal in size and enhancement. No adrenal nodules. Kidneys demonstrate normal size and enhancement, without hydronephrosis. Peritoneum and bowel: Bowel loops demonstrate normal wall thickness and caliber. There is a staple line in the right lower quadrant. No evidence of bowel obstruction. No free fluid or air. Nodes and vessels: No retroperitoneal or mesenteric adenopathy by size criteria. Aorta and inferior vena cava are normal in size. Miscellaneous: There is an encapsulated ovoid fluid collection measuring 8.7 x 2.7 x 6.4 cm in the subcutaneous tissues near the level of the umbilicus subjacent to a midline incision. Along the caudal aspect of the incision in the suprapubic region, there is a peripherally enhancing amorphous fluid collection extending through the anterior abdominal wall measuring about 7.3 x 4.0 by 2.7 cm. There appears to be partial dehiscence of the anterior abdominal wall with intervening fat and adjacent preperitoneal fluid. The anterior abdominal wall is dehisced by maximally 1.4 cm in the suprapubic region. PELVIS: Genitourinary: Bladder wall thickness is normal. Miscellaneous: No inguinal hernias or adenopathy. Bones: No suspicious bony lesions. No vertebral body compression fractures. IMPRESSION: 1. There are subcutaneous and transabdominal wall fluid collection subjacent to midline incision. 2. There is preperitoneal fluid and discontinuity of the anterior abdominal wall the suspicious for fascial dehiscence. This is most extensive in the suprapubic region, location of the abscess coursing through the abdominal wall. 3. Cholelithiasis. 4. Decreased size of bilateral pleural effusions. 5. Discussed with Dr. Collins in the emergency room at 18:40 hours. Dictated by: Tammy Santiago M.D. on 12/19/2019 at 18:30 Approved by: Tammy Santiago M.D. on 12/19/2019 at 18:48 [facility] Narrative Medical decision making narrative: the patient is a 74-year-old female with a c omplicated surgical history and multiple trips to the operating room who presents with a chief complaint of drainage from her incision. On exam, she is noted to have purulent drainage from her midline surgical incision. Lab work was taking, she does not have an elevated lactate, but does have slight leukocytosis. Blood cultures were taken. Given her exam, I obtained a CT abdomen pelvis which is concerning for subcutaneous and transabdominal wall fluid collections of adjacent to midline incision as well as preperitoneal fluid in discontinuity of the anterior abdominal wall the suspicious for fascial dehiscence. The patient was also noted to have a potassium of 2.8, so EKG was obtained and replacement was initiated. Given the patient's CT results and exam, I spoke with Dr. Tripp who came to evaluate the play madrigal and plans on taking her to the operating room this evening. The patient's coronavirus test tonight is negative. The patient repeatedly declines anything for pain and nausea throughout her stay in the ER. <Julianna Collins, DO - Last Filed: 12/20/19 08:25> Lab Data Labs: Lab Results 12/19/19 12/19/19 12/19/19 Range/Units 16:50 16:50 16:50 WBC 11.4 H (4.5-11.0) X10^3/uL RBC 3.34 L (4.0-5.2) X10^6/uL Hgb 9.7 L (12.0-16.0) g/dL Hct 30.2 L (36-46) % MCV 90.6 (80-100) fL MCH 28.9 (26-34) PG MCHC 32.0 (30-36) % RDW 15.2 H (11.6-14.8) % Plt Count 762 H (150-400) X10^3/uL Neut % (Auto) 79.3 H (50-75) % Lymph % (Auto) 10.5 L (25-40) % Marion % (Auto) 8.7 (3-14) % Eos % (Auto) 0.6 L (2-4) % Baso % (Auto) 0.9 (0-2) % Neut # (Auto) 9100 H (6867-8421) /uL Lymph # (Auto) 1200 (5914-3386) /uL Marion # (Auto) 1000 H (0-900) /uL Eos # (Auto) 100 (0-450) /uL Baso # (Auto) 100 (0-100) /uL Platelet Estimate Increased on smear RBC Morphology Normal morphology Sodium 139 (137-145) mmol/L Potassium 2.8 L (3.4-5.1) mmol/L Chloride 106 (98-107) mmol/L Carbon Dioxide 25 (22-32) mmol/L BUN 10 (7-17) mg/dL Creatinine 0.46 L (0.52-1.04) mg/dL Estimated GFR > 60.0 (>60) mL/min BUN/Creatinine Ratio 21.7 (6-22) Glucose 110 (80-110) mg/dL Lactate (0.7-2.1) mmol/L Calcium 8.7 (8.4-10.2) mg/dL Magnesium (1.6-2.3) mg/dL Total Bilirubin 0.4 (0.2-1.3) mg/dL AST 29 (14-36) IU/L ALT 34 (<35) IU/L Alkaline Phosphatase 180 H (38-126) U/L Total Protein 6.8 (6.3-8.2) g/dL Albumin 3.3 L (3.5-5.0) g/dL Globulin 3.5 (1.7-4.1) g/dL Albumin/Globulin Ratio 0.9 L (1.0-2.8) Procalcitonin 0.05 (<0.5) ng/mL COVID-19 PCR (Negative) 12/19/19 12/19/19 12/19/19 Range/Units 16:50 16:50 18:53 WBC (4.5-11.0) X10^3/uL RBC (4.0-5.2) X10^6/uL Hgb (12.0-16.0) g/dL Hct (36-46) % MCV (80-100) fL MCH (26-34) PG MCHC (30-36) % RDW (11.6-14.8) % Plt Count (150-400) X10^3/uL Neut % (Auto) (50-75) % Lymph % (Auto) (25-40) % Marion % (Auto) (3-14) % Eos % (Auto) (2-4) % Baso % (Auto) (0-2) % Neut # (Auto) (5709-7149) /uL Lymph # (Auto) (5910-8719) /uL Marion # (Auto) (0-900) /uL Eos # (Auto) (0-450) /uL Baso # (Auto) (0-100) /uL Platelet Estimate RBC Morphology Sodium (137-145) mmol/L Potassium (3.4-5.1) mmol/L Chloride (98-107) mmol/L Carbon Dioxide (22-32) mmol/L BUN (7-17) mg/dL Creatinine (0.52-1.04) mg/dL Estimated GFR (>60) mL/min BUN/Creatinine Ratio (6-22) Glucose (80-110) mg/dL Lactate 1.0 (0.7-2.1) mmol/L Calcium (8.4-10.2) mg/dL Magnesium 1.9 (1.6-2.3) mg/dL Total Bilirubin (0.2-1.3) mg/dL AST (14-36) IU/L ALT (<35) IU/L Alkaline Phosphatase (38-126) U/L Total Protein (6.3-8.2) g/dL Albumin (3.5-5.0) g/dL Globulin (1.7-4.1) g/dL Albumin/Globulin Ratio (1.0-2.8) Procalcitonin (<0.5) ng/mL COVID-19 PCR Negative (Negative) Discharge Plan Departure Patient Disposition: Admitted as Observation Clinical Impression: Drainage from surgical wound, Hypokalemia Discharge Date/Time: 12/19/19 20:35 Admit Date/Time: 12/19/19 19:51 Admit Provider: Priscilla Tripp <Julianna Collins DO - Last Filed: 12/20/19 08:25> Cosign ED Attending Ethanature Attestation: I was immediately available in the department for consultation. Documentation has been reviewed. I agree with assessment and plan.
[2019-12-19 19:16] LABS: COVID19 -Nasal RAPID Negative (Negative)
--- NOTE | 2019-12-19 19:59 | PM.CN ---
History of Present Illness Consult details Date Patient Seen: 12/19/19 Time Patient Seen: 20:00 Chief complaint: drainage from surgical wound site Narrative: This is a 74 yo woman who was admitted in mid November for management of a small-bowel obstruction. Her bowel obstruction failed to improve with conservative management. She was taken to the operating room on 11/26 for exploratory laparotomy. She had lysis of adhesions, small-bowel resection and repair of an enterocele. Following the operation she initially recovered but then had to go back to the OR on 12/01 for anastomotic leak and had an ileocecectomy. Dr. Helton placed a wound VAC. She was returned to the operating room 12/08 for excisional debridement of the midline wound and wound VAC replacement. The wound VAC was subsequently removed and she was sent to rehab. At rehab they were changing her wound with wet to dry dressings, and she was sent home today. When she got home, she suddenly noticed purulent drainage coming from the center of her wound. She came into the ER. She reports good bowel function, with no blood. She denies nausea, vomiting, fevers. She has been having diarrhea, but it is improving. In the ER she had a CT scan which shows a fluid collection in the anterior abdominal wall as well as discontinuity of the midline fascia. There are no locules of air, or evidence of tracking from the bowel. In the ER she was found to be hypokalemic with a potassium of 2.8. This is being replaced by the ER. ROS: As per HPI. Thirteen system review is otherwise negative other than as mentioned below and in HPI. PE: GENERAL: Alert, comfortable. Appears stated age. Answers questions promptly and appropriately. Vital signs noted. HENT: Normocephalic, atraumatic. Hearing intact. EYES: Conjunctiva pink, sclera white, no periorbital swelling. CARDIOVASCULAR: Regular rate. No pedal edema. RESPIRATORY: Non-tachypneic, breathing comfortably on room air. GASTROINTESTINAL: Abdomen soft and non-distended, midline incision has about 8 mm width of pink granulation tissue. At the midpoint of the midline incision, there is some thick purulent fluid emanating from the wound. On compressing the upper abdominal wall am able to express quite a bit of copious purulent fluid. This is moderately tender for the patient. There is no blood, and no stool present in the fluid. GENITALURINARY: No flank tenderness. MUSCULOSKELETAL: Equal tone and mass bilaterally. SKIN: Warm, dry, soft, appropriate color for ethnicity. No other lesions, rashes, or wounds. NEURO: Alert and Oriented X 3. No gross sensory deficits, or cognitive issues. PSYCH: Appropriate affect and mood. Meds Home Medications and Allergies Home Medications Medication Instructions Recorded Confirmed Type atorvastatin 10 mg tablet 10 mg PO BEDTIME 11/12/19 11/24/19 History oxyquinoline-sod.lauryl sulfat 1 each VAG BEDTIME 11/24/19 11/24/19 History acetaminophen 650 mg PO Q4HR PRN #60 tab 12/12/19 Rx gabapentin 100 mg PO BID #60 cap 12/12/19 Rx lorazepam 1 mg PO Q6HR PRN #30 tab 12/12/19 Rx megestrol 20 mg PO BID #60 tab 12/12/19 Rx oxycodone 10 mg PO Q3HR PRN #30 tab 12/12/19 Rx Allergies Allergy/AdvReac Type Severity Reaction Status Date / Time iodine [IODINE] Allergy Unknown SWELLING Verified 12/19/19 14:34 alendronate sodium AdvReac Unknown HEARTBURN Verified 12/19/19 14:34 [ALENDRONATE SODIUM] butorphanol [BUTORPHANOL] AdvReac Unknown NAUSEA/VOMI Verified 12/19/19 14:34 TING Exam Vital Signs (past 8 hours): - 12/19/19 14:32 12/19/19 16:53 12/19/19 17:00 Temperature 98.0 F Pulse Rate 87 78 82 Respiratory Rate 14 Blood Pressure 116/58 L 121/61 Pulse Oximetry 99 99 99 12/19/19 17:30 12/19/19 18:00 12/19/19 18:30 Temperature Pulse Rate 80 79 77 Respiratory Rate 20 21 Blood Pressure Pulse Oximetry 99 98 99 12/19/19 18:55 12/19/19 19:00 12/19/19 19:30 Temperature Pulse Rate 81 80 78 Respiratory Rate 24 20 21 Blood Pressure 117/59 L 115/62 119/60 Pulse Oximetry 98 99 98 Oxygen Delivery Method Room Air Objective Imaging CT scan - abdomen: My impression: There is a large fluid collection in the anterior abdominal wall, and some free peritoneal fluid. I do not see any locules of air any evidence of air tracking from the bowel. Radiologist's impression: [address] [address] [address] Scan Report Signed Patient: Julienne Means EMR#: [id number] : 5Acct:[id number] Age/Sex: 74 / FDate of Service: 12/19/19 Loc: ED Accession Number: [id number] Procedure: CT abdomen pelvis w con Ordering Provider: Maddi Jenkins DESIGN MANAGER-BC PROCEDURE: CT ABDOMEN PELVIS W CON INDICATIONS: recent surg, purulent drainage TECHNIQUE: After the administration of intravenous contrast, 5 mm thick sections acquired from the diaphragm to the symphysis. 5 mm coronal and sagittal reformats were acquired. For radiation dose reduction, the following was used: automated exposure control, adjustment of mA and/or kV according to patient size. COMPARISON: [facility], CT, CT ABDOMEN PELVIS W CON, 12/02/2019, 16:08. FINDINGS: Image quality: Excellent. ABDOMEN: Lung bases: There are small bilateral pleural effusions, decreased size compared to the prior study. Mild bibasilar atelectatic changes. Heart size is normal. Solid organs: Liver is normal in size and enhancement. Gallbladder contains several tiny stones . Biliary system is non dilated. Pancreas enhances normally. Spleen is normal in size and enhancement. No adrenal nodules. Kidneys demonstrate normal size and enhancement, without hydronephrosis. Peritoneum and bowel: Bowel loops demonstrate normal wall thickness and caliber. There is a staple line in the right lower quadrant. No evidence of bowel obstruction. No free fluid or air. Nodes and vessels: No retroperitoneal or mesenteric adenopathy by size criteria. Aorta and inferior vena cava are normal in size. Miscellaneous: There is an encapsulated ovoid fluid collection measuring 8.7 x 2.7 x 6.4 cm in the subcutaneous tissues near the level of the umbilicus subjacent to a midline incision. Along the caudal aspect of the incision in the suprapubic region, there is a peripherally enhancing amorphous fluid collection extending through the anterior abdominal wall measuring about 7.3 x 4.0 by 2.7 cm. There appears to be partial dehiscence of the anterior abdominal wall with intervening fat and adjacent preperitoneal fluid. The anterior abdominal wall is dehisced by maximally 1.4 cm in the suprapubic region. PELVIS: Genitourinary: Bladder wall thickness is normal. Miscellaneous: No inguinal hernias or adenopathy. Bones: No suspicious bony lesions. No vertebral body compression fractures. IMPRESSION: 1. There are subcutaneous and transabdominal wall fluid collection subjacent to midline incision. 2. There is preperitoneal fluid and discontinuity of the anterior abdominal wall the suspicious for fascial dehiscence. This is most extensive in the suprapubic region, location of the abscess coursing through the abdominal wall. 3. Cholelithiasis. 4. Decreased size of bilateral pleural effusions. 5. Discussed with Dr. Collins in the emergency room at 18:40 hours. Dictated by: Tammy Santiago M.D. on 12/19/2019 at 18:30 Approved by: Tammy Santiago M.D. on 12/19/2019 at 18:48 Labs Result Diagrams: 12/19/19 16:50 12/19/19 16:50 Labs: Laboratory Results - last 24 hr 12/19/19 12/19/19 12/19/19 16:50 16:50 16:50 WBC 11.4 H RBC 3.34 L Hgb 9.7 L Hct 30.2 L MCV 90.6 MCH 28.9 MCHC 32.0 RDW 15.2 H Plt Count 762 H Neut % (Auto) 79.3 H Lymph % (Auto) 10.5 L [place] % (Auto) 8.7 Eos % (Auto) 0.6 L Baso % (Auto) 0.9 Neut # (Auto) 9100 H Lymph # (Auto) 1200 [place] # (Auto) 1000 H Eos # (Auto) 100 Baso # (Auto) 100 Platelet Estimate Increased on smear RBC Morphology Normal morphology Sodium 139 Potassium 2.8 L Chloride 106 Carbon Dioxide 25 BUN 10 Creatinine 0.46 L Estimated GFR > 60.0 BUN/Creatinine Ratio 21.7 Glucose 110 Lactate Calcium 8.7 Magnesium Total Bilirubin 0.4 AST 29 ALT 34 Alkaline Phosphatase 180 H Total Protein 6.8 Albumin 3.3 L Globulin 3.5 Albumin/Globulin Ratio 0.9 L Procalcitonin 0.05 COVID-19 PCR 12/19/19 12/19/19 12/19/19 16:50 16:50 18:53 WBC RBC Hgb Hct MCV MCH MCHC RDW Plt Count Neut % (Auto) Lymph % (Auto) [place] % (Auto) Eos % (Auto) Baso % (Auto) Neut # (Auto) Lymph # (Auto) [place] # (Auto) Eos # (Auto) Baso # (Auto) Platelet Estimate RBC Morphology Sodium Potassium Chloride Carbon Dioxide BUN Creatinine Estimated GFR BUN/Creatinine Ratio Glucose Lactate 1.0 Calcium Magnesium 1.9 Total Bilirubin AST ALT Alkaline Phosphatase Total Protein Albumin Globulin Albumin/Globulin Ratio Procalcitonin COVID-19 PCR Negative Assessment & Plan Assessment and plan (1) Drainage from surgical wound: Status: Acute (2) Hypokalemia: Status: Acute (3) S/P laparotomy: Status: Acute Assessment & Plan narrative: This is a 74-year-old woman with history of bowel obstruction, bowel resection, anastomotic leak, take back for repair of the anastomotic leak, open midline abdominal wound, wound VAC, wound VAC removal, wet to dry packing, now with purulent fluid draining from her midline abdominal wound. Based on her CT scan I do not think that she has another anastomotic leak, but we will need to explore the wound in the operating room and clean it out, and determine whether she has a fascial dehiscence that needs to be addressed, or any bowel involvement. The risks and benefits of abdominal wound exploration, for possible repair of fascial dehiscence, possible control of bowel leak were discussed. The risk of bleeding, infection, damage to nearby structures, need for additional procedures, prolonged hospital stay, poor wound healing were discussed with the patient her . The desire to proceed with the recommended surgery. Plan: NPO, IV, IV antibiotic Proceed to OR for wound exploration
--- NOTE | 2019-12-19 20:14 | SUR.OPER ---
Supine on padded OR bed, head on pillow, arms secured on padded arm boards at <90 degrees abduction, legs uncrossed, safety belt at thigh, tape over blanket over lower legs.
[2019-12-19] MEDS: BUPIVACAINE 0.25% W/ EPI (PF) 10 ML VIAL 20 ML INJ (21:18)
--- NOTE | 2019-12-19 21:38 | P.OP_ITS ---
Operative Date/Time/Diagnoses Date of procedure: 12/19/19 Time of procedure: 21:38 Pre-op diagnosis: Abdominal wall abscess Post-op diagnosis: same Procedure & Clinicians Procedure: Wound exploration, washout, sharp debridement with cautery x 20cm x20cm x 8cm, and drain placement Same procedure as scheduled: Yes Indications: This is a 74-year-old woman with recent abdominal surgery for bowel obstruction, and anastomotic leak, with delayed abdominal wound healing, wound VAC, and wound packing. Today she came into the ER with copious purulent drainage coming from the midline wound. CT scan revealed abdominal wall fluid collection. She was taken to the operating room for definitive management of this wound. Surgeon: Prsicilla Tripp Anesthesia Type: General Operative Notes Findings: Large abdominal wall purulent fluid collection 20 cm x 20 cm x 8 cm deep between the fascia and subcutaneous fat tissue of the upper abdominal wall Specimen(s): other (Wound culture x2) Estimated Blood Loss (mL): 2 Procedure in detail: The patient was brought to the operating room, placed supine on the operating table, and sequential compression devices were placed on both legs and turned on. General anesthesia was induced by the anesthesiologist and the patient was intubated with an LMA. The abdomen was then prepped and draped in sterile fashion, and a surgical time-out was conducted. At this point local anesthetic was injected using 0.25% Marcaine with epi, at the site of the upper midline wound site. Hemostat was used to bluntly open the granulation tissue at the site of the purulent drainage. This easily opened into a large cavity outside the fascia beneath the subcutaneous fat which was about 20 cm x 20 cm x 8 cm deep. Copious purulent fluid was drained out of this cavity, and the entire wound was washed out with a L of sterile saline. Once it was entirely clean I explored the extent of the cavity, and found that it did not penetrate through the abdominal wall or beyond the visible parameters of the wound. I then debrided the light of the wound cavity using cautery in order to remove the chronic granulation tissue and excoriate the surface of that it would scar down. This sharp debridement was 20 x 20 x 8 cm. I then placed a 19 round Al drain through a site lateral to the wound on the right side. I then arrange the drain within the wound so that it would provide suction throughout the wound cavity. I then close the skin and subcutaneous tissue over top of the drain using interrupted 2-0 nylons in horizontal mattress suture pattern. Once the wound was closed in the drain was placed on suction and held suction well, and some serosanguineous drainage came out through the wound. The remainder of the wound appeared clean, and I did not feel I needed to open the lower half of the skin incision which was well granulated. I covered the entire wound including the part that I opened and sutured closed, and the stable granulated lower half of the wound with Vaseline gauze. I then covered the Vaseline gauze with 4 x 4 gauze, and secured with Medipore tape. A gauze was placed around the drain site and secured with tape as well. The patient was awakened from anesthesia and extubated. [facility] The patient was then transferred to the postanesth esia care unit in stable condition. She tolerated the procedure well. Needle sponge and instrument counts were correct x2 at the end of the case. Complications: none Post-operative Condition: stable Disposition: PACU
[2019-12-19 22:26] LABS: BUN Creatinine Ratio 16.7 (6-22); Blood Urea Nitrogen 8 mg/dL (7-17); Calcium 8.4 mg/dL (8.4-10.2); Carbon Dioxide 27 mmol/L (22-32); Chloride 109 mmol/L (98-107); Estimated Glomerular Filt Rate > 60.0 mL/min (>60); Glucose 127 mg/dL (80-110); HEMOLYSIS < 15 (0-50); Magnesium 1.9 mg/dL (1.6-2.3); Potassium 3.5 mmol/L (3.4-5.1); Sodium 139 mmol/L (137-145)
[2019-12-19] MEDS: SODIUM CHLORIDE 0.9% 250 ML 21 ML IV (22:52)
[2019-12-19] MEDS: PIPERACILLIN-TAZO 3.375 GM/50 ML FROZ.PIGGY IV (22:52)
--- NOTE | 2019-12-20 01:01 | PC.NURSE ---
Addendum entered by Cristal Mario R.N. 12/20/19 05:45: Patient, earlier, complained of 3/10 incisional pain but requested/medicated only with Tylenol. Original Note: Patient seen and assessed at 0017. Is alert and oriented. Breath sounds CTA with RA sat of 98%; on continuous oximetry per MD order. HRR. BP low at 99/60 but is asymptomatic. Denies nausea. BT hypoactive; patient states she may have passed some flatus since return from surgery. Denies dysuria, frequency or urgency with urination. Dressing to abdomen is CDI; Al drain is compressed and intact with serosanguinous drainage noted in bulb. Is able to move herself in bed. Assisted to BSC with 1 assist. Wearing bilateral calf SCD's. Denies pain. Fall risk score is moderate and bed alarm is activated.
[2019-12-20] MEDS: ACETAMINOPHEN 325 MG TABLET 650 MG PO (04:54)
[2019-12-20 05:00] VITALS: BP 105/60; PULSE 77; RESP 16; TEMP 36.1; O2SAT 98
[2019-12-20] MEDS: SODIUM CHLORIDE 0.9% FLUSH 10 ML IV ×2 (06:20→08:14)
[2019-12-20] MEDS: PIPERACILLIN-TAZO 3.375 GM/50 ML FROZ.PIGGY IV (06:20)
[2019-12-20 06:40] LABS: Add Manual Diff / Slide Review NO; Basophils Absolute Auto 100 /uL (0-100); Eosinophils Absolute Auto 0 /uL (0-450); Eosinophils Percent Auto 0.5 % (2-4); Hematocrit 26.9 % (36-46); Lymphocytes Absolute Auto 1000 /uL (1100-4500); Lymphocytes Percent Auto 13.2 % (25-40); Mean Corpuscular HGB Conc 33.6 % (30-36); Mean Corpuscular Hemoglobin 30.3 PG (26-34); Mean Corpuscular Volume 90.4 fL (80-100); Monocytes Absolute Auto 300 /uL (0-900); Monocytes Percent Auto 3.9 % (3-14); Neutrophils Absolute Auto 6000 /uL (1500-7000); Neutrophils Percent Auto 81.4 % (50-75); Platelet Count 703 X10^3/uL (150-400); Red Blood Cell Count 2.98 X10^6/uL (4.0-5.2); Red Cell Distribution Width 15.1 % (11.6-14.8); White Blood Cell Count 7.4 X10^3/uL (4.5-11.0)
[2019-12-20 06:41] LABS: Phosphorous 4.2 mg/dL (2.8-4.1)
[2019-12-20 06:42] LABS: BUN Creatinine Ratio 26.7 (6-22); Blood Urea Nitrogen 12 mg/dL (7-17); Calcium 8.3 mg/dL (8.4-10.2); Carbon Dioxide 24 mmol/L (22-32); Chloride 110 mmol/L (98-107); Estimated Glomerular Filt Rate > 60.0 mL/min (>60); Glucose 109 mg/dL (80-110); HEMOLYSIS < 15 (0-50); Magnesium 1.9 mg/dL (1.6-2.3); Potassium 3.4 mmol/L (3.4-5.1); Sodium 140 mmol/L (137-145)
[2019-12-20 07:00] LABS: Procalcitonin < 0.05 ng/mL (<0.5)
[2019-12-20 07:20] VITALS: BP 98/65; PULSE 72; RESP 15; TEMP 36; O2SAT 98
[2019-12-20] MEDS: HEPARIN 5,000 UNIT/ML VIAL 5000 UNIT SUBCUT (08:14)
[2019-12-20] MEDS: GABAPENTIN 100 MG CAPSULE PO (08:14)
--- NOTE | 2019-12-20 09:13 | CM.DANOTE ---
Addendum entered by Angeline Yu LPN 12/20/19 14:08: ELIA Ridley assisted with the d/c process: pt went home in company of and will followup in clinic with Dr. Helton 12/23. Addendum entered by Angeline Yu LPN 12/20/19 12:55: Dr. Stuart has ok'd pt for d/c to home with her and followup with [facility]. ELIA Loco working on the d/c now and pt's spouse is here to take her home. Addendum entered by Angeline Yu LPN 12/20/19 09:30: Checked in with pt and reintroduced self and role. Assured pt that the DCP team would again be following as POC unfolded. Original Note: Discharge Planning/Care Management DCP: assessment: case received, EMR reviewed. READMIT: noted. Pt admitted to 11/23 to care of [facility]: Dr. Helton and with a d/c 12/11. Pt has been at [facility] since her d/c from [facility] 12/11 and under her [employer] Medicare snf benefit. She was d/c'd from [facility] on 12/18 and when at home her abdominal wound started draining. She admitted to 12/18 in the evening and to surgery last night by [facility]: Dr. Tripp. Dx: Abdominal abscess Surgery: Exploration of abdominal wound, I&D and drain placement. P: Will see pt later today to reintroduce self and role. Have updated [facility] weekend admissions liaison Sharmin to pt's readmit today and she will update her team in case pt needs to return. DCP team will be following closely to assist with d/c needs as these become clearer. Advanced directive, confirm from FAMILY Start: 12/19/19 22:11 Freq: Q24H Status: Active Protocol: Document 12/19/19 22:12 AKP (Rec: 12/19/19 22:12 AKP [id number]) Advance Directive, confirm on record Time 22:12 Person contacted Copy received No CM Discharge Assessment Start: 12/20/19 09:10 Freq: Status: Active Protocol: Document 12/20/19 09:10 ITV (Rec: 12/20/19 09:13 ITV [id number]) Discharge Planning Assessment Advance Directives? No History Provided By Medical Record Has Patient been admitted in last 30 Yes days? Household Members spouse Independent with ADL's Yes: prior to events 11/23-12/11 Is patient alert and oriented? Yes Whiteboard Updated in Patient Room with Yes name and ext. # of Director Of Online Education
[2019-12-20 11:10] VITALS: BP 103/56; PULSE 72; RESP 15; TEMP 35.9; O2SAT 100
--- NOTE | 2019-12-20 11:13 | P.DS_ITS ---
History of Present Illness History of Present Illness Date Patient Seen: 12/20/19 Time Patient Seen: 11:13 Chief complaint: drainage from surgical wound site Narrative: Pt was admitted for surgical drainage and debridement of a post op abdominal wall abscess. Discharge Providers Provider Date of admission: 12/19/19 19:51 Discharge Date: 12/20/19 Primary care physician: Janice Linn PA-C Consults: 12/19/19 21:31 Consult to Discharge Planning Routine Comment: Discharge provider: Priscilla Tripp MD Summary Hospital Course Discharge Diagnosis: Abdominal wall abscess Hospital Course: Abscess drained and debrided in OR, drain placed, wound care management and teaching was completed. Status at Discharge Cognitive/behavioral status at discharge: at baseline, oriented Functional status at discharge: uses cane/walker Overall status at discharge: patient is progressing back to baseline Time Spent with Patient Time spent: Greater than 30 minutes Exam Vital Signs (past 8 hours): - 12/20/19 05:00 12/20/19 07:20 Temperature 97.0 F L 96.8 F L Pulse Rate 77 72 Respiratory Rate 16 15 Blood Pressure 105/60 98/65 Pulse Oximetry 98 98 Oxygen Delivery Method Room Air Oxygen Flow Rate 0 Narrative Exam Narrative: GENERAL: Alert, comfortable. Appears stated age. Answers questions promptly a nd appropriately. Vital signs noted. HENT: Normocephalic, atraumatic. Hearing intact. EYES: Conjunctiva pink, sclera white, no periorbital swelling. CARDIOVASCULAR: Regular rate. No pedal edema. RESPIRATORY: Non-tachypneic, breathing comfortably on room air. GASTROINTESTINAL: Abdomen soft and non-distended, dressings are clean dry and intact, dressings removed and incision was found to be clean and intact without surrounding cellulitis or purulent drainage. XIMENA drain has serosanguineous ou tput. Objective Imaging CT scan - abdomen: Radiologist's impression: Objective Imaging CT scan - abdomen: My impression: There is a large fluid collection in the anterior abdominal wall, and some free peritoneal fluid. I do not see any locules of air any evidence of air tracking from the bowel. Radiologist's impression: [address] [address] [address] Scan Report Signed Patient: Julienne Means EMR#: [id number] : 5Acct:[id number] Age/Sex: 74 / FDate of Service: 12/19/19 Loc: ED Accession Number: [id number] Procedure: CT abdomen pelvis w con Ordering Provider: Maddi Jenkins PROCEDURE: CT ABDOMEN PELVIS W CON INDICATIONS: recent surg, purulent drainage TECHNIQUE: After the administration of intravenous contrast, 5 mm thick sections acquired from the diaphragm to the symphysis. 5 mm coronal and sagittal reformats were acquired. For radiation dose reduction, the following was used: automated exposure control, adjustment of mA and/or kV according to patient size. COMPARISON: [facility], CT, CT ABDOMEN PELVIS W CON, 12/02/2019, 16:08. FINDINGS: Image quality: Excellent. ABDOMEN: Lung bases: There are small bilateral pleural effusions, decreased size compared to the prior study. Mild bibasilar atelectatic changes. Heart size is normal. Solid organs: Liver is normal in size and enhancement. Gallbladder contains several tiny stones . Biliary system is non dilated. Pancreas enhances normally. Spleen is normal in size and enhancement. No adrenal nodules. Kidneys demonstrate normal size and enhancement, without hydronephrosis. Peritoneum and bowel: Bowel loops demonstrate normal wall thickness and caliber. There is a staple line in the right lower quadrant. No evidence of bowel obstruction. No free fluid or air. Nodes and vessels: No retroperitoneal or mesenteric adenopathy by size criteria. Aorta and inferior vena cava are normal in size. Miscellaneous: There is an encapsulated ovoid fluid collection measuring 8.7 x 2.7 x 6.4 cm in the subcutaneous tissues near the level of the umbilicus subjacent to a midline incision. Along the caudal aspect of the incision in the suprapubic region, there is a peripherally enhancing amorphous fluid collection extending through the anterior abdominal wall measuring about 7.3 x 4.0 by 2.7 cm. There appears to be partial dehiscence of the anterior abdominal wall with intervening fat and adjacent preperitoneal fluid. The anterior abdominal wall is dehisced by maximally 1.4 cm in the suprapubic region. PELVIS: Genitourinary: Bladder wall thickness is normal. Miscellaneous: No inguinal hernias or adenopathy. Bones: No suspicious bony lesions. No vertebral body compression fractures. IMPRESSION: 1. There are subcutaneous and transabdominal wall fluid collection subjacent to midline incision. 2. There is preperitoneal fluid and discontinuity of the anterior abdominal wall the suspicious for fascial dehiscence. This is most extensive in the suprapubic region, location of the abscess coursing through the abdominal wall. 3. Cholelithiasis. 4. Decreased size of bilateral pleural effusions. 5. Discussed with Dr. Collins in the emergency room at 18:40 hours. Dictated by: Tammy Santiago M.D. on 12/19/2019 at 18:30 Approved by: Tammy Santiago M.D. on 12/19/2019 at 18:48 Labs Labs Result Diagrams: 12/20/19 06:25 12/20/19 06:25 Labs: Laboratory Results - last 24 hr 12/19/19 12/19/19 12/19/19 16:50 16:50 16:50 WBC 11.4 H RBC 3.34 L Hgb 9.7 L Hct 30.2 L MCV 90.6 MCH 28.9 MCHC 32.0 RDW 15.2 H Plt Count 762 H Neut % (Auto) 79.3 H Lymph % (Auto) 10.5 L [place] % (Auto) 8.7 Eos % (Auto) 0.6 L Baso % (Auto) 0.9 Neut # (Auto) 9100 H Lymph # (Auto) 1200 [place] # (Auto) 1000 H Eos # (Auto) 100 Baso # (Auto) 100 Platelet Estimate Increased on smear RBC Morphology Normal morphology Sodium 139 Potassium 2.8 L Chloride 106 Carbon Dioxide 25 BUN 10 Creatinine 0.46 L Estimated GFR > 60.0 BUN/Creatinine Ratio 21.7 Glucose 110 Lactate Calcium 8.7 Phosphorus Magnesium Total Bilirubin 0.4 AST 29 ALT 34 Alkaline Phosphatase 180 H Total Protein 6.8 Albumin 3.3 L Globulin 3.5 Albumin/Globulin Ratio 0.9 L Procalcitonin 0.05 COVID-19 PCR 12/19/19 12/19/19 12/19/19 16:50 16:50 18:53 WBC RBC Hgb Hct MCV MCH MCHC RDW Plt Count Neut % (Auto) Lymph % (Auto) [place] % (Auto) Eos % (Auto) Baso % (Auto) Neut # (Auto) Lymph # (Auto) [place] # (Auto) Eos # (Auto) Baso # (Auto) Platelet Estimate RBC Morphology Sodium Potassium Chloride Carbon Dioxide BUN Creatinine Estimated GFR BUN/Creatinine Ratio Glucose Lactate 1.0 Calcium Phosphorus Magnesium 1.9 Total Bilirubin AST ALT Alkaline Phosphatase Total Protein Albumin Globulin Albumin/Globulin Ratio Procalcitonin COVID-19 PCR Negative 12/19/19 12/20/19 12/20/19 22:02 06:25 06:25 WBC 7.4 RBC 2.98 L Hgb 9.0 L Hct 26.9 L MCV 90.4 MCH 30.3 MCHC 33.6 RDW 15.1 H Plt Count 703 H Neut % (Auto) 81.4 H Lymph % (Auto) 13.2 L [place] % (Auto) 3.9 Eos % (Auto) 0.5 L Baso % (Auto) 1.0 Neut # (Auto) 6000 Lymph # (Auto) 1000 L [place] # (Auto) 300 Eos # (Auto) 0 Baso # (Auto) 100 Platelet Estimate RBC Morphology Sodium 139 140 Potassium 3.5 3.4 Chloride 109 H 110 H Carbon Dioxide 27 24 BUN 8 12 Creatinine 0.48 L 0.45 L Estimated GFR > 60.0 > 60.0 BUN/Creatinine Ratio 16.7 26.7 H Glucose 127 H 109 Lactate Calcium 8.4 8.3 L Phosphorus Magnesium 1.9 1.9 Total Bilirubin AST ALT Alkaline Phosphatase Total Protein Albumin Globulin Albumin/Globulin Ratio Procalcitonin COVID-19 PCR 12/20/19 12/20/19 06:25 06:25 WBC RBC Hgb Hct MCV MCH MCHC RDW Plt Count Neut % (Auto) Lymph % (Auto) [place] % (Auto) Eos % (Auto) Baso % (Auto) Neut # (Auto) Lymph # (Auto) [place] # (Auto) Eos # (Auto) Baso # (Auto) Platelet Estimate RBC Morphology Sodium Potassium Chloride Carbon Dioxide BUN Creatinine Estimated GFR BUN/Creatinine Ratio Glucose Lactate Calcium Phosphorus 4.2 H Magnesium Total Bilirubin AST ALT Alkaline Phosphatase Total Protein Albumin Globulin Albumin/Globulin Ratio Procalcitonin < 0.05 COVID-19 PCR Discharge Assessment & Plan Assessment and Plan Assessment: Abdominal wall abscess Plan of Treatment: Wound was drained and debrided. Drain was placed in the abscess cavity, and the skin was closed over top of the drain. Wound care was performed using Vaseline gauze over the midline incision, 4 x 4 gauze over top of that, and around the drain site. And the patient was taught drain management. She will have follow- up appointment this coming week with Dr. Tripp or Dr. Helton. Discharge Plan Discharge Plan Patient Disposition: Home Provider Discharge Comment: You had drainage and debridement of an abdominal wound. The drain is in place to keep the wound cavity collapsed down so that it will scar down and not reaccumulate fluid into the potential space between layers of the abdominal wall. Wound care: 1) Once daily: Remove dressings, and rinse gently with simple soap and water. Pat dry. Avoid getting drain site wet. 2) Replace dressing with vaseline gauze over midline incision; and place 4x4 gauze covering the vaseline gauze and around the drain site 3) Secure the dressing with paper tape, or preferred medical tape 4) Keep the drain bulb suctioned down. Record drain output daily. Call [facility] office if you have any spreading redness of the skin around the incision, or if you have any thick or foul smelling drainage from the drain site. Discharge orders & Medications Prescriptions: Continued atorvastatin 10 mg tablet 10 mg PO BEDTIME RF: 0 acetaminophen 325 mg Tablet 650 mg PO Q4HR PRN (Reason: Fever/Mild Pain (1-3)) Qty: 60 RF: 0 gabapentin 100 mg Capsule 100 mg PO BID Qty: 60 RF: 0 lorazepam 1 mg Tablet 1 mg PO Q6HR PRN (Reason: Anxiety) Qty: 30 RF: 0 oxycodone 10 mg Tablet 10 mg PO Q3HR PRN (Reason: Pain, Moderate (4-6)) Qty: 30 RF: 0 Follow up/Referrals: Janice Linn PA-C [Primary Care Provider] - Miguel Helton MD [Physician] - Priscilla Tripp MD [Physician] - (Please see me or Dr. Helton this week at [facility]) Diet/Activity/Treatments Diet: Diet as Tolerated Skin/Wound/Dressing Care Report to your healthcare provider any signs of infection, such as:: chills, fever, night sweats, increased pain, unusual drainage and unusual redness Visit Report/Discharge Packet Stand Alone Forms: Surgery Discharge Discharge Data Primary Care Provider: Janice Linn Attending Provider: Priscilla Tripp Admit Date/Time: 12/19/19 19:51 Quality VTE Deep Vein Thrombosis/Pulmonary Embolism Present on Admission: No
--- NOTE | 2019-12-20 13:04 | PC.NURSE ---
Addendum entered by Keyana James R.N. 12/20/19 13:22: and lorrie. Original Note: Day shift note: Dressing changed to abdominal area as ordered. No abnormal drainage or bleeding noted. Supplies given to patient for daily dressing care at home. Discharge instructions given to patient and spouse, discussed importance of F/U with Dr. Helton on scheduled appt. 12/24/19. Discussed importance of daily dressing care and instructions, s/sx of infection, activity, and medications. Both verbalized understanding of instructions. Dressed self with minimal assistance. Ambulated independently to BR. Home via private vehicle with spouse.
== END 2019-12-20 13:20 | disposition home or self-care (01) ==
LOC: ED 15:24 → AC 19:52
PROVIDERS: Admitting Provider Surgery; Emergency Provider Nurse Practitioner Family; PCP Physician Assistant; Referring Provider Nurse Practitioner Family; Visit Provider Surgery
PROC: (CPT 11045; principal; 2019-12-19 21:15)
DX: T81.41XA Infection following a procedure, superficial incisional surgical site, initial encounter (principal); Z98.890 Other specified postprocedural states; Z11.59 Encounter for screening for other viral diseases
CPT/HCPCS: 11045 ×20; 11042; 36415; 74177; 80048; 80053; 83605; 83735; 84100; 84145; 85025; 87040; 87070; 87075; 87077; 87205; 87635; 93005; 96365; 96366; 96367; 96372; 96375; 99284; G0378; J1200; J1644; J2543; J2704; J2930; J3010; J3480; Q9967

== ENCOUNTER → 2020-02-26 11:30 | Outpatient (CLI) | payer OTHER, SELFPAY ==
[2019-12-19 22:05] VITALS: BMI 19.1
--- NOTE | 2020-02-26 | DI.MG.S_ITS ---
BILATERAL DIGITAL SCREENING MAMMOGRAM 3D/2D WITH CAD: 02/26/2020 CLINICAL: Routine screening. Family history of breast cancer. Comparison is made to exams dated: 02/04/2019 mammogram, 01/16/2018 mammogram, and 11/07/2016 mammogram - [facility]. The tissue of both breasts is heterogeneously dense. This may lower the sensitivity of mammography. Current study was also evaluated with a Computer Aided Detection (CAD) system. No significant masses, calcifications, or other findings are seen in either breast. There has been no significant interval change. IMPRESSION: NEGATIVE There is no mammographic evidence of malignancy. A 1 year screening mammogram is recommended. This exam was interpreted at Station ID: [id number]. NOTE: For mammograms, a report in lay terms will be sent to the patient. Approximately 15% of breast malignancies will not be visualized mammographically. In the management of a palpable breast mass, a negative mammogram must not discourage biopsy of a clinically suspicious lesion. Electronically Signed By: Parminder lam/guillermina:02/26/2020 11:46:12 letter sent: Normal Exam ACR BI-RADS Category 1: Negative 3341F
== END ==
PROVIDERS: PCP Physician Assistant; Referring Provider Physician Assistant; Visit Provider Physician Assistant
DX: Z12.31 Encounter for screening mammogram for malignant neoplasm of breast (principal)
CPT/HCPCS: 77063; 77067

== ENCOUNTER → 2020-04-16 08:32 | Outpatient (CLI) | payer OTHER, SELFPAY ==
[2019-12-19 22:05] VITALS: BMI 19.1
[2020-04-16 09:10] LABS: Add Manual Diff / Slide Review NO; Basophils Absolute Auto 0 /uL (0-100); Basophils Percent Auto 0.9 % (0-2); Eosinophils Absolute Auto 100 /uL (0-450); Hematocrit 38.7 % (36-46); Hemoglobin 12.7 g/dL (12.0-16.0); Lymphocytes Absolute Auto 1100 /uL (1100-4500); Lymphocytes Percent Auto 24.1 % (25-40); Mean Corpuscular HGB Conc 32.9 % (30-36); Mean Corpuscular Hemoglobin 30.9 PG (26-34); Mean Corpuscular Volume 94.1 fL (80-100); Monocytes Absolute Auto 400 /uL (0-900); Monocytes Percent Auto 9.9 % (3-14); Neutrophils Absolute Auto 2800 /uL (1500-7000); Neutrophils Percent Auto 63.1 % (50-75); Platelet Count 259 X10^3/uL (150-400); Red Blood Cell Count 4.11 X10^6/uL (4.0-5.2); White Blood Cell Count 4.5 X10^3/uL (4.5-11.0)
[2020-04-16 09:20] LABS: Hemoglobin A1C% w Est Avg Glu 4.3 % (4.0-6.0)
[2020-04-16 09:22] LABS: Alanine Aminotransferase 42 IU/L (<35); Albumin 4.2 g/dL (3.5-5.0); Albumin Globulin Ratio 1.7 (1.0-2.8); Alkaline Phosphatase 79 U/L (38-126); Aspartate Aminotransferase 33 IU/L (14-36); BUN Creatinine Ratio 30.7 (6-22); Bilirubin Total 0.7 mg/dL (0.2-1.3); Blood Urea Nitrogen 23 mg/dL (7-17); Calcium 9.4 mg/dL (8.4-10.2); Carbon Dioxide 24 mmol/L (22-32); Chloride 106 mmol/L (98-107); Cholesterol 139 mg/dL (140-199); Estimated Glomerular Filt Rate > 60.0 mL/min (>60); Globulin 2.5 g/dL (1.7-4.1); Glucose 80 mg/dL (80-110); HDL Cholesterol 74 mg/dL (40-60); HEMOLYSIS < 15 (0-50); LDL Cholesterol Calculated 32 mg/dL (<100); Potassium 4.1 mmol/L (3.4-5.1); Sodium 138 mmol/L (137-145); Total Protein 6.7 g/dL (6.3-8.2); Triglycerides 167 mg/dL (35-150)
[2020-04-16 09:38] LABS: HEMOLYSIS < 15 (0-50); Iron 82 ug/dL (37-170)
[2020-04-16 09:49] LABS: Percent Iron Saturation 21 % (15-50); Total Iron Binding Capacity 384 ug/dL (265-497); Transferrin 291 mg/dL (206-381)
[2020-04-16 09:56] LABS: Ferritin 11 ng/mL (11-264)
== END ==
PROVIDERS: PCP Physician Assistant; Referring Provider Physician Assistant; Visit Provider Physician Assistant
DX: E44.1 Mild protein-calorie malnutrition (principal); D64.9 Anemia, unspecified; Z90.49 Acquired absence of other specified parts of digestive tract; L65.9 Nonscarring hair loss, unspecified; E78.2 Mixed hyperlipidemia
CPT/HCPCS: 36415; 80053; 80061; 82728; 83036; 83540; 83550; 85025

== ENCOUNTER → 2020-06-08 10:24 | Outpatient (CLI) | payer OTHER, SELFPAY ==
[2019-12-19 22:05] VITALS: BMI 19.1
== END ==
PROVIDERS: PCP Physician Assistant; Referring Provider Physician Assistant; Visit Provider Physician Assistant
DX: R19.7 Diarrhea, unspecified (principal)
CPT/HCPCS: 87045; 87899

== ENCOUNTER → 2021-06-10 07:56 | Outpatient (CLI) | payer OTHER, SELFPAY ==
[2019-12-19 22:05] VITALS: BMI 19.1
--- NOTE | 2021-06-10 | DI.MG.S_ITS ---
BILATERAL DIGITAL SCREENING MAMMOGRAM 3D/2D WITH CAD: 06/10/2021 CLINICAL: Routine screening. Family history of breast cancer. Comparison is made to exams dated: 02/26/2020 mammogram, 02/04/2019 mammogram, and 01/16/2018 mammogram - [facility]. The tissue of both breasts is heterogeneously dense. This may lower the sensitivity of mammography. Current study was also evaluated with a Computer Aided Detection (CAD) system. No significant masses, calcifications, or other findings are seen in either breast. There has been no significant interval change. IMPRESSION: NEGATIVE There is no mammographic evidence of malignancy. A 1 year screening mammogram is recommended. This exam was interpreted at Station ID: [id number]. NOTE: For mammograms, a report in lay terms will be sent to the patient. Approximately 15% of breast malignancies will not be visualized mammographically. In the management of a palpable breast mass, a negative mammogram must not discourage biopsy of a clinically suspicious lesion. Electronically Signed By: Eric vasques/guillermina:06/10/2021 13:41:49 letter sent: Normal Exam ACR BI-RADS Category 1: Negative 3341F
== END ==
PROVIDERS: PCP Physician Assistant; Referring Provider Physician Assistant; Visit Provider Physician Assistant
DX: Z12.31 Encounter for screening mammogram for malignant neoplasm of breast (principal); Z80.3 Family history of malignant neoplasm of breast
CPT/HCPCS: 77063; 77067

== ENCOUNTER → 2021-07-18 12:47 | Outpatient (CLI) | payer MEDICARE, SELFPAY ==
[2019-12-19 22:05] VITALS: BMI 19.1
== END ==
PROVIDERS: PCP Physician Assistant; Referring Provider Physician Assistant; Visit Provider Physician Assistant
DX: M81.0 Age-related osteoporosis without current pathological fracture (principal); Z78.0 Asymptomatic menopausal state; Z90.710 Acquired absence of both cervix and uterus
CPT/HCPCS: 77080

== ENCOUNTER → 2022-05-09 12:05 | Outpatient (CLI) | payer MEDICARE, SELFPAY ==
[2019-12-19 22:05] VITALS: BMI 19.1
[2022-05-09 12:53] LABS: BUN Creatinine Ratio 24.2 (6-22); Blood Urea Nitrogen 16 mg/dL (7-17); Calcium 8.6 mg/dL (8.4-10.2); Carbon Dioxide 23 mmol/L (22-32); Chloride 105 mmol/L (98-107); Estimated Glomerular Filt Rate > 60 mL/min (>60); Glucose 106 mg/dL (80-110); HEMOLYSIS < 15 (0-50); Potassium 3.7 mmol/L (3.4-5.1); Sodium 136 mmol/L (137-145)
== END ==
PROVIDERS: Referring Provider Physician Assistant; Visit Provider Physician Assistant
DX: U07.1 COVID-19 (principal)
CPT/HCPCS: 36415; 80048

== ENCOUNTER → 2022-06-15 12:57 | Outpatient (CLI) | payer MEDICARE, SELFPAY ==
[2019-12-19 22:05] VITALS: BMI 19.1
--- NOTE | 2022-06-15 | DI.MG.S_ITS ---
BILATERAL DIGITAL SCREENING MAMMOGRAM 3D/2D WITH CAD: 06/15/2022 CLINICAL: Routine screening. Family history of breast cancer. Comparison is made to exams dated: 06/10/2021 mammogram, 02/26/2020 mammogram, 02/04/2019 mammogram, 01/16/2018 mammogram, and 11/07/2016 mammogram - [facility]. Both breasts are heterogeneously dense, which may obscure small masses (category c / 51-75% glandular tissue). Current study was also evaluated with a Computer Aided Detection (CAD) system. There are benign vascular calcifications in the right breast. No significant masses, calcifications, or other findings are seen in either breast. There has been no significant interval change. IMPRESSION: BENIGN There is no mammographic evidence of malignancy. A 1 year screening mammogram is recommended. Based on the Tyrer Cuzick model (a risk assessment model) the patient's lifetime risk is 9.9% and her 10 year risk is 0.0%. According to the ACR, ACS, and NCCN guidelines, an annual breast MRI exam along with mammogram is recommended if the patient's lifetime risk is 20% or greater. This exam was interpreted at Station ID: [id number]. NOTE: For mammograms, a report in lay terms will be sent to the patient. Approximately 15% of breast malignancies will not be visualized mammographically. In the management of a palpable breast mass, a negative mammogram must not discourage biopsy of a clinically suspicious lesion. Electronically Signed By: Khoa murray/guillermina:06/15/2022 15:04:30 letter sent: Normal Exam ACR BI-RADS Category 2: Benign Finding(s) 3342F
== END ==
PROVIDERS: PCP Nurse Practitioner; Referring Provider Nurse Practitioner; Visit Provider Nurse Practitioner
DX: Z12.31 Encounter for screening mammogram for malignant neoplasm of breast (principal); Z80.3 Family history of malignant neoplasm of breast
CPT/HCPCS: 77063; 77067

== ENCOUNTER → 2022-10-11 12:01 | Outpatient (CLI) | payer MEDICARE, SELFPAY ==
[2019-12-19 22:05] VITALS: BMI 19.1
[2022-10-11 14:58] LABS: Add Manual Diff / Slide Review NO; Basophils Absolute Auto 0 /uL (0-100); Basophils Percent Auto 0.8 % (0-2); Eosinophils Absolute Auto 100 /uL (0-450); Eosinophils Percent Auto 1.8 % (2-4); Hemoglobin 13.2 g/dL (12.0-16.0); Lymphocytes Absolute Auto 1500 /uL (1100-4500); Lymphocytes Percent Auto 24.7 % (25-40); Mean Corpuscular HGB Conc 33.9 % (30-36); Mean Corpuscular Hemoglobin 31.7 PG (26-34); Mean Corpuscular Volume 93.6 fL (80-100); Monocytes Absolute Auto 500 /uL (0-900); Monocytes Percent Auto 7.5 % (3-14); Neutrophils Absolute Auto 3900 /uL (1500-7000); Neutrophils Percent Auto 65.2 % (50-75); Platelet Count 264 X10^3/uL (150-400); Red Blood Cell Count 4.17 X10^6/uL (4.0-5.2)
[2022-10-11 15:34] LABS: Alanine Aminotransferase 45 IU/L (<35); Albumin 3.9 g/dL (3.5-5.0); Albumin Globulin Ratio 1.8 (1.0-2.8); Alkaline Phosphatase 43 U/L (38-126); Aspartate Aminotransferase 45 IU/L (14-36); BUN Creatinine Ratio 21.9 (6-22); Bilirubin Total 0.7 mg/dL (0.2-1.3); Blood Urea Nitrogen 16 mg/dL (7-17); Carbon Dioxide 25 mmol/L (22-32); Chloride 107 mmol/L (98-107); Estimated Glomerular Filt Rate > 60 mL/min (>60); Globulin 2.2 g/dL (1.7-4.1); Glucose 102 mg/dL (80-110); HEMOLYSIS < 15 (0-50); Potassium 3.6 mmol/L (3.4-5.1); Sodium 141 mmol/L (137-145); Total Protein 6.1 g/dL (6.3-8.2)
== END ==
PROVIDERS: PCP Nurse Practitioner; Referring Provider Physician Assistant; Visit Provider Physician Assistant
DX: J39.2 Other diseases of pharynx (principal)
CPT/HCPCS: 36415; 80053; 85025

== ENCOUNTER → 2022-10-25 10:16 | Outpatient (CLI) | payer MEDICARE, SELFPAY ==
[2019-12-19 22:05] VITALS: BMI 19.1
--- NOTE | 2022-10-25 10:17 | DI.US.S_ITS ---
PROCEDURE: US THYROID INDICATIONS: FOLLOW UP PET SCAN NODULES THYROID AND SUBMANDIBULAR GLAND TECHNIQUE: Real-time scanning was performed of the thyroid gland, with image documentation. COMPARISON: [facility], CT, CT SOFT TISSUE NECK W CON, 10/25/2022, 11:17. [facility], [place], [place] CT FUSION SKULL 2 THIGH, 10/11/2022, 9:26. FINDINGS: Right: Thyroid lobe measures 4.7 x 1.7 x 1.3 cm, and is heterogeneous in echotexture. Left: Thyroid lobe measures 4.7 x 1.4 x 1.5 cm, and is heterogeneous in echotexture. Isthmus: 4 mm thick. Nodule number: 1 Location: Right lobe superior/mid Size: 2.3 x 1.5 x 1.0 cm. Composition: Solid Echogenicity: Hypoechoic Shape: wider than tall. Margins: Smooth Echogenic foci: None Total points: 4 ACR TI-RADS category: 4 Nodule number: 2 Location: Right lobe inferior Size: 1.1 x 0.8 x 0.8 cm. Composition: Solid Echogenicity: Hypoechoic Shape: wider than tall. Margins: Smooth Echogenic foci: None Total points: 4 ACR TI-RADS category: 4 Nodule number: 3 Location: Left lobe posterior/mid Size: 1.1 x 0.7 x 0.7 cm. Composition: Cystic and solid Echogenicity: Isoechoic Shape: wider than tall. Margins: Smooth Echogenic foci: Large comet tail Total points: 2 ACR TI-RADS category: 2 Nodule number: 4 Location: Left lobe anterior/mid Size: 1.0 x 0.9 x 0.4 cm. Composition: Solid Echogenicity: Hypoechoic Shape: wider than tall. Margins: Smooth Echogenic foci: Macrocalcification Total points: 5 ACR TI-RADS category: 4 Nodule number: 5 Location: Left lobe superior Size: 0.9 x 0.6 x 0.4 cm. Composition: Solid Echogenicity: Hypoechoic Shape: wider than tall. Margins: Smooth Echogenic foci: Punctate Total points: 7 ACR TI-RADS category: 5 Sonographic evaluation also performed of the right submandibular gland, demonstrating a 1.8 x 1.0 by 1.4 centimeter hypoechoic solid mass corresponding to the finding from prior CT/PET-CT. IMPRESSION: 1. Multiple thyroid nodules present as above. Nodule #1 meets TI-RADS criteria for FNA recommendation. Other nodules do not meet criteria for FNA recommendation and follow-up is recommended as below. 2. Right submandibular gland mass as seen on prior imaging. ACR TI-RADS definitions and recommendations: TI-RADS 1 (benign): 0 points. FNA not needed. TI-RADS 2 (not suspicious): 2 points. FNA not needed. TI-RADS 3 (mildly suspicious): 3 points. * FNA if 2.5 cm or larger, follow up if 1.5 cm or larger (at 1, 3, and 5 years). TI-RADS 4 (moderately suspicious): 4-6 points. * FNA if 1.5 cm or larger, follow up if 1 cm or larger (at 1, 2, 3, and 5 years). TI-RADS 5 (highly suspicious): 7 points or more. * FNA if 1 cm or larger, follow up if 0.5 cm or larger (every year for 5 years). Dictated by: Parminder Gutierrez M.D. on 10/25/2022 at 13:41 Approved by: Parminder Gutierrez M.D. on 10/25/2022 at 13:59
--- NOTE | 2022-10-25 10:17 | DI.CT.S_ITS ---
PROCEDURE: CT SOFT TISSUE NECK W CON INDICATIONS: mandibular mass suspicious for malignancy on pet scan TECHNIQUE: After the administration of intravenous contrast, 3.0 mm axial sections acquired from the sella to the aortic arch. 3 mm thick coronal and sagittal reformats were generated. For radiation dose reduction, the following was used: automated exposure control. COMPARISON: [place], [place], [place] CT FUSION SKULL 2 THIGH, 10/11/2022, 9:26. FINDINGS: Skull Base: The visualized intracranial contents, skull, and orbits are unremarkable. Visualized paranasal sinuses are clear. Pharynx and Larynx: The nasopharyngeal airway is patent and midline. Parapharyngeal soft tissues including palatine tonsils and base of the tongue are normal. Retropharyngeal space unremarkable. Normal appearance of the false and true vocal cords. Muscles and Fascial Planes: Fascial planes are well maintained. No abscess or mass lesion. Lymph Nodes: No evidence of adenopathy. Vasculature: Unremarkable. Submandibular and Parotid Glands: Within the right submandibular gland, there is a solid hypodense enhancing mass lesion measuring 1.6 x 1.3 by 1.3 cm. The left submandibular, both parotid glands are otherwise unremarkable. Thyroid: Hypodense right thyroid nodule measures 1.1 x 1.3 cm Bones: No acute fracture. No osteolytic or blastic lesion is evident. Normal bone mineralization. Lung Apices: The visualized lung apices are clear. IMPRESSION: 1. Right submandibular solid enhancing nodule. Both primary and secondary malignancies considered. Ultrasound-guided percutaneous biopsy advised. Approved by: Rg Posey M.D. on 10/25/2022 at 12:01
== END ==
PROVIDERS: PCP Nurse Practitioner; Referring Provider Physician Assistant; Visit Provider Physician Assistant
DX: E04.2 Nontoxic multinodular goiter (principal); K11.9 Disease of salivary gland, unspecified; R22.0 Localized swelling, mass and lump, head
CPT/HCPCS: 70491; 76536; Q9967

== ENCOUNTER → 2022-11-01 | Outpatient (CLI) | payer MEDICARE, SELFPAY ==
[2019-12-19 22:05] VITALS: BMI 19.1
--- NOTE | 2022-11-01 | PATH_ITS ---
[facility] Accession Number: [id number] No. of containers..01 Tissue . 01 Material submitted: . submandibular gland - RIGHT SUBMANDIBULAR GLAND MASS . 01 Diagnosis: A. 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 . 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 There are areas of stromal hyalinization and stromal cell atypia that are not diagnostic of malignancy. Final classification awaits excision. Clinical and radiographic correlation is necessary. . The preliminary findings are discussed with VALENTINA Linda on 11/08/22 at 9:30 am. MRV 11/08/2022 0938 Local . 01 Electronically signed: . Gypsy Rodriguez MD, Pathologist NPI- [id number] . 01 Gross description: . The specimen is received in formalin labeled with the patient's name, , and right submandibular gland mass, consists of multiple small mojica soft tissue fragments aggregating to 0.5 x 0.4 x 0.1 cm. Filtered and submitted entirely in cassette A1. ([id number]) /MRV 11/02/2022 1244 Local . 01 Microscopic: . Deeper H/E levels examined. . 01 Pathologist provided ICD-10: K11.8 . 01 CPT . 561959 Performed at: 01 [facility] [address] [place] [address] [address], [place], [place] [id number] MD Yasir Ford MD Phone: [phone]
--- NOTE | 2022-11-01 15:10 | DI.US.S_ITS ---
PROCEDURE: US GUIDE FOR BIOPSY INDICATIONS: RIGHT SUBMANDIBULAR GLAND LESION TECHNIQUE: Real-time scanning was performed of the right submandibular gland lesion. COMPARISON: [facility], CT, CT SOFT TISSUE NECK W CON, 10/25/2022, 11:17. [facility], [place], US THYROID, 10/25/2022, 10:41. [facility], [place], [place] PET CT FUSION SKULL 2 THIGH, 10/11/2022, 9:26. FINDINGS: Hypoechoic right submandibular lesion measuring 1.8 cm. 7 cores obtained with a 20 gauge Temno needle. Trocar technique was utilized. The lesion is just deep to the skin. Small amount of bleeding at the skin. The exam was overall well tolerated. IMPRESSION: Successful right submandibular gland lesion core needle biopsy. Pathology pending. Dictated by: Khoa Francois M.D. on 11/01/2022 at 17:05 Approved by: Khoa Francois M.D. on 11/01/2022 at 17:09
== END ==
PROVIDERS: PCP Nurse Practitioner; Referring Provider Physician Assistant; Visit Provider Physician Assistant
DX: R22.0 Localized swelling, mass and lump, head (principal)
CPT/HCPCS: 42400; 20206; 76942

== ENCOUNTER → 2022-11-06 08:14 | Outpatient (CLI) | payer MEDICARE, SELFPAY ==
[2019-12-19 22:05] VITALS: BMI 19.1
--- NOTE | 2022-11-06 | PATH_ITS ---
Note [facility] Accession Number: [id number] TESTS RESULT FLAG UNITS REF RANGE LAB Clinician Provided Cytology Information No. of containers..01 ThinPrep Vial No. of containers..06 Previously Prepared Cytology Slide Source: RIGHT SUPERIOR THYRO DIAGNOSIS: RIGHT SUPERIOR THYRO NEGATIVE FOR MALIGNANT CELLS; BORDERLINE ADEQUACY. BETHESDA CATEGORY II. SPECIMEN CONSISTS OF SCANT BENIGN FOLLICULAR CELLS, SCANT HEMOSIDERIN-LADEN MACROPHAGES, PATCHY DENSE COLLOID, AND BLOOD. THIS PATTERN IS MOST CONSISTENT WITH A COLLOID NODULE. Pathologist ICD10: E04.1 Signed out by: Lydia Robertson MD, Pathologist NPI- [id number] Performed by: Davian Weldon, Tubing Tester ([facility]) Gross description: 30 CC, RED, CLOUDY RECEIVED IN CYTOLYT WHITE CAP CONTAINER RECEIVED 8 STAINED SLIDES RECEIVED 8 FIXED SLIDES RECEIVED 1 RNA VIAL. JUANCHO /FRANSICO 11/07/2022 1057 Local FLAG LEGEND: L-Low Normal,H-High Normal,LL-Alert Low,HH-Alert High <-Panic Low,>-Panic High,A-Abnormal,AA-Critical Abnormal Performed at: 01 [facility] [address], [place] [address] Yasir Ford MD, Specimen Comment: A courtesy copy of this report has been sent to [facility] Specimen Comment: Clinic Performed at: 01 [facility] [address], [place], [place] [id number] MD Yasir Ford MD Phone: [phone]
--- NOTE | 2022-11-06 08:15 | DI.US.S_ITS ---
PROCEDURE: US FINE NEEDLE ASPIRATION INDICATIONS: f/u on US nodule, r/o malignancy TECHNIQUE: The indications, alternatives, benefits, risks, and complications of the procedure were explained to the patient. Written informed consent was obtained and placed in the chart. Real-time sonography was utilized to choose the site for percutaneous lymph node sampling. The skin was prepped and draped in the usual sterile fashion. 1% lidocaine was infiltrated down to the site of interest. Serial hypodermic needles were then advanced into the site of interest under direct sonographic visualization, and serial needle aspirates were obtained. The needles were then withdrawn; a bandage was applied to the procedure site. COMPARISON: None. FINDINGS: Sample site(s): Right upper pole nodule which measured 2.5 x 1.5 x 1.0 cm on prior ultrasound. Needle: 5 passes with a 25 gauge needle and 3 passes with the 22 gauge needle. Number of passes: 8. Medications: 1% lidocaine for local anaesthesia. Complications: None. IMPRESSION: Successful ultrasound-guided right upper pole thyroid fine needle aspiration, with cytology results pending. Dictated by: Zuhair Hussein M.D. on 11/06/2022 at 9:27 Approved by: Zuhair Hussein M.D. on 11/06/2022 at 9:29
== END ==
PROVIDERS: PCP Nurse Practitioner; Referring Provider Physician Assistant; Visit Provider Physician Assistant
DX: E04.1 Nontoxic single thyroid nodule (principal)
CPT/HCPCS: 10005

== ENCOUNTER → 2023-02-19 09:56 | Outpatient (CLI) | payer MEDICARE, SELFPAY ==
[2019-12-19 22:05] VITALS: BMI 19.1
[2023-02-19 11:02] LABS: Alanine Aminotransferase 25 IU/L (<35); Albumin Globulin Ratio 1.7 (1.0-2.8); Alkaline Phosphatase 40 U/L (38-126); Aspartate Aminotransferase 24 IU/L (14-36); BUN Creatinine Ratio 29.7 (6-22); Bilirubin Total 0.8 mg/dL (0.2-1.3); Blood Urea Nitrogen 22 mg/dL (7-17); Calcium 9.3 mg/dL (8.4-10.2); Carbon Dioxide 19 mmol/L (22-32); Chloride 108 mmol/L (98-107); Cholesterol 149 mg/dL (140-199); Estimated Glomerular Filt Rate > 60 mL/min (>60); Globulin 2.3 g/dL (1.7-4.1); Glucose 105 mg/dL (80-110); HDL Cholesterol 87 mg/dL (40-60); HEMOLYSIS < 15 (0-50); LDL Cholesterol Calculated 23 mg/dL (<100); Potassium 3.7 mmol/L (3.4-5.1); Sodium 137 mmol/L (137-145); Total Protein 6.3 g/dL (6.3-8.2); Triglycerides 193 mg/dL (35-150)
[2023-02-19 11:20] LABS: Free T4, Direct Thyroxine 1.03 ng/dL (0.78-2.19)
[2023-02-19 11:34] LABS: Thyroid Stimulating Hormone 3.35 uIU/mL (0.47-4.68)
[2023-02-19 17:43] LABS: Hep C Virus Ab w/Reflex Quant NEGATIVE s/c (NEGATIVE)
== END ==
LOC: LAB 09:56
PROVIDERS: PCP Nurse Practitioner; Referring Provider Nurse Practitioner; Visit Provider Nurse Practitioner
DX: E78.00 Pure hypercholesterolemia, unspecified (principal); M81.0 Age-related osteoporosis without current pathological fracture; E87.6 Hypokalemia; Z79.899 Other long term (current) drug therapy; Z11.59 Encounter for screening for other viral diseases
CPT/HCPCS: 36415; 80053; 80061; 84439; 84443; 84481; 86803

== ENCOUNTER → 2023-03-08 10:44 | Outpatient (CLI) | payer OTHER, SELFPAY ==
[2019-12-19 22:05] VITALS: BMI 19.1
[2023-03-08 12:21] LABS: Creatinine Urine Random 58.8 mg/dL
[2023-03-08 12:27] LABS: Microalbumin Urine Random < 0.6 mg/dL (0-1.6)
== END ==
PROVIDERS: PCP Nurse Practitioner; Referring Provider Nurse Practitioner; Visit Provider Nurse Practitioner
DX: N05.9 Unspecified nephritic syndrome with unspecified morphologic changes (principal)
CPT/HCPCS: 82043; 82570

== ENCOUNTER → 2023-06-20 14:37 | Outpatient (CLI) | payer MEDICARE, SELFPAY ==
[2019-12-19 22:05] VITALS: BMI 19.1
--- NOTE | 2023-06-20 14:39 | DI.MG.S_ITS ---
BILATERAL DIGITAL SCREENING MAMMOGRAM 3D/2D WITH CAD: 06/20/2023 CLINICAL: Routine screening. Family history of breast cancer. Comparison is made to exams dated: 06/15/2022 mammogram, 06/10/2021 mammogram, and 02/26/2020 mammogram - [facility]. Both breasts are heterogeneously dense, which may obscure small masses (category c / 51-75% glandular tissue). Current study was also evaluated with a Computer Aided Detection (CAD) system. There are benign vascular calcifications in the right breast. No significant masses, calcifications, or other findings are seen in either breast. There has been no significant interval change. IMPRESSION: BENIGN There is no mammographic evidence of malignancy. A 1 year screening mammogram is recommended. Based on the Tyrer Cuzick model (a risk assessment model) the patient's lifetime risk is 8.6% and her 10 year risk is 0.0%. According to the ACR, ACS, and NCCN guidelines, an annual breast MRI exam along with mammogram is recommended if the patient's lifetime risk is 20% or greater. This exam was interpreted at Station ID: [id number]. NOTE: For mammograms, a report in lay terms will be sent to the patient. Approximately 15% of breast malignancies will not be visualized mammographically. In the management of a palpable breast mass, a negative mammogram must not discourage biopsy of a clinically suspicious lesion. Electronically Signed By: Eric vasques/[email or web address]:06/21/2023 07:22:16 letter sent: Normal Exam ACR BI-RADS Category 2: Benign Finding(s) 3342F
--- NOTE | 2023-06-20 14:39 | DI.RAD.S_ITS ---
PROCEDURE: XR DEXA AXIAL SKELETON INDICATIONS: ROUTINE SCREENING / POST MENOPAUSE OSTEOPOROSIS COMPARISON: [facility], , XR DEXA AXIAL SKELETON, 07/18/2021, 13:06. FINDINGS: Lumbar Spine: Bone mineral density 0.773 g/cm2, T score -2.2, osteopenia. Left Hip: Bone mineral density 0.706 g/cm2, T score -1.9, osteopenia. Left Femoral Neck: Bone mineral density 0.585 g/cm2, T score -2.4, osteopenia. Right Hip: Bone mineral density 0.687 g/cm2, T score -2.1, osteopenia. Right Femoral Neck: Bone mineral density is 0.612 g/cm2, T score -2.1, osteopenia. Fracture Risk Calculation (when applicable): 10-year fracture risk of a major osteoporotic fracture 18-20 % and of a hip fracture 4.9 %. (T score greater or equal to -1.0 to: NORMAL) (T score from -1.1 to -2.4: OSTEOPENIA) (T score less than or equal to -2.5: OSTEOPOROSIS) IMPRESSION: 1. Based on WHO criteria, the patient has osteopenia. 2. Because of difference in scan types and analysis methods, statistical significance of change in bone density values between the current exam in the last exam cannot be performed. Follow-up guidelines as follows: Osteoporosis: Consider a repeat DEXA and Vertebral Fracture Assessment (VFA) exam in 2 years or sooner if medically necessary, to reassess this patient's status. Osteopenia: Consider a repeat DEXA in 2-3 years to reassess this patient's status, or if there is a new clinical indication. Normal: Consider a repeat DEXA in 5 years or sooner, or if there is a new clinical indication. Dictated by: Elise Raygoza M.D. on 06/20/2023 at 16:54 Approved by: Elise Raygoza M.D. on 06/20/2023 at 16:57
== END ==
PROVIDERS: PCP Nurse Practitioner; Referring Provider Nurse Practitioner; Visit Provider Nurse Practitioner
DX: R92.333 Mammographic heterogeneous density, bilateral breasts (principal); Z12.31 Encounter for screening mammogram for malignant neoplasm of breast; Z80.3 Family history of malignant neoplasm of breast; M81.0 Age-related osteoporosis without current pathological fracture
CPT/HCPCS: 77063; 77067; 77080

== ENCOUNTER → 2023-12-03 08:31 | Outpatient (CLI) | payer MEDICARE, SELFPAY ==
[2019-12-19 22:05] VITALS: BMI 19.1
[2023-12-03 10:48] LABS: Alanine Aminotransferase 23 IU/L (<35); Albumin 4.2 g/dL (3.5-5.0); Albumin Globulin Ratio 1.8 (1.0-2.8); Alkaline Phosphatase 56 U/L (38-126); Aspartate Aminotransferase 23 IU/L (14-36); BUN Creatinine Ratio 20.7 (6-22); Blood Urea Nitrogen 17 mg/dL (7-17); Calcium 9.4 mg/dL (8.4-10.2); Carbon Dioxide 20 mmol/L (22-32); Chloride 109 mmol/L (98-107); Cholesterol 155 mg/dL (140-199); Estimated Glomerular Filt Rate > 60 mL/min (>60); Globulin 2.3 g/dL (1.7-4.1); Glucose 86 mg/dL (80-110); HDL Cholesterol 98 mg/dL (40-60); HEMOLYSIS < 15 (0-50); LDL Cholesterol Calculated 37 mg/dL (<100); Potassium 3.7 mmol/L (3.4-5.1); Sodium 137 mmol/L (137-145); Total Protein 6.5 g/dL (6.3-8.2); Triglycerides 100 mg/dL (35-150)
== END ==
LOC: LAB 08:32
PROVIDERS: PCP Internal Medicine; Referring Provider Internal Medicine; Visit Provider Internal Medicine
DX: E78.2 Mixed hyperlipidemia (principal); M85.80 Other specified disorders of bone density and structure, unspecified site; E04.1 Nontoxic single thyroid nodule; Z83.79 Family history of other diseases of the digestive system
CPT/HCPCS: 36415; 80053; 80061

== ENCOUNTER → 2023-12-07 17:12 | Outpatient (CLI) | payer MEDICARE, SELFPAY ==
[2019-12-19 22:05] VITALS: BMI 19.1
[2023-12-10 13:36] LABS: Fecal Immunochemical Test Negative (Negative)
== END ==
PROVIDERS: PCP Internal Medicine; Referring Provider Internal Medicine; Visit Provider Internal Medicine
DX: Z12.11 Encounter for screening for malignant neoplasm of colon (principal); Z80.0 Family history of malignant neoplasm of digestive organs
CPT/HCPCS: 82274

== ENCOUNTER → 2024-02-07 08:20 | Outpatient (CLI) | payer MEDICARE, SELFPAY ==
[2019-12-19 22:05] VITALS: BMI 19.1
== END ==
PROVIDERS: PCP Internal Medicine; Visit Provider Nurse Practitioner Family
DX: M54.50 Low back pain, unspecified (principal)
CPT/HCPCS: 87086

== ENCOUNTER → 2024-02-07 08:43 | Outpatient (CLI) | payer MEDICARE, SELFPAY ==
[2019-12-19 22:05] VITALS: BMI 19.1
--- NOTE | 2024-02-07 08:44 | DI.RAD.S_ITS ---
PROCEDURE: XR KUB INDICATIONS: Hematuria TECHNIQUE: One view of the abdomen acquired. COMPARISON: [facility], CR, XR KUB, 11/30/2019, 6:43. FINDINGS: Surgical changes and devices: None. Bowel: Bowel gas pattern is normal. Soft tissues: Multiple small adjacent calcifications within the mid abdomen to the right of midline.. Visualized solid organ contours appear normal in size. Bones: No suspicious bony lesions. IMPRESSION: Multiple small adjacent calcifications in the mid abdomen to the right of midline. These are of uncertain etiology and may be renal. Recommend CT for further evaluation. Dictated by: Miguel Mcclain M.D. on 02/07/2024 at 11:04 Approved by: Miguel Mcclain M.D. on 02/07/2024 at 11:07
== END ==
PROVIDERS: PCP Internal Medicine; Referring Provider Nurse Practitioner Family; Visit Provider Nurse Practitioner Family
DX: R31.9 Hematuria, unspecified (principal); M54.50 Low back pain, unspecified
CPT/HCPCS: 74018; 87086

== ENCOUNTER → 2024-04-09 10:47 | Outpatient (CLI) | payer MEDICARE, SELFPAY ==
[2019-12-19 22:05] VITALS: BMI 19.1
--- NOTE | 2024-04-09 10:49 | DI.RAD.S_ITS ---
PROCEDURE: XR HAND LT MIN 3V INDICATIONS: crush injury top of hand 3 weeks ago, swelling/redness TECHNIQUE: 3 views of the hand(s) acquired. COMPARISON: None. FINDINGS: Bones: No fractures or dislocations. Carpal bones are normally aligned. No suspicious bony lesions. Polyarticular osteoarthritic degenerative changes noted. Soft tissues: No suspicious soft tissue calcifications. IMPRESSION: No acute bony abnormality. Dictated by: Kayla Curtis MD, PhD on 04/09/2024 at 13:12 Approved by: Kayla Curtis MD, PhD on 04/09/2024 at 13:13
== END ==
PROVIDERS: PCP Internal Medicine; Referring Provider Physician Assistant; Visit Provider Physician Assistant
DX: S67.22XA Crushing injury of left hand, initial encounter (principal); X58.XXXA Exposure to other specified factors, initial encounter
CPT/HCPCS: 73130

== ENCOUNTER → 2024-06-25 15:02 | Outpatient (CLI) | payer MEDICARE, SELFPAY ==
[2019-12-19 22:05] VITALS: BMI 19.1
--- NOTE | 2024-06-25 15:03 | DI.MG.S_ITS ---
MM screening mammo BI: 06/25/2024. BI-RADS: 1 CLINICAL: 79-year old female for bilateral screening mammogram. Tyrer-Cuzick lifetime risk of 4.9%. Current reported family history of breast cancer: maternal grandmother and sister. PRIOR EXAMS 06/20/2023, 06/15/2022, 06/10/2021, 02/26/2020, 02/04/2019, 01/16/2018, 11/07/2016, 11/04/2015, 11/02/2014. MAMMOGRAPHY TECHNIQUE: 2D and 3D (tomosynthesis) digital mammographic views obtained, with additional images as needed for full coverage. Current study was also evaluated with a Computer Aided Detection (CAD) system. DENSITY C. The breasts are heterogeneously dense, which may obscure small masses. MAMMOGRAPHY FINDINGS Bilateral: No suspicious mass, asymmetry, microcalcification, or other abnormality seen. IMPRESSION: * No evidence of malignancy. RECOMMENDATIONS Bilateral * Annual screening mammography. OVERALL ASSESSMENT CATEGORY BI-RADS-1: Negative. The [employer] recommends annual screening mammography beginning at age 40 for women with average risk of breast cancer. ELECTRONICALLY SIGNED: Cora Hoffmann M.D. on 06/26/2024 at 07:06:01 AM PT Interpreting Station ID: [id number]
== END ==
PROVIDERS: PCP Internal Medicine; Referring Provider Internal Medicine; Visit Provider Internal Medicine
DX: Z12.31 Encounter for screening mammogram for malignant neoplasm of breast (principal); R92.333 Mammographic heterogeneous density, bilateral breasts; Z80.3 Family history of malignant neoplasm of breast
CPT/HCPCS: 77063; 77067